=== PATIENT | female | born 1985 ===

== ENCOUNTER 2017-03-16 16:02 | Emergency (ER) | payer OTHER ==
[2017-03-16 16:02] VITALS: BMI 24.7
[2017-03-16 16:18] VITALS: BP 137/82; PULSE 89; RESP 18; TEMP 98.8; O2SAT 100
[2017-03-16] MEDS ORDERED: DiphenhydrAMINE 50 mg/ml Inj IV STA (16:45)
[2017-03-16] MEDS ORDERED: Magnesium Sulfate 2 gm/50 ml 2 GM/50 ML BAG IVPB ONE (16:46)
[2017-03-16] MEDS ORDERED: Valproate 500 MG in Sodium Chloride 0.9% 100 ML IVPB ONE (16:46)
[2017-03-16] MEDS ORDERED: Sodium Chloride 0.9% 1,000 ML IV STA (16:47)
--- NOTE | 2017-03-16 16:56 | ED PDOC ---
HPI: Headache History Per: Patient History/Exam Limitations: no limitations Onset/Duration Of Symptoms: Days (3) Current Symptoms Are (Timing): Still Present Severity: Moderate Pain Scale Rating Of: 4 Quality: Dull Preceeding Symptoms: Known Migraine Symptoms Associated Symptoms: Nausea, Vomiting Additional History Per: Patient Additional Complaint(s): Pt co headaches for 3-4 days. Headaches are cyclical and are constant. They are typical for her migraine. She took depakote at home. Pt has hx of migrain with multiple visits to this ER for the same. She reports it is the same headache. she sees Dr Nevarez for migrains but in the process of finding new neurologist. She denies any fever, weakness. She has associated abdominal pain typical for her abdominal migraine. - Risk Factors SAH Risk Factors: Neg: Worst Headache Of Life <Nadya Mascorro A - Last Filed: 03/16/17 16:58> <Miriam Lorenz Y - Last Filed: 03/16/17 17:04> Time Seen by Provider: 03/16/17 16:41 Chief Complaint (Nursing): Abdominal Pain Past Medical History Reviewed: Historical Data, Nursing Documentation, Vital Signs Vital Signs: Last Vital Signs Temp 98.8 F 03/16/17 16:14 Pulse 89 03/16/17 16:14 Resp 18 03/16/17 16:14 BP 137/82 03/16/17 16:14 Pulse Ox 100 03/16/17 16:14 - Medical History PMH: Anemia, Asthma, Bipolar Disorder, Crohn's Disease, Depression, Gastrointestinal Ulcer (peptic & gastric), Migraine (abdominal), Chronic Pain ( Abdominal) Denies: Chronic Kidney Disease - Surgical History Surgical History: Endoscopy - Family History Family History: States: Diabetes - Immunization History Hx Tetanus Toxoid Vaccination: Yes Hx Influenza Vaccination: Yes Hx Pneumococcal Vaccination: Yes <Nadya Mascorro A - Last Filed: 03/16/17 16:58> Vital Signs: Last Vital Signs Temp 98.8 F 03/16/17 16:14 Pulse 89 03/16/17 16:14 Resp 18 03/16/17 16:14 BP 137/82 03/16/17 16:14 Pulse Ox 100 03/16/17 16:59 <Miriam Lorenz Y - Last Filed: 03/16/17 17:04> - Home Medications Home Medications: Ambulatory Orders Medication Instructions Recorded Adalimumab [Humira] 40 mg SC QWK #0 syringekit 07/15/16 Alprazolam [Xanax] 0.5 mg PO TID PRN #0 tablet 07/15/16 Ondansetron [Zofran Odt] 4 mg PO Q6 PRN #0 tab.rapdis 07/15/16 ARIPiprazole [Abilify] 30 mg PO HS #0 tab 08/10/16 OXcarbazepine [Trileptal] 600 mg PO HS #0 tab 08/10/16 Topiramate [Topamax] 75 mg PO HS #0 tab 08/10/16 buPROPion XL [Wellbutrin XL] 1 tab PO DAILY 10/26/16 traMADol [Ultram] 1 tab PO Q6H 10/26/16 Hydrocodone/Acetaminophen [[place] 1 tab PO PRN PRN 11/23/16 5-325 Tablet] Ondansetron ODT [Zofran ODT] 4 mg PO Q8 #6 odt 11/23/16 Nitrofurantoin Macrocrystals 100 mg PO BID #13 cap 12/03/16 [Macrobid] traMADol [Ultram] 50 mg PO QID PRN #10 tab 12/26/16 - Allergies Allergies/Adverse Reactions: Allergies Allergy/AdvReac Type Severity Reaction Status Date / Time acetaminophen [From Percocet] Allergy SWELLING Verified 11/23/16 16:42 Gadolinium-Containing Allergy URTICARIA Verified 11/23/16 16:42 Contrast Medi Iodine and Iodide Containing Allergy RASH Verified 11/23/16 16:42 Produc Latex, Natural Rubber Allergy RASH Verified 11/23/16 16:42 morphine Allergy RASH Verified 11/23/16 16:42 oxycodone HCl [From Percocet] Allergy SWELLING Verified 11/23/16 16:42 shellfish derived Allergy RASH Verified 11/23/16 16:42 shrimp Allergy RASH Verified 11/23/16 16:42 doxycycline AdvReac extreme Verified 11/23/16 16:42 abdominal pain, cramps metronidazole [From Flagyl] AdvReac abdominal Verified 11/23/16 16:42 pain, cramps CONTRAST Allergy URTICARIA Uncoded 11/23/16 16:42 LATEX Allergy RASH Uncoded 11/23/16 16:42 SHRIMPS Allergy RASH Uncoded 11/23/16 16:42 Review of Systems ROS Statement: Except As Marked, All Systems Reviewed And Found Negative <Nadya Mascorro A - Last Filed: 03/16/17 16:58> Physical Exam - Reviewed Nursing Documentation Reviewed: Yes Vital Signs Reviewed: Yes - Physical Exam Appears: Positive for: Non-toxic, No Acute Distress, Uncomfortable Head Exam: Positive for: ATRAUMATIC Skin: Positive for: Warm, Dry Eye Exam: Positive for: EOMI Neck: Positive for: Painless ROM, Supple Cardiovascular/Chest: Positive for: Regular Rate, Rhythm. Negative for: Tachycardia Respiratory: Positive for: Normal Breath Sounds. Negative for: Wheezing, Respiratory Distress Gastrointestinal/Abdominal: Positive for: Soft. Negative for: Tenderness Extremity: Positive for: Normal ROM Neurologic/Psych: Positive for: Alert, Oriented <Nadya Mascorro - Last Filed: 03/16/17 16:58> - ECG O2 Sat by Pulse Oximetry: 100 <Nadya Mascorro - Last Filed: 03/16/17 16:58> Medical Decision Making Medical Decision Making: impression Headaches with abdominal pain Diff include abdominal migraines, less likely Crohns dx Plan Labs IVF Benadryl 50 mg IV Zofran 8 mg IV Valproic acid 500 mg IV Magnesium 2 g IV reassess <Nadya Mascorro - Last Filed: 03/16/17 16:58> Disposition - Patient ED Disposition Is Patient to be Admitted: Transfer of Care - Disposition Disposition: Transfer of Care Disposition Time: 17:00 Patient Signed Over To: Miriam Lorenz Handoff Comments: pendiong medicaiont and reeval. <Nadya Mascorro A - Last Filed: 03/16/17 16:58> <Miriam Lorenz - Last Filed: 03/16/17 17:04> - Clinical Impression Clinical Impression: Migraines - Disposition Condition: FAIR
--- NOTE | 2017-03-16 17:09 | ED PDOC ---
- Laboratory Results Result Diagrams: 03/16/17 17:32 03/16/17 17:32 - ECG O2 Sat by Pulse Oximetry: 100 (RA) Pulse Ox Interpretation: Normal Medical Decision Making Medical Decision Making: Patient signed out to provider from Dr. Mascorro at 1700 pending reevaluation after medication. 1730 Patient's potassium is low 2.8.Potassium ordered. EKG performed, normal sinus rhythm at 81 bpm. 1745 Patient feels better and will be discharged home with instructions and was instructed to have a high potassium diet at home. Patient has an appointment with GI doctor. Scribe Attestation Documented by Valeria Brandon acting as a scribe for Miriam Lorenz MD. Provider Attestation: All medical record entries made by the Scribe were at my direction and personally dictated by me. I have reviewed the chart and agree that the record accurately reflects my personal performance of the history, physical exam, medical decision making, and the department course for this patient. I have also personally directed, reviewed, and agree with the discharge instructions and disposition. Disposition Counseled Patient/Family Regarding: Studies Performed, Diagnosis, Need For Followup - Clinical Impression Clinical Impression: Migraines, Hypokalemia - POA Present On Arrival: None - Disposition Disposition: Routine/Home Disposition Time: 17:40 Condition: IMPROVED Additional Instructions: follow up with your GI doctor in 1-2 days eat high potassium food return to the ED with any worsening or concerning symptoms. Instructions: Hypokalemia (ED), Abdominal Pain (ED)
[2017-03-16 17:40] LABS: HEMATOCRIT 28.7 % (34.0-47.0); MEAN CELL VOLUME 79.6 fl (81.0-99.0); MEAN CORPUSCULAR HEMOGLOBIN 24.9 pg (27.0-31.0); MEAN CORPUSCULAR HGB CONC 31.2 g/dL (33.0-37.0); RED CELL DISTRIBUTION WIDTH 14.8 % (11.5-14.5); WHITE BLOOD COUNT 13.4 K/uL (4.8-10.8)
[2017-03-16 17:41] LABS: BASO # 0.1 K/uL (0.0-0.2); BASO % 1.1 % (0.0-2.0); EOS # 0.1 K/uL (0.0-0.7); EOS % 0.6 % (0.0-4.0); LYMPH # 2.5 K/uL (1.0-4.3); LYMPH % 18.4 % (20.0-40.0); MEAN PLATELET VOLUME 7.2 fl (7.2-11.7); MONO # 0.9 K/uL (0.0-0.8); MONO % 6.6 % (0.0-10.0); NEUT # 9.8 K/uL (1.8-7.0); NEUT % 73.3 % (50.0-75.0)
[2017-03-16 17:55] LABS: ALB/GLOB RATIO 1.4 (1.0-2.1); ALKALINE PHOSPHATASE 112 U/L (38-126); ALT/SGPT 41 U/L (9-52); AST/SGOT 43 U/L (14-36); BILIRUBIN,TOTAL < 0.1 mg/dl (0.2-1.3); BLOOD UREA NITROGEN 13 mg/dl (7-17); CALCIUM 9.2 mg/dL (8.4-10.2); CARBON DIOXIDE 27 mmol/L (22-30); CHLORIDE 98 mmol/L (98-107); GFR AFRICAN-AMERICAN > 60; GLUCOSE,RANDOM 93 mg/dL (65-105); POTASSIUM 2.8 MMOL/L (3.6-5.0); SODIUM 139 mmol/l (132-148); TOTAL PROTEIN 7.4 G/DL (6.3-8.2)
[2017-03-16] MEDS ORDERED: Potassium Chloride 20 mEq ER Tab PO ONE ×2 (18:04→18:18)
--- NOTE | 2017-03-17 15:38 | CARD ---
APPROVED REPORT EKG Measurement Heart [id number] <Conclusion> Normal sinus rhythm with sinus arrhythmia Normal ECG
== END 2017-03-16 19:53 | disposition home or self-care (01) ==
LOC: H.ER 16:02
DX: G43.909 Migraine, unspecified, not intractable, without status migrainosus (principal); E87.6 Hypokalemia; R11.2 Nausea with vomiting, unspecified

== ENCOUNTER 2017-04-07 16:01 | Observation (INO) | payer OTHER ==
[2017-04-07 16:02] VITALS: BMI 24.7
[2017-04-07 16:10] VITALS: BP 138/74; TEMP 98.6; O2SAT 100
[2017-04-07] MEDS ORDERED: DiphenhydrAMINE 50 mg/ml Inj IVP STA (16:19)
[2017-04-07] MEDS ORDERED: Magnesium Sulfate 2 gm/50 ml 2 GM/50 ML BAG IVPB ONE (16:20)
[2017-04-07] MEDS ORDERED: Sodium Chloride 0.9% 1,000 ML IV STA (16:22)
[2017-04-07] MEDS ORDERED: Valproate 500 MG in Sodium Chloride 0.9% 100 ML IVPB ONE (16:30)
[2017-04-07] MEDS ORDERED: DiphenhydrAMINE 50 mg/ml Inj ONE (16:38)
[2017-04-07] MEDS ORDERED: Magnesium Sulfate 2 gm/50 ml 2 GM/50 ML BAG ONE (16:40)
[2017-04-07 16:43] LABS: BASO # 0.2 K/uL (0.0-0.2); EOS # 0.3 K/uL (0.0-0.7); EOS % 1.5 % (0.0-4.0); HEMOGLOBIN 8.5 g/dL (12.0-16.0); LYMPH # 3.9 K/uL (1.0-4.3); LYMPH % 21.7 % (20.0-40.0); MEAN CELL VOLUME 76.7 fl (81.0-99.0); MEAN CORPUSCULAR HEMOGLOBIN 23.7 pg (27.0-31.0); MEAN CORPUSCULAR HGB CONC 30.9 g/dL (33.0-37.0); MEAN PLATELET VOLUME 6.5 fl (7.2-11.7); MONO # 1.5 K/uL (0.0-0.8); MONO % 8.7 % (0.0-10.0); NEUT % 67.1 % (50.0-75.0); RBC 3.6 Mil/uL (3.80-5.20); RED CELL DISTRIBUTION WIDTH 15.1 % (11.5-14.5); WHITE BLOOD COUNT 17.8 K/uL (4.8-10.8)
--- NOTE | 2017-04-07 16:43 | ED PDOC ---
HPI: Abdomen Time Seen by Provider: 04/07/17 16:13 Chief Complaint (Nursing): Abdominal Pain Chief Complaint (Provider): abdominal pain History Per: Patient History/Exam Limitations: no limitations Onset/Duration Of Symptoms: Days (4), Gradual, Persistent Location Of Pain/Discomfort: Diffuse Quality Of Discomfort: Cramping Associated Symptoms: Chills, Nausea, Vomiting, Diarrhea, Loss Of Appetite. denies: Fever, Urinary Symptoms Exacerbating Factors: Food Alleviating Factors: None Additional Complaint(s): Similar to previous episodes of abdominal migraine. She is unable to take her regular meds anymore due to vomiting. No hematemesis. No bloody diarrhea. Reports recent CT scan with GI specialist Dr Augustin, but does not know results. PMD: [facility] [place]. Past Medical History Reviewed: Historical Data, Nursing Documentation, Vital Signs Vital Signs: Last Vital Signs Temp 98.6 F 04/07/17 16:07 Pulse 104 H 04/07/17 18:11 Resp 14 04/07/17 18:11 BP 138/74 04/07/17 16:07 Pulse Ox 100 04/07/17 22:19 - Medical History PMH: Anemia, Asthma, Bipolar Disorder, Crohn's Disease, Depression, Gastrointestinal Ulcer (peptic & gastric), Migraine (abdominal), Chronic Pain ( Abdominal) Denies: Chronic Kidney Disease - Surgical History Surgical History: Endoscopy - Family History Family History: States: Diabetes - Social History Current smoker - smoking cessation education provided: No - Immunization History Hx Tetanus Toxoid Vaccination: Yes Hx Influenza Vaccination: Yes Hx Pneumococcal Vaccination: Yes - Home Medications Home Medications: Ambulatory Orders Medication Instructions Recorded Adalimumab [Humira] 40 mg SC QWK #0 syringekit 07/15/16 Alprazolam [Xanax] 0.5 mg PO TID PRN #0 tablet 07/15/16 Ondansetron [Zofran Odt] 4 mg PO Q6 PRN #0 tab.rapdis 07/15/16 ARIPiprazole [Abilify] 30 mg PO HS #0 tab 08/10/16 OXcarbazepine [Trileptal] 600 mg PO HS #0 tab 08/10/16 Topiramate [Topamax] 75 mg PO HS #0 tab 08/10/16 buPROPion XL [Wellbutrin XL] 1 tab PO DAILY 10/26/16 traMADol [Ultram] 1 tab PO Q6H 10/26/16 Hydrocodone/Acetaminophen [[place] 1 tab PO PRN PRN 11/23/16 5-325 Tablet] Ondansetron ODT [Zofran ODT] 4 mg PO Q8 #6 odt 11/23/16 Nitrofurantoin Macrocrystals 100 mg PO BID #13 cap 12/03/16 [Macrobid] traMADol [Ultram] 50 mg PO QID PRN #10 tab 12/26/16 Ciprofloxacin HCl [Cipro] 250 mg PO BID #6 tab 04/07/17 - Allergies Allergies/Adverse Reactions: Allergies Allergy/AdvReac Type Severity Reaction Status Date / Time acetaminophen [From Percocet] Allergy SWELLING Verified 04/07/17 16:07 Gadolinium-Containing Allergy URTICARIA Verified 04/07/17 16:07 Contrast Medi Iodine and Iodide Containing Allergy RASH Verified 04/07/17 16:07 Produc Latex, Natural Rubber Allergy RASH Verified 04/07/17 16:07 morphine Allergy RASH Verified 04/07/17 16:07 oxycodone HCl [From Percocet] Allergy SWELLING Verified 04/07/17 16:07 shellfish derived Allergy RASH Verified 04/07/17 16:07 shrimp Allergy RASH Verified 04/07/17 16:07 doxycycline AdvReac extreme Verified 04/07/17 16:07 abdominal pain, cramps metronidazole [From Flagyl] AdvReac abdominal Verified 04/07/17 16:07 pain, cramps CONTRAST Allergy URTICARIA Uncoded 04/07/17 16:07 LATEX Allergy RASH Uncoded 04/07/17 16:07 SHRIMPS Allergy RASH Uncoded 04/07/17 16:07 Review of Systems ROS Statement: Except As Marked, All Systems Reviewed And Found Negative (and as per HPI) Constitutional: Positive for: Chills, Weakness, Malaise Gastrointestinal: Positive for: Nausea, Vomiting, Abdominal Pain, Diarrhea. Negative for: Constipation, Melena, Hematochezia, Hematemesis Physical Exam - Reviewed Nursing Documentation Reviewed: Yes Vital Signs Reviewed: Yes - Physical Exam Appears: Positive for: Uncomfortable, In Acute Distress Head Exam: Positive for: ATRAUMATIC, NORMOCEPHALIC Skin: Positive for: Warm, Dry Eye Exam: Positive for: EOMI, PERRL ENT: Positive for: Other (tacky muc membranes) Neck: Positive for: Painless ROM, Supple Cardiovascular/Chest: Positive for: Regular Rate, Rhythm. Negative for: Murmur Respiratory: Positive for: Normal Breath Sounds. Negative for: Respiratory Distress Gastrointestinal/Abdominal: Positive for: Soft, Tenderness. Negative for: Mass , Distended, Guarding, Rebound Back: Positive for: Normal Inspection. Negative for: Vertebral Tenderness Extremity: Positive for: Normal ROM. Negative for: Deformity Neurologic/Psych: Positive for: Alert. Negative for: Motor/Sensory Deficits - Laboratory Results Result Diagrams: 04/07/17 20:29 04/07/17 20:29 - ECG O2 Sat by Pulse Oximetry: 100 - Progress ED Course And Treament: DW Dr Augustin GI. CT scan abd/pel on March 31 demonstrated no abnormalities. Pt will be given her typical abdominal migraine regiment and reassess. He can follow up in office. Labs demonstrated marked thrombocytopenia. Most likely due to dehydration, but still concern for severe infection. Will more aggressively hydrate and recheck CBC after 2nd boluses. 2200 On reeval pt feels better. Platelet count improved. Stable for DC. f/u Dr Augustin Disposition - Clinical Impression Clinical Impression: Abdominal pain, Thrombocytosis, UTI (urinary tract infection) Counseled Patient/Family Regarding: Studies Performed, Diagnosis, Need For Followup, Rx Given - Disposition Disposition: Routine/Home Disposition Time: 16:30 Condition: IMPROVED
[2017-04-07 17:03] LABS: ALB/GLOB RATIO 1.4 (1.0-2.1); ALBUMIN 4.6 g/dL (3.5-5.0); ALT/SGPT 63 U/L (9-52); AST/SGOT 35 U/L (14-36); BLOOD UREA NITROGEN 13 mg/dl (7-17); CALCIUM 9.4 mg/dL (8.4-10.2); GFR AFRICAN-AMERICAN > 60; GFR NON-AFRICAN AMERICAN > 60; LIPASE 146 U/L (23-300)
[2017-04-07] MEDS ORDERED: Lactated Ringer's 1,000 ML IV STA (17:30)
[2017-04-07 17:44] LABS: SQUAMOUS EPITHIAL 53 /hpf (0-5); URINE BACTERIA RARE (<OCC); URINE BILIRUBIN SMALL (NEGATIVE); URINE BLOOD NEGATIVE (NEGATIVE); URINE CLARITY CLOUDY (Clear); URINE COLOR AMBER (YELLOW); URINE GLUCOSE (UA) NEG (Normal); URINE LEUKOCYTE ESTERASE MOD Leu/uL (Negative); URINE NITRATE NEGATIVE (NEGATIVE); URINE PROTEIN 100 mg/dL (NEGATIVE); URINE UROBILINOGEN 0.2-1.0 mg/dL (0.2-1.0)
[2017-04-07 18:11] VITALS: PULSE 104; RESP 14
[2017-04-07 20:37] LABS: BASO # 0.2 K/uL (0.0-0.2); BASO % 1.2 % (0.0-2.0); EOS # 0.3 K/uL (0.0-0.7); EOS % 2.3 % (0.0-4.0); HEMOGLOBIN 7.2 g/dL (12.0-16.0); LYMPH # 4.2 K/uL (1.0-4.3); LYMPH % 27.1 % (20.0-40.0); MEAN CELL VOLUME 76.7 fl (81.0-99.0); MEAN CORPUSCULAR HEMOGLOBIN 23.5 pg (27.0-31.0); MEAN CORPUSCULAR HGB CONC 30.6 g/dL (33.0-37.0); MEAN PLATELET VOLUME 6.3 fl (7.2-11.7); MONO # 1.2 K/uL (0.0-0.8); MONO % 7.7 % (0.0-10.0); NEUT # 9.5 K/uL (1.8-7.0); NEUT % 61.7 % (50.0-75.0); RBC 3.09 Mil/uL (3.80-5.20); RED CELL DISTRIBUTION WIDTH 15.1 % (11.5-14.5); WHITE BLOOD COUNT 15.4 K/uL (4.8-10.8)
[2017-04-07 20:52] LABS: BLOOD UREA NITROGEN 8 mg/dl (7-17); CALCIUM 8.2 mg/dL (8.4-10.2); GFR AFRICAN-AMERICAN > 60; GFR NON-AFRICAN AMERICAN > 60
== END 2017-04-07 22:18 | disposition home or self-care (01) ==
LOC: H.ER 16:01 → H.EROBSV 16:31
PROVIDERS: ADMIT Emergency Medicine; ATTEND Emergency Medicine
DX: G43.D0 Abdominal migraine, not intractable (principal); D47.3 Essential (hemorrhagic) thrombocythemia; R10.84 Generalized abdominal pain; N39.0 Urinary tract infection, site not specified; F31.9 Bipolar disorder, unspecified; J45.909 Unspecified asthma, uncomplicated; K50.90 Crohn's disease, unspecified, without complications; D64.9 Anemia, unspecified; F32.9 Major depressive disorder, single episode, unspecified; G89.29 Other chronic pain; Z79.899 Other long term (current) drug therapy; Z83.3 Family history of diabetes mellitus; E86.0 Dehydration; Z88.6 Allergy status to analgesic agent; Z91.041 Radiographic dye allergy status

== ENCOUNTER 2017-04-20 16:02 | Emergency (ER) | payer OTHER ==
[2017-04-20 16:02] VITALS: BMI 21.6
[2017-04-20 16:21] VITALS: BP 131/73; PULSE 94; RESP 18; TEMP 98; O2SAT 99
--- NOTE | 2017-04-20 18:05 | ED PDOC ---
HPI: Abdomen Time Seen by Provider: 04/20/17 16:41 Chief Complaint (Nursing): Abdominal Pain Chief Complaint (Provider): Abdominal pain History Per: Patient History/Exam Limitations: no limitations Onset/Duration Of Symptoms: Days Outside of [place] travel?: No Additional Complaint(s): The patient is a 32yo female, presents to the ED for evaluation of abdominal burning. Patient reports she had a blood transfusion last week for the first time. Patient denies any fever, chills, nausea, vomiting, diarrhea, constipation. Patient currently reports she is on her menses. She offers no additional medical complaints. Past Medical History Reviewed: Historical Data, Nursing Documentation, Vital Signs Vital Signs: Last Vital Signs Temp 98 F 04/20/17 16:19 Pulse 94 H 04/20/17 16:19 Resp 18 04/20/17 16:19 BP 131/73 04/20/17 16:19 Pulse Ox 99 04/20/17 18:17 - Medical History PMH: Anemia, Asthma, Bipolar Disorder, Crohn's Disease, Depression, Gastrointestinal Ulcer (peptic & gastric), Migraine (abdominal), Chronic Pain ( Abdominal) Denies: Chronic Kidney Disease - Surgical History Surgical History: Endoscopy - Family History Family History: States: Diabetes - Immunization History Hx Tetanus Toxoid Vaccination: Yes Hx Influenza Vaccination: Yes Hx Pneumococcal Vaccination: Yes - Home Medications Home Medications: Ambulatory Orders Medication Instructions Recorded Alprazolam [Xanax] 0.5 mg PO TID PRN #0 tablet 07/15/16 Ondansetron [Zofran Odt] 4 mg PO Q6 PRN #0 tab.rapdis 07/15/16 ARIPiprazole [Abilify] 30 mg PO HS #0 tab 08/10/16 OXcarbazepine [Trileptal] 600 mg PO HS #0 tab 08/10/16 Topiramate [Topamax] 75 mg PO HS #0 tab 08/10/16 buPROPion XL [Wellbutrin XL] 1 tab PO DAILY 10/26/16 traMADol [Ultram] 1 tab PO Q6H 10/26/16 Hydrocodone/Acetaminophen [[place] 1 tab PO PRN PRN 11/23/16 5-325 Tablet] Ondansetron ODT [Zofran ODT] 4 mg PO Q8 #6 odt 11/23/16 traMADol [Ultram] 50 mg PO QID PRN #10 tab 12/26/16 Ciprofloxacin HCl [Cipro] 250 mg PO BID #6 tab 04/07/17 Prednisone [Deltasone] 04/13/17 Dicyclomine [Bentyl] 20 mg PO QID PRN #10 tab 04/20/17 - Allergies Allergies/Adverse Reactions: Allergies Allergy/AdvReac Type Severity Reaction Status Date / Time acetaminophen [From Percocet] Allergy SWELLING Verified 04/13/17 14:35 Gadolinium-Containing Allergy URTICARIA Verified 04/07/17 16:07 Contrast Medi Iodine and Iodide Containing Allergy RASH Verified 04/07/17 16:07 Produc Latex, Natural Rubber Allergy RASH Verified 04/07/17 16:07 morphine Allergy RASH Verified 04/07/17 16:07 oxycodone HCl [From Percocet] Allergy SWELLING Verified 04/07/17 16:07 shellfish derived Allergy RASH Verified 04/07/17 16:07 shrimp Allergy RASH Verified 04/07/17 16:07 doxycycline AdvReac extreme Verified 04/07/17 16:07 abdominal pain, cramps metronidazole [From Flagyl] AdvReac abdominal Verified 04/07/17 16:07 pain, cramps CONTRAST Allergy URTICARIA Uncoded 04/07/17 16:07 LATEX Allergy RASH Uncoded 04/07/17 16:07 SHRIMPS Allergy RASH Uncoded 04/07/17 16:07 Review of Systems ROS Statement: Except As Marked, All Systems Reviewed And Found Negative Constitutional: Negative for: Fever, Chills Gastrointestinal: Positive for: Abdominal Pain. Negative for: Nausea, Vomiting , Diarrhea Physical Exam - Reviewed Nursing Documentation Reviewed: Yes Vital Signs Reviewed: Yes - Physical Exam Appears: Positive for: Well, Non-toxic, No Acute Distress Head Exam: Positive for: ATRAUMATIC, NORMAL INSPECTION, NORMOCEPHALIC Skin: Positive for: Normal Color, Warm, DRY Eye Exam: Positive for: Normal appearance Neck: Positive for: Normal, Supple Cardiovascular/Chest: Positive for: Regular Rate, Rhythm Respiratory: Positive for: Normal Breath Sounds. Negative for: Respiratory Distress Gastrointestinal/Abdominal: Positive for: Soft, Tenderness (right midline lower abdominal tenderness; negative mcburneys point tenderness) Neurologic/Psych: Positive for: Alert, Oriented. Negative for: Motor/Sensory Deficits - Laboratory Results Result Diagrams: 04/20/17 18:51 04/20/17 18:51 - ECG O2 Sat by Pulse Oximetry: 99 (RA) Pulse Ox Interpretation: Normal Medical Decision Making Medical Decision Making: Time: 1700 Impression: Abdominal pain Plan: -- Labs -- Bentyl Reassess Scribe Attestation: Documented by Misty Goetz acting as a scribe for Haylie Bennett MD. Provider Attestation: All medical record entries made by the Scribe were at my direction and personally dictated by me. I have reviewed the chart and agree that the record accurately reflects my personal performance of the history, physical exam, medical decision making, and the department course for this patient. I have also personally directed, reviewed, and agree with the discharge instructions and disposition. Disposition - Clinical Impression Clinical Impression: Abdominal pain in female - Disposition Referrals: Ethan Augustin MD [Medical Doctor] - Disposition: Routine/Home Disposition Time: 20:26 Condition: STABLE Prescriptions: Dicyclomine [Bentyl] 20 mg PO QID PRN #10 tab PRN Reason: Pain, Moderate (4-7) Instructions: Abdominal Pain (ED)
[2017-04-20 18:21] LABS: SQUAMOUS EPITHIAL 1 /hpf (0-5); URINE BILIRUBIN NEGATIVE (NEGATIVE); URINE BLOOD MODERATE (NEGATIVE); URINE CLARITY CLEAR (Clear); URINE COLOR YELLOW (YELLOW); URINE GLUCOSE (UA) NEG (Normal); URINE LEUKOCYTE ESTERASE NEG Leu/uL (Negative); URINE NITRATE NEGATIVE (NEGATIVE); URINE PROTEIN NEGATIVE (NEGATIVE); URINE UROBILINOGEN 0.2-1.0 mg/dL (0.2-1.0)
[2017-04-20 19:07] LABS: BASO # 0.1 K/uL (0.0-0.2); BASO % 1.2 % (0.0-2.0); EOS # 0.2 K/uL (0.0-0.7); EOS % 1.8 % (0.0-4.0); HEMOGLOBIN 10.3 g/dL (12.0-16.0); LYMPH # 2.8 K/uL (1.0-4.3); LYMPH % 24.4 % (20.0-40.0); MEAN CELL VOLUME 81.8 fl (81.0-99.0); MEAN CORPUSCULAR HEMOGLOBIN 24.5 pg (27.0-31.0); MEAN PLATELET VOLUME 7.4 fl (7.2-11.7); MONO # 0.8 K/uL (0.0-0.8); MONO % 6.6 % (0.0-10.0); NEUT # 7.7 K/uL (1.8-7.0); RBC 4.2 Mil/uL (3.80-5.20); RED CELL DISTRIBUTION WIDTH 18.9 % (11.5-14.5); WHITE BLOOD COUNT 11.6 K/uL (4.8-10.8)
[2017-04-20 19:08] LABS: ALB/GLOB RATIO 1.4 (1.0-2.1); ALBUMIN 4.6 g/dL (3.5-5.0); ALT/SGPT 32 U/L (9-52); AST/SGOT 27 U/L (14-36); BLOOD UREA NITROGEN 5 mg/dl (7-17); CALCIUM 9.7 mg/dL (8.4-10.2); GFR AFRICAN-AMERICAN > 60; GFR NON-AFRICAN AMERICAN > 60
[2017-04-20 19:50] LABS: INR 1.2 (0.9-1.2); PARTIAL THROMBOPLASTIN TIME 26.3 Seconds (25.6-37.1); PROTHROMBIN TIME 13.1 Seconds (9.8-13.1)
== END 2017-04-20 20:43 | disposition home or self-care (01) ==
LOC: H.ER 16:02
DX: R10.9 Unspecified abdominal pain (principal); K50.90 Crohn's disease, unspecified, without complications; F31.9 Bipolar disorder, unspecified; G89.29 Other chronic pain

== ENCOUNTER 2017-04-22 13:54 | Emergency (ER) | payer OTHER ==
[2017-04-22 13:54] VITALS: BMI 21.6
[2017-04-22 14:16] VITALS: BP 126/80; PULSE 106; RESP 16; TEMP 99; O2SAT 100
--- NOTE | 2017-04-22 15:14 | ED PDOC ---
HPI: Abdomen Time Seen by Provider: 04/22/17 14:00 Chief Complaint (Nursing): Abdominal Pain Chief Complaint (Provider): abdominal pain History Per: Patient History/Exam Limitations: no limitations Onset/Duration Of Symptoms: Days Additional Complaint(s): Ashleigh Mercer is a 32 year old female well known to the ED, with a previous medical history of Crohn's disease, anemia and gastrointestinal ulcers, who presents to the ED with complaints of left sided abdominal pain radiating to her back stating she ran out of her pain medication for the past few days. Patient denies any fever, chills, nausea, vomiting or diarrhea. PMD: Ethan Augustin MD Past Medical History Reviewed: Historical Data, Nursing Documentation, Vital Signs Vital Signs: Last Vital Signs Temp 99.0 F 04/22/17 14:12 Pulse 106 H 04/22/17 14:12 Resp 16 04/22/17 14:12 BP 126/80 04/22/17 14:12 Pulse Ox 100 04/22/17 16:43 - Medical History PMH: Anemia, Asthma, Bipolar Disorder, Crohn's Disease, Depression, Gastrointestinal Ulcer (peptic & gastric), Migraine (abdominal), Chronic Pain ( Abdominal) Denies: Chronic Kidney Disease - Surgical History Surgical History: Endoscopy - Family History Family History: States: Diabetes - Immunization History Hx Tetanus Toxoid Vaccination: Yes Hx Influenza Vaccination: Yes Hx Pneumococcal Vaccination: Yes - Home Medications Home Medications: Ambulatory Orders Medication Instructions Recorded Alprazolam [Xanax] 0.5 mg PO TID PRN #0 tablet 07/15/16 Ondansetron [Zofran Odt] 4 mg PO Q6 PRN #0 tab.rapdis 07/15/16 ARIPiprazole [Abilify] 30 mg PO HS #0 tab 08/10/16 OXcarbazepine [Trileptal] 600 mg PO HS #0 tab 08/10/16 Topiramate [Topamax] 75 mg PO HS #0 tab 08/10/16 buPROPion XL [Wellbutrin XL] 1 tab PO DAILY 10/26/16 traMADol [Ultram] 1 tab PO Q6H 10/26/16 Hydrocodone/Acetaminophen [[place] 1 tab PO PRN PRN 11/23/16 5-325 Tablet] Ondansetron ODT [Zofran ODT] 4 mg PO Q8 #6 odt 11/23/16 traMADol [Ultram] 50 mg PO QID PRN #10 tab 12/26/16 Ciprofloxacin HCl [Cipro] 250 mg PO BID #6 tab 04/07/17 Prednisone [Deltasone] 04/13/17 Dicyclomine [Bentyl] 20 mg PO QID PRN #10 tab 04/20/17 - Allergies Allergies/Adverse Reactions: Allergies Allergy/AdvReac Type Severity Reaction Status Date / Time acetaminophen [From Percocet] Allergy SWELLING Verified 04/13/17 14:35 Gadolinium-Containing Allergy URTICARIA Verified 04/07/17 16:07 Contrast Medi Iodine and Iodide Containing Allergy RASH Verified 04/07/17 16:07 Produc Latex, Natural Rubber Allergy RASH Verified 04/07/17 16:07 morphine Allergy RASH Verified 04/07/17 16:07 oxycodone HCl [From Percocet] Allergy SWELLING Verified 04/07/17 16:07 shellfish derived Allergy RASH Verified 04/07/17 16:07 shrimp Allergy RASH Verified 04/07/17 16:07 doxycycline AdvReac extreme Verified 04/07/17 16:07 abdominal pain, cramps metronidazole [From Flagyl] AdvReac abdominal Verified 04/07/17 16:07 pain, cramps CONTRAST Allergy URTICARIA Uncoded 04/07/17 16:07 LATEX Allergy RASH Uncoded 04/07/17 16:07 SHRIMPS Allergy RASH Uncoded 04/07/17 16:07 Review of Systems ROS Statement: Except As Marked, All Systems Reviewed And Found Negative Constitutional: Negative for: Fever, Chills Gastrointestinal: Positive for: Abdominal Pain. Negative for: Nausea, Vomiting , Diarrhea Physical Exam - Reviewed Nursing Documentation Reviewed: Yes Vital Signs Reviewed: Yes - Physical Exam Appears: Positive for: Well, Non-toxic, No Acute Distress Head Exam: Positive for: ATRAUMATIC, NORMAL INSPECTION, NORMOCEPHALIC Skin: Positive for: Normal Color, Warm, DRY Neck: Positive for: Normal, Painless ROM Cardiovascular/Chest: Positive for: Regular Rate, Rhythm Respiratory: Positive for: CNT, Normal Breath Sounds Gastrointestinal/Abdominal: Positive for: Bowel Sounds, Soft, Tenderness (mild left sided) Back: Positive for: Normal Inspection Extremity: Positive for: Normal ROM Neurologic/Psych: Positive for: Alert, Oriented - Laboratory Results Result Diagrams: 04/22/17 15:40 04/22/17 15:40 - ECG O2 Sat by Pulse Oximetry: 100 (RA) Pulse Ox Interpretation: Normal Medical Decision Making Medical Decision Making: Initial Impression: abdominal pain Initial Plan: * labs * lipase * reevaluation 16:[address] Augustin, patient's GI doctor. Patient was advised to schedule a follow-up within 1-2 days for an endoscopy. he is very familiar with her case. 16:41 Patient reports improved condition upon re-evaluation. Patient's labs shown low potassium count, which was replenished in the ED. pt is requesting one dose of dilaudid for pain prior to discharge. Patient is stable for routine discharge and will adhere to her scheduled follow- up with Dr. Augustin. Clinical Impression- Abdominal Migraine. Scribe Attestation: Documented by Haylie North, acting as a scribe for Miriam Lorenz MD. Provider Scribe Attestation: All medical record entries made by the Scribe were at my direction and personally dictated by me. I have reviewed the chart and agree that the record accurately reflects my personal performance of the history, physical exam, medical decision making, and the department course for this patient. I have also personally directed, reviewed, and agree with the discharge instructions and disposition. Disposition - Clinical Impression Clinical Impression: Abdominal migraine - Patient ED Disposition Is Patient to be Admitted: No Counseled Patient/Family Regarding: Studies Performed, Diagnosis, Need For Followup - Disposition Disposition: Routine/Home Disposition Time: 16:00 Condition: IMPROVED Additional Instructions: follow up with Dr AUGUSTIN your GI doctor in 1-2 days return to the ED with any worsening or concerning symptoms. Instructions: Abdominal Pain (ED) Forms: [employer] ([place]ian)
[2017-04-22 15:53] LABS: BASO # 0.2 K/uL (0.0-0.2); BASO % 1.4 % (0.0-2.0); EOS # 0.2 K/uL (0.0-0.7); EOS % 1.9 % (0.0-4.0); HEMOGLOBIN 9.9 g/dL (12.0-16.0); LYMPH # 3.1 K/uL (1.0-4.3); MEAN CELL VOLUME 79.8 fl (81.0-99.0); MEAN CORPUSCULAR HEMOGLOBIN 24.8 pg (27.0-31.0); MEAN CORPUSCULAR HGB CONC 31.1 g/dL (33.0-37.0); MEAN PLATELET VOLUME 7.1 fl (7.2-11.7); MONO # 0.9 K/uL (0.0-0.8); MONO % 7.5 % (0.0-10.0); NEUT # 7.1 K/uL (1.8-7.0); NEUT % 62.2 % (50.0-75.0); RBC 3.99 Mil/uL (3.80-5.20); RED CELL DISTRIBUTION WIDTH 18.7 % (11.5-14.5); WHITE BLOOD COUNT 11.4 K/uL (4.8-10.8)
[2017-04-22 16:05] LABS: ALB/GLOB RATIO 1.5 (1.0-2.1); ALT/SGPT 28 U/L (9-52); AST/SGOT 22 U/L (14-36); BLOOD UREA NITROGEN 12 mg/dl (7-17); CALCIUM 9.5 mg/dL (8.4-10.2); GFR AFRICAN-AMERICAN > 60; GFR NON-AFRICAN AMERICAN > 60; LIPASE 174 U/L (23-300)
[2017-04-22] MEDS ORDERED: Potassium Chloride 20 mEq ER Tab PO ONE ×2 (16:24→16:50)
[2017-04-22] MEDS ORDERED: HYDROmorphone 0.5 mg/0.5 ml ISec IVP STA (16:24)
== END 2017-04-22 17:21 | disposition home or self-care (01) ==
LOC: H.ER 13:54
DX: G43.D0 Abdominal migraine, not intractable (principal); K50.90 Crohn's disease, unspecified, without complications; F31.9 Bipolar disorder, unspecified; G89.29 Other chronic pain

== ENCOUNTER 2017-05-03 13:32 | Emergency (ER) | payer OTHER ==
[2017-05-03 13:32] VITALS: BMI 21.6
[2017-05-03 13:54] VITALS: RESP 18
[2017-05-03] MEDS ORDERED: Magnesium Sulfate 2 GM in Sodium Chloride 0.9% 100 ML IVPB ONE (14:51)
[2017-05-03] MEDS ORDERED: DiphenhydrAMINE 50 mg/ml Inj IVP STA (14:53)
[2017-05-03] MEDS ORDERED: Valproate 500 MG in Sodium Chloride 0.9% 100 ML IVPB STA (14:54)
[2017-05-03 14:55] LABS: BASO # 0.2 K/uL (0.0-0.2); BASO % 1.3 % (0.0-2.0); EOS # 0.3 K/uL (0.0-0.7); EOS % 2.7 % (0.0-4.0); HEMOGLOBIN 9.7 g/dL (12.0-16.0); LYMPH # 3.1 K/uL (1.0-4.3); LYMPH % 25.3 % (20.0-40.0); MEAN CELL VOLUME 79.3 fl (81.0-99.0); MEAN CORPUSCULAR HGB CONC 32.8 g/dL (33.0-37.0); MEAN PLATELET VOLUME 6.9 fl (7.2-11.7); MONO # 0.6 K/uL (0.0-0.8); MONO % 5.2 % (0.0-10.0); NEUT # 8.1 K/uL (1.8-7.0); NEUT % 65.5 % (50.0-75.0); NRBC % 0.1 % (0.0-0.0); RBC 3.73 Mil/uL (3.80-5.20); RED CELL DISTRIBUTION WIDTH 19.8 % (11.5-14.5); WHITE BLOOD COUNT 12.4 K/uL (4.8-10.8)
[2017-05-03 15:05] LABS: ALB/GLOB RATIO 1.5 (1.0-2.1); ALBUMIN 4.1 g/dL (3.5-5.0); ALT/SGPT 41 U/L (9-52); AST/SGOT 32 U/L (14-36); BLOOD UREA NITROGEN 7 mg/dl (7-17); CALCIUM 9.9 mg/dL (8.4-10.2); GFR AFRICAN-AMERICAN > 60; GFR NON-AFRICAN AMERICAN > 60
[2017-05-03 15:16] LABS: SQUAMOUS EPITHIAL 25 /hpf (0-5); URINE BACTERIA RARE (<OCC); URINE BILIRUBIN NEGATIVE (NEGATIVE); URINE BLOOD NEGATIVE (NEGATIVE); URINE CLARITY CLOUDY (Clear); URINE COLOR YELLOW (YELLOW); URINE GLUCOSE (UA) NEG (Normal); URINE LEUKOCYTE ESTERASE LARGE Leu/uL (Negative); URINE NITRATE NEGATIVE (NEGATIVE); URINE PROTEIN NEGATIVE (NEGATIVE); URINE UROBILINOGEN 0.2-1.0 mg/dL (0.2-1.0)
--- NOTE | 2017-05-03 15:29 | ED PDOC ---
HPI: Abdomen Time Seen by Provider: 05/03/17 14:01 Chief Complaint (Nursing): Abdominal Pain Chief Complaint (Provider): abdominal migraine History Per: Patient History/Exam Limitations: no limitations Additional Complaint(s): 32yo F in ED for abdominal migraine states it started today. no fever. Past Medical History Reviewed: Historical Data, Nursing Documentation, Vital Signs Vital Signs: Last Vital Signs Temp 98.3 F 05/03/17 17:54 Pulse 86 05/03/17 17:54 Resp 18 05/03/17 17:54 BP 138/89 05/03/17 17:54 Pulse Ox 100 05/03/17 17:54 - Medical History PMH: Anemia, Asthma, Bipolar Disorder, Crohn's Disease, Depression, Gastrointestinal Ulcer (peptic & gastric), Migraine (abdominal), Chronic Pain ( Abdominal) Denies: Chronic Kidney Disease - Surgical History Surgical History: Endoscopy - Family History Family History: States: Diabetes - Immunization History Hx Tetanus Toxoid Vaccination: Yes Hx Influenza Vaccination: Yes Hx Pneumococcal Vaccination: Yes - Home Medications Home Medications: Ambulatory Orders Medication Instructions Recorded Alprazolam [Xanax] 0.5 mg PO TID PRN #0 tablet 07/15/16 ARIPiprazole [Abilify] 30 mg PO HS #0 tab 08/10/16 OXcarbazepine [Trileptal] 600 mg PO HS #0 tab 08/10/16 Topiramate [Topamax] 75 mg PO HS #0 tab 08/10/16 buPROPion XL [Wellbutrin XL] 1 tab PO DAILY 10/26/16 Ondansetron ODT [Zofran ODT] 4 mg PO Q8 #6 odt 11/23/16 traMADol [Ultram] 50 mg PO QID PRN #10 tab 12/26/16 Docusate [Colace] 100 mg PO BID #60 cap 04/23/17 Hydrocodone/Acetaminophen [[place] 1 tab PO Q4 PRN 04/23/17 325 mg-5 mg] Magnesium Citrate [Good Neighbor 300 ml PO ONCE PRN #1 bottle 04/23/17 Pharmacy Magnesium Citrate] Nitrofurantoin Macrocrystals 100 mg PO BID #14 cap 05/03/17 [Macrobid] - Allergies Allergies/Adverse Reactions: Allergies Allergy/AdvReac Type Severity Reaction Status Date / Time acetaminophen [From Percocet] Allergy SWELLING Verified 04/13/17 14:35 Gadolinium-Containing Allergy URTICARIA Verified 04/07/17 16:07 Contrast Medi Iodine and Iodide Containing Allergy RASH Verified 04/07/17 16:07 Produc Latex, Natural Rubber Allergy RASH Verified 04/07/17 16:07 morphine Allergy RASH Verified 04/07/17 16:07 oxycodone HCl [From Percocet] Allergy SWELLING Verified 04/07/17 16:07 shellfish derived Allergy RASH Verified 04/07/17 16:07 shrimp Allergy RASH Verified 04/07/17 16:07 doxycycline AdvReac extreme Verified 04/07/17 16:07 abdominal pain, cramps metronidazole [From Flagyl] AdvReac abdominal Verified 04/07/17 16:07 pain, cramps CONTRAST Allergy URTICARIA Uncoded 04/07/17 16:07 LATEX Allergy RASH Uncoded 04/07/17 16:07 SHRIMPS Allergy RASH Uncoded 04/07/17 16:07 Review of Systems ROS Statement: Except As Marked, All Systems Reviewed And Found Negative Constitutional: Negative for: Fever, Chills Gastrointestinal: Positive for: Abdominal Pain Neurological: Positive for: Headache Physical Exam - Reviewed Nursing Documentation Reviewed: Yes Vital Signs Reviewed: Yes - Physical Exam Appears: Positive for: Well, Non-toxic, No Acute Distress Skin: Positive for: Normal Color, Warm, DRY Eye Exam: Positive for: Normal appearance Cardiovascular/Chest: Positive for: Regular Rate, Rhythm Respiratory: Positive for: CNT, Normal Breath Sounds Gastrointestinal/Abdominal: Positive for: Normal Exam, Bowel Sounds, Soft. Negative for: Tenderness Neurologic/Psych: Positive for: Alert, Oriented - Laboratory Results Result Diagrams: 05/03/17 14:52 05/03/17 14:52 - ECG O2 Sat by Pulse Oximetry: 98 - Progress ED Course And Treament: pt given combination medication for adbominal migraines. Orders Category Date Time Status COMP METABOLIC PANEL Stat Chem 05/03/17 14:52 Completed CBC (WITH DIFFERENTIAL) Stat BRANDON 05/03/17 14:52 Completed DiphenhydrAMINE [Benadryl] Med 05/03/17 15:32 Discontinued 50 mg .ROUTE .STK-MED ONE DiphenhydrAMINE [Benadryl] Med 05/03/17 14:53 Discontinued 50 mg IVP STAT STA Magnesium Sulfate 2 gm Med 05/03/17 14:51 Discontinued Sodium Chloride 0.9% 100 ml IVPB ONCE Magnesium Sulfate 2 gm/50 ml [Magnesium Sulfate 2 gm/50 Med 05/03/17 15:33 Discontinued ml Water] 2 gm in 50 ml .ROUTE .STK-MED Ondansetron [Zofran Inj] Med 05/03/17 15:32 Discontinued 8 mg .ROUTE .STK-MED ONE Ondansetron [Zofran Inj] Med 05/03/17 14:51 Discontinued 8 mg IVP STAT STA Valproate [Depacon Inj] 500 mg Med 05/03/17 14:54 Discontinued Sodium Chloride 0.9% 100 ml IVPB STAT UA [URINALYSIS] Stat URINALYSIS 05/03/17 14:53 Completed Active Medications Discontinued Medications Diphenhydramine HCl (Benadryl) 50 mg IVP STAT STA Stop: 05/03/17 14:54 Last Admin: 05/03/17 15:43 Dose: 50 mg Diphenhydramine HCl (Benadryl) Confirm Administered Dose 50 mg .ROUTE .STK-MED ONE Stop: 05/03/17 15:33 Magnesium Sulfate 2 gm/ Sodium (Chloride) 104 mls @ 104 mls/hr IVPB ONCE ONE PRN Reason: 2 GM/HR Stop: 05/03/17 15:50 Valproate Sodium 500 mg/ (Sodium Chloride) 105 mls @ 105 mls/hr IVPB STAT STA Stop: 05/03/17 15:53 Last Admin: 05/03/17 15:45 Dose: 105 mls/hr Magnesium Sulfate (Magnesium Sulfate 2 Gm/50 Ml Water) Confirm Administered Dose 2 gm in 50 mls @ ud .ROUTE .STK-MED ONE Stop: 05/03/17 15:34 Ondansetron HCl (Zofran Inj) 8 mg IVP STAT STA Stop: 05/03/17 14:52 Last Admin: 05/03/17 15:39 Dose: 8 mg Ondansetron HCl (Zofran Inj) Confirm Administered Dose 8 mg .ROUTE .STK-MED ONE Stop: 05/03/17 15:33 Medical Decision Making Medical Decision Making: pt improved will be d.c [facility] with neurology UTI on UA-will Rx macrobid Disposition - Clinical Impression Clinical Impression: Abdominal migraine, Chronic migraine, UTI (lower urinary tract infection) - Patient ED Disposition Is Patient to be Admitted: No Counseled Patient/Family Regarding: Studies Performed, Diagnosis, Need For Followup - Disposition Disposition: Routine/Home Disposition Time: 19:43 Condition: IMPROVED Prescriptions: Nitrofurantoin Macrocrystals [Macrobid] 100 mg PO BID #14 cap Instructions: Urinary Tract Infection in Women (DC), Migraine Headache (ED) Forms: [employer] (Inspect Manager) ([place])
[2017-05-03] MEDS ORDERED: DiphenhydrAMINE 50 mg/ml Inj ONE (15:32)
[2017-05-03] MEDS ORDERED: Magnesium Sulfate 2 gm/50 ml 2 GM/50 ML BAG ONE (15:33)
[2017-05-03] MEDS ORDERED: Magnesium Sulfate 2 gm/50 ml 2 GM/50 ML BAG IVPB ONE (17:00)
[2017-05-03 17:55] VITALS: BP 138/89; PULSE 86; TEMP 98.3
[2017-05-04 19:43] VITALS: O2SAT 98
== END 2017-05-03 17:55 | disposition home or self-care (01) ==
LOC: H.ER 13:32
DX: G43.D0 Abdominal migraine, not intractable (principal); N39.0 Urinary tract infection, site not specified; K50.90 Crohn's disease, unspecified, without complications; F31.9 Bipolar disorder, unspecified; G89.29 Other chronic pain

== ENCOUNTER 2017-05-25 16:01 | Observation (INO) | payer OTHER ==
[2017-05-25 16:01] VITALS: BMI 21.9
[2017-05-25 16:24] VITALS: BP 139/83; PULSE 104; RESP 16; TEMP 98.6; O2SAT 100
[2017-05-25] MEDS ORDERED: Sodium Chloride 0.9% 1,000 ML IV STA (16:32)
--- NOTE | 2017-05-25 16:58 | ED PDOC ---
HPI: Abdomen Time Seen by Provider: 05/25/17 16:30 Chief Complaint (Nursing): Abdominal Pain Chief Complaint (Provider): abdominal pain, vomiting History Per: Patient History/Exam Limitations: no limitations Onset/Duration Of Symptoms: Days (3) Current Symptoms Are (Timing): Intermittent Episodes Context: Food Severity: Moderate Location Of Pain/Discomfort: Diffuse Quality Of Discomfort: Burning Associated Symptoms: Nausea, Vomiting, Diarrhea, Loss Of Appetite Exacerbating Factors: None Alleviating Factors: None Last Bowel Movement: Today Additional Complaint(s): 32yo female presents w long history of chronic abdominal complaints, now states abdominal migrane w several episodes of vomiting, blood tinged, over last 3 days associated w loose stools. Now seeing Dr Farnsworth for GI, was scheduled for colonoscopy but had poor prep thus rescheduled for may. Denies fever, syncope or melena. Abnormal Vaginal Bleeding: No Against Medical Advice - AMA Patient Left Against Medical Advice: The patient declines admission to the hospital and wishes to leave the Emergency Department. This action is against my medical advice. This decision was made with informed refusal. The patient was told that admission to the hospital is necessary. Explanation of the reasons why were discussed. The risks of leaving were explained to the patient and include, but are not limited to, worsening of known or currently unknown conditions, permanent disability and from undiagnosed or untreated conditions. The patient has the capacity to make this informed decision and understands my explanation of the current medical problem and risks of leaving. The patient voluntarily accepts these risks and signed an AMA form documenting our conversation. The patient was given the opportunity to ask questions and reconsider. The patient was encouraged to return to the Emergency Department at any time for further care. Past Medical History Reviewed: Historical Data, Nursing Documentation, Vital Signs Vital Signs: Last Vital Signs Temp 98.6 F 05/25/17 16:22 Pulse 104 H 05/25/17 16:22 Resp 16 05/25/17 16:22 BP 139/83 05/25/17 16:22 Pulse Ox 100 05/25/17 19:44 - Medical History PMH: Anemia, Asthma, Bipolar Disorder, Crohn's Disease, Depression, Gastrointestinal Ulcer (peptic & gastric), Migraine (abdominal), Chronic Pain ( Abdominal) Denies: Chronic Kidney Disease - Surgical History Surgical History: Endoscopy - Family History Family History: States: Diabetes - Immunization History Hx Tetanus Toxoid Vaccination: Yes Hx Influenza Vaccination: Yes Hx Pneumococcal Vaccination: Yes - Home Medications Home Medications: Ambulatory Orders Medication Instructions Recorded Alprazolam [Xanax] 0.5 mg PO TID PRN #0 tablet 07/15/16 ARIPiprazole [Abilify] 30 mg PO HS #0 tab 08/10/16 OXcarbazepine [Trileptal] 600 mg PO HS #0 tab 08/10/16 Topiramate [Topamax] 75 mg PO HS #0 tab 08/10/16 buPROPion XL [Wellbutrin XL] 1 tab PO DAILY 10/26/16 Ondansetron ODT [Zofran ODT] 4 mg PO Q8 #6 odt 11/23/16 traMADol [Ultram] 50 mg PO QID PRN #10 tab 12/26/16 - Allergies Allergies/Adverse Reactions: Allergies Allergy/AdvReac Type Severity Reaction Status Date / Time acetaminophen [From Percocet] Allergy SWELLING Verified 05/05/17 07:48 Gadolinium-Containing Allergy URTICARIA Verified 05/05/17 07:48 Contrast Medi Iodine and Iodide Containing Allergy RASH Verified 05/05/17 07:48 Produc Latex, Natural Rubber Allergy RASH Verified 05/05/17 07:48 morphine Allergy RASH Verified 05/05/17 07:48 oxycodone HCl [From Percocet] Allergy SWELLING Verified 05/05/17 07:48 shellfish derived Allergy RASH Verified 05/05/17 07:48 shrimp Allergy RASH Verified 05/05/17 07:48 doxycycline AdvReac extreme Verified 05/05/17 07:48 abdominal pain, cramps metronidazole [From Flagyl] AdvReac abdominal Verified 05/05/17 07:48 pain, cramps CONTRAST Allergy URTICARIA Uncoded 04/07/17 16:07 LATEX Allergy RASH Uncoded 04/07/17 16:07 SHRIMPS Allergy RASH Uncoded 04/07/17 16:07 Review of Systems ROS Statement: Except As Marked, All Systems Reviewed And Found Negative Constitutional: Negative for: Fever, Chills ENT: Negative for: Nose Pain, Throat Pain Cardiovascular: Negative for: Chest Pain Respiratory: Negative for: Cough, Shortness of Breath Gastrointestinal: Positive for: Nausea, Vomiting, Abdominal Pain, Diarrhea Genitourinary Female: Negative for: Dysuria, Frequency Musculoskeletal: Negative for: Neck Pain, Shoulder Pain Skin: Negative for: Rash, Lesions, Jaundice Neurological: Positive for: Headache. Negative for: Weakness, Numbness Physical Exam - Reviewed Nursing Documentation Reviewed: Yes Vital Signs Reviewed: Yes - Physical Exam Appears: Positive for: Well, Non-toxic, No Acute Distress Head Exam: Positive for: ATRAUMATIC, NORMAL INSPECTION, NORMOCEPHALIC Skin: Positive for: Normal Color, Warm, DRY Eye Exam: Positive for: EOMI, Normal appearance, PERRL ENT: Positive for: Normal ENT Inspection Neck: Positive for: Normal, Painless ROM Cardiovascular/Chest: Positive for: Regular Rate, Rhythm Respiratory: Positive for: CNT, Normal Breath Sounds Gastrointestinal/Abdominal: Positive for: Bowel Sounds, Soft. Negative for: Tenderness, Guarding, Rebound Back: Positive for: Normal Inspection Extremity: Positive for: Normal ROM Neurologic/Psych: Positive for: Alert, Oriented. Negative for: Motor/Sensory Deficits - Laboratory Results Result Diagrams: 05/25/17 17:30 05/25/17 17:30 - ECG O2 Sat by Pulse Oximetry: 100 Medical Decision Making Medical Decision Making: will check labs, initiate IVF and antiemetic, pepcid, bentyl. ------- labs reviewed, revealing elevated WBC and elevated lipase compared to prior values. Hgb in range of prior, although trending down. 630p Explained findings to patient, d/w GI fellow Dr Dejesus, recommended IVF LR and protonix, admit, Abd US, will consult. ~7pm D/w FP resident for Obs admission. 730p- patient initially agreeable to stay in hospital, then stated wanted to leave as worried about sick time. Explained will give work note but wants to followup w PMD in morning and understands will return to ER overnight if pain worsens. Explained all risks of worsening pancreatitis included severe abdominal complications, infection, organ failure and . She understands and signed AMA. Disposition - Clinical Impression Clinical Impression: Pancreatitis - Patient ED Disposition Is Patient to be Admitted: Yes Counseled Patient/Family Regarding: Studies Performed, Diagnosis - Disposition Disposition: Against Medical Advice Disposition Time: 18:30 Condition: FAIR - Pt Status Changed To: Hospital Disposition Of: Observation - POA Present On Arrival: None
[2017-05-25] MEDS ORDERED: Magnesium Sulfate 2 gm/50 ml 2 GM/50 ML BAG IVPB ONE (17:05)
[2017-05-25 17:15] LABS: RBC URINE 3 /hpf (0-3); URINE BILIRUBIN NEGATIVE (NEGATIVE); URINE BLOOD SMALL (NEGATIVE); URINE COLOR YELLOW (YELLOW); URINE GLUCOSE (UA) NEG (Normal); URINE KETONE NEGATIVE (NEGATIVE); URINE LEUKOCYTE ESTERASE MOD Leu/uL (Negative); URINE PROTEIN NEGATIVE (NEGATIVE); URINE UROBILINOGEN 0.2-1.0 mg/dL (0.2-1.0); WBC URINE 10 /hpf (0-5)
[2017-05-25] MEDS ORDERED: Magnesium Sulfate 2 gm/50 ml 2 GM/50 ML BAG ONE (17:34)
[2017-05-25 17:38] LABS: BASO # 0.1 K/uL (0.0-0.2); BASO % 0.7 % (0.0-2.0); EOS # 0.2 K/uL (0.0-0.7); HEMATOCRIT 29.3 % (34.0-47.0); LYMPH % 24.1 % (20.0-40.0); MEAN CELL VOLUME 78.2 fl (81.0-99.0); MEAN CORPUSCULAR HEMOGLOBIN 24.7 pg (27.0-31.0); MEAN CORPUSCULAR HGB CONC 31.6 g/dL (33.0-37.0); MONO % 6.1 % (0.0-10.0); NEUT # 11.2 K/uL (1.8-7.0); NEUT % 68.1 % (50.0-75.0); RED CELL DISTRIBUTION WIDTH 19.6 % (11.5-14.5); WHITE BLOOD COUNT 16.4 K/uL (4.8-10.8)
[2017-05-25 17:54] LABS: ALB/GLOB RATIO 1.5 (1.0-2.1); ALKALINE PHOSPHATASE 107 U/L (38-126); ALT/SGPT 21 U/L (9-52); AST/SGOT 20 U/L (14-36); BILIRUBIN,TOTAL 0.2 mg/dl (0.2-1.3); BLOOD UREA NITROGEN 8 mg/dl (7-17); CALCIUM 9.4 mg/dL (8.4-10.2); CARBON DIOXIDE 23 mmol/L (22-30); CHLORIDE 104 mmol/L (98-107); GFR AFRICAN-AMERICAN > 60; GLUCOSE,RANDOM 98 mg/dL (65-105); LIPASE 1051 U/L (23-300); POTASSIUM 3.2 MMOL/L (3.6-5.0); SODIUM 138 mmol/l (132-148); TOTAL PROTEIN 6.9 G/DL (6.3-8.2)
[2017-05-25] MEDS ORDERED: Lactated Ringer's 1,000 ML IV SCH ×3 (19:00→19:15)
[2017-05-25] MEDS ORDERED: Potassium Chloride 20 mEq ER Tab PO ONE ×2 (19:06→19:42)
--- NOTE | 2017-05-25 19:57 | CP.PCM.PCO ---
<Taiwo Conway - Last Filed: 05/25/17 19:57> Against Medical Advice - AMA Patient Left Against Medical Advice: The patient declines admission to the hospital and wishes to leave the Emergency Department. This action is against my medical advice. This decision was made with informed refusal. The patient was told that admission to the hospital is necessary. Explanation of the reasons why were discussed. The risks of leaving were explained to the patient and include, but are not limited to, worsening of known or currently unknown conditions, permanent disability and from undiagnosed or untreated conditions. The patient has the capacity to make this informed decision and understands my explanation of the current medical problem and risks of leaving. The patient voluntarily accepts these risks and signed an AMA form documenting our conversation. The patient was given the opportunity to ask questions and reconsider. The patient was encouraged to return to the Emergency Department at any time for further care. <Aliya Hooker - Last Filed: 05/26/17 07:51> Physician Communication Note - Physician Communication Note Physician Communication Note: PT. SEEN/EVALUATED BY ED ATTENDING. CASE DISCUSSED ATLENGTH WITH RESIDENT. Against Medical Advice - AMA Patient Left Against Medical Advice: The patient declines admission to the hospital and wishes to leave the Emergency Department. This action is against my medical advice. This decision was made with informed refusal. The patient was told that admission to the hospital is necessary. Explanation of the reasons why were discussed. The risks of leaving were explained to the patient and include, but are not limited to, worsening of known or currently unknown conditions, permanent disability and from undiagnosed or untreated conditions. The patient has the capacity to make this informed decision and understands my explanation of the current medical problem and risks of leaving. The patient voluntarily accepts these risks and signed an AMA form documenting our conversation. The patient was given the opportunity to ask questions and reconsider. The patient was encouraged to return to the Emergency Department at any time for further care.
== END 2017-05-25 19:45 | disposition left against medical advice (07) ==
LOC: H.ER 16:01 → H.ERHOLD 18:57
PROVIDERS: ADMIT Emergency Medicine; ATTEND Emergency Medicine
DX: K85.90 Acute pancreatitis without necrosis or infection, unspecified (principal); F31.9 Bipolar disorder, unspecified; J45.909 Unspecified asthma, uncomplicated; K50.90 Crohn's disease, unspecified, without complications; Z87.11 Personal history of peptic ulcer disease; D64.9 Anemia, unspecified; F32.9 Major depressive disorder, single episode, unspecified; G43.D0 Abdominal migraine, not intractable; G89.29 Other chronic pain; Z79.899 Other long term (current) drug therapy; R74.8 Abnormal levels of other serum enzymes; Z83.3 Family history of diabetes mellitus; Z88.6 Allergy status to analgesic agent; Z91.041 Radiographic dye allergy status
CPT/HCPCS: 80053; 81003; 81025; 83690; 85025; 96365; 96375; 99283; G0378; J2405; J7040

== ENCOUNTER 2017-05-28 06:50 | Inpatient (IN) | payer OTHER ==
[2017-05-28 06:51] VITALS: BMI 21.9
[2017-05-28] MEDS ORDERED: Sodium Chloride 0.9% 1,000 ML IV STA (07:25)
[2017-05-28 08:11] LABS: BASO # 0.1 K/uL (0.0-0.2); EOS # 0.3 K/uL (0.0-0.7); LYMPH # 2.3 K/uL (1.0-4.3); LYMPH % 15.3 % (20.0-40.0); MEAN CELL VOLUME 78.9 fl (81.0-99.0); MEAN CORPUSCULAR HEMOGLOBIN 24.8 pg (27.0-31.0); MEAN CORPUSCULAR HGB CONC 31.4 g/dL (33.0-37.0); MEAN PLATELET VOLUME 7.2 fl (7.2-11.7); MONO # 0.8 K/uL (0.0-0.8); MONO % 5.5 % (0.0-10.0); NEUT # 11.2 K/uL (1.8-7.0); NEUT % 76.2 % (50.0-75.0); RED CELL DISTRIBUTION WIDTH 20.3 % (11.5-14.5); WHITE BLOOD COUNT 14.7 K/uL (4.8-10.8)
--- NOTE | 2017-05-28 08:13 | ED PDOC ---
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 Seen here 3 days ago and diagnosed mild pancreatitis, signed AMA and now returns w persistent symptoms. Denies fever, hematemesis or syncope. Past Medical History Reviewed: Historical Data, Nursing Documentation, Vital Signs Vital Signs: Last Vital Signs Temp 98.8 F 05/28/17 06:59 Pulse 120 H 05/28/17 06:59 Resp 20 05/28/17 06:59 BP 152/86 H 05/28/17 06:59 Pulse Ox 100 05/28/17 11:49 - Medical History PMH: Anemia, Asthma, Bipolar Disorder, Crohn's Disease, Depression, Gastrointestinal Ulcer (peptic & gastric), Migraine (abdominal), Pancreatitis, Chronic Pain (Abdominal) Denies: Chronic Kidney Disease - Surgical History Surgical History: Endoscopy - Family History Family History: States: Diabetes - Immunization History Hx Tetanus Toxoid Vaccination: Yes Hx Influenza Vaccination: Yes Hx Pneumococcal Vaccination: Yes - Home Medications Home Medications: Ambulatory Orders Medication Instructions Recorded Alprazolam [Xanax] 0.5 mg PO TID PRN #0 tablet 07/15/16 ARIPiprazole [Abilify] 30 mg PO HS #0 tab 08/10/16 OXcarbazepine [Trileptal] 600 mg PO HS #0 tab 08/10/16 Topiramate [Topamax] 75 mg PO HS #0 tab 08/10/16 buPROPion XL [Wellbutrin XL] 1 tab PO DAILY 10/26/16 Ondansetron ODT [Zofran ODT] 4 mg PO Q8 #6 odt 11/23/16 traMADol [Ultram] 50 mg PO QID PRN #10 tab 12/26/16 - Allergies Allergies/Adverse Reactions: Allergies Allergy/AdvReac Type Severity Reaction Status Date / Time acetaminophen [From Percocet] Allergy SWELLING Verified 05/28/17 06:59 Gadolinium-Containing Allergy URTICARIA Verified 05/28/17 06:59 Contrast Medi Iodine and Iodide Containing Allergy RASH Verified 05/28/17 06:59 Produc Latex, Natural Rubber Allergy RASH Verified 05/28/17 06:59 morphine Allergy RASH Verified 05/28/17 06:59 oxycodone HCl [From Percocet] Allergy SWELLING Verified 05/28/17 06:59 shellfish derived Allergy RASH Verified 05/28/17 06:59 shrimp Allergy RASH Verified 05/28/17 06:59 doxycycline AdvReac extreme Verified 05/28/17 06:59 abdominal pain, cramps metronidazole [From Flagyl] AdvReac abdominal Verified 05/28/17 06:59 pain, cramps CONTRAST Allergy URTICARIA Uncoded 05/28/17 06:59 LATEX Allergy RASH Uncoded 05/28/17 06:59 SHRIMPS Allergy RASH Uncoded 05/28/17 06:59 Review of Systems ROS Statement: Except As Marked, All Systems Reviewed And Found Negative Constitutional: Negative for: Fever, Chills Cardiovascular: Negative for: Chest Pain, Palpitations Respiratory: Negative for: Cough, Shortness of Breath Gastrointestinal: Positive for: Nausea, Vomiting, Abdominal Pain. Negative for : Hematemesis, Rectal Pain Genitourinary Female: Negative for: Dysuria, Frequency Musculoskeletal: Positive for: Back Pain. Negative for: Neck Pain, Shoulder Pain Skin: Negative for: Rash, Lesions Neurological: Positive for: Dizziness. Negative for: Weakness, Numbness, Altered Mental Status Physical Exam - Reviewed Nursing Documentation Reviewed: Yes Vital Signs Reviewed: Yes - Physical Exam Appears: Positive for: Well, Non-toxic, No Acute Distress Head Exam: Positive for: ATRAUMATIC, NORMAL INSPECTION, NORMOCEPHALIC Skin: Positive for: Normal Color, Warm, DRY Eye Exam: Positive for: EOMI, Normal appearance, PERRL ENT: Positive for: Normal ENT Inspection Neck: Positive for: Normal, Painless ROM Cardiovascular/Chest: Positive for: Regular Rate, Rhythm Respiratory: Positive for: CNT, Normal Breath Sounds Gastrointestinal/Abdominal: Positive for: Bowel Sounds, Soft, Tenderness (mild diffuse tenderness) Back: Positive for: Normal Inspection Extremity: Positive for: Normal ROM Neurologic/Psych: Positive for: Alert, Oriented - Laboratory Results Result Diagrams: 05/28/17 07:00 05/28/17 07:00 - ECG O2 Sat by Pulse Oximetry: 100 Medical Decision Making Medical Decision Making: workup re-initiated for abd pain in setting of recently elevated lipase. 11:40 US abdomen FINDINGS: LIVER: Measures approximately 17 cm in CC dimension. Smooth contour and normal echotexture. Echogenicity of the liver parenchyma. No mass. No intrahepatic bile duct dilatation. The portal vein exhibits hepatopetal flow GALLBLADDER: No evidence of intraluminal gallbladder calculi. No wall thickening, pericholecystic fluid collections or sonographic Morris sign COMMON BILE DUCT: Measures 2.8 mm. No stones. No dilatation. PANCREAS: Unremarkable as visualized. No mass. No ductal dilatation. RIGHT KIDNEY: Measures approximately 11.9 x 4.1 x 6.3cm. Normal echogenicity. No calculus, mass, or hydronephrosis. LEFT KIDNEY: Measures approximately 11.2 x 5.8 x 4.3cm. Normal echogenicity. No calculus, mass, or hydronephrosis. SPLEEN: Normal size measuring approximately 7.1 cm in greatest dimension. Normal contour and echotexture without mass collection or calcification. AORTA: No aneurysmal dilatation. IVC: Unremarkable. OTHER FINDINGS: None. IMPRESSION: Unremarkable abdominal ultrasound Pt required further pain medicine. Remains uncomfortable Will place Obs given leukocytosis, abd pain, recent pancreatitis. Disposition - Clinical Impression Clinical Impression: Abdominal pain, Leukocytosis - Patient ED Disposition Is Patient to be Admitted: Yes Counseled Patient/Family Regarding: Studies Performed, Diagnosis - Disposition Disposition Time: 10:55 Condition: STABLE Forms: [employer] (M[employer]ese)
[2017-05-28 08:23] LABS: ALB/GLOB RATIO 1.5 (1.0-2.1); ALKALINE PHOSPHATASE 118 U/L (38-126); ALT/SGPT 19 U/L (9-52); AST/SGOT 28 U/L (14-36); BILIRUBIN,TOTAL 0.5 mg/dl (0.2-1.3); BLOOD UREA NITROGEN 6 mg/dl (7-17); CALCIUM 9.4 mg/dL (8.4-10.2); CARBON DIOXIDE 24 mmol/L (22-30); CHLORIDE 100 mmol/L (98-107); GFR AFRICAN-AMERICAN > 60; GLUCOSE,RANDOM 102 mg/dL (65-105); LIPASE 90 U/L (23-300); SODIUM 140 mmol/l (132-148); TOTAL PROTEIN 7.1 G/DL (6.3-8.2)
[2017-05-28] MEDS ORDERED: Potassium Chloride 20 mEq ER Tab PO ONE (08:53)
[2017-05-28] MEDS ORDERED: Magnesium Sulfate 2 gm/50 ml 2 GM/50 ML BAG IVPB ONE (08:53)
[2017-05-28 08:58] LABS: POTASSIUM 3.5 MMOL/L (3.6-5.0)
[2017-05-28 11:33] LABS: RBC URINE 9 /hpf (0-3); URINE BILIRUBIN NEGATIVE (NEGATIVE); URINE BLOOD SMALL (NEGATIVE); URINE COLOR YELLOW (YELLOW); URINE GLUCOSE (UA) NEG (Normal); URINE KETONE 20 mg/dL (NEGATIVE); URINE LEUKOCYTE ESTERASE LARGE Leu/uL (Negative); URINE PROTEIN NEGATIVE (NEGATIVE); URINE UROBILINOGEN 0.2-1.0 mg/dL (0.2-1.0); WBC URINE 17 /hpf (0-5)
--- NOTE | 2017-05-28 11:42 | US ---
HISTORY: Abdominal pain COMPARISON: Comparison made with abdominal ultrasound 04/25/[address] scan of the abdomen and pelvis 07/08/2016. TECHNIQUE: Sonographic evaluation of the abdomen. FINDINGS: LIVER: Measures approximately 17 cm in CC dimension. Smooth contour and normal echotexture. Echogenicity of the liver parenchyma. No mass. No intrahepatic bile duct dilatation. The portal vein exhibits hepatopetal flow GALLBLADDER: No evidence of intraluminal gallbladder calculi. No wall thickening, pericholecystic fluid collections or sonographic Morris sign COMMON BILE DUCT: Measures 2.8 mm. No stones. No dilatation. PANCREAS: Unremarkable as visualized. No mass. No ductal dilatation. RIGHT KIDNEY: Measures approximately 11.9 x 4.1 x 6.3cm. Normal echogenicity. No calculus, mass, or hydronephrosis. LEFT KIDNEY: Measures approximately 11.2 x 5.8 x 4.3cm. Normal echogenicity. No calculus, mass, or hydronephrosis. SPLEEN: Normal size measuring approximately 7.1 cm in greatest dimension. Normal contour and echotexture without mass collection or calcification. AORTA: No aneurysmal dilatation. IVC: Unremarkable. OTHER FINDINGS: None. IMPRESSION: Unremarkable abdominal ultrasound
[2017-05-28] MEDS ORDERED: HYDROmorphone 0.5 mg/0.5 ml ISec IVP STA (12:23)
[2017-05-28] MEDS ORDERED: Ciprofloxacin 400mg/200ml D5W 400 MG/200 ML BAG IVPB STA (12:25)
[2017-05-28] MEDS ORDERED: HYDROmorphone 0.5 mg/0.5 ml ISec ONE (12:35)
[2017-05-28] MEDS ORDERED: Ciprofloxacin 400mg/200ml D5W 400 MG/200 ML BAG IVPB ONE (12:35)
[2017-05-28 13:05] LABS: VENOUS BLOOD GAS BASE EXCESS 1.8 mmol/L (0.0-2.0); VENOUS BLOOD GAS PCO2 42 mmHg (40-60); VENOUS BLOOD PH 7.41 (7.32-7.43)
--- NOTE | 2017-05-28 13:14 | CP.PCM.HP ---
History of Present Illness - History of Present Illness History of Present Illness: 32 y/o F with a PMHx of Chrons disease, depression, bipolar disorder, gastric ulcer and ?autoimmune hepatitis is admitted with c/o nausea, vomiting, and abdominal pain. Pt explains vomiting began 6 days ago, began as a non-bloody episode, once per day that increased in frequency progressively, 4 episodes this morning and only 1 episode of blood in vomit during 2nd day of symptomatology. Abdominal pain is constant, more severe on upper quadrants, radiates to lower back and upper thighs. Pt complains of associated headaches and dizziness which are frequent to her. Pt does NOT know causative triggers. Pt under GI specialist management, will undergo colonoscopy on Jun 12. Pt denies fever, CP, SOB, change in bowel movement, blood in stools, irregular menses, dysmenorrhea, or rash. Meds: Tramadol 50 QID. Percocet 5/325 TID, Wellbutryn XL 300 QD, Xanax 0.5 TID ANUP. NO Abilify, Trileptal nor Lamictal. PMHx: Chrons disease, depression, gastric ulcer and autoimmune hepatitis? PSHx: 2 Abdominal adhesions repairs. [employer]/OB Hx: LMP 1 week ago, regular and 5-days bleeding menses. . 1 induced and 1 spontaneous . SHx: No tobacco, ETOH or recreational drugs. PMD: Dr Arshad. GI: Dr Eugene/Zeke. Psychiatrist: Dr Zaman. Intelligence Applications: Dr. Alcides Rinaldi. ED Course: CBC, CMP, B-HCG, lipase, VBG, IV NaCL soln, Ciprofloxacin, Hydromorphine, Potassium Chloride, Mg Sulfate, famotidine, Toradol, Ondansetron. Present on Admission - Present on Admission Any Indicators Present on Admission: No History of DVT/PE: No History of Uncontrolled Diabetes: No Urinary Catheter: No Decubitus Ulcer Present: No Review of Systems - Review of Systems Review of Systems: See HPI. - Constitutional Constitutional: As Per HPI - Cardiovascular Cardiovascular: As Per HPI - Respiratory Respiratory: As Per HPI - Gastrointestinal Gastrointestinal: Abdominal Pain, Nausea, Vomiting. absent: Belching, Bloating , Change in Bowel Habits, Change in Stool Character, Diarrhea - Genitourinary Genitourinary: As Per HPI - Reproductive: Female Reproductive:Female: As Per HPI. absent: Amenorrhea - Neurological Neurological: As Per HPI Past Patient History - Infectious Disease Hx of Infectious Diseases: None - Tetanus Immunizations Tetanus Immunization: Allergy to Tetanus Vaccine - Past Medical History & Family History Past Medical History?: Yes - Past Social History Smoking Status: Never Smoked - CARDIAC Hx Cardiac Disorders: No - PULMONARY Hx Asthma: Yes - NEUROLOGICAL Hx Migraine: Yes (abdominal) - HEENT Hx HEENT Problems: No - RENAL Hx Chronic Kidney Disease: No - ENDOCRINE/METABOLIC Hx Endocrine Disorders: No - HEMATOLOGICAL/ONCOLOGICAL Hx Anemia: Yes - INTEGUMENTARY Hx Dermatological Problems: No - MUSCULOSKELETAL/RHEUMATOLOGICAL Hx Musculoskeletal Disorders: No - GASTROINTESTINAL Hx Crohn's Disease: Yes Hx Pancreatitis: Yes - GENITOURINARY/GYNECOLOGICAL Hx Genitourinary Disorders: No - PSYCHIATRIC Hx Bipolar Disorder: Yes Hx Depression: Yes - SURGICAL HISTORY Hx Surgeries: Yes Other/Comment: laparoscopy for abdominal adhesions X 2 - ANESTHESIA Hx Anesthesia: Yes Hx Anesthesia Reactions: No Hx Malignant Hyperthermia: No Meds Allergies/Adverse Reactions: Allergies Allergy/AdvReac Type Severity Reaction Status Date / Time acetaminophen [From Percocet] Allergy SWELLING Verified 05/28/17 06:59 Gadolinium-Containing Allergy URTICARIA Verified 05/28/17 06:59 Contrast Medi Iodine and Iodide Containing Allergy RASH Verified 05/28/17 06:59 Produc Latex, Natural Rubber Allergy RASH Verified 05/28/17 06:59 morphine Allergy RASH Verified 05/28/17 06:59 oxycodone HCl [From Percocet] Allergy SWELLING Verified 05/28/17 06:59 shellfish derived Allergy RASH Verified 05/28/17 06:59 shrimp Allergy RASH Verified 05/28/17 06:59 doxycycline AdvReac extreme Verified 05/28/17 06:59 abdominal pain, cramps metronidazole [From Flagyl] AdvReac abdominal Verified 05/28/17 06:59 pain, cramps CONTRAST Allergy URTICARIA Uncoded 05/28/17 06:59 LATEX Allergy RASH Uncoded 05/28/17 06:59 SHRIMPS Allergy RASH Uncoded 05/28/17 06:59 Physical Exam - Constitutional Appears: Well, No Acute Distress - Head Exam Head Exam: ATRAUMATIC - Eye Exam Eye Exam: EOMI, Normal appearance, PERRL Additional comments: B/L Conjuntiva pale. - ENT Exam ENT Exam: Mucous Membranes Dry, Normal Oropharynx - Neck Exam Neck exam: Positive for: Full Rom - Respiratory Exam Respiratory Exam: Clear to Auscultation Bilateral, NORMAL BREATHING PATTERN - Cardiovascular Exam Cardiovascular Exam: REGULAR RHYTHM - GI/Abdominal Exam GI & Abdominal Exam: Hyperactive Bowel Sounds, Soft, Tenderness. absent: Distended, Guarding, Mass Additional comments: ND, hyperactive bowel sounds, diffusely tender on all quadrants, [place] neg, psoas sign negative. Results - Vital Signs Recent Vital Signs: Last Vital Signs Temp 98.4 F 05/28/17 12:24 Pulse 107 H 05/28/17 12:24 Resp 19 05/28/17 12:24 BP 147/80 05/28/17 12:24 Pulse Ox 98 05/28/17 12:24 - Labs Result Diagrams: 05/28/17 07:00 05/28/17 07:00 Assessment & Plan - Assessment and Plan (Free Text) Assessment: 32 y/o F with a PMHx of Chrons disease and ? autoimmune hepatitis c/o non- bloody vomiting and diffuse abdominal pain. Plan: 1. Severe abdominal pain Crohn disease VS gastric ulcer VS ?autoimmune hepatitis VS unknown etiology. Gastroenterology consulted. Blood culture, urine culture ordered. Toradol 15mg IVP Q6H PRN for mild pain. Toradol 30mg for moderate pain. Tramadol 50mg Q6H PO for severe pain. Consulted Pain management, awaiting advice. As per GI: -Clear liquid diet. -Pt does not need antibiotics -If unable to tolerate PO, will perform CT abdomen pelvis w/ constrant with pre- medications and IV fluids will be initiated. 2. UTI Urinalysis showed microscopic WBC's, cloudy, large leuko esterase. Nitrofurantoin initiated. F/U symptoms. 3. Bipolar disorder Welbutryn XL 300 QD, Xanax 0.5 TID ANUP. -NO Abilify, Trileptal nor Lamictal. 4. Microcytic Anemia Hgb 9.4-low F/U CBC. 5. Thrombocytosis Plt count 762-elevated. Hx of 400-500 range. Since March in 700s range. F/U repeated CBC and peripheral smear. 6. DVT prophylaxis SCDs
[2017-05-28 13:33] LABS: IRON 13 ug/dL (37-170)
--- NOTE | 2017-05-28 14:21 | CP.PCM.CON ---
<Angelina Allen - Last Filed: 05/28/17 14:41> History of Present Illness - History of Present Illness History of Present Illness: GI Fellow PGY4 Consult Note This is a 32yF with a pmhx of Crohn's disease diagnosed 2007 on Humira, anxiety/ depression, anemia, cholangitis, asthma, and superficial gastric ulcer on prior EGD. Pt is pw co nausea, vomiting and abdominal pain for two weeks and she reports she is unable to hold down any fluids. Pt reports bilious nonbloody emesis with episodes of some blood tinge with last episode of vomiting. Pt reports abdominal pain is constant across her upper abdomen and radiates down her back and upper thighs. Pt denies fevers, chills, diarrhea, or rectal bleeding. Pt was recently in the ER 3 days ago for similar symptoms were she was diagnosed with acute pancreatitis with elevated lipase of 1051 but lipase today is 90, no imaging studies were ordered as patient left AMA. Pt is scheduled for a colonoscopy on Jun [address] Augustin. Last Colonoscopy was showing mucosa edema, inflammation and crypt distortions. Last EGD 09/2016 with superficial gastric ulcer in the antrum, nonbleeding. ROS: A 12pt ROS was obtained and was negative except as above. PmHx: As stated in the HPI PsHx: Lysis of abdominal adhesions SHx: No tobacco, ETOH or illicit drug use FHx: Denies family hx of colon cancer or IBD Past Patient History - Infectious Disease Hx of Infectious Diseases: None - Tetanus Immunizations Tetanus Immunization: Allergy to Tetanus Vaccine - Past Medical History & Family History Past Medical History?: Yes - Past Social History Smoking Status: Never Smoked - CARDIAC Hx Cardiac Disorders: No - PULMONARY Hx Asthma: Yes - NEUROLOGICAL Hx Migraine: Yes (abdominal) - HEENT Hx HEENT Problems: No - RENAL Hx Chronic Kidney Disease: No - ENDOCRINE/METABOLIC Hx Endocrine Disorders: No - HEMATOLOGICAL/ONCOLOGICAL Hx Anemia: Yes - INTEGUMENTARY Hx Dermatological Problems: No - MUSCULOSKELETAL/RHEUMATOLOGICAL Hx Musculoskeletal Disorders: No - GASTROINTESTINAL Hx Crohn's Disease: Yes Hx Pancreatitis: Yes - GENITOURINARY/GYNECOLOGICAL Hx Genitourinary Disorders: No - PSYCHIATRIC Hx Bipolar Disorder: Yes Hx Depression: Yes - SURGICAL HISTORY Hx Surgeries: Yes Other/Comment: laparoscopy for abdominal adhesions X 2 - ANESTHESIA Hx Anesthesia: Yes Hx Anesthesia Reactions: No Hx Malignant Hyperthermia: No Meds Allergies/Adverse Reactions: Allergies Allergy/AdvReac Type Severity Reaction Status Date / Time acetaminophen [From Percocet] Allergy SWELLING Verified 05/28/17 06:59 Gadolinium-Containing Allergy URTICARIA Verified 05/28/17 06:59 Contrast Medi Iodine and Iodide Containing Allergy RASH Verified 05/28/17 06:59 Produc Latex, Natural Rubber Allergy RASH Verified 05/28/17 06:59 morphine Allergy RASH Verified 05/28/17 06:59 oxycodone HCl [From Percocet] Allergy SWELLING Verified 05/28/17 06:59 shellfish derived Allergy RASH Verified 05/28/17 06:59 shrimp Allergy RASH Verified 05/28/17 06:59 doxycycline AdvReac extreme Verified 05/28/17 06:59 abdominal pain, cramps metronidazole [From Flagyl] AdvReac abdominal Verified 05/28/17 06:59 pain, cramps CONTRAST Allergy URTICARIA Uncoded 05/28/17 06:59 LATEX Allergy RASH Uncoded 05/28/17 06:59 SHRIMPS Allergy RASH Uncoded 05/28/17 06:59 - Medications Medications: Current Medications Ketorolac Tromethamine (Toradol) 15 mg IVP Q6 PRN PRN Reason: Pain, Mild (1-3) Ketorolac Tromethamine (Toradol) 30 mg IVP Q6 PRN PRN Reason: Pain, moderate (4-7) Ondansetron HCl (Zofran Inj) 4 mg IVP Q6 PRN PRN Reason: Nausea/Vomiting Pantoprazole Sodium (Protonix Inj) 40 mg IVP DAILY ANUP Physical Exam - Constitutional Appears: Non-toxic, No Acute Distress - Head Exam Head Exam: ATRAUMATIC, NORMAL INSPECTION, NORMOCEPHALIC - Eye Exam Eye Exam: EOMI, Normal appearance, PERRL Pupil Exam: PERRL - ENT Exam ENT Exam: Mucous Membranes Dry - Neck Exam Neck exam: Positive for: Normal Inspection - Respiratory Exam Respiratory Exam: Clear to Auscultation Bilateral, NORMAL BREATHING PATTERN - Cardiovascular Exam Cardiovascular Exam: Tachycardia, REGULAR RHYTHM, +S1, +S2 - GI/Abdominal Exam GI & Abdominal Exam: Normal Bowel Sounds, Soft, Tenderness. absent: Distended, Firm, Organomegaly, Rigid - Rectal Exam Rectal Exam: Deferred - Extremities Exam Extremities exam: Positive for: full ROM, normal inspection. Negative for: pedal edema - Back Exam Back exam: NORMAL INSPECTION - Neurological Exam Neurological exam: Alert, Oriented x3 - Psychiatric Exam Psychiatric exam: Normal Affect, Normal Mood - Skin Skin Exam: Dry, Intact, Normal Color, Warm Results - Vital Signs Recent Vital Signs: Last Vital Signs Temp 98.6 F 05/28/17 13:56 Pulse 95 H 05/28/17 13:56 Resp 18 05/28/17 13:56 BP 137/89 05/28/17 13:56 Pulse Ox 98 05/28/17 13:56 - Labs Result Diagrams: 05/28/17 07:00 05/28/17 07:00 Labs: Laboratory Results - last 24 hr 05/28/17 13:05 Iron 13 L TIBC 354 % Saturation 4 L Assessment & Plan - Assessment and Plan (Free Text) Assessment: This is a 32yF pw abdominal pain, nausea, and vomiting for 2 weeks. 1. Abdominal pain, nausea and vomiting likely Viral Gastroenteritis 2. Hx Crohn's Disease 3. Hx Gastric Ulcer H.pylori negative 4. Recent Pancreatitis 5. Abdominal Migraines 6. Hx of Anxiety/Depression Plan: -Continue supportive care with IVF hydration, anti-emetics and pain control -Avoid NSAIDs with hx of gastric ulcer on prior EGD -Start IV PPI and if tolerates diet can change to po tomorrow -Start Clear liquid diet -Recommend discontinuing antibiotics with no signs of bacterial infection -If pt is unable to tolerate liquids and continues to vomit-recommend CTA/P with PO/IV contrast with recent elevated lipase would like to evaluate pancreas -Pt reports allergy to contrast so will need to be pre-medicated prior to imaging study -No plan for emergent endoscopic evaluation at this time -Will continue to follow pt closely <Stacy Alanis MD - Last Filed: 05/28/17 19:48> Meds - Medications Medications: Current Medications Alprazolam (Xanax) 0.5 mg PO TID PRN PRN Reason: Anxiety Home Med (Bupropion Xl [Wellbutrin Xl]) 1 tab PO DAILY ANUP Hydromorphone HCl (Dilaudid) 0.5 mg IVP Q6H PRN PRN Reason: Pain, severe (8-10) Last Admin: 05/28/17 17:45 Dose: 0.5 mg Ketorolac Tromethamine (Toradol) 15 mg IVP Q6 PRN PRN Reason: Pain, Mild (1-3) Ketorolac Tromethamine (Toradol) 30 mg IVP Q6 PRN PRN Reason: Pain, moderate (4-7) Nitrofurantoin Macrocrystals (Macrobid) 100 mg PO Q12 ANUP Ondansetron HCl (Zofran Inj) 4 mg IVP Q6 PRN PRN Reason: Nausea/Vomiting Last Admin: 05/28/17 17:21 Dose: 4 mg Pantoprazole Sodium (Protonix Inj) 40 mg IVP DAILY ANUP Last Admin: 05/28/17 15:36 Dose: 40 mg Tramadol HCl (Ultram) 50 mg PO Q6 PRN PRN Reason: Pain, severe (8-10) Last Admin: 05/28/17 16:27 Dose: 50 mg Results - Vital Signs Recent Vital Signs: Last Vital Signs Temp 98.7 F 05/28/17 16:47 Pulse 90 05/28/17 16:47 Resp 18 05/28/17 16:47 BP 131/85 05/28/17 16:47 Pulse Ox 98 05/28/17 16:47 - Labs Result Diagrams: 05/28/17 07:00 05/28/17 07:00 Labs: Laboratory Results - last 24 hr 05/28/17 13:05 Iron 13 L TIBC 354 % Saturation 4 L Attending/Attestation - Attestation I have personally seen and examined this patient.: Yes I have fully participated in the care of the patient.: Yes I have reviewed all pertinent clinical information: Yes Notes (Text): 05/28/17 19:43 Patient seen and examined with GI fellow in MICU. Patient nown to me from previous EGD done in Sep 2016 that showed superficial ulcer with H pylori negative. She has histry of Crohns with failed Humira admitted with chronic abdominal pain, nausea and vomiting. She has some psych component to her pain. She has recent CT abdomen as outpatient which was negative without stricturing disease. Continue IV hydration and start clear liquid diet. Lipase normal. Sonogram with no biliary disease. No s/s of sepsis. No indication for antibiotics. Continue PPI.
--- NOTE | 2017-05-28 17:27 | CP.PCM.CON ---
History of Present Illness - History of Present Illness History of Present Illness: 32 yo woman well known to me from outpatient pain clinic is admitted for abdominal pain. Up until a few months ago patient had been seeing me in the outpatient pain clinic for her chronic abdominal pain and abdominal migraine. She had been on Tramadol as an outpatient until a decision was made to wean patient off opioids, as GI felt pain was related to opioid intake. She is well known to the physicians involved so I won't discuss her previous course in detail. She was lost to follow-up at the pain clinic for the past several months. She revealed today that she's been seeing Dr. Yarbrough for pain management and Dr. Augustin for GI. The current regimen is Tramadol 50mg ATC and [place] 5/325mg PRN. Since admission, she's been on Toradol, which doesn't help her at all, and Tramadol PO, which isn't sufficient for the current level of pain. Past Patient History - Infectious Disease Hx of Infectious Diseases: None - Tetanus Immunizations Tetanus Immunization: Allergy to Tetanus Vaccine - Past Medical History & Family History Past Medical History?: Yes - Past Social History Smoking Status: Never Smoked - CARDIAC Hx Cardiac Disorders: No - PULMONARY Hx Asthma: Yes - NEUROLOGICAL Hx Migraine: Yes (abdominal) - HEENT Hx HEENT Problems: No - RENAL Hx Chronic Kidney Disease: No - ENDOCRINE/METABOLIC Hx Endocrine Disorders: No - HEMATOLOGICAL/ONCOLOGICAL Hx Anemia: Yes - INTEGUMENTARY Hx Dermatological Problems: No - MUSCULOSKELETAL/RHEUMATOLOGICAL Hx Musculoskeletal Disorders: No - GASTROINTESTINAL Hx Crohn's Disease: Yes Hx Pancreatitis: Yes - GENITOURINARY/GYNECOLOGICAL Hx Genitourinary Disorders: No - PSYCHIATRIC Hx Bipolar Disorder: Yes Hx Depression: Yes - SURGICAL HISTORY Hx Surgeries: Yes Other/Comment: laparoscopy for abdominal adhesions X 2 - ANESTHESIA Hx Anesthesia: Yes Hx Anesthesia Reactions: No Hx Malignant Hyperthermia: No Meds Allergies/Adverse Reactions: Allergies Allergy/AdvReac Type Severity Reaction Status Date / Time acetaminophen [From Percocet] Allergy SWELLING Verified 05/28/17 06:59 Gadolinium-Containing Allergy URTICARIA Verified 05/28/17 06:59 Contrast Medi Iodine and Iodide Containing Allergy RASH Verified 05/28/17 06:59 Produc Latex, Natural Rubber Allergy RASH Verified 05/28/17 06:59 morphine Allergy RASH Verified 05/28/17 06:59 oxycodone HCl [From Percocet] Allergy SWELLING Verified 05/28/17 06:59 shellfish derived Allergy RASH Verified 05/28/17 06:59 shrimp Allergy RASH Verified 05/28/17 06:59 doxycycline AdvReac extreme Verified 05/28/17 06:59 abdominal pain, cramps metronidazole [From Flagyl] AdvReac abdominal Verified 05/28/17 06:59 pain, cramps CONTRAST Allergy URTICARIA Uncoded 05/28/17 06:59 LATEX Allergy RASH Uncoded 05/28/17 06:59 SHRIMPS Allergy RASH Uncoded 05/28/17 06:59 - Medications Medications: Current Medications Ketorolac Tromethamine (Toradol) 15 mg IVP Q6 PRN PRN Reason: Pain, Mild (1-3) Ketorolac Tromethamine (Toradol) 30 mg IVP Q6 PRN PRN Reason: Pain, moderate (4-7) Nitrofurantoin Macrocrystals (Macrobid) 100 mg PO Q12 ANUP Ondansetron HCl (Zofran Inj) 4 mg IVP Q6 PRN PRN Reason: Nausea/Vomiting Pantoprazole Sodium (Protonix Inj) 40 mg IVP DAILY [facility] Last Admin: 05/28/17 15:36 Dose: 40 mg Tramadol HCl (Ultram) 50 mg PO Q6 PRN PRN Reason: Pain, severe (8-10) Last Admin: 05/28/17 16:27 Dose: 50 mg Physical Exam - Respiratory Exam Respiratory Exam: NORMAL BREATHING PATTERN - Cardiovascular Exam Cardiovascular Exam: REGULAR RHYTHM - GI/Abdominal Exam GI & Abdominal Exam: Soft, Tenderness Results - Vital Signs Recent Vital Signs: Last Vital Signs Temp 98.7 F 05/28/17 16:47 Pulse 90 05/28/17 16:47 Resp 18 05/28/17 16:47 BP 131/85 05/28/17 16:47 Pulse Ox 98 05/28/17 16:47 - Labs Result Diagrams: 05/28/17 07:00 05/28/17 07:00 Labs: Laboratory Results - last 24 hr 05/28/17 13:05 Iron 13 L TIBC 354 % Saturation 4 L Assessment & Plan (1) Abdominal pain Assessment and Plan: 32 yo woman with chronic abdominal pain, pseudoaddiction. Not a candidate for interventional pain management as she's failed a celiac plexus block before and because of psych component to her pain. - f/u GI recommendations - continue current regimen - add Dilaudid 0.5mg IV to regimen - please reconsult PRN - patient will follow up with Dr. Yarbrough as outpatient Status: Acute
[2017-05-28] MEDS: HYDROmorphone 0.5 mg/0.5 ml ISec IVP PRN ×2 (17:45→22:47)
[2017-05-28] MEDS: Sodium Chloride 0.9% 1,000 ML IV SCH (20:54)
[2017-05-28] MEDS ORDERED: HYDROmorphone 0.5 mg/0.5 ml ISec IVP ONE (22:32)
[2017-05-29] MEDS: Sodium Chloride 0.9% 1,000 ML IV SCH ×3 (01:00→12:49)
[2017-05-29] MEDS: HYDROmorphone 0.5 mg/0.5 ml ISec IVP PRN ×3 (06:36→18:38)
[2017-05-29 07:49] LABS: MEAN CELL VOLUME 78.9 fl (81.0-99.0); MEAN CORPUSCULAR HEMOGLOBIN 25.1 pg (27.0-31.0); MEAN CORPUSCULAR HGB CONC 31.8 g/dL (33.0-37.0); RED CELL DISTRIBUTION WIDTH 20.4 % (11.5-14.5); WHITE BLOOD COUNT 10.7 K/uL (4.8-10.8)
[2017-05-29 07:59] LABS: BLOOD UREA NITROGEN 3 mg/dl (7-17); CALCIUM 9.4 mg/dL (8.4-10.2); CARBON DIOXIDE 25 mmol/L (22-30); CHLORIDE 103 mmol/L (98-107); GFR AFRICAN-AMERICAN > 60; GLUCOSE,RANDOM 86 mg/dL (65-105); LIPASE 64 U/L (23-300); POTASSIUM 3.5 MMOL/L (3.6-5.0); SODIUM 140 mmol/l (132-148)
--- NOTE | 2017-05-29 08:36 | CP.PCM.PN ---
Subjective - Date & Time of Evaluation Date of Evaluation: 05/29/17 Time of Evaluation: 08:45 - Subjective Subjective: Pt seen and examined today at bedside. Seen lying supine, head elevated, in some discomfort. Did not vomit overnight, though she did become nauseaous when attempting to eat and subsequently stopping. Last BM 2-3 days ago. Denies fevers /chills, n/v/d, chest pain, SOB, dyspnea, cough, hematuria, or dysuria. Objective - Vital Signs/Intake and Output Vital Signs (last 24 hours): Temp Pulse Resp BP Pulse Ox 98.7 F 101 H 19 121/79 99 05/29/17 07:53 05/29/17 07:53 05/29/17 07:53 05/29/17 07:53 05/29/17 07:53 - Medications Medications: Current Medications Alprazolam (Xanax) 0.5 mg PO TID PRN PRN Reason: Anxiety Home Med (Bupropion Xl [Wellbutrin Xl]) 1 tab PO DAILY [facility] Hydromorphone HCl (Dilaudid) 0.5 mg IVP Q6H PRN PRN Reason: Pain, severe (8-10) Last Admin: 05/29/17 06:36 Dose: 0.5 mg Sodium Chloride (Sodium Chloride 0.9%) 1,000 mls @ 200 mls/hr IV .Q5H [facility] Stop: 05/29/17 19:49 Last Admin: 05/29/17 06:48 Dose: Not Given Ketorolac Tromethamine (Toradol) 15 mg IVP Q6 PRN PRN Reason: Pain, Mild (1-3) Ketorolac Tromethamine (Toradol) 30 mg IVP Q6 PRN PRN Reason: Pain, moderate (4-7) Nitrofurantoin Macrocrystals (Macrobid) 100 mg PO Q12 [facility] Last Admin: 05/28/17 20:54 Dose: 100 mg Ondansetron HCl (Zofran Inj) 4 mg IVP Q6 PRN PRN Reason: Nausea/Vomiting Last Admin: 05/28/17 17:21 Dose: 4 mg Pantoprazole Sodium (Protonix Inj) 40 mg IVP DAILY [facility] Last Admin: 05/28/17 15:36 Dose: 40 mg Tramadol HCl (Ultram) 50 mg PO Q6 PRN PRN Reason: Pain, severe (8-10) Last Admin: 05/28/17 16:27 Dose: 50 mg - Labs Labs: 05/29/17 05:30 05/29/17 05:30 - Constitutional Appears: Non-toxic, In Acute Distress - Head Exam Head Exam: ATRAUMATIC, NORMOCEPHALIC - Eye Exam Eye Exam: EOMI Pupil Exam: PERRL - ENT Exam ENT Exam: Mucous Membranes Dry - Neck Exam Neck Exam: Full ROM, Normal Inspection - Respiratory Exam Respiratory Exam: Clear to Ausculation Bilateral, NORMAL BREATHING PATTERN - Cardiovascular Exam Cardiovascular Exam: REGULAR RHYTHM, +S1, +S2 - GI/Abdominal Exam GI & Abdominal Exam: Guarding (voluntary), Soft, Tenderness (diffusely TTP), Normal Bowel Sounds. absent: Firm, Rigid - Extremities Exam Extremities Exam: absent: Calf Tenderness, Pedal Edema - Neurological Exam Neurological Exam: Alert, CN II-XII Intact, Oriented x3 - Skin Skin Exam: Dry, Intact, Warm Assessment and Plan - Assessment and Plan (Free Text) Plan: 32 y/o F with a PMHx of Chrons disease and ?autoimmune hepatitis admitted for severe, diffuse abdominal pain associated w nonbloody vomiting. 1) Severe abdominal pain Crohn disease VS gastric ulcer VS ?autoimmune hepatitis VS unknown etiology BCx prelim neg 24hrs UCx prelim neg 24hrs Lipase: 62, (05/28): 90, (05/25): 1051 Pain management onboard GI Onboard -Clear Diet, advance when tolerating -No abx needed -If unable to tolerate PO, will perform CT abdomen pelvis w/ constrant with pre- medications and IV fluids will be initiated Toradol 15mg IVP Q6H PRN for mild pain Toradol 30mg IVP Q6H PRN moderate pain Tramadol 50mg Q6H PO PRN severe pain Dilaudid 0.5mg PO Q6H PRN severe pain, as per pain management f/u pt symptoms, vitals f/u consultation suggestions 2) Thrombocytosis Plt count 795 today, 762 yesterday Hx of 400-500 range. Since March in 700s range. f/u CBC f/u Peripheral Smear will consider [facility] appt 3) UTI No symptoms currently UA (05/28): microscopic WBC's, cloudy, large leuko esterase. Macrobid 100mg BID f/u pt symptoms 4) Bipolar disorder Welbutryn XL 300 QD, Xanax 0.5 TID ANUP. -NO Abilify, Trileptal nor Lamictal in several months as per her pharmacy, [facility] 5) Microcytic Anemia H/H: 9.2/29.0 Iron: 13 (L) TIBC: 354 % Sat: 4 (L) Ferritin 8.6 f/u CBC 6) Mild Hypokalemia 9/2- 3.5 Kdur 10mg PO 7) DVT prophylaxis SCDs
[2017-05-29] MEDS ORDERED: BUPROPION PO SCH (09:00)
[2017-05-29] MEDS ORDERED: Potassium Chloride 10 mEq ER Tab PO ONE (11:30)
[2017-05-29 12:06] LABS: TOTAL CELLS COUNTED 100
[2017-05-29 12:07] LABS: EOSINOPHIL 4 % (0-7); NEUTROPHIL 48 % (42-75)
[2017-05-29 12:09] LABS: PLATELET COUNT 795 K/uL (130-400)
[2017-05-29] MEDS: Dextrose 5%/0.45% NS 1,000 ML IV SCH ×2 (16:42→23:00)
[2017-05-29] MEDS: buPROPion SR 150 MG TABLET PO SCH (20:49)
[2017-05-29] MEDS ORDERED: Phenytoin 100 mg/2 ml Inj IVP ONE (22:10)
[2017-05-30] MEDS: HYDROmorphone 0.5 mg/0.5 ml ISec IVP PRN ×2 (02:07→21:03)
[2017-05-30] MEDS: Dextrose 5%/0.45% NS 1,000 ML IV SCH ×2 (02:08→09:02)
[2017-05-30 08:16] LABS: HEMATOCRIT 28.2 % (34.0-47.0); MEAN CELL VOLUME 80.1 fl (81.0-99.0); MEAN CORPUSCULAR HEMOGLOBIN 25.2 pg (27.0-31.0); MEAN CORPUSCULAR HGB CONC 31.5 g/dL (33.0-37.0); RED CELL DISTRIBUTION WIDTH 20.6 % (11.5-14.5); WHITE BLOOD COUNT 8.1 K/uL (4.8-10.8)
[2017-05-30 08:31] LABS: CALCIUM 9.1 mg/dL (8.4-10.2); CARBON DIOXIDE 28 mmol/L (22-30); CHLORIDE 105 mmol/L (98-107); GFR AFRICAN-AMERICAN > 60; GLUCOSE,RANDOM 92 mg/dL (65-105); POTASSIUM 3.5 MMOL/L (3.6-5.0); SODIUM 141 mmol/l (132-148)
[2017-05-30 08:45] LABS: BLOOD UREA NITROGEN 2 mg/dl (7-17)
[2017-05-30] MEDS: buPROPion SR 150 MG TABLET PO SCH (08:58)
--- NOTE | 2017-05-30 11:32 | CP.PCM.PN ---
<Angelina Allen - Last Filed: 05/30/17 11:32> Subjective - Date & Time of Evaluation Date of Evaluation: 05/30/17 Time of Evaluation: 11:15 - Subjective Subjective: GI Fellow PGY4 Progress Note Pt seen and examined at bedside, pt reports she is feeling better this am. Pt reports improved abdominal pain, no further nausea or vomiting. Pt would like to try regular food today. ROS: A 12pt ROS was obtained and negative except as above. Objective - Vital Signs/Intake and Output Vital Signs (last 24 hours): Temp Pulse Resp BP Pulse Ox 98.3 F 84 19 117/80 100 05/30/17 07:46 05/30/17 07:46 05/30/17 07:46 05/30/17 07:46 05/30/17 07:46 - Medications Medications: Current Medications Alprazolam (Xanax) 0.5 mg PO TID PRN PRN Reason: Anxiety Bupropion HCl (Wellbutrin Sr 150 Mg) 300 mg PO DAILY [facility] Last Admin: 05/30/17 08:58 Dose: 300 mg Hydromorphone HCl (Dilaudid) 0.5 mg IVP Q6H PRN PRN Reason: Pain, severe (8-10) Last Admin: 05/30/17 09:00 Dose: 0.5 mg Dextrose/Sodium Chloride (Dextrose 5%/0.45% Ns 1000 Ml) 1,000 mls @ 100 mls/hr IV .Q10H [facility] Stop: 05/30/17 12:58 Last Admin: 05/30/17 09:02 Dose: Not Given Ketorolac Tromethamine (Toradol) 15 mg IVP Q6 PRN PRN Reason: Pain, Mild (1-3) Last Admin: 05/29/17 15:49 Dose: 15 mg Ketorolac Tromethamine (Toradol) 30 mg IVP Q6 PRN PRN Reason: Pain, moderate (4-7) Nitrofurantoin Macrocrystals (Macrobid) 100 mg PO Q12 [facility] Last Admin: 05/30/17 08:57 Dose: 100 mg Ondansetron HCl (Zofran Inj) 4 mg IVP Q6 PRN PRN Reason: Nausea/Vomiting Last Admin: 05/29/17 12:50 Dose: 4 mg Pantoprazole Sodium (Protonix Inj) 40 mg IVP DAILY [facility] Last Admin: 05/30/17 08:57 Dose: 40 mg Tramadol HCl (Ultram) 50 mg PO Q6 PRN PRN Reason: Pain, severe (8-10) Last Admin: 05/28/17 16:27 Dose: 50 mg - Labs Labs: 05/30/17 06:00 05/30/17 06:00 - Constitutional Appears: Well - Head Exam Head Exam: ATRAUMATIC, NORMAL INSPECTION, NORMOCEPHALIC - Eye Exam Eye Exam: EOMI, Normal appearance, PERRL Pupil Exam: PERRL - ENT Exam ENT Exam: Mucous Membranes Moist, Normal Exam - Neck Exam Neck Exam: Normal Inspection - Respiratory Exam Respiratory Exam: Clear to Ausculation Bilateral, NORMAL BREATHING PATTERN - Cardiovascular Exam Cardiovascular Exam: REGULAR RHYTHM - GI/Abdominal Exam GI & Abdominal Exam: Soft, Normal Bowel Sounds. absent: Tenderness - Rectal Exam Rectal Exam: Deferred - Extremities Exam Extremities Exam: Full ROM, Normal Inspection - Back Exam Back Exam: NORMAL INSPECTION - Neurological Exam Neurological Exam: Alert, Awake, Oriented x3 - Psychiatric Exam Psychiatric exam: Normal Affect, Normal Mood - Skin Skin Exam: Dry, Intact, Normal Color, Warm Assessment and Plan - Assessment and Plan (Free Text) Assessment: This is a 32yF pw abdominal pain, nausea, and vomiting for 2 weeks. 1. Abdominal pain, nausea and vomiting likely Viral Gastroenteritis-resolved 2. Hx Crohn's Disease 3. Hx Gastric Ulcer H.pylori negative 4. Recent Pancreatitis 5. Abdominal Migraines 6. Hx of Anxiety/Depression Plan: -Continue supportive care with IVF hydration, anti-emetics and recommend decreasing narcotics -Symptoms improving -Avoid NSAIDs with hx of gastric ulcer on prior EGD -Change to po PPI daily -Advance to low fat diet with small frequent meals -Pt okay for discharge from GI perspective and to follow up at her scheduled colonoscopy/ED next week <Stacy Alanis MD - Last Filed: 05/30/17 12:46> Objective - Vital Signs/Intake and Output Vital Signs (last 24 hours): Temp Pulse Resp BP Pulse Ox 98.3 F 84 19 117/80 100 05/30/17 07:46 05/30/17 07:46 05/30/17 07:46 05/30/17 07:46 05/30/17 07:46 - Medications Medications: Current Medications Alprazolam (Xanax) 0.5 mg PO TID PRN PRN Reason: Anxiety Bupropion HCl (Wellbutrin Sr 150 Mg) 300 mg PO DAILY [facility] Last Admin: 05/30/17 08:58 Dose: 300 mg Hydromorphone HCl (Dilaudid) 0.5 mg IVP Q6H PRN PRN Reason: Pain, severe (8-10) Last Admin: 05/30/17 09:00 Dose: 0.5 mg Dextrose/Sodium Chloride (Dextrose 5%/0.45% Ns 1000 Ml) 1,000 mls @ 100 mls/hr IV .Q10H [facility] Stop: 05/30/17 12:58 Last Admin: 05/30/17 09:02 Dose: Not Given Ketorolac Tromethamine (Toradol) 15 mg IVP Q6 PRN PRN Reason: Pain, Mild (1-3) Last Admin: 05/29/17 15:49 Dose: 15 mg Ketorolac Tromethamine (Toradol) 30 mg IVP Q6 PRN PRN Reason: Pain, moderate (4-7) Nitrofurantoin Macrocrystals (Macrobid) 100 mg PO Q12 [facility] Last Admin: 05/30/17 08:57 Dose: 100 mg Ondansetron HCl (Zofran Inj) 4 mg IVP Q6 PRN PRN Reason: Nausea/Vomiting Last Admin: 05/29/17 12:50 Dose: 4 mg Pantoprazole Sodium (Protonix Ec Tab) 40 mg PO DAILY [facility] Tramadol HCl (Ultram) 50 mg PO Q6 PRN PRN Reason: Pain, severe (8-10) Last Admin: 05/28/17 16:27 Dose: 50 mg - Labs Labs: 05/30/17 06:00 05/30/17 06:00 Attending/Attestation - Attestation I have personally seen and examined this patient.: Yes I have fully participated in the care of the patient.: Yes I have reviewed all pertinent clinical information, including history, physical exam and plan: Yes Notes (Text): 05/30/17 12:42 Patient seen and examined with GI fellow in MICU. Patient known to me from previous EGD done in Sep 2016 that showed superficial ulcer with H pylori negative. She has history of Crohns with failed Humira admitted with chronic abdominal pain, nausea and vomiting now resolving. She has some psych component to her pain. She has recent CT abdomen as outpatient which was negative without stricturing disease. Continue IV hydration and advance diet as tolerated. Lipase normal. Sonogram with no biliary disease. No s/s of sepsis. No indication for antibiotics. Continue PPI. Patient has outpatient colonoscopy scheduled with her primary IBD specialist Dr Augustin on 06/09 at [facility]. No further GI work up. If tolerates regular diet can be discharged. Thank you for letting us participate in the care of your patient.
[2017-05-30] MEDS ORDERED: Potassium Chloride 20 mEq ER Tab PO ONE (11:43)
--- NOTE | 2017-05-30 15:19 | CP.PCM.PN ---
Subjective - Date & Time of Evaluation Date of Evaluation: 05/30/17 Time of Evaluation: 09:00 - Subjective Subjective: 32 y/o F examined bedside. Pt resting comfortably on bed. Pt felt diffuse body itching last night which was well controlled with PO Benadryl 25mg. Pt reports tolerating liquid diet and would like to initiate regular diet. Pt explains pain is still present but has decreased in intensity after pharmacotherapy. No bowel movement for 2 days. Pt denied fever, CP, SOB, dysuria, hematuria, urinary frequency or rash. Objective - Vital Signs/Intake and Output Vital Signs (last 24 hours): Temp Pulse Resp BP Pulse Ox 98.3 F 84 19 117/80 100 05/30/17 07:46 05/30/17 07:46 05/30/17 07:46 05/30/17 07:46 05/30/17 07:46 - Medications Medications: Current Medications Alprazolam (Xanax) 0.5 mg PO TID PRN PRN Reason: Anxiety Bupropion HCl (Wellbutrin Sr 150 Mg) 300 mg PO DAILY [facility] Last Admin: 05/30/17 08:58 Dose: 300 mg Hydromorphone HCl (Dilaudid) 0.5 mg IVP Q6H PRN PRN Reason: Pain, severe (8-10) Last Admin: 05/30/17 09:00 Dose: 0.5 mg Ketorolac Tromethamine (Toradol) 15 mg IVP Q6 PRN PRN Reason: Pain, Mild (1-3) Last Admin: 05/30/17 13:52 Dose: 15 mg Ketorolac Tromethamine (Toradol) 30 mg IVP Q6 PRN PRN Reason: Pain, moderate (4-7) Nitrofurantoin Macrocrystals (Macrobid) 100 mg PO Q12 [facility] Last Admin: 05/30/17 08:57 Dose: 100 mg Ondansetron HCl (Zofran Inj) 4 mg IVP Q6 PRN PRN Reason: Nausea/Vomiting Last Admin: 05/29/17 12:50 Dose: 4 mg Pantoprazole Sodium (Protonix Ec Tab) 40 mg PO DAILY [facility] Tramadol HCl (Ultram) 50 mg PO Q6 PRN PRN Reason: Pain, severe (8-10) Last Admin: 05/28/17 16:27 Dose: 50 mg - Labs Labs: 05/30/17 06:00 05/30/17 06:00 - Constitutional Appears: Well, Non-toxic, No Acute Distress - Head Exam Head Exam: ATRAUMATIC - Eye Exam Eye Exam: EOMI, PERRL - ENT Exam ENT Exam: Mucous Membranes Moist - Neck Exam Neck Exam: Full ROM - Respiratory Exam Respiratory Exam: Clear to Ausculation Bilateral, NORMAL BREATHING PATTERN - Cardiovascular Exam Cardiovascular Exam: REGULAR RHYTHM - GI/Abdominal Exam GI & Abdominal Exam: Soft, Tenderness, Normal Bowel Sounds. absent: Distended, Guarding, Rigid Assessment and Plan - Assessment and Plan (Free Text) Assessment: 32 y/o F with a PMHx of Chrons disease and ?autoimmune hepatitis admitted for severe, diffuse abdominal pain associated w nonbloody vomiting. Plan: 1) Severe abdominal pain Crohn disease VS gastric ulcer VS ?autoimmune hepatitis VS unknown etiology BCx prelim neg 48hrs UCx prelim neg 48hrs Lipase: 90 (on 05/28); 64, (05/29). Transitioned from liquid diet to solid regular GI diet. Pain management onboard As per GI: -Continue IV fluids, PO PPI. -Colonoscopy scheduled for 06/[address] Augustin at [facility]. -If tolerate regular diet, pt can be discharged. Dilaudid 0.5mg PO Q6H PRN severe pain, as per pain management f/u CBC, BMP, pt symptoms and vitals 2) Thrombocytosis Plt count 705 today, 795 (on 05/29), 762 (on 05/28) Peripheral Smear-No abnormal cell lines. Most likely reactive to anemia. f/u CBC 3) UTI No symptoms currently UA (05/28): microscopic WBC's, cloudy, large leuko esterase. Macrobid 100mg BID f/u pt symptoms 4) Bipolar disorder Welbutryn XL 300 QD, Xanax 0.5 TID ANUP. -NO Abilify, Trileptal nor Lamictal in several months as per her pharmacy, [facility] 5) Microcytic Anemia H/H: 8.9/18.2 today, 9.2/29.0 (on 05/29) Iron: 13 (L) (on 05/29) TIBC: 354 (on 05/29) % Sat: 4 (L) (on 05/29) Ferritin 8.6 (on 05/29) f/u CBC 6) Mild Hypokalemia K+ 3.5 today and yesterday. Kdur increased from 10mg to 20 mg PO, indicated as only one-time dose, today. f/u BMP. 7) DVT prophylaxis SCDs
[2017-05-30] MEDS: Lactated Ringer's 1,000 ML IV SCH ×2 (22:49→22:56)
[2017-05-31] MEDS: HYDROmorphone 0.5 mg/0.5 ml ISec IVP PRN ×2 (05:42→12:56)
[2017-05-31] MEDS: Lactated Ringer's 1,000 ML IV SCH (06:53)
[2017-05-31 06:54] LABS: HEMATOCRIT 31.9 % (34.0-47.0); MEAN CELL VOLUME 79.6 fl (81.0-99.0); MEAN CORPUSCULAR HGB CONC 31.4 g/dL (33.0-37.0); RED CELL DISTRIBUTION WIDTH 20.5 % (11.5-14.5); WHITE BLOOD COUNT 11.2 K/uL (4.8-10.8)
[2017-05-31 06:55] LABS: BLOOD UREA NITROGEN 4 mg/dl (7-17); CALCIUM 9.4 mg/dL (8.4-10.2); CARBON DIOXIDE 26 mmol/L (22-30); CHLORIDE 105 mmol/L (98-107); GFR AFRICAN-AMERICAN > 60; GLUCOSE,RANDOM 86 mg/dL (65-105); POTASSIUM 4.4 MMOL/L (3.6-5.0); SODIUM 141 mmol/l (132-148)
[2017-05-31 08:22] VITALS: O2SAT 98
[2017-05-31] MEDS ORDERED: Pantoprazole 40 mg EC Tab PO SCH (09:00)
[2017-05-31] MEDS: buPROPion SR 150 MG TABLET PO SCH (09:03)
[2017-05-31 16:06] VITALS: BP 122/78; PULSE 96; RESP 19; TEMP 98.5
--- NOTE | 2017-05-31 17:14 | CP.PCM.DIS ---
Provider - Provider Date of Admission: 05/28/17 Attending physician: Sana Ochoa MD Primary care physician: Dr Karl Arshad Consults: GI: Stacy Sousa Pain Management: Saira Allison Time Spent in preparation of Discharge (in minutes): 25 Diagnosis - Discharge Diagnosis (1) Abdominal pain Status: Acute Hospital Course - Lab Results Lab Results: Most Recent Lab Values WBC 11.2 K/uL (4.8-10.8) H 05/31/17 04:50 RBC 4.00 Mil/uL (3.80-5.20) 05/31/17 04:50 Hgb 10.0 g/dL (12.0-16.0) L 05/31/17 04:50 Hct 31.9 % (34.0-47.0) L 05/31/17 04:50 MCV 79.6 fl (81.0-99.0) L 05/31/17 04:50 MCH 25.0 pg (27.0-31.0) L 05/31/17 04:50 MCHC 31.4 g/dL (33.0-37.0) L 05/31/17 04:50 RDW 20.5 % (11.5-14.5) H 05/31/17 04:50 Plt Count 773 K/uL (130-400) H 05/31/17 04:50 MPV 7.2 fl (7.2-11.7) 05/28/17 07:00 Neut % (Auto) 76.2 % (50.0-75.0) H 05/28/17 07:00 Lymph % (Auto) 15.3 % (20.0-40.0) L 05/28/17 07:00 [place] % (Auto) 5.5 % (0.0-10.0) 05/28/17 07:00 Eos % (Auto) 2.0 % (0.0-4.0) 05/28/17 07:00 Baso % (Auto) 1.0 % (0.0-2.0) 05/28/17 07:00 Neut # 11.2 K/uL (1.8-7.0) H 05/28/17 07:00 Lymph # 2.3 K/uL (1.0-4.3) 05/28/17 07:00 [place] # 0.8 K/uL (0.0-0.8) 05/28/17 07:00 Eos # 0.3 K/uL (0.0-0.7) 05/28/17 07:00 Baso # 0.1 K/uL (0.0-0.2) 05/28/17 07:00 Neutrophils % (Manual) 48 % (42-75) 05/29/17 05:30 Lymphocytes % (Manual) 40 % (20-50) 05/29/17 05:30 Monocytes % (Manual) 8 % (0-10) 05/29/17 05:30 Eosinophils % (Manual) 4 % (0-7) 05/29/17 05:30 Platelet Estimate Markedly increased (NORMAL) H 05/29/17 05:30 pO2 62 mm/Hg (30-55) H 05/28/17 12:42 VBG pH 7.41 (7.32-7.43) 05/28/17 12:42 VBG pCO2 42 mmHg (40-60) 05/28/17 12:42 VBG HCO3 26.3 mmol/L 05/28/17 12:42 VBG Total CO2 27.9 mmol/L (22-28) 05/28/17 12:42 VBG O2 Sat (Calc) 98.0 % (40-65) H 05/28/17 12:42 VBG Base Excess 1.8 mmol/L (0.0-2.0) 05/28/17 12:42 VBG Potassium 3.2 mmol/L (3.6-5.2) L 05/28/17 12:42 Sodium 136.0 mmol/L (132-148) 05/28/17 12:42 Chloride 105.0 mmol/L (98-107) 05/28/17 12:42 Glucose 126 mg/dL (65-105) H 05/28/17 12:42 Lactate 0.6 mmol/L (0.7-2.1) L 05/28/17 12:42 FiO2 21.0 % 05/28/17 12:42 Sodium 141 mmol/l (132-148) 05/31/17 04:50 Potassium 4.4 MMOL/L (3.6-5.0) 05/31/17 04:50 Chloride 105 mmol/L (98-107) 05/31/17 04:50 Carbon Dioxide 26 mmol/L (22-30) 05/31/17 04:50 Anion Gap 15 (10-20) 05/31/17 04:50 BUN 4 mg/dl (7-17) L 05/31/17 04:50 Creatinine 0.5 mg/dL (0.7-1.2) L 05/31/17 04:50 Est GFR ( Amer) > 60 05/31/17 04:50 Est GFR (Non-Af Amer) > 60 05/31/17 04:50 Random Glucose 86 mg/dL (65-105) 05/31/17 04:50 Calcium 9.4 mg/dL (8.4-10.2) 05/31/17 04:50 Iron 13 ug/dL (37-170) L 05/28/17 13:05 TIBC 354 ug/dL (250-450) 05/28/17 13:05 % Saturation 4 % (20-55) L 05/28/17 13:05 Ferritin 8.6 ng/mL 05/28/17 11:52 Total Bilirubin 0.5 mg/dl (0.2-1.3) 05/28/17 07:00 AST 28 U/L (14-36) 05/28/17 07:00 ALT 19 U/L (9-52) 05/28/17 07:00 Alkaline Phosphatase 118 U/L (38-126) 05/28/17 07:00 Total Protein 7.1 G/DL (6.3-8.2) 05/28/17 07:00 Albumin 4.3 g/dL (3.5-5.0) 05/28/17 07:00 Globulin 2.8 gm/dL (2.2-3.9) 05/28/17 07:00 Albumin/Globulin Ratio 1.5 (1.0-2.1) 05/28/17 07:00 Lipase 64 U/L (23-300) 05/29/17 05:30 Beta HCG, Quant < 2.39 mIU/mL 05/28/17 07:00 Venous Blood Potassium 3.2 mmol/L (3.6-5.2) L 05/28/17 12:42 Urine Color Yellow (YELLOW) 05/28/17 11:21 Urine Clarity Cloudy (Clear) 05/28/17 11:21 Urine pH 6.0 (5.0-8.0) 05/28/17 11:21 Ur Specific [place] 1.017 (1.003-1.030) 05/28/17 11:21 Urine Protein Negative mg/dL (NEGATIVE) 05/28/17 11:21 Urine Glucose (UA) Neg mg/dL (Normal) 05/28/17 11:21 Urine Ketones 20 mg/dL (NEGATIVE) 05/28/17 11:21 Urine Blood Small (NEGATIVE) 05/28/17 11:21 Urine Nitrate Negative (NEGATIVE) 05/28/17 11:21 Urine Bilirubin Negative (NEGATIVE) 05/28/17 11:21 Urine Urobilinogen 0.2-1.0 mg/dL (0.2-1.0) 05/28/17 11:21 Ur Leukocyte Esterase Large Amadeo/uL (Negative) 05/28/17 11:21 Urine RBC (Auto) 9 /hpf (0-3) H 05/28/17 11:21 Urine Microscopic WBC 17 /hpf (0-5) H 05/28/17 11:21 Ur Squamous Epith Cells 9 /hpf (0-5) H 05/28/17 11:21 - Hospital Course Hospital Course: 32 y/o F with a PMHx of Crohns disease and autoimmune hepatitis admitted for severe, diffuse abdominal pain associated w/ non-bloody vomiting. Serum Lipase were: 90 (on 05/28); 64, (05/29). Urinalysis suggested UTI. Abdominal US on 05/28 unremarkable. Blood culture negative after 48hrs. Urine culture negative after 48hrs. Pain management and GI were consulted. Pt was under pain management therapy and Macrobid during hospitalization. Transitioned from liquid diet to solid regular GI diet. Today, pt reports abdominal and back pain have improved, able to tolerate solid food, no urinary complaints, no N/V or change in bowel movement. Pt has colonoscopy scheduled in 2 week, will set up appointment with Dr Arshad (PMD) and Dr Rinaldi (marine electrician helper). PAIN MEDICATION PER OTHER SOURCES: On 05/24 : Tramadol HCl 50 mg 120 tablets, Percocet 5/325mg 90 tablets On 05/19: Tramadol-Acetaminophen 37.5/325 90 tablets. On 04/26: Tramadol HCl 50 mg 120 tablets, Percocet 5/325mg 90 tablets On 03/29: Percocet 5/325mg 90 tablets Discharge Exam - Head Exam Head Exam: ATRAUMATIC - Eye Exam Eye Exam: EOMI, Normal appearance, PERRL - Neck Exam Neck exam: Full Rom - Respiratory Exam Respiratory Exam: Clear to PA & Lateral, NORMAL BREATHING PATTERN - Cardiovascular Exam Cardiovascular Exam: REGULAR RHYTHM Discharge Plan - Follow Up Plan Condition: STABLE Disposition: HOME/ ROUTINE Instructions: Acute Abdominal Pain (DC), Acute Abdominal Pain (GEN) Additional Instructions: Colonoscopy scheduled for 06/[address] Augustin at [facility]. Call [phone] to set up appointment for follow up Dr Karl Arshad (PMD). Set up appointment with Dr Alcides Rinaldi within 1 week. F/U with Pain Management MD, Dr Yarbrough. Continue home medications as prescribed. Return to ER if severe abdominal pain reoccurs or unable to keep food down.
== END 2017-05-31 16:45 | disposition home or self-care (01) | DRG 386 ==
LOC: H.ER 06:50 → H.ERHOLD 13:02 → H.MEDSURG1 14:08 → OBSVTOIN 05-29 11:14
PROVIDERS: ADMIT Family Medicine; ATTEND Family Medicine
DX: K50.90 Crohn's disease, unspecified, without complications (principal); N39.0 Urinary tract infection, site not specified; K75.4 Autoimmune hepatitis; D50.9 Iron deficiency anemia, unspecified; K25.9 Gastric ulcer, unspecified as acute or chronic, without hemorrhage or perforation; Z88.6 Allergy status to analgesic agent; Z91.041 Radiographic dye allergy status; J45.909 Unspecified asthma, uncomplicated; F31.9 Bipolar disorder, unspecified; G89.29 Other chronic pain; B96.89 Other specified bacterial agents as the cause of diseases classified elsewhere; D47.3 Essential (hemorrhagic) thrombocythemia; F41.9 Anxiety disorder, unspecified; E87.6 Hypokalemia

== ENCOUNTER 2017-07-06 16:01 | Emergency (ER) | payer OTHER ==
[2017-07-06 16:01] VITALS: BMI 20.5
[2017-07-06 16:21] VITALS: RESP 16
[2017-07-06] MEDS ORDERED: HYDROmorphone 0.5 mg/0.5 ml ISec IVP STA (17:05)
--- NOTE | 2017-07-06 18:11 | ED PDOC ---
HPI: Abdomen Time Seen by Provider: 07/06/17 16:27 Chief Complaint (Nursing): Abdominal Pain Chief Complaint (Provider): Abdominal Pain History Per: Patient History/Exam Limitations: no limitations Onset/Duration Of Symptoms: Days (x5 days) Current Symptoms Are (Timing): Still Present Additional Complaint(s): 32 y/o female with a past medical history of crohn's disease and migraine who presents to the emergency department with diffuse abdominal pain x5 days. Associated with weight loss, loss of appetite, and generalized weakness. Reports she had multiple similar episodes in the past due to history of crohn's disease. Denies vomiting, diarrhea, fever, bloody stools, headache, or burning while urinating. Telecommunications Engineer: Dr Charli SALEEM Pain Management: Dr. Suárez PMD: Dr. Natali Arshad MD Abnormal Vaginal Bleeding: No Past Medical History Reviewed: Historical Data, Nursing Documentation, Vital Signs Vital Signs: Last Vital Signs Temp 98.0 F 07/06/17 19:26 Pulse 84 07/06/17 19:26 Resp 16 07/06/17 19:26 BP 124/68 07/06/17 19:26 Pulse Ox 98 07/08/17 07:17 - Medical History PMH: Anemia, Anxiety, Asthma, Bipolar Disorder, Crohn's Disease, Depression, Gastrointestinal Ulcer (peptic & gastric), Migraine (abdominal), Pancreatitis, Chronic Pain (Abdominal) Denies: Chronic Kidney Disease - Surgical History Surgical History: Endoscopy - Family History Family History: States: Diabetes - Social History Current smoker - smoking cessation education provided: Yes (Heavy Smoker > 10 Cigarettes Daily) Alcohol: None Drugs: Denies - Immunization History Hx Tetanus Toxoid Vaccination: Yes Hx Influenza Vaccination: Yes Hx Pneumococcal Vaccination: Yes - Home Medications Home Medications: Ambulatory Orders Medication Instructions Recorded Alprazolam [Xanax] 0.5 mg PO TID PRN #0 tablet 07/15/16 ARIPiprazole [Abilify] 30 mg PO HS #0 tab 08/10/16 OXcarbazepine [Trileptal] 600 mg PO HS #0 tab 08/10/16 Topiramate [Topamax] 75 mg PO HS #0 tab 08/10/16 buPROPion XL [Wellbutrin XL] 1 tab PO DAILY 10/26/16 Ondansetron ODT [Zofran ODT] 4 mg PO Q8 #6 odt 11/23/16 traMADol [Ultram] 50 mg PO QID PRN #10 tab 12/26/16 Hydrocodone/Acetaminophen [[place] 1 tab PO Q6 05/28/17 5-325 Tablet] Nitrofurantoin Macrocrystals 100 mg PO BID #14 cap 07/06/17 [Macrobid] - Allergies Allergies/Adverse Reactions: Allergies Allergy/AdvReac Type Severity Reaction Status Date / Time acetaminophen [From Percocet] Allergy SWELLING Verified 07/07/17 16:30 Gadolinium-Containing Allergy URTICARIA Verified 07/07/17 16:30 Contrast Medi Iodine and Iodide Containing Allergy RASH Verified 07/07/17 16:30 Produc Latex, Natural Rubber Allergy RASH Verified 07/07/17 16:30 morphine Allergy RASH Verified 07/07/17 16:30 oxycodone HCl [From Percocet] Allergy SWELLING Verified 07/07/17 16:30 shellfish derived Allergy RASH Verified 07/07/17 16:30 shrimp Allergy RASH Verified 07/07/17 16:30 doxycycline AdvReac extreme Verified 07/07/17 16:30 abdominal pain, cramps metronidazole [From Flagyl] AdvReac abdominal Verified 07/07/17 16:30 pain, cramps CONTRAST Allergy Severe URTICARIA Uncoded 07/07/17 16:30 SHRIMPS Allergy Severe RASH Uncoded 07/07/17 16:30 LATEX Allergy Intermediate RASH Uncoded 07/07/17 16:30 Review of Systems ROS Statement: Except As Marked, All Systems Reviewed And Found Negative Constitutional: Positive for: Weakness (Generalized), Weight loss, Other (Loss of appetite). Negative for: Fever Gastrointestinal: Positive for: Abdominal Pain (Diffuse). Negative for: Vomiting, Diarrhea, Hematochezia Genitourinary Female: Negative for: Dysuria Neurological: Negative for: Headache Physical Exam - Reviewed Nursing Documentation Reviewed: Yes Vital Signs Reviewed: Yes - Physical Exam Appears: Positive for: Non-toxic, No Acute Distress Head Exam: Positive for: ATRAUMATIC, NORMAL INSPECTION, NORMOCEPHALIC Skin: Positive for: Warm, Dry, Pallor. Negative for: Jaundice ENT: Positive for: Normal ENT Inspection. Negative for: Pharyngeal Erythema Cardiovascular/Chest: Positive for: Regular Rate, Rhythm. Negative for: Murmur Respiratory: Positive for: Normal Breath Sounds. Negative for: Accessory Muscle Use, Respiratory Distress Gastrointestinal/Abdominal: Positive for: Soft, Tenderness (Mild diffuse tenderness). Negative for: Normal Exam Extremity: Positive for: Normal ROM. Negative for: Pedal Edema Neurologic/Psych: Positive for: Alert, Oriented (x3) - Laboratory Results Result Diagrams: 07/06/17 18:20 07/06/17 18:20 Urine POC: Negative Urine dip results: Positive for: Leukocyte Esterase, Blood - ECG O2 Sat by Pulse Oximetry: 98 (RA) Pulse Ox Interpretation: Normal - Progress Re-evaluation Time: 18:55 Condition: Re-examined, Improved Medical Decision Making Medical Decision Making: Time: 17:05 Initial Impression: Acute chronic abdominal pain from crohn's disease differential includes urinary tract infection (UTI) and dehydration. Initial Plan: --CMP --Lipase --Urine DIP & Preg --CBC w/ diff --Hydromorphone 1 mg UVP --Zofran 1 mg IVP --Reevaluation 1900 Potassium Chloride 20 meq PO Scribe Attestation: Documented by Rose Kramer, acting as a scribe for Nadya Mascorro MD. Provider Scribe Attestation: All medical record entries made by the Scribe were at my direction and personally dictated by me. I have reviewed the chart and agree that the record accurately reflects my personal performance of the history, physical exam, medical decision making, and the department course for this patient. I have also personally directed, reviewed, and agree with the discharge instructions and disposition. Disposition - Clinical Impression Clinical Impression: Abdominal pain in female, UTI (urinary tract infection) - Patient ED Disposition Is Patient to be Admitted: No Counseled Patient/Family Regarding: Studies Performed, Diagnosis, Need For Followup - Disposition Referrals: [facility] [Outside] Disposition: Routine/Home Disposition Time: 19:00 Condition: GOOD Additional Instructions: Take your medications as instructed. Follow up with your PCP in 2-3 days. Prescriptions: Nitrofurantoin Macrocrystals [Macrobid] 100 mg PO BID #14 cap Instructions: Urinary Tract Infection in Women (ED)
[2017-07-06 18:36] LABS: URINE BILIRUBIN NEGATIVE (NEGATIVE); URINE BLOOD MODERATE (NEGATIVE); URINE COLOR STRAW (YELLOW); URINE GLUCOSE (UA) NEG (Normal); URINE KETONE NEGATIVE (NEGATIVE); URINE LEUKOCYTE ESTERASE LARGE Leu/uL (Negative); URINE PROTEIN NEGATIVE (NEGATIVE); URINE UROBILINOGEN 0.2-1.0 mg/dL (0.2-1.0); WBC URINE 55 /hpf (0-5)
[2017-07-06 18:37] LABS: BASO % 0.3 % (0.0-2.0); EOS # 0.1 K/uL (0.0-0.7); HEMATOCRIT 33.1 % (34.0-47.0); LYMPH # 3.7 K/uL (1.0-4.3); LYMPH % 32.5 % (20.0-40.0); MEAN CELL VOLUME 79.4 fl (81.0-99.0); MEAN CORPUSCULAR HEMOGLOBIN 24.4 pg (27.0-31.0); MEAN CORPUSCULAR HGB CONC 30.7 g/dL (33.0-37.0); MEAN PLATELET VOLUME 7.7 fl (7.2-11.7); MONO # 0.6 K/uL (0.0-0.8); MONO % 5.5 % (0.0-10.0); NEUT # 6.9 K/uL (1.8-7.0); NEUT % 60.7 % (50.0-75.0); RED CELL DISTRIBUTION WIDTH 17.9 % (11.5-14.5); WHITE BLOOD COUNT 11.3 K/uL (4.8-10.8)
[2017-07-06 18:39] LABS: RBC URINE 23 /hpf (0-3)
[2017-07-06 18:40] LABS: URINE BACTERIA OCC (<OCC)
[2017-07-06 18:50] LABS: ALB/GLOB RATIO 1.6 (1.0-2.1); ALKALINE PHOSPHATASE 93 U/L (38-126); ALT/SGPT 30 U/L (9-52); AST/SGOT 23 U/L (14-36); BILIRUBIN,TOTAL 0.2 mg/dl (0.2-1.3); BLOOD UREA NITROGEN 4 mg/dl (7-17); CALCIUM 9.7 mg/dL (8.4-10.2); CARBON DIOXIDE 23 mmol/L (22-30); CHLORIDE 104 mmol/L (98-107); GFR AFRICAN-AMERICAN > 60; GLUCOSE,RANDOM 105 mg/dL (65-105); LIPASE 354 U/L (23-300); SODIUM 143 mmol/l (132-148); TOTAL PROTEIN 7.3 G/DL (6.3-8.2)
[2017-07-06 18:54] LABS: POTASSIUM 3.1 MMOL/L (3.6-5.0)
[2017-07-06] MEDS ORDERED: Potassium Chloride 20 mEq ER Tab PO ONE (19:00)
[2017-07-06 19:27] VITALS: BP 124/68; PULSE 84; TEMP 98
[2017-07-08 07:17] VITALS: O2SAT 98
== END 2017-07-06 19:27 | disposition home or self-care (01) ==
LOC: H.ER 16:01
DX: N39.0 Urinary tract infection, site not specified (principal); K50.90 Crohn's disease, unspecified, without complications
CPT/HCPCS: 80053; 81003; 81025; 83690; 85025; 87086; 96374; 96375; 99283; J1170; J2405

== ENCOUNTER 2017-07-20 10:16 | Observation (INO) | payer OTHER ==
[2017-07-20 10:17] VITALS: BMI 20.5
--- NOTE | 2017-07-20 11:35 | ED PDOC ---
HPI: General Adult Time Seen by Provider: 07/20/17 11:11 Chief Complaint (Nursing): Weakness/Neurological Deficit Chief Complaint (Provider): body aches, weakness, nausea History Per: Patient Additional Complaint(s): 32-year-old female with history of chronic abdominal pain and Crohn's disease presents to emergency department with 4 day history of weakness, nausea and generalized body aches. Patient states 2 weeks ago she was started on Pentasa for the first time and was also started back on oral Dilaudid 2 mg 3 times a day. Patient is not sure if either of these medications is causing her symptoms. She has had mild chest congestion and a dry cough. Patient denies any vomiting or diarrhea but has had persistent nausea. No associated dysuria. Patient denies headache or dizziness, denies chest pain. Patient also states she has been zofran ODT at home but this has not helped the nausea. Past Medical History Reviewed: Historical Data, Nursing Documentation, Vital Signs Vital Signs: Last Vital Signs Temp 98.8 F 07/20/17 10:36 Pulse 88 07/20/17 10:36 Resp 19 07/20/17 10:36 BP 132/72 07/20/17 10:36 Pulse Ox 99 07/20/17 11:41 - Medical History PMH: Anemia, Anxiety, Asthma, Bipolar Disorder, Crohn's Disease, Depression, Gastrointestinal Ulcer (peptic & gastric), Migraine (abdominal), Pancreatitis, Chronic Kidney Disease, Chronic Pain (Abdominal) - Surgical History Surgical History: Endoscopy Other surgeries: laproscopy x 2 to abdomen - Family History Family History: States: Diabetes - Living Arrangements Living Arrangements: With Family - Social History Alcohol: None Drugs: Denies - Home Medications Home Medications: Ambulatory Orders Medication Instructions Recorded Alprazolam [Xanax] 0.5 mg PO TID PRN #0 tablet 07/15/16 buPROPion XL [Wellbutrin XL] 300 mg PO DAILY 10/26/16 traMADol [Ultram] 50 mg PO QID PRN #10 tab 12/26/16 ARIPiprazole [Abilify] 15 mg PO HS 07/20/17 HYDROmorphone [Dilaudid] 2 mg PO Q8H PRN 07/20/17 Mesalamine ER Cap [Pentasa] 500 mg PO QID 07/20/17 OXcarbazepine [Trileptal] 300 mg PO HS 07/20/17 Ondansetron [Zofran Tab] 4 mg PO Q6H PRN 07/20/17 - Allergies Allergies/Adverse Reactions: Allergies Allergy/AdvReac Type Severity Reaction Status Date / Time acetaminophen [From Percocet] Allergy SWELLING Verified 07/07/17 16:30 Gadolinium-Containing Allergy URTICARIA Verified 07/07/17 16:30 Contrast Medi Iodine and Iodide Containing Allergy RASH Verified 07/07/17 16:30 Produc Latex, Natural Rubber Allergy RASH Verified 07/07/17 16:30 morphine Allergy RASH Verified 07/07/17 16:30 oxycodone HCl [From Percocet] Allergy SWELLING Verified 07/07/17 16:30 shellfish derived Allergy RASH Verified 07/07/17 16:30 shrimp Allergy RASH Verified 07/07/17 16:30 doxycycline AdvReac extreme Verified 07/07/17 16:30 abdominal pain, cramps metronidazole [From Flagyl] AdvReac abdominal Verified 07/07/17 16:30 pain, cramps CONTRAST Allergy Severe URTICARIA Uncoded 07/07/17 16:30 SHRIMPS Allergy Severe RASH Uncoded 07/07/17 16:30 LATEX Allergy Intermediate RASH Uncoded 07/07/17 16:30 Review of Systems ROS Statement: Except As Marked, All Systems Reviewed And Found Negative Constitutional: Positive for: Weakness, Other (body aches). Negative for: Fever , Chills Cardiovascular: Negative for: Chest Pain Respiratory: Positive for: Cough Gastrointestinal: Positive for: Nausea, Abdominal Pain. Negative for: Vomiting , Diarrhea, Constipation Genitourinary Female: Negative for: Dysuria Neurological: Negative for: Headache, Dizziness Physical Exam - Reviewed Nursing Documentation Reviewed: Yes Vital Signs Reviewed: Yes - Physical Exam Appears: Positive for: Well, Non-toxic, No Acute Distress Skin: Positive for: Pallor. Negative for: Rash Eye Exam: Positive for: Normal appearance, EOMI, PERRL ENT: Positive for: Normal ENT Inspection Cardiovascular/Chest: Positive for: Regular Rate, Rhythm Respiratory: Positive for: Normal Breath Sounds Gastrointestinal/Abdominal: Positive for: Soft. Negative for: Tenderness, Distended, Guarding, Rebound Back: Negative for: L CVA Tenderness, R CVA Tenderness Extremity: Positive for: Normal ROM Neurologic/Psych: Positive for: Alert, Oriented - Laboratory Results Result Diagrams: 07/20/17 12:00 07/20/17 12:00 Urine POC: Negative - ECG O2 Sat by Pulse Oximetry: 99 Pulse Ox Interpretation: Normal - Other Rad CXR X-Ray: Interpreted by Me, Viewed By Me X-Ray Interpretation: no active disease Medical Decision Making Medical Decision Makin32 year old female with nausea, body aches and weakness Plan: IVF CBC CMP Lipase Flu swab UA Urine culture IV dilaudid IV zofran CXR UTI noted, 1 gram IV rocephin ordered Patient admitted to [facility] service, Dr. Viera aware and at bedside. Disposition - Clinical Impression Clinical Impression: Adverse reaction to drug, Lethargy, UTI (lower urinary tract infection) - Patient ED Disposition Is Patient to be Admitted: Yes - Disposition Disposition Time: 14:19 Condition: FAIR - Pt Status Changed To: Hospital Disposition Of: Inpatient - Admit Certification Admit to Inpatient:: After my assessment, the patient will require hospitalization for at least two midnights. This is because of the severity of symptoms shown, intensity of services needed, and/or the medical risk in this patient being treated as an outpatient. - POA Present On Arrival: None
[2017-07-20] MEDS ORDERED: Sodium Chloride 0.9% 1,000 ML IV STA (11:42)
[2017-07-20 12:08] LABS: RBC URINE 2 /hpf (0-3); URINE BACTERIA RARE (<OCC); URINE BILIRUBIN NEGATIVE (NEGATIVE); URINE BLOOD NEGATIVE (NEGATIVE); URINE COLOR YELLOW (YELLOW); URINE GLUCOSE (UA) NEG (Normal); URINE KETONE NEGATIVE (NEGATIVE); URINE LEUKOCYTE ESTERASE LARGE Leu/uL (Negative); URINE PROTEIN NEGATIVE (NEGATIVE); URINE UROBILINOGEN 0.2-1.0 mg/dL (0.2-1.0); WBC URINE 7 /hpf (0-5)
[2017-07-20 12:17] LABS: BASO # 0.1 K/uL (0.0-0.2); BASO % 0.7 % (0.0-2.0); EOS # 0.1 K/uL (0.0-0.7); EOS % 0.6 % (0.0-4.0); HEMATOCRIT 28.8 % (34.0-47.0); LYMPH # 2.4 K/uL (1.0-4.3); LYMPH % 20.3 % (20.0-40.0); MEAN CELL VOLUME 77.7 fl (81.0-99.0); MEAN CORPUSCULAR HEMOGLOBIN 24.4 pg (27.0-31.0); MEAN CORPUSCULAR HGB CONC 31.4 g/dL (33.0-37.0); MEAN PLATELET VOLUME 7.1 fl (7.2-11.7); MONO # 0.7 K/uL (0.0-0.8); MONO % 5.8 % (0.0-10.0); NEUT # 8.6 K/uL (1.8-7.0); NEUT % 72.6 % (50.0-75.0); RED CELL DISTRIBUTION WIDTH 17.4 % (11.5-14.5); WHITE BLOOD COUNT 11.9 K/uL (4.8-10.8)
[2017-07-20 12:39] LABS: ALB/GLOB RATIO 1.5 (1.0-2.1); ALKALINE PHOSPHATASE 118 U/L (38-126); ALT/SGPT 34 U/L (9-52); AST/SGOT 35 U/L (14-36); BILIRUBIN,TOTAL < 0.1 mg/dl (0.2-1.3); BLOOD UREA NITROGEN 10 mg/dl (7-17); CARBON DIOXIDE 25 mmol/L (22-30); CHLORIDE 106 mmol/L (98-107); GFR AFRICAN-AMERICAN > 60; GLUCOSE,RANDOM 75 mg/dL (65-105); LIPASE 68 U/L (23-300); POTASSIUM 3.8 MMOL/L (3.6-5.0); SODIUM 147 mmol/l (132-148); TOTAL PROTEIN 6.9 G/DL (6.3-8.2)
--- NOTE | 2017-07-20 13:43 | CP.PCM.HP ---
History of Present Illness - History of Present Illness History of Present Illness: CC: "Abdominal pain" HPI: 32 YO female with PMH of crohn's disease, anemia, bipolar disease, anxiety , GI ulcer, abdominal migraine, pancreatitis, CKD, has hx of drug seeking behavior, presents to [facility] ED for abdominal pain. Pt states that she has chronic abdominal pain for years, but on Wednesday abdominal pain worsened and the pain brought her to the hospital. Pt states that the pain is 7-8/10, sharp in nature, no radiation and has been stable since onset. Pain is better with Dilaudid, and nothing makes the pain worse. Pt states that she had a recent change in her Crohn's medication, pt was started on Pentesa on 07/09 and pt states that since she started the mediation she has had some fatigue (not currently) and worsening abdominal pain. Endorses occasional nausea, but no episodes of emesis. Denies chest pain, dyspnea, body pain, no diarrhea and constipation, no changes in bowel movements, no blood in stool, no weight loss. Colonoscopy done 1 month ago, GI not convinced of Crohn's disease. Nothing to be done per GI, Dr. Augustin. Follow up with GI as outpatient. In the ED: pt given Dilaudid 1mg for pain, ceftriaxone and IV fluids UA + for leukoesterases and WBC cbc sig for anemia and cmp wnl chest xray no acute pulmonary findings PMD: Dr. Arshad GI: Dr. 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 absent: Fever, Weight Loss, Weakness - EENT Eyes: absent: Discharge, Loss of Vision Ears: absent: Ear Pain, Dizziness - Cardiovascular Cardiovascular: absent: Chest Pain, Dyspnea, Palpitations - Respiratory Respiratory: absent: Cough, Dyspnea - Gastrointestinal Gastrointestinal: Abdominal Pain. absent: Bloating, Change in Bowel Habits, Change in Stool Character, Diarrhea, Nausea, Vomiting - Genitourinary Genitourinary: absent: Difficulty Urinating, Dysuria - Musculoskeletal Musculoskeletal: absent: Back Pain, Neck Pain - Neurological Neurological: absent: Abnormal Gait, Dizziness, Focal Weakness, Headaches - Psychiatric Psychiatric: Anxiety. absent: Change in Libido - Endocrine Endocrine: Fatigue. absent: Change in Body Appearance, Palpitations Past Patient History - Infectious Disease Hx of Infectious Diseases: None - Tetanus Immunizations Tetanus Immunization: Allergy to Tetanus Vaccine - Past Medical History & Family History Past Medical History?: Yes - Past Social History Smoking Status: Never Smoked Alcohol: None Drugs: Denies Home Situation {Lives}: With Family - CARDIAC Hx Cardiac Disorders: No - PULMONARY Hx Asthma: Yes - NEUROLOGICAL Hx Migraine: Yes (abdominal) - HEENT Hx HEENT Problems: No - RENAL Hx Chronic Kidney Disease: Yes - ENDOCRINE/METABOLIC Hx Endocrine Disorders: No - HEMATOLOGICAL/ONCOLOGICAL Hx Anemia: Yes - INTEGUMENTARY Hx Dermatological Problems: No - MUSCULOSKELETAL/RHEUMATOLOGICAL Hx Musculoskeletal Disorders: No - GASTROINTESTINAL Hx Crohn's Disease: Yes Hx Pancreatitis: Yes - GENITOURINARY/GYNECOLOGICAL Hx Genitourinary Disorders: No - PSYCHIATRIC Hx Anxiety: Yes Hx Bipolar Disorder: Yes Hx Depression: Yes - SURGICAL HISTORY Hx Surgeries: Yes - ANESTHESIA Hx Anesthesia: Yes Hx Anesthesia Reactions: No Hx Malignant Hyperthermia: No Meds Allergies/Adverse Reactions: Allergies Allergy/AdvReac Type Severity Reaction Status Date / Time acetaminophen [From Percocet] Allergy SWELLING Verified 07/07/17 16:30 Gadolinium-Containing Allergy URTICARIA Verified 07/07/17 16:30 Contrast Medi Iodine and Iodide Containing Allergy RASH Verified 07/07/17 16:30 Produc Latex, Natural Rubber Allergy RASH Verified 07/07/17 16:30 morphine Allergy RASH Verified 07/07/17 16:30 oxycodone HCl [From Percocet] Allergy SWELLING Verified 07/07/17 16:30 shellfish derived Allergy RASH Verified 07/07/17 16:30 shrimp Allergy RASH Verified 07/07/17 16:30 doxycycline AdvReac extreme Verified 07/07/17 16:30 abdominal pain, cramps metronidazole [From Flagyl] AdvReac abdominal Verified 07/07/17 16:30 pain, cramps CONTRAST Allergy Severe URTICARIA Uncoded 07/07/17 16:30 SHRIMPS Allergy Severe RASH Uncoded 07/07/17 16:30 LATEX Allergy Intermediate RASH Uncoded 07/07/17 16:30 Physical Exam - Constitutional Appears: No Acute Distress - Head Exam Head Exam: ATRAUMATIC, NORMAL INSPECTION - Eye Exam Eye Exam: EOMI, Normal appearance - ENT Exam ENT Exam: Mucous Membranes Moist, Normal Exam - Neck Exam Neck exam: Positive for: Full Rom. Negative for: Lymphadenopathy - Respiratory Exam Respiratory Exam: Clear to Auscultation Bilateral, NORMAL BREATHING PATTERN. absent: Wheezes, Respiratory Distress - Cardiovascular Exam Cardiovascular Exam: REGULAR RHYTHM, +S1, +S2 - GI/Abdominal Exam GI & Abdominal Exam: Normal Bowel Sounds, Soft. absent: Distended, Tenderness - Extremities Exam Extremities exam: Positive for: full ROM, normal inspection. Negative for: calf tenderness, tenderness - Back Exam Back exam: NORMAL INSPECTION. absent: CVA tenderness (L), CVA tenderness (R) - Neurological Exam Neurological exam: Alert, CN II-XII Intact, Normal Gait, Oriented x3, Reflexes Normal - Psychiatric Exam Psychiatric exam: Normal Affect, Normal Mood - Skin Skin Exam: Dry, Intact, Normal Color, Warm Results - Vital Signs Recent Vital Signs: Last Vital Signs Temp 98.8 F 07/20/17 10:36 Pulse 88 07/20/17 10:36 Resp 19 07/20/17 10:36 BP 132/72 07/20/17 10:36 Pulse Ox 99 07/20/17 11:41 - Labs Result Diagrams: 07/20/17 12:00 07/20/17 12:00 Labs: Laboratory Results - last 24 hr 07/20/17 07/20/17 07/20/17 11:45 12:00 12:00 WBC 11.9 H RBC 3.71 L Hgb 9.1 L Hct 28.8 L MCV 77.7 L D MCH 24.4 L MCHC 31.4 L RDW 17.4 H Plt Count 622 H MPV 7.1 L Neut % (Auto) 72.6 Lymph % (Auto) 20.3 [place] % (Auto) 5.8 Eos % (Auto) 0.6 Baso % (Auto) 0.7 Neut # 8.6 H Lymph # 2.4 [place] # 0.7 Eos # 0.1 Baso # 0.1 Sodium 147 Potassium 3.8 Chloride 106 Carbon Dioxide 25 Anion Gap 20 BUN 10 Creatinine 0.5 L Est GFR ( Amer) > 60 Est GFR (Non-Af Amer) > 60 Random Glucose 75 Calcium 9.0 Total Bilirubin < 0.1 L AST 35 ALT 34 Alkaline Phosphatase 118 Total Protein 6.9 Albumin 4.2 Globulin 2.8 Albumin/Globulin Ratio 1.5 Lipase 68 Urine Color Yellow Urine Clarity Slighty-cloudy Urine pH 6.0 Ur Specific [place] 1.021 Urine Protein Negative Urine Glucose (UA) Neg Urine Ketones Negative Urine Blood Negative Urine Nitrate Negative Urine Bilirubin Negative Urine Urobilinogen 0.2-1.0 Ur Leukocyte Esterase Large Urine RBC (Auto) 2 Urine Microscopic WBC 7 H Ur Squamous Epith Cells 3 Urine Bacteria Rare Assessment & Plan - Assessment and Plan (Free Text) Assessment: 32 YO Female with sig PMH of crohn's disease, abdominal migraine, pancreatitis, anemia is admitted for UTI and abdominal pain. Not endorsing fatigue/lethargy. 1. UTI, asymptomatic -UA pos for large leukoesterase and WBC 7 -started on Macrobid -will follow up 2. Abdominal pain, chronic -likely 2/2 to abdominal migraine -Spoke to her GI doctor, Dr. Augustin-nothing to be done right now. Follow up out patient on -pain management consulted, will follow up recs -dilaudid for pain -will follow up 3. Anemia, chronic -microcytic anemia, likely 2/2 to iron deficiency -will start iron, colace -will cont to monitor 4. DVT prophalaxis -ambulating -SCDS
[2017-07-20] MEDS ORDERED: cefTRIAXone IV 1 gm in Dextros 50 ML IVPB ONE (14:56)
[2017-07-20] MEDS: Sodium Chloride 0.9% 1,000 ML IV SCH (15:06)
[2017-07-20 15:35] LABS: PARTIAL THROMBOPLASTIN TIME 29.5 Seconds (25.6-37.1)
[2017-07-20 16:44] VITALS: RESP 18
[2017-07-20] MEDS: MESALAMINE 500 MG PO SCH ×2 (17:26→21:39)
[2017-07-21] MEDS: Sodium Chloride 0.9% 1,000 ML IV SCH (06:11)
[2017-07-21 08:08] VITALS: BP 131/82; PULSE 99; TEMP 98.3; O2SAT 100
[2017-07-21] MEDS: MESALAMINE 500 MG PO SCH ×2 (09:52→13:19)
[2017-07-21] MEDS ORDERED: Enoxaparin 40 mg Syringe SC SCH (10:15)
--- NOTE | 2017-07-21 10:41 | CP.PCM.CON ---
History of Present Illness - History of Present Illness History of Present Illness: 32 yo woman, well known to me from outpatient clinic, is referred for pain management. She developed pain and lethargy over the weekend and had to be admitted. She had seen me at the clinic a week prior and I had continued her regimen with Dr. Yarbrough. She's feeling better today and may be discharged later. There are no acute events otherwise. Past Patient History - Infectious Disease Hx of Infectious Diseases: None - Tetanus Immunizations Tetanus Immunization: Allergy to Tetanus Vaccine - Past Medical History & Family History Past Medical History?: Yes - Past Social History Smoking Status: Never Smoked - CARDIAC Hx Cardiac Disorders: No - PULMONARY Hx Asthma: Yes - NEUROLOGICAL Hx Neurological Disorder: Yes - HEENT Hx HEENT Problems: No - RENAL Hx Chronic Kidney Disease: Yes - ENDOCRINE/METABOLIC Hx Endocrine Disorders: No - HEMATOLOGICAL/ONCOLOGICAL Hx Blood Disorders: No - INTEGUMENTARY Hx Dermatological Problems: No - MUSCULOSKELETAL/RHEUMATOLOGICAL Hx Musculoskeletal Disorders: No Hx Falls: No - GASTROINTESTINAL Hx Crohn's Disease: Yes Hx Pancreatitis: Yes - GENITOURINARY/GYNECOLOGICAL Hx Genitourinary Disorders: No - PSYCHIATRIC Hx Psychophysiologic Disorder: Yes - SURGICAL HISTORY Hx Surgeries: Yes - ANESTHESIA Hx Anesthesia: Yes Hx Anesthesia Reactions: No Hx Malignant Hyperthermia: No Has any member of the family had a problem w/ anesthesia?: No Meds Allergies/Adverse Reactions: Allergies Allergy/AdvReac Type Severity Reaction Status Date / Time acetaminophen [From Percocet] Allergy SWELLING Verified 07/07/17 16:30 Gadolinium-Containing Allergy URTICARIA Verified 07/07/17 16:30 Contrast Medi Iodine and Iodide Containing Allergy RASH Verified 07/07/17 16:30 Produc Latex, Natural Rubber Allergy RASH Verified 07/07/17 16:30 morphine Allergy RASH Verified 07/07/17 16:30 oxycodone HCl [From Percocet] Allergy SWELLING Verified 07/07/17 16:30 shellfish derived Allergy RASH Verified 07/07/17 16:30 shrimp Allergy RASH Verified 07/07/17 16:30 doxycycline AdvReac extreme Verified 07/07/17 16:30 abdominal pain, cramps metronidazole [From Flagyl] AdvReac abdominal Verified 07/07/17 16:30 pain, cramps CONTRAST Allergy Severe URTICARIA Uncoded 07/07/17 16:30 SHRIMPS Allergy Severe RASH Uncoded 07/07/17 16:30 LATEX Allergy Intermediate RASH Uncoded 07/07/17 16:30 - Medications Medications: Current Medications Alprazolam (Xanax) 0.5 mg PO TID PRN PRN Reason: Anxiety Aripiprazole (Abilify) 15 mg PO HS [facility] Last Admin: 07/20/17 21:39 Dose: 15 mg Docusate Sodium (Colace) 100 mg PO DAILY [facility] Last Admin: 07/21/17 09:51 Dose: 100 mg Enoxaparin Sodium (Lovenox) 40 mg SC DAILY [facility] PRN Reason: Protocol Ferrous Sulfate (Feosol) 325 mg PO DAILY [facility] Last Admin: 07/21/17 09:52 Dose: 325 mg Home Med (Bupropion Xl [Wellbutrin Xl]) 300 mg PO DAILY [facility] Home Med (Mesalamine Er Cap [Pentasa]) 500 mg PO QID [facility] Last Admin: 07/21/17 09:52 Dose: 500 mg Hydromorphone HCl (Dilaudid) 2 mg PO Q8H PRN PRN Reason: Pain, severe (8-10) Last Admin: 07/21/17 03:07 Dose: 2 mg Sodium Chloride (Sodium Chloride 0.9%) 1,000 mls @ 70 mls/hr IV .[id number] [facility] Stop: 07/21/17 14:09 Last Admin: 07/21/17 06:11 Dose: 70 mls/hr Nitrofurantoin Macrocrystals (Macrobid) 100 mg PO Q12 [facility] Last Admin: 07/21/17 09:52 Dose: 100 mg Ondansetron HCl (Zofran Tab) 4 mg PO Q6H PRN PRN Reason: Nausea/Vomiting Oxcarbazepine (Trileptal) 300 mg PO HS [facility] Last Admin: 07/20/17 21:39 Dose: 300 mg Polyethylene Glycol (Miralax) 17 gm PO BID [facility] Sennosides (Senokot Tab) 8.6 mg PO HS [facility] Last Admin: 07/20/17 21:39 Dose: 8.6 mg Tramadol HCl (Ultram) 50 mg PO QID PRN PRN Reason: Pain, moderate (4-7) Last Admin: 07/20/17 18:10 Dose: 50 mg Physical Exam - Cardiovascular Exam Cardiovascular Exam: REGULAR RHYTHM - GI/Abdominal Exam GI & Abdominal Exam: Soft, Tenderness Results - Vital Signs Recent Vital Signs: Last Vital Signs Temp 98.3 F 07/21/17 08:06 Pulse 99 H 07/21/17 08:06 Resp 18 07/21/17 08:06 BP 131/82 07/21/17 08:06 Pulse Ox 100 07/21/17 08:06 - Labs Result Diagrams: 07/20/17 12:00 07/20/17 12:00 Labs: Laboratory Results - last 24 hr 07/20/17 07/20/17 07/20/17 11:45 12:00 12:00 WBC 11.9 H RBC 3.71 L Hgb 9.1 L Hct 28.8 L MCV 77.7 L D MCH 24.4 L MCHC 31.4 L RDW 17.4 H Plt Count 622 H MPV 7.1 L Neut % (Auto) 72.6 Lymph % (Auto) 20.3 [place] % (Auto) 5.8 Eos % (Auto) 0.6 Baso % (Auto) 0.7 Neut # 8.6 H Lymph # 2.4 [place] # 0.7 Eos # 0.1 Baso # 0.1 PT INR APTT Sodium 147 Potassium 3.8 Chloride 106 Carbon Dioxide 25 Anion Gap 20 BUN 10 Creatinine 0.5 L Est GFR ( Amer) > 60 Est GFR (Non-Af Amer) > 60 Random Glucose 75 Calcium 9.0 Total Bilirubin < 0.1 L AST 35 ALT 34 Alkaline Phosphatase 118 Total Protein 6.9 Albumin 4.2 Globulin 2.8 Albumin/Globulin Ratio 1.5 Lipase 68 Urine Color Yellow Urine Clarity Slighty-cloudy Urine pH 6.0 Ur Specific [place] 1.021 Urine Protein Negative Urine Glucose (UA) Neg Urine Ketones Negative Urine Blood Negative Urine Nitrate Negative Urine Bilirubin Negative Urine Urobilinogen 0.2-1.0 Ur Leukocyte Esterase Large Urine RBC (Auto) 2 Urine Microscopic WBC 7 H Ur Squamous Epith Cells 3 Urine Bacteria Rare Urine Opiates Screen Urine Methadone Screen Ur Barbiturates Screen Ur Phencyclidine Scrn Ur Amphetamines Screen U Benzodiazepines Scrn U Oth Cocaine Metabols U Cannabinoids Screen 07/20/17 07/20/17 15:11 17:15 WBC RBC Hgb Hct MCV MCH MCHC RDW Plt Count MPV Neut % (Auto) Lymph % (Auto) [place] % (Auto) Eos % (Auto) Baso % (Auto) Neut # Lymph # [place] # Eos # Baso # PT 11.9 INR 1.1 APTT 29.5 Sodium Potassium Chloride Carbon Dioxide Anion Gap BUN Creatinine Est GFR ( Amer) Est GFR (Non-Af Amer) Random Glucose Calcium Total Bilirubin AST ALT Alkaline Phosphatase Total Protein Albumin Globulin Albumin/Globulin Ratio Lipase Urine Color Urine Clarity Urine pH Ur Specific [place] Urine Protein Urine Glucose (UA) Urine Ketones Urine Blood Urine Nitrate Urine Bilirubin Urine Urobilinogen Ur Leukocyte Esterase Urine RBC (Auto) Urine Microscopic WBC Ur Squamous Epith Cells Urine Bacteria Urine Opiates Screen Positive H Urine Methadone Screen Negative Ur Barbiturates Screen Negative Ur Phencyclidine Scrn Negative Ur Amphetamines Screen Negative U Benzodiazepines Scrn Positive U Oth Cocaine Metabols Negative U Cannabinoids Screen Negative Assessment & Plan - Assessment and Plan (Free Text) Assessment: 32 yo woman w/ chronic abd pain. No acute events. Pain improved with hydration and IV pain medication. - continue home regimen of Dilaudid 2mg PO PRN and Tramadol 50mg PRN - withhold Dilaudid IV - hydration, f/u GI rec's - patient to can follow up with me as outpatient
--- NOTE | 2017-07-21 13:50 | CP.PCM.DIS ---
Provider - Provider Date of Admission: 07/20/17 13:22 Attending physician: Mary Fung MD Time Spent in preparation of Discharge (in minutes): 30 Hospital Course - Lab Results Lab Results: Micro Results 07/20/17 11:45 Urine,Random Urine Culture - Final No Growth (<1,000 CFU/ML) Most Recent Lab Values WBC 11.9 K/uL (4.8-10.8) H 07/20/17 12:00 RBC 3.71 Mil/uL (3.80-5.20) L 07/20/17 12:00 Hgb 9.1 g/dL (12.0-16.0) L 07/20/17 12:00 Hct 28.8 % (34.0-47.0) L 07/20/17 12:00 MCV 77.7 fl (81.0-99.0) L D 07/20/17 12:00 MCH 24.4 pg (27.0-31.0) L 07/20/17 12:00 MCHC 31.4 g/dL (33.0-37.0) L 07/20/17 12:00 RDW 17.4 % (11.5-14.5) H 07/20/17 12:00 Plt Count 622 K/uL (130-400) H 07/20/17 12:00 MPV 7.1 fl (7.2-11.7) L 07/20/17 12:00 Neut % (Auto) 72.6 % (50.0-75.0) 07/20/17 12:00 Lymph % (Auto) 20.3 % (20.0-40.0) 07/20/17 12:00 [place] % (Auto) 5.8 % (0.0-10.0) 07/20/17 12:00 Eos % (Auto) 0.6 % (0.0-4.0) 07/20/17 12:00 Baso % (Auto) 0.7 % (0.0-2.0) 07/20/17 12:00 Neut # 8.6 K/uL (1.8-7.0) H 07/20/17 12:00 Lymph # 2.4 K/uL (1.0-4.3) 07/20/17 12:00 [place] # 0.7 K/uL (0.0-0.8) 07/20/17 12:00 Eos # 0.1 K/uL (0.0-0.7) 07/20/17 12:00 Baso # 0.1 K/uL (0.0-0.2) 07/20/17 12:00 PT 11.9 Seconds (9.8-13.1) 07/20/17 15:11 INR 1.1 (0.9-1.2) 07/20/17 15:11 APTT 29.5 Seconds (25.6-37.1) 07/20/17 15:11 Sodium 147 mmol/l (132-148) 07/20/17 12:00 Potassium 3.8 MMOL/L (3.6-5.0) 07/20/17 12:00 Chloride 106 mmol/L (98-107) 07/20/17 12:00 Carbon Dioxide 25 mmol/L (22-30) 07/20/17 12:00 Anion Gap 20 (10-20) 07/20/17 12:00 BUN 10 mg/dl (7-17) 07/20/17 12:00 Creatinine 0.5 mg/dL (0.7-1.2) L 07/20/17 12:00 Est GFR ( Amer) > 60 07/20/17 12:00 Est GFR (Non-Af Amer) > 60 07/20/17 12:00 Random Glucose 75 mg/dL (65-105) 07/20/17 12:00 Calcium 9.0 mg/dL (8.4-10.2) 07/20/17 12:00 Total Bilirubin < 0.1 mg/dl (0.2-1.3) L 07/20/17 12:00 AST 35 U/L (14-36) 07/20/17 12:00 ALT 34 U/L (9-52) 07/20/17 12:00 Alkaline Phosphatase 118 U/L (38-126) 07/20/17 12:00 Total Protein 6.9 G/DL (6.3-8.2) 07/20/17 12:00 Albumin 4.2 g/dL (3.5-5.0) 07/20/17 12:00 Globulin 2.8 gm/dL (2.2-3.9) 07/20/17 12:00 Albumin/Globulin Ratio 1.5 (1.0-2.1) 07/20/17 12:00 Lipase 68 U/L (23-300) 07/20/17 12:00 Urine Color Yellow (YELLOW) 07/20/17 11:45 Urine Clarity Slighty-cloudy (Clear) 07/20/17 11:45 Urine pH 6.0 (5.0-8.0) 07/20/17 11:45 Ur Specific [place] 1.021 (1.003-1.030) 07/20/17 11:45 Urine Protein Negative mg/dL (NEGATIVE) 07/20/17 11:45 Urine Glucose (UA) Neg mg/dL (Normal) 07/20/17 11:45 Urine Ketones Negative mg/dL (NEGATIVE) 07/20/17 11:45 Urine Blood Negative (NEGATIVE) 07/20/17 11:45 Urine Nitrate Negative (NEGATIVE) 07/20/17 11:45 Urine Bilirubin Negative (NEGATIVE) 07/20/17 11:45 Urine Urobilinogen 0.2-1.0 mg/dL (0.2-1.0) 07/20/17 11:45 Ur Leukocyte Esterase Large Amadeo/uL (Negative) 07/20/17 11:45 Urine RBC (Auto) 2 /hpf (0-3) 07/20/17 11:45 Urine Microscopic WBC 7 /hpf (0-5) H 07/20/17 11:45 Ur Squamous Epith Cells 3 /hpf (0-5) 07/20/17 11:45 Urine Bacteria Rare (<OCC) 07/20/17 11:45 Urine Opiates Screen Positive (NEGATIVE) H 07/20/17 17:15 Urine Methadone Screen Negative (NEGATIVE) 07/20/17 17:15 Ur Barbiturates Screen Negative (NEGATIVE) 07/20/17 17:15 Ur Phencyclidine Scrn Negative (NEGATIVE) 07/20/17 17:15 Ur Amphetamines Screen Negative (NEGATIVE) 07/20/17 17:15 U Benzodiazepines Scrn Positive (NEGATIVE) 07/20/17 17:15 U Oth Cocaine Metabols Negative (NEGATIVE) 07/20/17 17:15 U Cannabinoids Screen Negative (NEGATIVE) 07/20/17 17:15 - Hospital Course Hospital Course: 32 YO female with PMH of crohn's disease, anemia, bipolar disease, anxiety, GI ulcer, abdominal migraine, pancreatitis, CKD was admitted for observation for abdominal pain and UTI. Pt was given IV fluids, ceftriaxone in ED, and received macrobid. Abdominal pain has resolved and pt to follow up with Dr. Charli CHACON , PMD Dr. Arshad on 07/27 at 9:[address] Vázquez as outpatient. Pt d/c home with macrobid for UTI, Iron and colace for chronic anemia. Discharge Exam - Head Exam Head Exam: ATRAUMATIC, NORMAL INSPECTION - Eye Exam Eye Exam: EOMI, Normal appearance - ENT Exam ENT Exam: Mucous Membranes Moist - Neck Exam Neck exam: Full Rom - Respiratory Exam Respiratory Exam: Clear to PA & Lateral, NORMAL BREATHING PATTERN - Cardiovascular Exam Cardiovascular Exam: REGULAR RHYTHM, +S1, +S2 - GI/Abdominal Exam GI & Abdominal Exam: Normal Bowel Sounds. absent: Distended, Guarding, Tenderness - Extremities Exam Extremities exam: full ROM, normal inspection - Back Exam Back exam: NORMAL INSPECTION. absent: CVA tenderness (L), CVA tenderness (R) - Neurological Exam Neurological exam: Alert, CN II-XII Intact, Normal Gait, Oriented x3 - Psychiatric Exam Psychiatric exam: Normal Affect, Normal Mood - Skin Skin Exam: Dry, Intact, Normal Color, Warm Discharge Plan - Discharge Medications Prescriptions: Docusate [Colace] 100 mg PO BID 1 Days #60 cap Ferrous Sulfate [Feosol] 325 mg PO BID 60 Days tab Nitrofurantoin Macrocrystals [Macrobid] 100 mg PO Q12 5 Days #10 cap - Follow Up Plan Condition: FAIR Disposition: HOME/ ROUTINE Patient education suggested?: Yes Instructions: Urinary Tract Infection in Women (DC), Iron Rich Diet (DC), Acute Abdominal Pain (DC), Anemia (DC) Additional Instructions: Please follow with Dr. Charli CHACON on Follow up with Dr. Vázquez as out patient Follow up with PMD Dr. Arshad on 07/27 at 9:20 AM Please come to ED if symptoms persist or worsen Referrals: [facility] [Outside] Ethan Augustin MD [Medical Doctor] - Saira Vázquez MD [Staff Provider] -
[2017-07-21] MEDS ORDERED: POLYETHYLENE GLYCOL 3350 17 GM/Dose PACKET PO SCH (17:00)
== END 2017-07-21 15:02 | disposition home or self-care (01) ==
LOC: H.ER 10:16 → H.ERHOLD 13:22 → INTOOBSV 13:22 → H.MEDSURG1 16:12
PROVIDERS: ADMIT Family Medicine Geriatric Medicine; ATTEND Family Medicine Geriatric Medicine
DX: G89.29 Other chronic pain (principal); K50.90 Crohn's disease, unspecified, without complications; N39.0 Urinary tract infection, site not specified; N18.9 Chronic kidney disease, unspecified; D50.9 Iron deficiency anemia, unspecified; F31.9 Bipolar disorder, unspecified; J45.909 Unspecified asthma, uncomplicated; F41.9 Anxiety disorder, unspecified; Z88.6 Allergy status to analgesic agent; Z91.041 Radiographic dye allergy status
CPT/HCPCS: 71020; 80053; 80324; 80345; 80346; 80349; 80353; 80358; 80361; 81003; 81025; 83690; 83992; 85025; 85610; 85730; 87086; 99285; G0378; J0696; J1170; J2405; J7040

== ENCOUNTER 2017-07-26 16:02 | Emergency (ER) | payer BC, OTHER ==
[2017-07-26 16:45] VITALS: BMI 22.0
[2017-07-26] MEDS ORDERED: Sodium Chloride 0.9% 1,000 ML IV STA (16:45)
[2017-07-26] MEDS ORDERED: Magnesium Sulfate 2 gm/50 ml 2 GM/50 ML BAG IVPB ONE (16:45)
[2017-07-26] MEDS ORDERED: DiphenhydrAMINE 50 mg/ml Inj IV STA (16:48)
[2017-07-26] MEDS ORDERED: SODIUM CHLORIDE 0.9% IVPB ONE (16:52)
[2017-07-26] MEDS ORDERED: VALPROATE IVPB ONE (16:52)
--- NOTE | 2017-07-26 16:56 | ED PDOC ---
HPI: General Adult Time Seen by Provider: 07/26/17 16:37 Chief Complaint (Nursing): Headache Chief Complaint (Provider): Abdominal migraine History Per: Patient History/Exam Limitations: no limitations Onset/Duration Of Symptoms: Days (Wednesday) Additional Complaint(s): Pt. with abd pain upper that started after a migraine. States vomiting with it nonbloody. Not new for her. Has had similar multiple times in the past. No weakness, chest pain, dyspnea, fever, cough, diarrhea. Has medication regimen that works for her and made by GI and her pcp. No numbnes, tingles. Not worst headache of her life. Past Medical History Reviewed: Nursing Documentation, Vital Signs Vital Signs: Last Vital Signs Temp 97.2 F L 07/26/17 16:56 Pulse 99 H 07/26/17 16:56 Resp 20 07/26/17 16:56 BP 118/74 07/26/17 16:56 Pulse Ox 100 07/26/17 16:56 - Medical History PMH: Anemia, Anxiety, Asthma, Crohn's Disease, Depression, Migraine (abdominal) , Pancreatitis, Chronic Kidney Disease, Chronic Pain (Abdominal) Other PMH: abd pain - Surgical History Surgical History: Endoscopy - Family History Family History: States: Diabetes - Social History Current smoker - smoking cessation education provided: No Alcohol: None Drugs: Denies - Immunization History Hx Tetanus Toxoid Vaccination: Yes Hx Influenza Vaccination: Yes Hx Pneumococcal Vaccination: Yes - Home Medications Home Medications: Ambulatory Orders Medication Instructions Recorded Alprazolam [Xanax] 0.5 mg PO TID PRN #0 tablet 07/15/16 buPROPion XL [Wellbutrin XL] 300 mg PO DAILY 10/26/16 traMADol [Ultram] 50 mg PO QID PRN #10 tab 12/26/16 ARIPiprazole [Abilify] 15 mg PO HS 07/20/17 HYDROmorphone [Dilaudid] 2 mg PO Q8H PRN 07/20/17 Mesalamine ER Cap [Pentasa] 500 mg PO QID 07/20/17 OXcarbazepine [Trileptal] 300 mg PO HS 07/20/17 Ondansetron [Zofran Tab] 4 mg PO Q6H PRN 07/20/17 Docusate [Colace] 100 mg PO BID 1 Days #60 cap 07/21/17 Docusate [Colace] 100 mg PO DAILY cap 07/21/17 Enoxaparin [Lovenox] 40 mg SC DAILY syr 07/21/17 Ferrous Sulfate [Feosol] 325 mg PO BID 60 Days tab 07/21/17 Ferrous Sulfate [Feosol] 325 mg PO DAILY tab 07/21/17 Nitrofurantoin Macrocrystals 100 mg PO Q12 5 Days #10 cap 07/21/17 [Macrobid] Polyethylene Glycol 3350 [Miralax] 17 gm PO BID packet 07/21/17 Sennosides A and B [Senokot Tab] 8.6 mg PO HS tab 07/21/17 - Allergies Allergies/Adverse Reactions: Allergies Allergy/AdvReac Type Severity Reaction Status Date / Time acetaminophen [From Percocet] Allergy SWELLING Verified 07/26/17 16:43 Gadolinium-Containing Allergy URTICARIA Verified 07/26/17 16:43 Contrast Medi Iodine and Iodide Containing Allergy RASH Verified 07/26/17 16:43 Produc Latex, Natural Rubber Allergy RASH Verified 07/26/17 16:43 morphine Allergy RASH Verified 07/26/17 16:43 oxycodone HCl [From Percocet] Allergy SWELLING Verified 07/26/17 16:43 shellfish derived Allergy RASH Verified 07/26/17 16:43 shrimp Allergy RASH Verified 07/26/17 16:43 doxycycline AdvReac extreme Verified 07/26/17 16:43 abdominal pain, cramps metronidazole [From Flagyl] AdvReac abdominal Verified 07/26/17 16:43 pain, cramps CONTRAST Allergy Severe URTICARIA Uncoded 07/26/17 16:43 SHRIMPS Allergy Severe RASH Uncoded 07/26/17 16:43 LATEX Allergy Intermediate RASH Uncoded 07/26/17 16:43 Review of Systems ROS Statement: Except As Marked, All Systems Reviewed And Found Negative Gastrointestinal: Positive for: Nausea, Vomiting, Abdominal Pain Neurological: Positive for: Headache Physical Exam - Reviewed Nursing Documentation Reviewed: Yes Vital Signs Reviewed: Yes - Physical Exam Appears: Positive for: Non-toxic, No Acute Distress Head Exam: Positive for: ATRAUMATIC, NORMAL INSPECTION, NORMOCEPHALIC Skin: Positive for: Normal Color, Warm, DRY Eye Exam: Positive for: EOMI, Normal appearance, PERRL ENT: Positive for: Normal ENT Inspection Neck: Positive for: Normal, Painless ROM, Supple Cardiovascular/Chest: Positive for: Regular Rate, Rhythm Respiratory: Positive for: CNT, Normal Breath Sounds Gastrointestinal/Abdominal: Positive for: Bowel Sounds, Soft, Tenderness (mild R and L upper quad) Back: Positive for: Normal Inspection. Negative for: L CVA Tenderness, R CVA Tenderness Extremity: Positive for: Normal ROM. Negative for: Tenderness, Pedal Edema Neurologic/Psych: Positive for: Alert, [employer] worker II-XII, Oriented. Negative for: Motor/Sensory Deficits - Laboratory Results Result Diagrams: 07/26/17 17:31 07/26/17 17:31 Interpretation Of Abn Labs: 2.9 k - Progress ED Course And Treament: 1647: Will give pt. medications per her regimen. Stable at this time. 1833: Stable. AAOx3. Pain stabilized. Fu with pcp. Disposition - Clinical Impression Clinical Impression: Hypokalemia, Abdominal migraine - Patient ED Disposition Is Patient to be Admitted: No Counseled Patient/Family Regarding: Studies Performed, Diagnosis, Need For Followup - Disposition Referrals: [facility] [Outside] - 07/27/17 Disposition: Routine/Home Disposition Time: 18:38 Condition: STABLE Additional Instructions: Return if not better in 3 days. Instructions: Hypokalemia (ED), Acute Abdominal Pain (ED)
[2017-07-26 16:58] VITALS: BP 118/74; PULSE 99; RESP 20; TEMP 97.2; O2SAT 100
[2017-07-26] MEDS ORDERED: Valproate 500 MG in Sodium Chloride 0.9% 100 ML IVPB ONE (17:15)
[2017-07-26] MEDS ORDERED: DiphenhydrAMINE 50 mg/ml Inj ONE (17:22)
[2017-07-26] MEDS ORDERED: Magnesium Sulfate 2 gm/50 ml 2 GM/50 ML BAG ONE (17:24)
[2017-07-26 17:41] LABS: BASO # 0.3 K/uL (0.0-0.2); BASO % 4.1 % (0.0-2.0); EOS # 0.1 K/uL (0.0-0.7); EOS % 0.7 % (0.0-4.0); HEMATOCRIT 32.8 % (34.0-47.0); LYMPH % 25.7 % (20.0-40.0); MEAN CELL VOLUME 77.5 fl (81.0-99.0); MEAN CORPUSCULAR HEMOGLOBIN 24.5 pg (27.0-31.0); MEAN CORPUSCULAR HGB CONC 31.7 g/dL (33.0-37.0); MEAN PLATELET VOLUME 7.2 fl (7.2-11.7); MONO # 0.8 K/uL (0.0-0.8); MONO % 9.9 % (0.0-10.0); NEUT # 4.7 K/uL (1.8-7.0); NEUT % 59.6 % (50.0-75.0); NRBC % 0.1 % (0.0-0.0); PLATELET COUNT 649 K/uL (130-400); RED CELL DISTRIBUTION WIDTH 17.4 % (11.5-14.5)
[2017-07-26 17:47] LABS: BLOOD UREA NITROGEN 8 mg/dl (7-17); CALCIUM 9.3 mg/dL (8.4-10.2); CARBON DIOXIDE 24 mmol/L (22-30); CHLORIDE 99 mmol/L (98-107); GFR AFRICAN-AMERICAN > 60; GLUCOSE,RANDOM 95 mg/dL (65-105); LIPASE 31 U/L (23-300); SODIUM 138 mmol/l (132-148)
[2017-07-26 18:03] LABS: POTASSIUM 2.9 MMOL/L (3.6-5.0)
[2017-07-26] MEDS ORDERED: Potassium Chloride 20 mEq ER Tab PO ONE ×3 (18:35→19:10)
[2017-07-26 18:40] LABS: BASOPHIL 1 % (0-2); EOSINOPHIL 2 % (0-7); NEUTROPHIL 55 % (42-75); TOTAL CELLS COUNTED 100
[2017-07-26 18:45] LABS: STOMATOCYTES SLIGHT
== END 2017-07-26 20:19 | disposition home or self-care (01) ==
LOC: H.ER 16:02
DX: G43.D0 Abdominal migraine, not intractable (principal); E87.6 Hypokalemia; F32.9 Major depressive disorder, single episode, unspecified; F41.9 Anxiety disorder, unspecified; G89.29 Other chronic pain; J45.909 Unspecified asthma, uncomplicated; K50.90 Crohn's disease, unspecified, without complications; K85.90 Acute pancreatitis without necrosis or infection, unspecified
CPT/HCPCS: 80048; 81025; 83690; 85025; 96365; 96375; 99285; J1200; J2405; J2930; J7040

== ENCOUNTER 2017-09-04 18:49 | Emergency (ER) | payer BC, OTHER ==
[2017-09-04 18:50] VITALS: BMI 20.5
[2017-09-04 18:58] VITALS: BP 133/85; PULSE 102; RESP 16; TEMP 98; O2SAT 99
[2017-09-04] MEDS ORDERED: Sodium Chloride 0.9% 1,000 ML IV ONE (20:03)
--- NOTE | 2017-09-04 20:17 | ED PDOC ---
HPI: Abdomen Time Seen by Provider: 09/04/17 19:02 Chief Complaint (Nursing): Abdominal Pain Chief Complaint (Provider): Abdominal Pain History Per: Patient History/Exam Limitations: no limitations Current Symptoms Are (Timing): Still Present Additional Complaint(s): Ashleigh Mercer is a 32 year old female that presents to the ED with a chief complaint of abdominal pain. Patient has presented to the ED multiple times in the past, and is specifically requesting IV Dilaudid. Past Medical History Reviewed: Historical Data, Nursing Documentation, Vital Signs Vital Signs: Last Vital Signs Temp 98.0 F 09/04/17 18:55 Pulse 102 H 09/04/17 18:55 Resp 16 09/04/17 18:55 BP 133/85 09/04/17 18:55 Pulse Ox 99 09/04/17 20:22 - Medical History PMH: Anemia, Anxiety, Asthma, Bipolar Disorder, Crohn's Disease, Depression, Gastrointestinal Ulcer (peptic & gastric), Migraine (abdominal), Pancreatitis, Chronic Kidney Disease, Chronic Pain (Abdominal) - Surgical History Surgical History: Endoscopy - Family History Family History: States: Diabetes - Immunization History Hx Tetanus Toxoid Vaccination: Yes Hx Influenza Vaccination: Yes Hx Pneumococcal Vaccination: Yes - Home Medications Home Medications: Ambulatory Orders Medication Instructions Recorded Alprazolam [Xanax] 0.5 mg PO TID PRN #0 tablet 07/15/16 buPROPion XL [Wellbutrin XL] 300 mg PO DAILY 10/26/16 traMADol [Ultram] 50 mg PO QID PRN #10 tab 12/26/16 ARIPiprazole [Abilify] 15 mg PO HS 07/20/17 HYDROmorphone [Dilaudid] 2 mg PO Q8H PRN 07/20/17 Mesalamine ER Cap [Pentasa] 500 mg PO QID 07/20/17 OXcarbazepine [Trileptal] 300 mg PO HS 07/20/17 Ondansetron [Zofran Tab] 4 mg PO Q6H PRN 07/20/17 Docusate [Colace] 100 mg PO BID 1 Days #60 cap 07/21/17 Docusate [Colace] 100 mg PO DAILY cap 07/21/17 Enoxaparin [Lovenox] 40 mg SC DAILY syr 07/21/17 Ferrous Sulfate [Feosol] 325 mg PO BID 60 Days tab 07/21/17 Ferrous Sulfate [Feosol] 325 mg PO DAILY tab 07/21/17 Nitrofurantoin Macrocrystals 100 mg PO Q12 5 Days #10 cap 07/21/17 [Macrobid] Polyethylene Glycol 3350 [Miralax] 17 gm PO BID packet 07/21/17 Sennosides A and B [Senokot Tab] 8.6 mg PO HS tab 07/21/17 Benzonatate [Tessalon Perles] 100 mg PO BID PRN 5 Days sgl 08/02/17 Ondansetron [Zofran] 4 mg PO Q8H PRN #6 tab 08/02/17 - Allergies Allergies/Adverse Reactions: Allergies Allergy/AdvReac Type Severity Reaction Status Date / Time acetaminophen [From Percocet] Allergy SWELLING Verified 07/26/17 16:43 Gadolinium-Containing Allergy URTICARIA Verified 07/26/17 16:43 Contrast Medi Iodine and Iodide Containing Allergy RASH Verified 07/26/17 16:43 Produc Latex, Natural Rubber Allergy RASH Verified 07/26/17 16:43 morphine Allergy RASH Verified 07/26/17 16:43 oxycodone HCl [From Percocet] Allergy SWELLING Verified 07/26/17 16:43 shellfish derived Allergy RASH Verified 07/26/17 16:43 shrimp Allergy RASH Verified 07/26/17 16:43 doxycycline AdvReac extreme Verified 07/26/17 16:43 abdominal pain, cramps metronidazole [From Flagyl] AdvReac abdominal Verified 07/26/17 16:43 pain, cramps CONTRAST Allergy Severe URTICARIA Uncoded 07/26/17 16:43 SHRIMPS Allergy Severe RASH Uncoded 07/26/17 16:43 LATEX Allergy Intermediate RASH Uncoded 07/26/17 16:43 Review of Systems Gastrointestinal: Positive for: Abdominal Pain Physical Exam - Reviewed Nursing Documentation Reviewed: Yes Vital Signs Reviewed: Yes - Physical Exam Appears: Positive for: Non-toxic, No Acute Distress Head Exam: Positive for: ATRAUMATIC, NORMOCEPHALIC Skin: Positive for: Normal Color, Warm Eye Exam: Positive for: Normal appearance, EOMI, PERRL Cardiovascular/Chest: Positive for: Regular Rate, Rhythm. Negative for: Murmur Respiratory: Positive for: Normal Breath Sounds. Negative for: Wheezing Gastrointestinal/Abdominal: Positive for: Normal Exam, Soft. Negative for: Tenderness, Guarding, Rebound Extremity: Positive for: Normal ROM. Negative for: Tenderness, Deformity, Swelling Neurologic/Psych: Positive for: Alert, Oriented. Negative for: Motor/Sensory Deficits - ECG O2 Sat by Pulse Oximetry: 99 (RA) Pulse Ox Interpretation: Normal Medical Decision Making Medical Decision Making: Impression: Abdominal Pain/Malingering Plan: * CMP * CBC * Lipase * Amylase * Urinalysis * Urine Preg * NaCl 1000 mLs at 1000 mLs/hr * Reevaluation Reviewed [place] Prescription Monitoring service, and since 08/05/17 patient has received over 120 Tramadol pills and 100 Dilaudid 2 mg tabs. 20:00 Patient will be endorsed to Dr. Diego Faulkner pending labs. Scribe Attestation: Documented by Reina Mann, acting as a scribe for Chandan Nunez MD. Provider Scribe Attestation: All medical record entries made by the Scribe were at my direction and personally dictated by me. I have reviewed the chart and agree that the record accurately reflects my personal performance of the history, physical exam, medical decision making, and the department course for this patient. I have also personally directed, reviewed, and agree with the discharge instructions and disposition. Disposition - Clinical Impression Clinical Impression: Abdominal pain, Malingering - Patient ED Disposition Is Patient to be Admitted: Transfer of Care - Disposition Disposition: Transfer of Care Disposition Time: 20:00 Condition: FAIR Forms: [employer] (Macedonian) Patient Signed Over To: Diego Faulkner
--- NOTE | 2017-09-04 20:22 | ED PDOC ---
- Laboratory Results Result Diagrams: 09/04/17 20:36 09/04/17 20:36 - ECG O2 Sat by Pulse Oximetry: 99 (RA) Medical Decision Making Medical Decision Makin:00 Patient endorsed to me by Dr. Nunez pending labs. 23:00 Patient was seen at bedside. Explained results including UTI. Patient states she was still having abdominal pain, was given toradol and ceftriaxone IV, stated that she had continued pain. Explained that she would only receive 1mg of IV dilaudid and if she required more, she would need admission for adequate pain control and outpatient failure. Patient states she feels better after dilaudid. Explained importance of followup with Dr. Arshad in 2 days. Return precautions discussed. Scribe Attestation: Documented by Reina Mann, acting as a scribe for Diego Faulkner MD. Provider Scribe Attestation: All medical record entries made by the Scribe were at my direction and personally dictated by me. I have reviewed the chart and agree that the record accurately reflects my personal performance of the history, physical exam, medical decision making, and the department course for this patient. I have also personally directed, reviewed, and agree with the discharge instructions and disposition. Disposition - Clinical Impression Clinical Impression: Abdominal pain, UTI (lower urinary tract infection) - POA Present On Arrival: None - Disposition Referrals: Natali Arshad MD [Family Provider] - Disposition: Routine/Home Disposition Time: 23:09 Condition: IMPROVED Prescriptions: Nitrofurantoin Macrocrystals [Macrobid] 100 mg PO BID 5 Days cap Phenazopyridine [Pyridium] 200 mg PO TID 2 Days tab Instructions: Urinary Tract Infection in Women (ED), Chronic Pain (DC) Forms: [employer] (Khmer)
[2017-09-04 20:42] LABS: BASO # 0.1 K/uL (0.0-0.2); BASO % 1.6 % (0.0-2.0); EOS # 0.3 K/uL (0.0-0.7); EOS % 3.4 % (0.0-4.0); HEMATOCRIT 32.9 % (34.0-47.0); LYMPH # 3.5 K/uL (1.0-4.3); LYMPH % 39.1 % (20.0-40.0); MEAN CELL VOLUME 77.6 fl (81.0-99.0); MEAN CORPUSCULAR HEMOGLOBIN 24.2 pg (27.0-31.0); MEAN CORPUSCULAR HGB CONC 31.1 g/dL (33.0-37.0); MEAN PLATELET VOLUME 7.9 fl (7.2-11.7); MONO # 0.8 K/uL (0.0-0.8); MONO % 9.3 % (0.0-10.0); NEUT # 4.1 K/uL (1.8-7.0); NEUT % 46.6 % (50.0-75.0); NRBC % 0.1 % (0.0-0.0); RED CELL DISTRIBUTION WIDTH 17.1 % (11.5-14.5); WHITE BLOOD COUNT 8.8 K/uL (4.8-10.8)
[2017-09-04 20:53] LABS: ALB/GLOB RATIO 1.6 (1.0-2.1); ALKALINE PHOSPHATASE 96 U/L (38-126); ALT/SGPT 36 U/L (9-52); AMYLASE 50 U/L (30-110); AST/SGOT 20 U/L (14-36); BILIRUBIN,TOTAL 0.5 mg/dl (0.2-1.3); BLOOD UREA NITROGEN 7 mg/dl (7-17); CALCIUM 9.7 mg/dL (8.4-10.2); CARBON DIOXIDE 26 mmol/L (22-30); CHLORIDE 104 mmol/L (98-107); GFR AFRICAN-AMERICAN > 60; GLUCOSE,RANDOM 90 mg/dL (65-105); LIPASE 53 U/L (23-300); POTASSIUM 3.5 MMOL/L (3.6-5.0); SODIUM 142 mmol/l (132-148)
[2017-09-04 20:59] LABS: RBC URINE 29 /hpf (0-3); URINE BACTERIA MANY (<OCC); URINE BILIRUBIN NEGATIVE (NEGATIVE); URINE BLOOD SMALL (NEGATIVE); URINE COLOR AMBER (YELLOW); URINE GLUCOSE (UA) NEG (Normal); URINE KETONE NEGATIVE (NEGATIVE); URINE LEUKOCYTE ESTERASE MOD Leu/uL (Negative); URINE PROTEIN 100 mg/dL (NEGATIVE); URINE UROBILINOGEN 0.2-1.0 mg/dL (0.2-1.0); WBC CLUMPS MANY /hpf; WBC URINE 872 /hpf (0-5)
[2017-09-04] MEDS ORDERED: cefTRIAXone IV 1 gm in Dextros 50 ML IVPB STA (21:15)
[2017-09-04] MEDS ORDERED: cefTRIAXone IV 1 gm in Dextros 50 ML IVPB ONE (21:37)
[2017-09-04] MEDS ORDERED: HYDROmorphone 0.5 mg/0.5 ml ISec IVP STA (22:28)
[2017-09-04] MEDS ORDERED: HYDROmorphone 0.5 mg/0.5 ml ISec ONE (22:32)
== END 2017-09-04 23:44 | disposition home or self-care (01) ==
LOC: H.ER 18:49
DX: N39.0 Urinary tract infection, site not specified (principal); F31.9 Bipolar disorder, unspecified; F41.9 Anxiety disorder, unspecified; G89.29 Other chronic pain; J45.909 Unspecified asthma, uncomplicated; K50.90 Crohn's disease, unspecified, without complications; Z76.5 Malingerer [conscious simulation]
CPT/HCPCS: 80053; 81003; 81025; 82150; 83690; 85025; 96374; 96375; 99283; J0696; J1170; J1885

== ENCOUNTER 2017-10-02 11:16 | Emergency (ER) | payer BC ==
[2017-10-02 11:24] VITALS: BMI 21.1
[2017-10-02 11:25] VITALS: BP 126/70; PULSE 100; RESP 16; TEMP 96.6; O2SAT 100
--- NOTE | 2017-10-02 11:45 | ED PDOC ---
HPI: Abdomen Time Seen by Provider: 10/02/17 11:28 Chief Complaint (Provider): Abd pain History Per: Patient ( ) History/Exam Limitations: no limitations Onset/Duration Of Symptoms: Days (years) Additional Complaint(s): Pt. with chronic abd pain for years. Gets similar flare ups every month. Same today. States garrett works for this [employer] and her pain doctor and pcp recommend it. No nausea, vomit, diarrhea, weakness, headaches, dizziness, weakness, fever, cough. No urinary symptoms. Past Medical History Reviewed: Nursing Documentation, Vital Signs Vital Signs: Last Vital Signs Temp 96.6 F L 10/02/17 11:25 Pulse 100 H 10/02/17 11:25 Resp 16 10/02/17 11:25 BP 126/70 10/02/17 11:25 Pulse Ox 100 10/02/17 11:51 - Medical History PMH: Anemia, Anxiety, Asthma, Bipolar Disorder, Crohn's Disease, Depression, Gastrointestinal Ulcer (peptic & gastric), Migraine (abdominal), Pancreatitis, Chronic Kidney Disease, Chronic Pain (Abdominal) - Surgical History Surgical History: Endoscopy - Family History Family History: States: Diabetes - Social History Alcohol: None Drugs: Denies - Immunization History Hx Tetanus Toxoid Vaccination: Yes Hx Influenza Vaccination: Yes Hx Pneumococcal Vaccination: Yes - Home Medications Home Medications: Ambulatory Orders Medication Instructions Recorded Alprazolam [Xanax] 0.5 mg PO TID PRN #0 tablet 07/15/16 buPROPion XL [Wellbutrin XL] 300 mg PO DAILY 10/26/16 traMADol [Ultram] 50 mg PO QID PRN #10 tab 12/26/16 ARIPiprazole [Abilify] 15 mg PO HS 07/20/17 HYDROmorphone [Dilaudid] 2 mg PO Q8H PRN 07/20/17 Mesalamine ER Cap [Pentasa] 500 mg PO QID 07/20/17 OXcarbazepine [Trileptal] 300 mg PO HS 07/20/17 Ondansetron [Zofran Tab] 4 mg PO Q6H PRN 07/20/17 Docusate [Colace] 100 mg PO BID 1 Days #60 cap 07/21/17 Docusate [Colace] 100 mg PO DAILY cap 07/21/17 Enoxaparin [Lovenox] 40 mg SC DAILY syr 07/21/17 Ferrous Sulfate [Feosol] 325 mg PO BID 60 Days tab 07/21/17 Ferrous Sulfate [Feosol] 325 mg PO DAILY tab 07/21/17 Nitrofurantoin Macrocrystals 100 mg PO Q12 5 Days #10 cap 07/21/17 [Macrobid] Polyethylene Glycol 3350 [Miralax] 17 gm PO BID packet 07/21/17 Sennosides A and B [Senokot Tab] 8.6 mg PO HS tab 07/21/17 Benzonatate [Tessalon Perles] 100 mg PO BID PRN 5 Days sgl 08/02/17 Ondansetron [Zofran] 4 mg PO Q8H PRN #6 tab 08/02/17 Nitrofurantoin Macrocrystals 100 mg PO BID 5 Days cap 09/04/17 [Macrobid] Phenazopyridine [Pyridium] 200 mg PO TID 2 Days tab 09/04/17 Nitrofurantoin Macrocrystals 100 mg PO BID #10 cap 10/02/17 [Macrobid] - Allergies Allergies/Adverse Reactions: Allergies Allergy/AdvReac Type Severity Reaction Status Date / Time acetaminophen [From Percocet] Allergy SWELLING Verified 07/26/17 16:43 Gadolinium-Containing Allergy URTICARIA Verified 07/26/17 16:43 Contrast Medi Iodine and Iodide Containing Allergy RASH Verified 07/26/17 16:43 Produc Latex, Natural Rubber Allergy RASH Verified 07/26/17 16:43 morphine Allergy RASH Verified 07/26/17 16:43 oxycodone HCl [From Percocet] Allergy SWELLING Verified 07/26/17 16:43 shellfish derived Allergy RASH Verified 07/26/17 16:43 shrimp Allergy RASH Verified 07/26/17 16:43 doxycycline AdvReac extreme Verified 07/26/17 16:43 abdominal pain, cramps metronidazole [From Flagyl] AdvReac abdominal Verified 07/26/17 16:43 pain, cramps CONTRAST Allergy Severe URTICARIA Uncoded 07/26/17 16:43 SHRIMPS Allergy Severe RASH Uncoded 07/26/17 16:43 LATEX Allergy Intermediate RASH Uncoded 07/26/17 16:43 Review of Systems Constitutional: Negative for: Weakness Eyes: Negative for: Vision Change ENT: Negative for: Ear Discharge Cardiovascular: Negative for: Chest Pain, Palpitations Respiratory: Negative for: Shortness of Breath Gastrointestinal: Positive for: Abdominal Pain. Negative for: Nausea, Vomiting , Diarrhea Genitourinary Female: Negative for: Dysuria, Frequency Musculoskeletal: Negative for: Neck Pain, Shoulder Pain Skin: Negative for: Rash Neurological: Negative for: Weakness Physical Exam - Reviewed Nursing Documentation Reviewed: Yes Vital Signs Reviewed: Yes - Physical Exam Appears: Positive for: Non-toxic, No Acute Distress Head Exam: Positive for: ATRAUMATIC, NORMAL INSPECTION, NORMOCEPHALIC Skin: Positive for: Normal Color, Warm, DRY Eye Exam: Positive for: EOMI, Normal appearance, PERRL ENT: Positive for: Normal ENT Inspection Neck: Positive for: Normal, Painless ROM Cardiovascular/Chest: Positive for: Regular Rate, Rhythm Respiratory: Positive for: CNT, Normal Breath Sounds Gastrointestinal/Abdominal: Positive for: Bowel Sounds, Soft, Tenderness ( diffuse mild; no tenderness on distraction) Back: Positive for: Normal Inspection. Negative for: L CVA Tenderness, R CVA Tenderness Extremity: Positive for: Normal ROM Neurologic/Psych: Positive for: Alert, Oriented - Laboratory Results Interpretation Of Abn Labs: urine wbc - ECG O2 Sat by Pulse Oximetry: 100 Pulse Ox Interpretation: Normal - Progress ED Course And Treament: 1342: Stable. Pain free. Playing with her phone. After dilaudid tx pt. asking if we are waiting for anything. Pt. urine with wbc. Fu with pcp. Disposition - Clinical Impression Clinical Impression: Chronic pain, UTI (urinary tract infection) - Patient ED Disposition Is Patient to be Admitted: No Counseled Patient/Family Regarding: Studies Performed, Diagnosis, Need For Followup, Rx Given - Disposition Referrals: [facility] [Outside] - 10/04/17 Disposition: Routine/Home Disposition Time: 13:46 Condition: STABLE Additional Instructions: Return if not better in 3 days. Prescriptions: Nitrofurantoin Macrocrystals [Macrobid] 100 mg PO BID #10 cap Instructions: Urinary Tract Infection in Women (ED), Abdominal Pain (ED)
[2017-10-02 12:38] LABS: URINE BILIRUBIN SMALL (NEGATIVE); URINE CLARITY TURBID (Clear); URINE COLOR YEL (YELLOW); URINE GLUCOSE (UA) NEGATIVE (Normal)
[2017-10-02 12:39] LABS: URINE BLOOD TRACE-INTACT (NEGATIVE); URINE LEUKOCYTE ESTERASE LARGE Leu/uL (Negative); URINE NITRATE NEGATIVE (NEGATIVE); URINE PROTEIN > 300 mg/dL (NEGATIVE); URINE UROBILINOGEN 0.2 mg/dL (0.2-1.0)
[2017-10-02 12:40] LABS: SQUAMOUS EPITHIAL 81 /hpf (0-5); URINE BACTERIA MOD (<OCC)
== END 2017-10-02 14:27 | disposition home or self-care (01) ==
LOC: H.ER 11:16
DX: N39.0 Urinary tract infection, site not specified (principal); G89.29 Other chronic pain; F31.9 Bipolar disorder, unspecified; F41.9 Anxiety disorder, unspecified; J45.909 Unspecified asthma, uncomplicated; K50.90 Crohn's disease, unspecified, without complications
CPT/HCPCS: 81003; 81025; 87086; 87181; 96372; 99284; J1170

== ENCOUNTER 2017-10-06 18:25 | Emergency (ER) | payer BC ==
[2017-10-06 18:25] VITALS: BMI 21.1
[2017-10-06 18:30] VITALS: BP 140/72; PULSE 103; RESP 16; TEMP 98.5; O2SAT 100
[2017-10-06] MEDS: HYDROmorphone 0.5 mg/0.5 ml ISec IM STA (19:32)
--- NOTE | 2017-10-06 19:38 | ED PDOC ---
HPI: Abdomen Time Seen by Provider: 10/06/17 19:07 Chief Complaint (Nursing): Abdominal Pain History Per: Patient History/Exam Limitations: no limitations Onset/Duration Of Symptoms: Hrs Current Symptoms Are (Timing): Still Present Location Of Pain/Discomfort: RUQ, RLQ Quality Of Discomfort: Dull Associated Symptoms: denies: Fever, Chills, Nausea, Vomiting, Diarrhea, Loss Of Appetite, Back Pain Exacerbating Factors: denies: None Additional History Per: Patient Additional Complaint(s): Hx of chronic abd pain p/w R sided abdominal pain, pt. states this is her usual chronic pain and her home medications weren't helping as usual. States she has appointments with Dr. Reynoso and her GI this week. States she had a UTI but symptoms have improved and thinks her symptoms are not related to that. Denies n/v/d, no fevers, chills, constipation. Past Medical History Reviewed: Historical Data, Nursing Documentation, Vital Signs Vital Signs: Last Vital Signs Temp 98.5 F 10/06/17 18:29 Pulse 103 H 10/06/17 18:29 Resp 16 10/06/17 18:29 BP 140/72 10/06/17 18:29 Pulse Ox 100 10/06/17 19:38 - Medical History PMH: Anemia, Anxiety, Asthma, Bipolar Disorder, Crohn's Disease, Depression, Gastrointestinal Ulcer (peptic & gastric), Migraine (abdominal), Pancreatitis, Chronic Kidney Disease, Chronic Pain (Abdominal) - Surgical History Surgical History: Endoscopy - Family History Family History: States: Diabetes - Immunization History Hx Tetanus Toxoid Vaccination: Yes Hx Influenza Vaccination: Yes Hx Pneumococcal Vaccination: Yes - Home Medications Home Medications: Ambulatory Orders Medication Instructions Recorded Alprazolam [Xanax] 0.5 mg PO TID PRN #0 tablet 07/15/16 buPROPion XL [Wellbutrin XL] 300 mg PO DAILY 10/26/16 traMADol [Ultram] 50 mg PO QID PRN #10 tab 12/26/16 ARIPiprazole [Abilify] 15 mg PO HS 07/20/17 HYDROmorphone [Dilaudid] 2 mg PO Q8H PRN 07/20/17 Mesalamine ER Cap [Pentasa] 500 mg PO QID 07/20/17 OXcarbazepine [Trileptal] 300 mg PO HS 07/20/17 Ondansetron [Zofran Tab] 4 mg PO Q6H PRN 07/20/17 Docusate [Colace] 100 mg PO BID 1 Days #60 cap 07/21/17 Docusate [Colace] 100 mg PO DAILY cap 07/21/17 Enoxaparin [Lovenox] 40 mg SC DAILY syr 07/21/17 Ferrous Sulfate [Feosol] 325 mg PO BID 60 Days tab 07/21/17 Ferrous Sulfate [Feosol] 325 mg PO DAILY tab 07/21/17 Nitrofurantoin Macrocrystals 100 mg PO Q12 5 Days #10 cap 07/21/17 [Macrobid] Polyethylene Glycol 3350 [Miralax] 17 gm PO BID packet 07/21/17 Sennosides A and B [Senokot Tab] 8.6 mg PO HS tab 07/21/17 Benzonatate [Tessalon Perles] 100 mg PO BID PRN 5 Days sgl 08/02/17 Ondansetron [Zofran] 4 mg PO Q8H PRN #6 tab 08/02/17 Nitrofurantoin Macrocrystals 100 mg PO BID 5 Days cap 09/04/17 [Macrobid] Phenazopyridine [Pyridium] 200 mg PO TID 2 Days tab 09/04/17 Nitrofurantoin Macrocrystals 100 mg PO BID #10 cap 10/02/17 [Macrobid] - Allergies Allergies/Adverse Reactions: Allergies Allergy/AdvReac Type Severity Reaction Status Date / Time acetaminophen [From Percocet] Allergy SWELLING Verified 10/06/17 18:28 Gadolinium-Containing Allergy URTICARIA Verified 10/06/17 18:28 Contrast Medi Iodine and Iodide Containing Allergy RASH Verified 10/06/17 18:28 Produc Latex, Natural Rubber Allergy RASH Verified 10/06/17 18:28 morphine Allergy RASH Verified 10/06/17 18:28 oxycodone HCl [From Percocet] Allergy SWELLING Verified 10/06/17 18:28 shellfish derived Allergy RASH Verified 10/06/17 18:28 shrimp Allergy RASH Verified 10/06/17 18:28 doxycycline AdvReac extreme Verified 10/06/17 18:28 abdominal pain, cramps metronidazole [From Flagyl] AdvReac abdominal Verified 10/06/17 18:28 pain, cramps CONTRAST Allergy Severe URTICARIA Uncoded 10/06/17 18:28 SHRIMPS Allergy Severe RASH Uncoded 10/06/17 18:28 LATEX Allergy Intermediate RASH Uncoded 10/06/17 18:28 Review of Systems ROS Statement: Except As Marked, All Systems Reviewed And Found Negative Gastrointestinal: Positive for: Abdominal Pain Physical Exam - Reviewed Nursing Documentation Reviewed: Yes Vital Signs Reviewed: Yes - Physical Exam Appears: Positive for: Well, Non-toxic, No Acute Distress Head Exam: Positive for: ATRAUMATIC, NORMAL INSPECTION, NORMOCEPHALIC Skin: Positive for: Normal Color, Warm, DRY Eye Exam: Positive for: EOMI, Normal appearance, PERRL Neck: Positive for: Normal Gastrointestinal/Abdominal: Positive for: Normal Exam, Bowel Sounds, Soft. Negative for: Tenderness, Organomegaly, Mass Extremity: Positive for: Normal ROM Neurologic/Psych: Positive for: Alert, Oriented. Negative for: Motor/Sensory Deficits - ECG O2 Sat by Pulse Oximetry: 100 Medical Decision Making Medical Decision Making: Pt. well known to ER p/w break through pain, will give diluaudid IM and reassess. Discharged in good condition, patient feeling better after meds. Disposition - Clinical Impression Clinical Impression: Chronic abdominal pain - Disposition Referrals: Natali Arshad MD [Family Provider] - Disposition: Routine/Home Disposition Time: 19:30 Condition: GOOD Instructions: Chronic Pain (DC), Abdominal Pain (ED) Forms: [employer] ([place])
== END 2017-10-06 20:21 | disposition home or self-care (01) ==
LOC: H.ER 18:25
DX: R10.9 Unspecified abdominal pain (principal); G89.29 Other chronic pain; Z86.59 Personal history of other mental and behavioral disorders; J45.909 Unspecified asthma, uncomplicated; K50.90 Crohn's disease, unspecified, without complications; N18.9 Chronic kidney disease, unspecified
CPT/HCPCS: 96372; 99282; J1170

== ENCOUNTER 2017-10-07 15:40 | Emergency (ER) | payer BC ==
[2017-10-07 15:41] VITALS: BMI 21.1
[2017-10-07 15:46] VITALS: BP 126/86; PULSE 116; RESP 18; TEMP 98.4; O2SAT 99
[2017-10-07 17:23] LABS: SQUAMOUS EPITHIAL 9 /hpf (0-5); URINE BILIRUBIN NEGATIVE (NEGATIVE); URINE BLOOD NEGATIVE (NEGATIVE); URINE CLARITY CLOUDY (Clear); URINE COLOR YELLOW (YELLOW); URINE GLUCOSE (UA) NEG (Normal); URINE LEUKOCYTE ESTERASE LARGE Leu/uL (Negative); URINE NITRATE NEGATIVE (NEGATIVE); URINE PROTEIN NEGATIVE (NEGATIVE); URINE UROBILINOGEN 0.2-1.0 mg/dL (0.2-1.0)
--- NOTE | 2017-10-07 18:02 | ED PDOC ---
HPI: Abdomen Time Seen by Provider: 10/07/17 15:48 Chief Complaint (Nursing): Abdominal Pain Chief Complaint (Provider): Abdominal pain History Per: Patient Additional Complaint(s): This is 32 y/o female with PMH of Crohn's, multiple ED visit for abdominal pain comes to the ED c/o RUQ abdominal pain and asking for pain medication. As per patient, she gets similar flare ups every month. Patient Visited ED last night for same pain and given IM Toradol and discharged home. Patient started feeling same pain this morning at 4am, got home dilaudid 5 and Tramadol 100mg which helped for a while, got another dilaudid and symptoms persisted which made her come back to ED. As per patient, she called her pain management doctor , who also recommended her to come to ED for pain management. Patient recentlu treated with UTI and symptoms resolved. Denies any dizziness, blurred vision, vomiting, diarrhea, chest pain, or SOB. Abnormal Vaginal Bleeding: No Past Medical History Vital Signs: Last Vital Signs Temp 98.4 F 10/07/17 15:44 Pulse 116 H 10/07/17 15:44 Resp 18 10/07/17 15:44 BP 126/86 10/07/17 15:44 Pulse Ox 99 10/07/17 18:26 - Medical History PMH: Anemia, Anxiety, Asthma, Bipolar Disorder, Crohn's Disease, Depression, Gastrointestinal Ulcer (peptic & gastric), Migraine (abdominal), Pancreatitis, Chronic Kidney Disease, Chronic Pain (Abdominal) - Surgical History Surgical History: Endoscopy - Family History Family History: States: Diabetes - Social History Current smoker - smoking cessation education provided: No Ex-Smoker (has not smoked in the last 12 months): No Drugs: Denies - Immunization History Hx Tetanus Toxoid Vaccination: Yes Hx Influenza Vaccination: Yes Hx Pneumococcal Vaccination: Yes - Home Medications Home Medications: Ambulatory Orders Medication Instructions Recorded Alprazolam [Xanax] 0.5 mg PO TID PRN #0 tablet 07/15/16 buPROPion XL [Wellbutrin XL] 300 mg PO DAILY 10/26/16 traMADol [Ultram] 50 mg PO QID PRN #10 tab 12/26/16 ARIPiprazole [Abilify] 15 mg PO HS 07/20/17 HYDROmorphone [Dilaudid] 2 mg PO Q8H PRN 07/20/17 Mesalamine ER Cap [Pentasa] 500 mg PO QID 07/20/17 OXcarbazepine [Trileptal] 300 mg PO HS 07/20/17 Ondansetron [Zofran Tab] 4 mg PO Q6H PRN 07/20/17 Docusate [Colace] 100 mg PO BID 1 Days #60 cap 07/21/17 Docusate [Colace] 100 mg PO DAILY cap 07/21/17 Enoxaparin [Lovenox] 40 mg SC DAILY syr 07/21/17 Ferrous Sulfate [Feosol] 325 mg PO BID 60 Days tab 07/21/17 Ferrous Sulfate [Feosol] 325 mg PO DAILY tab 07/21/17 Nitrofurantoin Macrocrystals 100 mg PO Q12 5 Days #10 cap 07/21/17 [Macrobid] Polyethylene Glycol 3350 [Miralax] 17 gm PO BID packet 07/21/17 Sennosides A and B [Senokot Tab] 8.6 mg PO HS tab 07/21/17 Benzonatate [Tessalon Perles] 100 mg PO BID PRN 5 Days sgl 08/02/17 Ondansetron [Zofran] 4 mg PO Q8H PRN #6 tab 08/02/17 Nitrofurantoin Macrocrystals 100 mg PO BID 5 Days cap 09/04/17 [Macrobid] Phenazopyridine [Pyridium] 200 mg PO TID 2 Days tab 09/04/17 Nitrofurantoin Macrocrystals 100 mg PO BID #10 cap 10/02/17 [Macrobid] Nitrofurantoin Macrocrystals 100 mg PO BID #14 cap 10/07/17 [Macrobid] - Allergies Allergies/Adverse Reactions: Allergies Allergy/AdvReac Type Severity Reaction Status Date / Time acetaminophen [From Percocet] Allergy SWELLING Verified 10/06/17 18:28 Gadolinium-Containing Allergy URTICARIA Verified 10/06/17 18:28 Contrast Medi Iodine and Iodide Containing Allergy RASH Verified 10/06/17 18:28 Produc Latex, Natural Rubber Allergy RASH Verified 10/06/17 18:28 morphine Allergy RASH Verified 10/06/17 18:28 oxycodone HCl [From Percocet] Allergy SWELLING Verified 10/06/17 18:28 shellfish derived Allergy RASH Verified 10/06/17 18:28 shrimp Allergy RASH Verified 10/06/17 18:28 doxycycline AdvReac extreme Verified 10/06/17 18:28 abdominal pain, cramps metronidazole [From Flagyl] AdvReac abdominal Verified 10/06/17 18:28 pain, cramps CONTRAST Allergy Severe URTICARIA Uncoded 10/06/17 18:28 SHRIMPS Allergy Severe RASH Uncoded 10/06/17 18:28 LATEX Allergy Intermediate RASH Uncoded 10/06/17 18:28 Review of Systems Constitutional: Negative for: Fever, Weakness Eyes: Negative for: Pain, Vision Change ENT: Negative for: Ear Pain Cardiovascular: Negative for: Chest Pain, Palpitations Respiratory: Negative for: Cough, Shortness of Breath, Hemoptysis Gastrointestinal: Positive for: Nausea. Negative for: Vomiting, Diarrhea Genitourinary Female: Negative for: Dysuria Musculoskeletal: Negative for: Neck Pain, Shoulder Pain Skin: Negative for: Rash Neurological: Negative for: Weakness, Numbness Physical Exam - Reviewed Nursing Documentation Reviewed: Yes Vital Signs Reviewed: Yes - Physical Exam Appears: Positive for: No Acute Distress Head Exam: Positive for: ATRAUMATIC, NORMAL INSPECTION, NORMOCEPHALIC Skin: Positive for: Normal Color, Warm Eye Exam: Positive for: Normal appearance ENT: Positive for: Normal ENT Inspection Neck: Positive for: Normal Cardiovascular/Chest: Positive for: Regular Rate, Rhythm, Chest Non Tender Respiratory: Positive for: Normal Breath Sounds Gastrointestinal/Abdominal: Positive for: Bowel Sounds, Soft, Tenderness (RUQ). Negative for: Distended, Guarding Back: Positive for: Normal Inspection Extremity: Positive for: Normal ROM Neurologic/Psych: Positive for: Alert, Oriented - ECG O2 Sat by Pulse Oximetry: 99 - Progress ED Course And Treament: This is 32 y/o F with PMH of Crohn's and multiple episodes of ED visit for abdominal pain comes to the ED for abdominal pain management - Toradol 60 IM - Urine Culture Case discussed with Dr. Lorenz Urine reviewed - Ur Leuk elissa: large, wbc [id number] Medical Decision Making Medical Decision Making: Abdominal pain, possible UTI Disposition - Clinical Impression Clinical Impression: UTI (urinary tract infection) - Disposition Disposition: Routine/Home Disposition Time: 18:26 Condition: FAIR Additional Instructions: FOLLOW UP WITH YOUR PAIN MANAGEMENT DOCTOR TOMORROW RETURN TO THE ED WITH ANY WORSENING OR CONCERNING SYMPTOMS Prescriptions: Nitrofurantoin Macrocrystals [Macrobid] 100 mg PO BID #14 cap Instructions: Urinary Tract Infection in Women (ED) Forms: [employer] [facility] ([place])
== END 2017-10-07 18:30 | disposition home or self-care (01) ==
LOC: H.ER 15:40
DX: N39.0 Urinary tract infection, site not specified (principal); K50.90 Crohn's disease, unspecified, without complications; F31.9 Bipolar disorder, unspecified; F41.9 Anxiety disorder, unspecified; G89.29 Other chronic pain; J45.909 Unspecified asthma, uncomplicated
CPT/HCPCS: 81003; 81025; 87086; 96372; 99282; J1885

== ENCOUNTER 2017-10-10 19:42 | Emergency (ER) | payer BC ==
[2017-10-10 19:42] VITALS: BMI 21.1
[2017-10-10 19:48] VITALS: BP 132/93; PULSE 128; RESP 19; TEMP 99.4; O2SAT 99
[2017-10-10] MEDS ORDERED: Valproate 500 MG in Sodium Chloride 0.9% 100 ML IVPB ONE (20:24)
[2017-10-10] MEDS ORDERED: Magnesium Sulfate 2 gm/50 ml 2 GM/50 ML BAG IVPB ONE (20:25)
[2017-10-10] MEDS ORDERED: DiphenhydrAMINE 50 mg/ml Inj IVP STA (20:26)
[2017-10-10] MEDS ORDERED: Sodium Chloride 0.9% 1,000 ML IV STA (20:27)
[2017-10-10] MEDS ORDERED: Valproate Sodium 500 mg Inj ONE (20:46)
[2017-10-10] MEDS ORDERED: DiphenhydrAMINE 50 mg/ml Inj ONE (20:46)
[2017-10-10] MEDS ORDERED: Magnesium Sulfate 2 gm/50 ml 2 GM/50 ML BAG ONE (20:48)
[2017-10-10 21:04] LABS: BASO # 0.2 K/uL (0.0-0.2); BASO % 1.5 % (0.0-2.0); EOS # 0.3 K/uL (0.0-0.7); HEMOGLOBIN 10.8 g/dL (12.0-16.0); LYMPH # 5.8 K/uL (1.0-4.3); LYMPH % 55.6 % (20.0-40.0); MEAN CELL VOLUME 78.2 fl (81.0-99.0); MEAN CORPUSCULAR HEMOGLOBIN 24.8 pg (27.0-31.0); MEAN CORPUSCULAR HGB CONC 31.7 g/dL (33.0-37.0); MEAN PLATELET VOLUME 8.6 fl (7.2-11.7); MONO # 0.8 K/uL (0.0-0.8); NEUT # 3.3 K/uL (1.8-7.0); NEUT % 31.9 % (50.0-75.0); NRBC % 0.1 % (0.0-0.0); RBC 4.36 Mil/uL (3.80-5.20); RED CELL DISTRIBUTION WIDTH 17.1 % (11.5-14.5); WHITE BLOOD COUNT 10.4 K/uL (4.8-10.8)
[2017-10-10 21:16] LABS: ALB/GLOB RATIO 1.4 (1.0-2.1); ALBUMIN 4.4 g/dL (3.5-5.0); ALT/SGPT 28 U/L (9-52); AST/SGOT 19 U/L (14-36); BLOOD UREA NITROGEN 12 mg/dl (7-17); CALCIUM 9.4 mg/dL (8.4-10.2); GFR AFRICAN-AMERICAN > 60; GFR NON-AFRICAN AMERICAN > 60; INR 1.1 (0.9-1.2); LIPASE 276 U/L (23-300); MAGNESIUM 1.9 MG/DL (1.6-2.3); PARTIAL THROMBOPLASTIN TIME 29.6 Seconds (25.6-37.1); PROTHROMBIN TIME 12.6 Seconds (9.8-13.1)
--- NOTE | 2017-10-10 21:22 | ED PDOC ---
HPI: Abdomen Time Seen by Provider: 10/10/17 19:49 Chief Complaint (Nursing): Abdominal Pain History Per: Patient History/Exam Limitations: no limitations Onset/Duration Of Symptoms: Days (x3) Outside of [place] travel?: No Current Symptoms Are (Timing): Constant Severity: None Quality Of Discomfort: Cramping Additional Complaint(s): 32 year old female presenting with a past medical history of abdominal migraines presents to the ED complaining of constant abdominal pain x3 days. The patient describes the pain as a cramping sensation throughout her entire abdomen. She reports that the abdominal pain is associated with loss of appetite and headache. Patient states she has had similar pains in the past when she had episodes of abdominal migraines. She reports that she has been taking her medication at home but they have offered her no relief. PMD: Natali Arshad PMD: [facility] Follows up with pain management Abnormal Vaginal Bleeding: No Past Medical History Reviewed: Historical Data, Nursing Documentation, Vital Signs Vital Signs: Last Vital Signs Temp 99.4 F 10/10/17 19:45 Pulse 128 H 10/10/17 19:45 Resp 19 10/10/17 19:45 BP 132/93 H 10/10/17 19:45 Pulse Ox 99 10/10/17 23:48 - Medical History PMH: Anemia, Anxiety, Asthma, Bipolar Disorder, Crohn's Disease, Depression, Gastrointestinal Ulcer (peptic & gastric), Migraine (abdominal), Pancreatitis, Chronic Kidney Disease, Chronic Pain (Abdominal) - Surgical History Surgical History: Endoscopy - Family History Family History: States: Diabetes - Social History Current smoker - smoking cessation education provided: No Ex-Smoker (has not smoked in the last 12 months): No Alcohol: None Drugs: Denies - Immunization History Hx Tetanus Toxoid Vaccination: Yes Hx Influenza Vaccination: Yes Hx Pneumococcal Vaccination: Yes - Home Medications Home Medications: Ambulatory Orders Medication Instructions Recorded Alprazolam [Xanax] 0.5 mg PO TID PRN #0 tablet 07/15/16 buPROPion XL [Wellbutrin XL] 300 mg PO DAILY 10/26/16 traMADol [Ultram] 50 mg PO QID PRN #10 tab 12/26/16 ARIPiprazole [Abilify] 15 mg PO HS 07/20/17 HYDROmorphone [Dilaudid] 2 mg PO Q8H PRN 07/20/17 Mesalamine ER Cap [Pentasa] 500 mg PO QID 07/20/17 OXcarbazepine [Trileptal] 300 mg PO HS 07/20/17 Ondansetron [Zofran Tab] 4 mg PO Q6H PRN 07/20/17 Docusate [Colace] 100 mg PO BID 1 Days #60 cap 07/21/17 Docusate [Colace] 100 mg PO DAILY cap 07/21/17 Enoxaparin [Lovenox] 40 mg SC DAILY syr 07/21/17 Ferrous Sulfate [Feosol] 325 mg PO BID 60 Days tab 07/21/17 Ferrous Sulfate [Feosol] 325 mg PO DAILY tab 07/21/17 Nitrofurantoin Macrocrystals 100 mg PO Q12 5 Days #10 cap 07/21/17 [Macrobid] Polyethylene Glycol 3350 [Miralax] 17 gm PO BID packet 07/21/17 Sennosides A and B [Senokot Tab] 8.6 mg PO HS tab 07/21/17 Benzonatate [Tessalon Perles] 100 mg PO BID PRN 5 Days sgl 08/02/17 Ondansetron [Zofran] 4 mg PO Q8H PRN #6 tab 08/02/17 Nitrofurantoin Macrocrystals 100 mg PO BID 5 Days cap 09/04/17 [Macrobid] Phenazopyridine [Pyridium] 200 mg PO TID 2 Days tab 09/04/17 Nitrofurantoin Macrocrystals 100 mg PO BID #10 cap 10/02/17 [Macrobid] Nitrofurantoin Macrocrystals 100 mg PO BID #14 cap 10/07/17 [Macrobid] - Allergies Allergies/Adverse Reactions: Allergies Allergy/AdvReac Type Severity Reaction Status Date / Time acetaminophen [From Percocet] Allergy SWELLING Verified 10/10/17 19:48 Gadolinium-Containing Allergy URTICARIA Verified 10/10/17 19:48 Contrast Medi Iodine and Iodide Containing Allergy RASH Verified 10/10/17 19:48 Produc Latex, Natural Rubber Allergy RASH Verified 10/10/17 19:48 morphine Allergy RASH Verified 10/10/17 19:48 oxycodone HCl [From Percocet] Allergy SWELLING Verified 10/10/17 19:48 shellfish derived Allergy RASH Verified 10/10/17 19:48 shrimp Allergy RASH Verified 10/10/17 19:48 doxycycline AdvReac extreme Verified 10/10/17 19:48 abdominal pain, cramps metronidazole [From Flagyl] AdvReac abdominal Verified 10/10/17 19:48 pain, cramps CONTRAST Allergy Severe URTICARIA Uncoded 10/10/17 19:48 SHRIMPS Allergy Severe RASH Uncoded 10/10/17 19:48 LATEX Allergy Intermediate RASH Uncoded 10/10/17 19:48 Review of Systems ROS Statement: Except As Marked, All Systems Reviewed And Found Negative (and as per HPI) Gastrointestinal: Positive for: Abdominal Pain Neurological: Positive for: Headache Physical Exam - Reviewed Nursing Documentation Reviewed: Yes Vital Signs Reviewed: Yes - Physical Exam Appears: Positive for: Non-toxic, In Acute Distress Head Exam: Positive for: ATRAUMATIC, NORMOCEPHALIC Skin: Positive for: Warm, Dry Eye Exam: Positive for: EOMI, PERRL ENT: Positive for: Pharynx Is (clear), Other (tacky mucus membranes) Neck: Positive for: Painless ROM, Supple Cardiovascular/Chest: Positive for: Tachycardia (regular rhythm) Respiratory: Positive for: Normal Breath Sounds. Negative for: Wheezing, Respiratory Distress Gastrointestinal/Abdominal: Positive for: Bowel Sounds, Soft, Tenderness ( diffuse distractible ttp). Negative for: Mass, Distended, Guarding, Rebound Back: Positive for: Normal Inspection. Negative for: Decreased ROM Extremity: Positive for: Normal ROM. Negative for: Deformity Lymphatic: Negative for: Adenopathy Neurologic/Psych: Positive for: Alert. Negative for: Motor/Sensory Deficits - Laboratory Results Result Diagrams: 10/10/17 21:00 10/10/17 21:00 - ECG O2 Sat by Pulse Oximetry: 99 (RA) Pulse Ox Interpretation: Normal Medical Decision Making Medical Decision Making: Initial Impression 32 year old female presenting with abdominal pain Differentials include but not limited to: Abdominal migraine, Colitis, Dehydration, Enteritis Initial Plan: * CMP * Lipase * Magnesium * Phosphorous * Upreg * Udip * CBC * Partial Thromboplastin * Prothrombin time * Benadryl 50mg IVP * Magnesium sulfate 2 gm/50ml Water IVPB * Depakote 500 IVPp * Zofran 8mg IV * Solumedrol 500mg IV * Reevaluation 1130p Mild hypokalemia and anemia on labs, no emergently significant lab abnormalities On reevaluation pt feeling better. DC home f/u GI and PMD - Documented by Valeria Brandon acting as a scribe for Sharda Dee MD. All medical record entries made by the Scribe were at my direction and personally dictated by me. I have reviewed the chart and agree that the record accurately reflects my personal performance of the history, physical exam, medical decision making, and the department course for this patient. I have also personally directed, reviewed, and agree with the discharge instructions and disposition. Disposition - Clinical Impression Clinical Impression: Abdominal migraine Counseled Patient/Family Regarding: Studies Performed, Diagnosis, Need For Followup - Disposition Referrals: Natali Arshad MD [Family Provider] - (PLEASE FOLLOW UP WITH YOUR DOCTOR AND [facility] THIS WEEK) Disposition: Routine/Home Disposition Time: 23:30 Condition: IMPROVED Instructions: Abdominal Pain (ED) Forms: [facility] ED School/Work Excuse
[2017-10-10] MEDS ORDERED: K-Lyte 25meq EF Tab PO ONE (23:44)
== END 2017-10-10 23:50 | disposition home or self-care (01) ==
LOC: H.ER 19:42
DX: G43.D0 Abdominal migraine, not intractable (principal); Z86.59 Personal history of other mental and behavioral disorders; G89.29 Other chronic pain; K50.90 Crohn's disease, unspecified, without complications; N18.9 Chronic kidney disease, unspecified; Z87.891 Personal history of nicotine dependence; J45.909 Unspecified asthma, uncomplicated
CPT/HCPCS: 80053; 81025; 83690; 83735; 84100; 85025; 85610; 85730; 96374; 99283; J1200; J2405; J2930; J7040; J7042

== ENCOUNTER 2017-10-22 19:29 | Emergency (ER) | payer BC ==
[2017-10-22 19:29] VITALS: BMI 21.1
[2017-10-22 19:51] VITALS: BP 132/90; PULSE 105; RESP 16; TEMP 99.3; O2SAT 100
--- NOTE | 2017-10-22 20:38 | ED PDOC ---
HPI: Abdomen Time Seen by Provider: 10/22/17 20:19 Chief Complaint (Nursing): Abdominal Pain Chief Complaint (Provider): abd pain History Per: Patient Additional Complaint(s): 32 year old female with history of chronic abdominal pain since with worsening abdominal pain. Patient took her usual medications at home including oral Dilaudid and tramadol still has severe pain. She states that oral Zofran taken at home to help with nausea. Patient denies fever or chills. States she tried to call her pain management doctor and was unable to reach and she came to ED. She is well known to emergency department for frequent visits. PMD: Dr. Arshad Past Medical History Reviewed: Historical Data, Nursing Documentation, Vital Signs Vital Signs: Last Vital Signs Temp 99.3 F 10/22/17 19:47 Pulse 105 H 10/22/17 19:47 Resp 16 10/22/17 19:47 BP 132/90 10/22/17 19:47 Pulse Ox 100 10/22/17 21:21 - Medical History PMH: Anemia, Anxiety, Asthma, Bipolar Disorder, Crohn's Disease, Depression, Gastrointestinal Ulcer (peptic & gastric), Migraine (abdominal), Pancreatitis, Chronic Kidney Disease, Chronic Pain (Abdominal) - Surgical History Surgical History: Endoscopy - Family History Family History: States: Diabetes - Social History Current smoker - smoking cessation education provided: No Alcohol: None Drugs: Denies - Immunization History Hx Tetanus Toxoid Vaccination: Yes Hx Influenza Vaccination: Yes Hx Pneumococcal Vaccination: Yes - Home Medications Home Medications: Ambulatory Orders Medication Instructions Recorded Alprazolam [Xanax] 0.5 mg PO TID PRN #0 tablet 07/15/16 buPROPion XL [Wellbutrin XL] 300 mg PO DAILY 10/26/16 traMADol [Ultram] 50 mg PO QID PRN #10 tab 12/26/16 ARIPiprazole [Abilify] 15 mg PO HS 07/20/17 HYDROmorphone [Dilaudid] 2 mg PO Q8H PRN 07/20/17 Mesalamine ER Cap [Pentasa] 500 mg PO QID 07/20/17 OXcarbazepine [Trileptal] 300 mg PO HS 07/20/17 Ondansetron [Zofran Tab] 4 mg PO Q6H PRN 07/20/17 Docusate [Colace] 100 mg PO BID 1 Days #60 cap 07/21/17 Docusate [Colace] 100 mg PO DAILY cap 07/21/17 Enoxaparin [Lovenox] 40 mg SC DAILY syr 07/21/17 Ferrous Sulfate [Feosol] 325 mg PO BID 60 Days tab 07/21/17 Ferrous Sulfate [Feosol] 325 mg PO DAILY tab 07/21/17 Nitrofurantoin Macrocrystals 100 mg PO Q12 5 Days #10 cap 07/21/17 [Macrobid] Polyethylene Glycol 3350 [Miralax] 17 gm PO BID packet 07/21/17 Sennosides A and B [Senokot Tab] 8.6 mg PO HS tab 07/21/17 Benzonatate [Tessalon Perles] 100 mg PO BID PRN 5 Days sgl 08/02/17 Ondansetron [Zofran] 4 mg PO Q8H PRN #6 tab 08/02/17 Nitrofurantoin Macrocrystals 100 mg PO BID 5 Days cap 09/04/17 [Macrobid] Phenazopyridine [Pyridium] 200 mg PO TID 2 Days tab 09/04/17 Nitrofurantoin Macrocrystals 100 mg PO BID #10 cap 10/02/17 [Macrobid] Nitrofurantoin Macrocrystals 100 mg PO BID #14 cap 10/07/17 [Macrobid] Benzonatate 200 mg PO TID PRN #20 capsule 10/22/17 Levofloxacin [Levaquin] 500 mg PO DAILY #7 tablet 10/22/17 Oseltamivir Phosphate [Tamiflu] 75 mg PO BID #10 capsule 10/22/17 - Allergies Allergies/Adverse Reactions: Allergies Allergy/AdvReac Type Severity Reaction Status Date / Time acetaminophen [From Percocet] Allergy SWELLING Verified 10/22/17 19:47 Gadolinium-Containing Allergy URTICARIA Verified 10/22/17 19:47 Contrast Medi Iodine and Iodide Containing Allergy RASH Verified 10/22/17 19:47 Produc Latex, Natural Rubber Allergy RASH Verified 10/22/17 19:47 morphine Allergy RASH Verified 10/22/17 19:47 oxycodone HCl [From Percocet] Allergy SWELLING Verified 10/22/17 19:47 shellfish derived Allergy RASH Verified 10/22/17 19:47 shrimp Allergy RASH Verified 10/22/17 19:47 doxycycline AdvReac extreme Verified 10/22/17 19:47 abdominal pain, cramps metronidazole [From Flagyl] AdvReac abdominal Verified 10/22/17 19:47 pain, cramps CONTRAST Allergy Severe URTICARIA Uncoded 10/22/17 19:47 SHRIMPS Allergy Severe RASH Uncoded 10/22/17 19:47 LATEX Allergy Intermediate RASH Uncoded 10/22/17 19:47 Review of Systems ROS Statement: Except As Marked, All Systems Reviewed And Found Negative Constitutional: Negative for: Fever, Chills Cardiovascular: Negative for: Chest Pain Respiratory: Negative for: Cough Gastrointestinal: Positive for: Nausea. Negative for: Vomiting, Abdominal Pain , Constipation Genitourinary Female: Negative for: Vaginal Discharge, Vaginal Bleeding Physical Exam - Reviewed Nursing Documentation Reviewed: Yes Vital Signs Reviewed: Yes - Physical Exam Appears: Positive for: Well, Non-toxic, No Acute Distress Skin: Negative for: Rash Eye Exam: Positive for: Normal appearance Cardiovascular/Chest: Positive for: Regular Rate, Rhythm Respiratory: Positive for: Normal Breath Sounds Gastrointestinal/Abdominal: Positive for: Soft, Other (Pain upon palpation as per patient, abdominal exam is benign). Negative for: Tenderness, Distended, Guarding, Rebound Back: Negative for: L CVA Tenderness, R CVA Tenderness Extremity: Positive for: Normal ROM Neurologic/Psych: Positive for: Alert, Oriented - Laboratory Results Result Diagrams: 10/22/17 21:30 10/22/17 21:30 Urine POC: Negative Urine dip results: Positive for: Leukocyte Esterase (large), Blood (large). Negative for: Nitrate, Ketones, Glucose, Bilirubin, Protein - ECG O2 Sat by Pulse Oximetry: 100 Pulse Ox Interpretation: Normal Medical Decision Making Medical Decision Makin32 year old female with abd pain, UTI noted. Plan: CBC CMP UA and culture IVF 2 grams IV rocephin IM bentyl IV toradol Call placed to patient's ornamental painter, Dr. Vázquez. He is very familiar with patient. Patient is currently taking Dilaudid at home orally. He advises no IV narcotics at this time and that his office will reach out to her on Wednesday. 10:00 pm - Patient started to complain of itchiness in her throat after receiving meds in ED. She has received all the medications given in ED in the past. There are no other signs of allergic reaction. 50 mg oral Benadryl dose provided. Patient was informed of my conversation with Dr. Vázquez. 10:23 pm: Flu B is positive. Will given tamiflu and tessalon perles along with levaquin for UTI. Advised PMD and pain management follow up on Wednesday. Disposition - Clinical Impression Clinical Impression: UTI (urinary tract infection), Influenza B - Patient ED Disposition Is Patient to be Admitted: No Counseled Patient/Family Regarding: Studies Performed, Diagnosis, Need For Followup, Rx Given - Disposition Referrals: Natali Arshad MD [Staff Provider] - Saira Vázquez MD [Staff Provider] - Disposition: Routine/Home Disposition Time: 22:12 Condition: STABLE Additional Instructions: TAKE RX MEDS DIRECTED ALONG WITH MOTRIN 600 EVERY 6 HRS. DRINK PLENTY OF FLUIDS. FOLLOW UP WEDNESDAY WITH PRIMARY CARE DOCTOR AND WITH HUMAN RESOURCES ANALYST. Prescriptions: Benzonatate 200 mg PO TID PRN #20 capsule PRN Reason: Cough Levofloxacin [Levaquin] 500 mg PO DAILY #7 tablet Oseltamivir Phosphate [Tamiflu] 75 mg PO BID #10 capsule Instructions: Urinary Tract Infection in Women (ED), Chronic Pain (ED), Influenza (ED) Forms: [employer] (Yoruba) Results - Lab Results Lab Results: 10/22/17 10/22/17 10/22/17 21:30 21:30 20:47 WBC 11.3 H RBC 4.18 Hgb 10.5 L Hct 32.7 L MCV 78.2 L MCH 25.2 L MCHC 32.3 L RDW 16.6 H Plt Count 509 H MPV 7.6 Neut % (Auto) 56.9 Lymph % (Auto) 32.5 [place] % (Auto) 7.6 Eos % (Auto) 1.9 Baso % (Auto) 1.1 Neut # 6.4 Lymph # 3.7 [place] # 0.9 H Eos # 0.2 Baso # 0.1 Sodium 142 Potassium 4.0 Chloride 103 Carbon Dioxide 28 Anion Gap 15 BUN 10 Creatinine 0.6 L Est GFR ( Amer) > 60 Est GFR (Non-Af Amer) > 60 Random Glucose 96 Calcium 9.5 Total Bilirubin 0.4 AST 20 ALT 31 Alkaline Phosphatase 87 Total Protein 7.0 Albumin 4.1 Globulin 2.9 Albumin/Globulin Ratio 1.4 Urine Color Isabel Urine Clarity Turbid Urine pH 7.0 Ur Specific [place] 1.018 Urine Protein 100 Urine Glucose (UA) Neg Urine Ketones Negative Urine Blood Small Urine Nitrate Negative Urine Bilirubin Negative Urine Urobilinogen 0.2-1.0 Ur Leukocyte Esterase Mod Urine RBC (Auto) 50 H Urine WBC Clumps (Auto) Many H Urine Microscopic WBC 1566 H Ur Squamous Epith Cells 64 H Urine Bacteria Occ H Hyaline Casts 11-20 H Urine Yeast (Budding) Mod H
[2017-10-22] MEDS ORDERED: Sodium Chloride 0.9% 1,000 ML IV STA (21:06)
[2017-10-22 21:12] LABS: SQUAMOUS EPITHIAL 64 /hpf (0-5); URINE BACTERIA OCC (<OCC); URINE BILIRUBIN NEGATIVE (NEGATIVE); URINE BLOOD SMALL (NEGATIVE); URINE CLARITY TURBID (Clear); URINE COLOR AMBER (YELLOW); URINE GLUCOSE (UA) NEG (Normal); URINE LEUKOCYTE ESTERASE MOD Leu/uL (Negative); URINE NITRATE NEGATIVE (NEGATIVE); URINE PROTEIN 100 mg/dL (NEGATIVE); URINE UROBILINOGEN 0.2-1.0 mg/dL (0.2-1.0); WBC CLUMPS MANY /hpf
[2017-10-22] MEDS ORDERED: cefTRIAXone 2 GM in Sodium Chloride 0.9% 100 ML IVPB STA (21:15)
[2017-10-22 21:37] LABS: BASO # 0.1 K/uL (0.0-0.2); BASO % 1.1 % (0.0-2.0); EOS # 0.2 K/uL (0.0-0.7); EOS % 1.9 % (0.0-4.0); HEMOGLOBIN 10.5 g/dL (12.0-16.0); LYMPH # 3.7 K/uL (1.0-4.3); LYMPH % 32.5 % (20.0-40.0); MEAN CELL VOLUME 78.2 fl (81.0-99.0); MEAN CORPUSCULAR HEMOGLOBIN 25.2 pg (27.0-31.0); MEAN CORPUSCULAR HGB CONC 32.3 g/dL (33.0-37.0); MEAN PLATELET VOLUME 7.6 fl (7.2-11.7); MONO # 0.9 K/uL (0.0-0.8); MONO % 7.6 % (0.0-10.0); NEUT # 6.4 K/uL (1.8-7.0); NEUT % 56.9 % (50.0-75.0); RBC 4.18 Mil/uL (3.80-5.20); RED CELL DISTRIBUTION WIDTH 16.6 % (11.5-14.5); WHITE BLOOD COUNT 11.3 K/uL (4.8-10.8)
[2017-10-22 21:49] LABS: ALB/GLOB RATIO 1.4 (1.0-2.1); ALBUMIN 4.1 g/dL (3.5-5.0); ALT/SGPT 31 U/L (9-52); AST/SGOT 20 U/L (14-36); BLOOD UREA NITROGEN 10 mg/dl (7-17); CALCIUM 9.5 mg/dL (8.4-10.2); GFR AFRICAN-AMERICAN > 60; GFR NON-AFRICAN AMERICAN > 60
== END 2017-10-22 22:55 | disposition home or self-care (01) ==
LOC: H.ER 19:29
DX: N39.0 Urinary tract infection, site not specified (principal); J02.0 Streptococcal pharyngitis; F31.9 Bipolar disorder, unspecified; F41.9 Anxiety disorder, unspecified; G89.29 Other chronic pain; J45.909 Unspecified asthma, uncomplicated; K50.90 Crohn's disease, unspecified, without complications; K85.90 Acute pancreatitis without necrosis or infection, unspecified
CPT/HCPCS: 80053; 81003; 81025; 85025; 87040; 87086; 87181; 87804; 96365; 96372; 96375; 99283; J0500; J0696; J1885; J7040

== ENCOUNTER 2017-11-30 12:08 | Emergency (ER) | payer BC ==
[2017-11-30 12:09] VITALS: BMI 21.1
[2017-11-30 12:34] VITALS: BP 125/75; PULSE 109; RESP 16; TEMP 98.5; O2SAT 99
--- NOTE | 2017-11-30 13:09 | ED PDOC ---
HPI: Abdomen <RonaldoIsabelle - Last Filed: 11/30/17 15:01> <LudwinDimastati Delgado - Last Filed: 12/01/17 07:50> Time Seen by Provider: 11/30/17 12:58 Chief Complaint (Nursing): Abdominal Pain Additional Complaint(s): 32yo F with PMHx chronic abd pain c/o flank pain. duration x3 days. Denies fever , chills, n/v, diarrhea, vaginal discharge/bleeding, hematuria, dysuria, urinary frequency. LMP 2 weeks ago, regular, normal amount of bleeding. Last took dilaudid and tramadol today 7AM. Pain management Dr. Vázquez. PCP: [facility] Dr. Arshad (Isabelle Higgins) Supervising Attending Note - Supervising Attending Note The Documented history was done by the: Physician Cut Off Saw Set Up Operator, Attending Physician The documented physical exam was done by the: Physician Cut Off Saw Set Up Operator, Attending Physician The documented procedures were done by the: Physician Cut Off Saw Set Up Operator, Attending Physician - Attestation: I have personally seen and examined this patient.: Yes I have fully participated in the care of the patient.: Yes I have reviewed all pertinent clinical information: Yes <LudwinSurindermiguelina Delgado - Last Filed: 12/01/17 07:50> Past Medical History Reviewed: Historical Data, Nursing Documentation, Vital Signs - Medical History PMH: Anemia, Anxiety, Asthma, Bipolar Disorder, Crohn's Disease, Depression, Gastrointestinal Ulcer (peptic & gastric), Migraine (abdominal), Pancreatitis, Chronic Kidney Disease, Chronic Pain (Abdominal) - Surgical History Surgical History: Endoscopy - Family History Family History: States: Diabetes - Immunization History Hx Tetanus Toxoid Vaccination: Yes Hx Influenza Vaccination: Yes Hx Pneumococcal Vaccination: Yes <RonaldoIsabelle - Last Filed: 11/30/17 15:01> <Nadya Mascorro - Last Filed: 12/01/17 07:50> Vital Signs: Last Vital Signs Temp 98.5 F 11/30/17 12:32 Pulse 109 H 11/30/17 12:32 Resp 16 11/30/17 12:32 BP 125/75 11/30/17 12:32 Pulse Ox 99 11/30/17 15:03 - Home Medications Home Medications: Ambulatory Orders Medication Instructions Recorded Alprazolam [Xanax] 0.5 mg PO TID PRN #0 tablet 07/15/16 buPROPion XL [Wellbutrin XL] 300 mg PO DAILY 10/26/16 traMADol [Ultram] 50 mg PO QID PRN #10 tab 12/26/16 ARIPiprazole [Abilify] 15 mg PO HS 07/20/17 HYDROmorphone [Dilaudid] 2 mg PO Q8H PRN 07/20/17 Mesalamine ER Cap [Pentasa] 500 mg PO QID 07/20/17 OXcarbazepine [Trileptal] 300 mg PO HS 07/20/17 Ondansetron [Zofran Tab] 4 mg PO Q6H PRN 07/20/17 Docusate [Colace] 100 mg PO BID 1 Days #60 cap 07/21/17 Docusate [Colace] 100 mg PO DAILY cap 07/21/17 Enoxaparin [Lovenox] 40 mg SC DAILY syr 07/21/17 Ferrous Sulfate [Feosol] 325 mg PO BID 60 Days tab 07/21/17 Ferrous Sulfate [Feosol] 325 mg PO DAILY tab 07/21/17 Nitrofurantoin Macrocrystals 100 mg PO Q12 5 Days #10 cap 07/21/17 [Macrobid] Polyethylene Glycol 3350 [Miralax] 17 gm PO BID packet 07/21/17 Sennosides A and B [Senokot Tab] 8.6 mg PO HS tab 07/21/17 Benzonatate [Tessalon Perles] 100 mg PO BID PRN 5 Days sgl 08/02/17 Ondansetron [Zofran] 4 mg PO Q8H PRN #6 tab 08/02/17 Nitrofurantoin Macrocrystals 100 mg PO BID 5 Days cap 09/04/17 [Macrobid] Phenazopyridine [Pyridium] 200 mg PO TID 2 Days tab 09/04/17 Nitrofurantoin Macrocrystals 100 mg PO BID #10 cap 10/02/17 [Macrobid] Nitrofurantoin Macrocrystals 100 mg PO BID #14 cap 10/07/17 [Macrobid] Benzonatate 200 mg PO TID PRN #20 capsule 10/22/17 Levofloxacin [Levaquin] 500 mg PO DAILY #7 tablet 10/22/17 Oseltamivir Phosphate [Tamiflu] 75 mg PO BID #10 capsule 10/22/17 Amoxicillin 500 mg PO TID #21 tablet 10/25/17 Cephalexin [cephalexin] 500 mg PO BID #14 cap 11/30/17 - Allergies Allergies/Adverse Reactions: Allergies Allergy/AdvReac Type Severity Reaction Status Date / Time acetaminophen [From Percocet] Allergy SWELLING Verified 10/22/17 19:47 Gadolinium-Containing Allergy URTICARIA Verified 10/22/17 19:47 Contrast Medi Iodine and Iodide Containing Allergy RASH Verified 10/22/17 19:47 Produc Latex, Natural Rubber Allergy RASH Verified 10/22/17 19:47 morphine Allergy RASH Verified 10/22/17 19:47 oxycodone HCl [From Percocet] Allergy SWELLING Verified 10/22/17 19:47 shellfish derived Allergy RASH Verified 10/22/17 19:47 shrimp Allergy RASH Verified 10/22/17 19:47 doxycycline AdvReac extreme Verified 10/22/17 19:47 abdominal pain, cramps metronidazole [From Flagyl] AdvReac abdominal Verified 10/22/17 19:47 pain, cramps CONTRAST Allergy Severe URTICARIA Uncoded 10/22/17 19:47 SHRIMPS Allergy Severe RASH Uncoded 10/22/17 19:47 LATEX Allergy Intermediate RASH Uncoded 10/22/17 19:47 Review of Systems ROS Statement: Except As Marked, All Systems Reviewed And Found Negative Gastrointestinal: Positive for: Abdominal Pain Musculoskeletal: Positive for: Back Pain (b/l flank pain) <Ting - Last Filed: 11/30/17 15:01> Physical Exam - Physical Exam Appears: Positive for: Well, Non-toxic Head Exam: Positive for: ATRAUMATIC, NORMAL INSPECTION Skin: Positive for: Warm, Dry Eye Exam: Positive for: Normal appearance Neck: Positive for: Normal, Supple Cardiovascular/Chest: Positive for: Regular Rate, Rhythm, Chest Non Tender Respiratory: Positive for: Normal Breath Sounds. Negative for: Decreased Breath Sounds Gastrointestinal/Abdominal: Positive for: Soft, Tenderness (generalized) Back: Positive for: Normal Inspection, L CVA Tenderness, R CVA Tenderness. Negative for: Vertebral Tenderness Neurologic/Psych: Positive for: Alert, Oriented <Ting - Last Filed: 11/30/17 15:01> - Laboratory Results Result Diagrams: 11/30/17 13:50 11/30/17 13:50 - ECG O2 Sat by Pulse Oximetry: 99 <RonaldoIsabelle - Last Filed: 11/30/17 15:01> - Laboratory Results Result Diagrams: 11/30/17 13:50 11/30/17 13:50 <Nadya Mascorro Sandy - Last Filed: 12/01/17 07:50> Medical Decision Making <Isabelle Higgins - Last Filed: 11/30/17 15:01> <Nadya Mascorro - Last Filed: 12/01/17 07:50> Medical Decision Makin DDx chronic abd pain, UTI, urine preg, UA, urine dip pain currently controlled reassessment 1348 abd pain not controlled 9/ dilaudid 0.5mg IVP x1 CBC, CMP IVF NS 1L x1 reassessment 1500 abd pain improved 5/10 CBC, CMP, no leukocytosis, chronic anemia UA shows leuk est, neg nitrate d/c home with bactrim DS x3 days, FU PCP (Isabelle Higgins) Disposition - Disposition Disposition: Routine/Home Disposition Time: 15:03 <Isabelle Higgins - Last Filed: 11/30/17 15:01> - Patient ED Disposition Is Patient to be Admitted: No Doctor Will See Patient In The: Office Counseled Patient/Family Regarding: Studies Performed, Diagnosis, Need For Followup <Nadya Mascorro Sandy - Last Filed: 12/01/17 07:50> - Clinical Impression Clinical Impression: UTI (lower urinary tract infection) - Disposition Referrals: Natali Arshad MD [Family Provider] - Condition: IMPROVED Additional Instructions: Follow up with your PCP in 2-3 days. Return for worsening. Prescriptions: Cephalexin [cephalexin] 500 mg PO BID #14 cap Instructions: Urinary Tract Infection, Adult (DC)
[2017-11-30] MEDS ORDERED: Sodium Chloride 0.9% 1,000 ML IV SCH (13:30)
[2017-11-30] MEDS ORDERED: HYDROmorphone 0.5 mg/0.5 ml ISec IVP STA (13:46)
[2017-11-30 13:54] LABS: SQUAMOUS EPITHIAL 7 /hpf (0-5); URINE BACTERIA RARE (<OCC); URINE BILIRUBIN NEGATIVE (NEGATIVE); URINE BLOOD NEGATIVE (NEGATIVE); URINE CLARITY CLOUDY (Clear); URINE COLOR AMBER (YELLOW); URINE GLUCOSE (UA) NEG (Normal); URINE LEUKOCYTE ESTERASE MOD Leu/uL (Negative); URINE PROTEIN 30 mg/dL (NEGATIVE); URINE UROBILINOGEN 0.2-1.0 mg/dL (0.2-1.0)
[2017-11-30] MEDS ORDERED: HYDROmorphone 0.5 mg/0.5 ml ISec ONE (13:59)
[2017-11-30 14:10] LABS: ALB/GLOB RATIO 1.3 (1.0-2.1); ALBUMIN 4.5 g/dL (3.5-5.0); ALT/SGPT 42 U/L (9-52); AST/SGOT 25 U/L (14-36); BLOOD UREA NITROGEN 9 mg/dl (7-17); CALCIUM 9.8 mg/dL (8.4-10.2); GFR AFRICAN-AMERICAN > 60; GFR NON-AFRICAN AMERICAN > 60
[2017-11-30 14:16] LABS: HEMOGLOBIN 11.5 g/dL (12.0-16.0); MEAN CELL VOLUME 79.7 fl (81.0-99.0); MEAN CORPUSCULAR HEMOGLOBIN 26.4 pg (27.0-31.0); MEAN CORPUSCULAR HGB CONC 33.1 g/dL (33.0-37.0); RBC 4.35 Mil/uL (3.80-5.20); RED CELL DISTRIBUTION WIDTH 16.4 % (11.5-14.5); WHITE BLOOD COUNT 9.7 K/uL (4.8-10.8)
[2017-11-30] MEDS ORDERED: Sodium Chloride 0.9% 1,000 ML IV STA (14:40)
== END 2017-11-30 15:43 | disposition home or self-care (01) ==
LOC: H.ER 12:08
DX: N39.0 Urinary tract infection, site not specified (principal); K50.90 Crohn's disease, unspecified, without complications; F31.9 Bipolar disorder, unspecified; Z88.5 Allergy status to narcotic agent
CPT/HCPCS: 80053; 81003; 81025; 85027; 87086; 96361; 96374; 99282; J1170; J7040

== ENCOUNTER 2017-12-23 12:06 | Emergency (ER) | payer BC ==
[2017-12-23 12:06] VITALS: BMI 21.1
[2017-12-23] MEDS ORDERED: Sodium Chloride 0.9% 1,000 ML IV STA (12:55)
[2017-12-23 12:58] VITALS: O2SAT 99
--- NOTE | 2017-12-23 13:03 | ED PDOC ---
HPI: Abdomen <Osmin Pedroza - Last Filed: 12/23/17 16:27> <Zak Cooper III - Last Filed: 12/26/17 12:51> Time Seen by Provider: 12/23/17 12:34 Chief Complaint (Nursing): Abdominal Pain Additional Complaint(s): 42 YO F w/ PMH of abdominal migraines well known to the ED presents to the ER with abdominal pain and vomiting for the past 4 days. Vomits was non bloody non bilious. States she has been tolerating fluids but not able to tolerate solids, she has been drinking ensure. Has been following up with pain management and has an appointment on December 31, 2017. PMH (As per patient): Chrones, PRimary sclerosing cholangitis, Autoimmune hepatitis, Iron deffeciency anemia, Seasonal Asthma, Peptic Ulcer Disease Med: Dilaudid 2mg Q4-6 hours, Tramadol ER 100mg in the morning. 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 DCd after much improvement w analgesics in ED. (Zak Cooper III) Past Medical History - Medical History PMH: Anemia, Anxiety, Asthma, Bipolar Disorder, Crohn's Disease, Depression, Gastrointestinal Ulcer (peptic & gastric), Migraine (abdominal), Pancreatitis, Chronic Kidney Disease, Chronic Pain (Abdominal) - Surgical History Surgical History: Endoscopy - Family History Family History: States: Diabetes - Immunization History Hx Tetanus Toxoid Vaccination: Yes Hx Influenza Vaccination: Yes Hx Pneumococcal Vaccination: Yes <Kasia,Nirpaul - Last Filed: 12/23/17 16:27> <KennethZakVincent III - Last Filed: 12/26/17 12:51> Vital Signs: Last Vital Signs Temp 98.6 F 12/23/17 16:19 Pulse 98 H 12/23/17 16:19 Resp 17 12/23/17 16:19 BP 132/74 12/23/17 16:19 Pulse Ox 99 12/23/17 16:27 - Home Medications Home Medications: Ambulatory Orders Medication Instructions Recorded Alprazolam [Xanax] 0.5 mg PO TID PRN #0 tablet 07/15/16 buPROPion XL [Wellbutrin XL] 300 mg PO DAILY 10/26/16 traMADol [Ultram] 50 mg PO QID PRN #10 tab 12/26/16 ARIPiprazole [Abilify] 15 mg PO HS 07/20/17 HYDROmorphone [Dilaudid] 2 mg PO Q8H PRN 07/20/17 Mesalamine ER Cap [Pentasa] 500 mg PO QID 07/20/17 OXcarbazepine [Trileptal] 300 mg PO HS 07/20/17 Ondansetron [Zofran Tab] 4 mg PO Q6H PRN 07/20/17 Docusate [Colace] 100 mg PO BID 1 Days #60 cap 07/21/17 Docusate [Colace] 100 mg PO DAILY cap 07/21/17 Enoxaparin [Lovenox] 40 mg SC DAILY syr 07/21/17 Ferrous Sulfate [Feosol] 325 mg PO BID 60 Days tab 07/21/17 Ferrous Sulfate [Feosol] 325 mg PO DAILY tab 07/21/17 Nitrofurantoin Macrocrystals 100 mg PO Q12 5 Days #10 cap 07/21/17 [Macrobid] Polyethylene Glycol 3350 [Miralax] 17 gm PO BID packet 07/21/17 Sennosides A and B [Senokot Tab] 8.6 mg PO HS tab 07/21/17 Benzonatate [Tessalon Perles] 100 mg PO BID PRN 5 Days sgl 08/02/17 Ondansetron [Zofran] 4 mg PO Q8H PRN #6 tab 08/02/17 Nitrofurantoin Macrocrystals 100 mg PO BID 5 Days cap 12/09/17 [Macrobid] Phenazopyridine [Pyridium] 200 mg PO TID 2 Days tab 09/04/17 Nitrofurantoin Macrocrystals 100 mg PO BID #10 cap 10/02/17 [Macrobid] Nitrofurantoin Macrocrystals 100 mg PO BID #14 cap 10/07/17 [Macrobid] Benzonatate 200 mg PO TID PRN #20 capsule 10/22/17 Levofloxacin [Levaquin] 500 mg PO DAILY #7 tablet 10/22/17 Oseltamivir Phosphate [Tamiflu] 75 mg PO BID #10 capsule 10/22/17 Amoxicillin 500 mg PO TID #21 tablet 10/25/17 Cephalexin [cephalexin] 500 mg PO BID #14 cap 11/30/17 - Allergies Allergies/Adverse Reactions: Allergies Allergy/AdvReac Type Severity Reaction Status Date / Time acetaminophen [From Percocet] Allergy SWELLING Verified 12/23/17 12:30 Gadolinium-Containing Allergy URTICARIA Verified 12/23/17 12:30 Contrast Medi Iodine and Iodide Containing Allergy RASH Verified 12/23/17 12:30 Produc Latex, Natural Rubber Allergy RASH Verified 12/23/17 12:30 morphine Allergy RASH Verified 12/23/17 12:30 oxycodone HCl [From Percocet] Allergy SWELLING Verified 12/23/17 12:30 shellfish derived Allergy RASH Verified 12/23/17 12:30 shrimp Allergy RASH Verified 12/23/17 12:30 doxycycline AdvReac extreme Verified 12/23/17 12:30 abdominal pain, cramps metronidazole [From Flagyl] AdvReac abdominal Verified 12/23/17 12:30 pain, cramps CONTRAST Allergy Severe URTICARIA Uncoded 12/23/17 12:30 SHRIMPS Allergy Severe RASH Uncoded 12/23/17 12:30 LATEX Allergy Intermediate RASH Uncoded 12/23/17 12:30 Physical Exam - Physical Exam Appears: Positive for: No Acute Distress Head Exam: Positive for: NORMAL INSPECTION Skin: Positive for: Normal Color, Warm Cardiovascular/Chest: Positive for: Regular Rate, Rhythm Respiratory: Positive for: Normal Breath Sounds. Negative for: Rales, Rhonchi, Wheezing Gastrointestinal/Abdominal: Positive for: Tenderness (generalized tenderness). Negative for: Rebound Extremity: Positive for: Normal ROM. Negative for: Tenderness Neurologic/Psych: Positive for: Alert, solar project coordination specialist II-XII, Oriented <Osmin Pedroza - Last Filed: 12/23/17 16:27> - Laboratory Results Result Diagrams: 12/23/17 13:05 12/23/17 13:05 - ECG O2 Sat by Pulse Oximetry: 99 <Osmin Pedroza - Last Filed: 12/23/17 16:27> - Laboratory Results Result Diagrams: 12/23/17 13:05 12/23/17 13:05 <Zak Cooper III - Last Filed: 12/26/17 12:51> Medical Decision Making <Osmin Pedroza - Last Filed: 12/23/17 16:27> <Zak Cooper III - Last Filed: 12/26/17 12:51> Medical Decision Making: IVF CBC: Hb 10.8, WBC:10.9 CMP:WNL Lipase: WNL UA : Contaminated sample Urine culture Dilauded 1mg given: Patients pain resolved with medication. Patient states she would like to go home and is feeling better. (Osmin Pedroza) Disposition - Disposition Disposition: Routine/Home Disposition Time: 16:25 <Osmin Pedroza - Last Filed: 12/23/17 16:27> <Zak Cooper III - Last Filed: 12/26/17 12:51> - Clinical Impression Clinical Impression: Abdominal pain - Disposition Referrals: Ethan Augustin MD [Medical Doctor] - Condition: IMPROVED Instructions: Chronic Pain (DC) Forms: [employer] ([place])
[2017-12-23 13:23] LABS: BASO # 0.1 K/uL (0.0-0.2); BASO % 1.2 % (0.0-2.0); EOS # 0.7 K/uL (0.0-0.7); EOS % 6.6 % (0.0-4.0); HEMOGLOBIN 10.8 g/dL (12.0-16.0); LYMPH # 4.2 K/uL (1.0-4.3); LYMPH % 38.9 % (20.0-40.0); MEAN CELL VOLUME 80.2 fl (81.0-99.0); MEAN CORPUSCULAR HEMOGLOBIN 26.4 pg (27.0-31.0); MEAN CORPUSCULAR HGB CONC 32.9 g/dL (33.0-37.0); MEAN PLATELET VOLUME 7.5 fl (7.2-11.7); MONO # 0.6 K/uL (0.0-0.8); MONO % 5.8 % (0.0-10.0); NEUT # 5.2 K/uL (1.8-7.0); NEUT % 47.5 % (50.0-75.0); NRBC % 0.1 % (0.0-0.0); RBC 4.1 Mil/uL (3.80-5.20); RED CELL DISTRIBUTION WIDTH 16.2 % (11.5-14.5); WHITE BLOOD COUNT 10.9 K/uL (4.8-10.8)
[2017-12-23 13:32] LABS: SQUAMOUS EPITHIAL 21 /hpf (0-5); URINE BACTERIA FEW (<OCC); URINE BILIRUBIN NEGATIVE (NEGATIVE); URINE CALCIUM OXALATE CRYSTALS MOD /hpf (<OCC); URINE CLARITY CLOUDY (Clear); URINE COLOR YELLOW (YELLOW); URINE GLUCOSE (UA) NEG (Normal); URINE LEUKOCYTE ESTERASE LARGE Leu/uL (Negative); URINE PROTEIN 30 mg/dL (NEGATIVE); URINE UROBILINOGEN 0.2-1.0 mg/dL (0.2-1.0)
[2017-12-23 13:35] LABS: URINE AMORPHOUS SEDIMENT FEW /ul (<OCC); URINE BLOOD TRACE (NEGATIVE)
[2017-12-23 13:49] LABS: ALB/GLOB RATIO 1.3 (1.0-2.1); ALBUMIN 4.3 g/dL (3.5-5.0); ALT/SGPT 31 U/L (9-52); AST/SGOT 37 U/L (14-36); BLOOD UREA NITROGEN 13 mg/dl (7-17); CALCIUM 9.2 mg/dL (8.4-10.2); GFR AFRICAN-AMERICAN > 60; GFR NON-AFRICAN AMERICAN > 60; LIPASE 149 U/L (23-300)
[2017-12-23] MEDS ORDERED: HYDROmorphone 0.5 mg/0.5 ml ISec ONE (14:30)
[2017-12-23 16:19] VITALS: BP 132/74; PULSE 98; RESP 17; TEMP 98.6
== END 2017-12-23 16:20 | disposition home or self-care (01) ==
LOC: H.ER 12:06
DX: R10.9 Unspecified abdominal pain (principal); G89.29 Other chronic pain; Z86.59 Personal history of other mental and behavioral disorders; J45.909 Unspecified asthma, uncomplicated; K50.90 Crohn's disease, unspecified, without complications; N18.9 Chronic kidney disease, unspecified; Z88.5 Allergy status to narcotic agent
CPT/HCPCS: 80053; 81003; 81025; 83690; 85025; 87086; 96374; 99284; J1170; J2765; J7040

== ENCOUNTER 2017-12-27 10:33 | Emergency (ER) | payer BC ==
[2017-12-27 10:33] VITALS: BMI 21.1
[2017-12-27] MEDS ORDERED: Sodium Chloride 0.9% 1,000 ML IV STA (11:13)
--- NOTE | 2017-12-27 11:46 | ED PDOC ---
HPI: Abdomen Time Seen by Provider: 12/27/17 11:11 Chief Complaint (Nursing): Abdominal Pain Chief Complaint (Provider): vomiting History Per: Patient History/Exam Limitations: no limitations Onset/Duration Of Symptoms: Days (2), Intermittent Episodes Current Symptoms Are (Timing): Still Present Context: Food Severity: Moderate Location Of Pain/Discomfort: Epigastric Quality Of Discomfort: Sharp, Burning Associated Symptoms: Nausea, Vomiting, Loss Of Appetite. denies: Diarrhea Exacerbating Factors: None Alleviating Factors: None Last Bowel Movement: Today Additional Complaint(s): 32yo female c/o ongoing and persistent abdominal pain, today epigastric w/ nausea/vomiting, denies fever. On outpatient pain management currently dilaudid, also sees GI and psychiatry. Takes miralax daily thus no constipation currently. Past Medical History Reviewed: Historical Data, Nursing Documentation, Vital Signs Vital Signs: Last Vital Signs Temp 97.3 F L 12/27/17 17:07 Pulse 78 12/27/17 17:07 Resp 19 12/27/17 17:07 BP 126/78 12/27/17 17:07 Pulse Ox 98 12/27/17 17:07 - Medical History PMH: Anemia, Anxiety, Asthma, Bipolar Disorder, Crohn's Disease, Depression, Gastrointestinal Ulcer (peptic & gastric), Migraine (abdominal), Pancreatitis, Chronic Kidney Disease, Chronic Pain (Abdominal) - Surgical History Surgical History: Endoscopy - Family History Family History: States: Diabetes - Social History Alcohol: None - Immunization History Hx Tetanus Toxoid Vaccination: Yes Hx Influenza Vaccination: Yes Hx Pneumococcal Vaccination: Yes - Home Medications Home Medications: Ambulatory Orders Medication Instructions Recorded Alprazolam [Xanax] 0.5 mg PO TID PRN #0 tablet 07/15/16 buPROPion XL [Wellbutrin XL] 300 mg PO DAILY 10/26/16 HYDROmorphone [Dilaudid] 2 mg PO Q6 PRN 07/20/17 OXcarbazepine [Trileptal] 900 mg PO HS 07/20/17 Ondansetron [Zofran Tab] 4 mg PO Q6H PRN 07/20/17 Aripiprazole [Abilify] 30 mg PO HS 12/28/17 Iron Fumarate/Vit C/Vit B12/FA 1 cap PO DAILY 12/28/17 [Hematogen Forte Softgel] Pregabalin [Lyrica] 25 mg PO HS 12/28/17 Tramadol HCl [Tramadol HCl ER] 200 mg PO DAILY 12/28/17 Ustekinumab [Stelara] 90 mg SC .[id number] 12/28/17 - Allergies Allergies/Adverse Reactions: Allergies Allergy/AdvReac Type Severity Reaction Status Date / Time acetaminophen [From Percocet] Allergy SWELLING Verified 12/28/17 15:23 Gadolinium-Containing Allergy URTICARIA Verified 12/28/17 15:23 Contrast Medi Iodine and Iodide Containing Allergy RASH Verified 12/28/17 15:23 Produc Latex, Natural Rubber Allergy RASH Verified 12/28/17 15:23 morphine Allergy RASH Verified 12/28/17 15:23 oxycodone HCl [From Percocet] Allergy SWELLING Verified 12/28/17 15:23 shellfish derived Allergy RASH Verified 12/28/17 15:23 shrimp Allergy RASH Verified 12/28/17 15:23 doxycycline AdvReac extreme Verified 12/28/17 15:23 abdominal pain, cramps metronidazole [From Flagyl] AdvReac abdominal Verified 12/28/17 15:23 pain, cramps CONTRAST Allergy Severe URTICARIA Uncoded 12/28/17 15:23 SHRIMPS Allergy Severe RASH Uncoded 12/28/17 15:23 LATEX Allergy Intermediate RASH Uncoded 12/28/17 15:23 Review of Systems ROS Statement: Except As Marked, All Systems Reviewed And Found Negative Constitutional: Positive for: Weakness, Malaise. Negative for: Fever, Chills Cardiovascular: Negative for: Chest Pain Respiratory: Negative for: Cough Gastrointestinal: Positive for: Nausea, Vomiting, Abdominal Pain. Negative for : Diarrhea, Constipation Genitourinary Female: Negative for: Dysuria Musculoskeletal: Positive for: Back Pain. Negative for: Neck Pain, Leg Pain Skin: Negative for: Rash, Lesions, Jaundice Neurological: Positive for: Dizziness. Negative for: Weakness, Numbness, Headache Psych: Negative for: Suicidal ideation Physical Exam - Reviewed Nursing Documentation Reviewed: Yes Vital Signs Reviewed: Yes - Physical Exam Appears: Positive for: Well, Non-toxic, No Acute Distress Head Exam: Positive for: ATRAUMATIC, NORMAL INSPECTION, NORMOCEPHALIC Skin: Positive for: Normal Color, Warm, DRY Eye Exam: Positive for: EOMI, Normal appearance, PERRL ENT: Positive for: Normal ENT Inspection Neck: Positive for: Normal, Painless ROM Cardiovascular/Chest: Positive for: Regular Rate, Rhythm Respiratory: Positive for: CNT, Normal Breath Sounds Gastrointestinal/Abdominal: Positive for: Normal Exam, Bowel Sounds, Soft Back: Positive for: Normal Inspection Extremity: Positive for: Normal ROM Neurologic/Psych: Positive for: Alert, Oriented - Laboratory Results Result Diagrams: 12/27/17 12:30 12/27/17 12:30 - ECG O2 Sat by Pulse Oximetry: 99 Medical Decision Making Medical Decision Making: iv established, IVF bolus and analgesics initiated labs reviewed, no chemical evidence of dehydration, WBC normal, mild anemia, mild elev LFTs unclear significance. Pt states awaiting new immunomodulator injection from GI for crohns control. approx 4pm patient wanted to be discharged after analgesics, stated improved symptoms. Recent UCx 12/23 negative, repeat UCx sent. PMD Dr Arshad made aware of increasing ED visits for chronic pain syndrome. Pain management now has her on escalating dose of dilaudid which are not satisfying pain per patient. Disposition - Clinical Impression Clinical Impression: Abdominal pain, Vomiting - Patient ED Disposition Is Patient to be Admitted: No Counseled Patient/Family Regarding: Studies Performed, Diagnosis, Need For Followup - Disposition Disposition: Routine/Home Disposition Time: 16:05 Condition: STABLE Additional Instructions: Followup with pain management and your GI doctor/PMD as soon as possible. Urine culture result from 12/23/17 negative. Culture repeated, will be available in 2-3 days. Instructions: Acute Abdomen (Belly Pain), Adult (DC), Nausea and Vomiting, Adult Forms: [employer] Form (Iraqi)
[2017-12-27 13:37] LABS: ALB/GLOB RATIO 1.3 (1.0-2.1); ALBUMIN 4.3 g/dL (3.5-5.0); ALT/SGPT 97 U/L (9-52); AST/SGOT 54 U/L (14-36); BLOOD UREA NITROGEN 6 mg/dl (7-17); CALCIUM 9.6 mg/dL (8.4-10.2); GFR AFRICAN-AMERICAN > 60; GFR NON-AFRICAN AMERICAN > 60; LIPASE 98 U/L (23-300)
[2017-12-27 14:00] LABS: BASO # 0.1 K/uL (0.0-0.2); BASO % 1.3 % (0.0-2.0); EOS # 0.1 K/uL (0.0-0.7); EOS % 0.8 % (0.0-4.0); HEMOGLOBIN 11.4 g/dL (12.0-16.0); LYMPH # 1.2 K/uL (1.0-4.3); LYMPH % 14.5 % (20.0-40.0); MEAN CELL VOLUME 79.6 fl (81.0-99.0); MEAN CORPUSCULAR HEMOGLOBIN 26.4 pg (27.0-31.0); MEAN CORPUSCULAR HGB CONC 33.2 g/dL (33.0-37.0); MEAN PLATELET VOLUME 7.7 fl (7.2-11.7); MONO # 0.3 K/uL (0.0-0.8); MONO % 4.1 % (0.0-10.0); NEUT # 6.8 K/uL (1.8-7.0); NEUT % 79.3 % (50.0-75.0); NRBC % 0.1 % (0.0-0.0); RBC 4.3 Mil/uL (3.80-5.20); RED CELL DISTRIBUTION WIDTH 16.4 % (11.5-14.5); WHITE BLOOD COUNT 8.5 K/uL (4.8-10.8)
[2017-12-27 14:12] LABS: SQUAMOUS EPITHIAL 3 /hpf (0-5); URINE BACTERIA MOD (<OCC); URINE BILIRUBIN NEGATIVE (NEGATIVE); URINE BLOOD SMALL (NEGATIVE); URINE CLARITY CLOUDY (Clear); URINE COLOR YELLOW (YELLOW); URINE GLUCOSE (UA) NEG (Normal); URINE LEUKOCYTE ESTERASE SMALL Leu/uL (Negative); URINE PROTEIN NEGATIVE (NEGATIVE); URINE UROBILINOGEN 0.2-1.0 mg/dL (0.2-1.0)
[2017-12-27 17:09] VITALS: BP 126/78; PULSE 78; RESP 19; TEMP 97.3
[2017-12-29 15:59] VITALS: O2SAT 99
== END 2017-12-27 17:09 | disposition home or self-care (01) ==
LOC: H.ER 10:33
DX: R10.9 Unspecified abdominal pain (principal); R11.10 Vomiting, unspecified; N39.0 Urinary tract infection, site not specified; F31.9 Bipolar disorder, unspecified; F41.9 Anxiety disorder, unspecified; K50.90 Crohn's disease, unspecified, without complications; Z88.5 Allergy status to narcotic agent
CPT/HCPCS: 80053; 81003; 83690; 85025; 87086; 87181; 96374; 96375; 99282; J1170; J7040

== ENCOUNTER 2017-12-28 15:10 | Observation (INO) | payer BC, OTHER ==
[2017-12-28 15:11] VITALS: BMI 21.1
--- NOTE | 2017-12-28 16:07 | ED PDOC ---
HPI: Abdomen Time Seen by Provider: 12/28/17 16:01 Chief Complaint (Nursing): Abdominal Pain Chief Complaint (Provider): Abd pain History Per: Patient History/Exam Limitations: no limitations Onset/Duration Of Symptoms: Days (years) Additional Complaint(s): Pt. with abd pain diffuse. Same pain she has had many times and is on going. States few diarrhea and vomit episodes that are nonbloody. No weakness, headaches, dizziness, leg pain. No chest pain or dyspnea. Here 3 of the 4 days for same. Got dilaudid which is the only medicine that seems to help per pt. No dysuria currently. Not on antibiotics currently. Spoke with her GI Dr. Augustin who also said to go to the ER. Past Medical History Reviewed: Nursing Documentation, Vital Signs Vital Signs: Last Vital Signs Temp 98.1 F 12/28/17 15:23 Pulse 108 H 12/28/17 15:23 Resp 20 12/28/17 15:23 BP 118/74 12/28/17 15:23 Pulse Ox 97 12/28/17 16:07 - Medical History PMH: Anemia, Anxiety, Asthma, Bipolar Disorder, Crohn's Disease, Depression, Gastrointestinal Ulcer (peptic & gastric), Migraine (abdominal), Pancreatitis, Chronic Kidney Disease, Chronic Pain (Abdominal) - Surgical History Surgical History: Endoscopy - Family History Family History: States: Diabetes - Immunization History Hx Tetanus Toxoid Vaccination: Yes Hx Influenza Vaccination: Yes Hx Pneumococcal Vaccination: Yes - Home Medications Home Medications: Ambulatory Orders Medication Instructions Recorded Alprazolam [Xanax] 0.5 mg PO TID PRN #0 tablet 07/15/16 buPROPion XL [Wellbutrin XL] 300 mg PO DAILY 10/26/16 traMADol [Ultram] 50 mg PO QID PRN #10 tab 12/26/16 ARIPiprazole [Abilify] 15 mg PO HS 07/20/17 HYDROmorphone [Dilaudid] 2 mg PO Q8H PRN 07/20/17 Mesalamine ER Cap [Pentasa] 500 mg PO QID 07/20/17 OXcarbazepine [Trileptal] 300 mg PO HS 07/20/17 Ondansetron [Zofran Tab] 4 mg PO Q6H PRN 07/20/17 Docusate [Colace] 100 mg PO BID 1 Days #60 cap 07/21/17 Docusate [Colace] 100 mg PO DAILY cap 07/21/17 Enoxaparin [Lovenox] 40 mg SC DAILY syr 07/21/17 Ferrous Sulfate [Feosol] 325 mg PO BID 60 Days tab 07/21/17 Ferrous Sulfate [Feosol] 325 mg PO DAILY tab 07/21/17 Nitrofurantoin Macrocrystals 100 mg PO Q12 5 Days #10 cap 07/21/17 [Macrobid] Polyethylene Glycol 3350 [Miralax] 17 gm PO BID packet 07/21/17 Sennosides A and B [Senokot Tab] 8.6 mg PO HS tab 07/21/17 Benzonatate [Tessalon Perles] 100 mg PO BID PRN 5 Days sgl 08/02/17 Ondansetron [Zofran] 4 mg PO Q8H PRN #6 tab 08/02/17 Nitrofurantoin Macrocrystals 100 mg PO BID 5 Days cap 09/04/17 [Macrobid] Phenazopyridine [Pyridium] 200 mg PO TID 2 Days tab 09/04/17 Nitrofurantoin Macrocrystals 100 mg PO BID #10 cap 10/02/17 [Macrobid] Nitrofurantoin Macrocrystals 100 mg PO BID #14 cap 10/07/17 [Macrobid] Benzonatate 200 mg PO TID PRN #20 capsule 10/22/17 Levofloxacin [Levaquin] 500 mg PO DAILY #7 tablet 10/22/17 Oseltamivir Phosphate [Tamiflu] 75 mg PO BID #10 capsule 10/22/17 Amoxicillin 500 mg PO TID #21 tablet 10/25/17 Cephalexin [cephalexin] 500 mg PO BID #14 cap 11/30/17 - Allergies Allergies/Adverse Reactions: Allergies Allergy/AdvReac Type Severity Reaction Status Date / Time acetaminophen [From Percocet] Allergy SWELLING Verified 12/28/17 15:23 Gadolinium-Containing Allergy URTICARIA Verified 12/28/17 15:23 Contrast Medi Iodine and Iodide Containing Allergy RASH Verified 12/28/17 15:23 Produc Latex, Natural Rubber Allergy RASH Verified 12/28/17 15:23 morphine Allergy RASH Verified 12/28/17 15:23 oxycodone HCl [From Percocet] Allergy SWELLING Verified 12/28/17 15:23 shellfish derived Allergy RASH Verified 12/28/17 15:23 shrimp Allergy RASH Verified 12/28/17 15:23 doxycycline AdvReac extreme Verified 12/28/17 15:23 abdominal pain, cramps metronidazole [From Flagyl] AdvReac abdominal Verified 12/28/17 15:23 pain, cramps CONTRAST Allergy Severe URTICARIA Uncoded 12/28/17 15:23 SHRIMPS Allergy Severe RASH Uncoded 12/28/17 15:23 LATEX Allergy Intermediate RASH Uncoded 12/28/17 15:23 Review of Systems ROS Statement: Except As Marked, All Systems Reviewed And Found Negative Gastrointestinal: Positive for: Nausea, Vomiting, Abdominal Pain, Diarrhea Physical Exam - Reviewed Nursing Documentation Reviewed: Yes Vital Signs Reviewed: Yes - Physical Exam Appears: Positive for: Non-toxic, No Acute Distress Head Exam: Positive for: ATRAUMATIC, NORMAL INSPECTION, NORMOCEPHALIC Skin: Positive for: Normal Color, Warm, DRY Eye Exam: Positive for: EOMI, Normal appearance, PERRL ENT: Positive for: Normal ENT Inspection Neck: Positive for: Normal, Painless ROM Cardiovascular/Chest: Positive for: Regular Rate, Rhythm Respiratory: Positive for: CNT, Normal Breath Sounds Gastrointestinal/Abdominal: Positive for: Soft, Tenderness (diffuse mild). Negative for: Distended, Guarding Back: Positive for: Normal Inspection. Negative for: L CVA Tenderness, R CVA Tenderness Extremity: Positive for: Normal ROM. Negative for: Tenderness, Pedal Edema Neurologic/Psych: Positive for: Alert, roll mill operator II-XII, Oriented. Negative for: Motor/Sensory Deficits - ECG O2 Sat by Pulse Oximetry: 97 Pulse Ox Interpretation: Normal - Progress ED Course And Treament: 1626: Pt. well known to ER and staff. Pt. also well known to [facility] clinic/ staff. They have advised admission for further control of pain and more detailed investigation of pain. Pt. states she is trying to avoid getting more catscans for her evaluation, so will hold at this time. Spoke with Dr. Higgins who will admit. Disposition - Clinical Impression Clinical Impression: Abdominal pain - Patient ED Disposition Is Patient to be Admitted: Yes Counseled Patient/Family Regarding: Studies Performed, Diagnosis - Disposition Disposition Time: 16:28 Condition: FAIR - Pt Status Changed To: Hospital Disposition Of: Observation - POA Present On Arrival: None
[2017-12-28] MEDS ORDERED: Sodium Chloride 0.9% 1,000 ML IV STA (16:20)
--- NOTE | 2017-12-28 17:22 | CP.PCM.HP ---
History of Present Illness - History of Present Illness History of Present Illness: Ashleigh is a pleasant 32 yo F with pmhx of Crohn's disease, pancreatitis, gastric ulcer, abdominal migraine, chronic anemia, CKD, bipolar disorder, anxiety presents to [facility] ED with exacerbations of diffuse abdominal pain. She reports chronic pain since her Crohn's diagnosis, however, approximately 1 week ago she reports intensity in character. Pain usually 7/10 but increased to 10/10 , non radiating, sharp and cramping in character. Consistent and non remitting. Aggravated with movement and meals. Alleviated with prescribed pain meds including dilaudid, tramadol, and lyrica. However, she reports decreased efficacy. Reports intermittent nausea with vomiting up to 5 times a day especially after meals. Denies hematemasis. Denies bloody stools. Denies recent trauma, CP/SOB. Last bowel movement was yesterday. PCP: Dr. Arshad GI: Dr. Augustin: colonoscopy in 05/2017 Pmhx: Crohn's disease, pancreatitis, gastric ulcer, abdominal migraine, chronic anemia, CKD, bipolar disorder, anxiety LMP: ~12/07/2017 Pfamhx: father with Crohns Surghx: laparoscopy 2/2 abdominal adhesions SocHx: lives with family; Denies smoking, alcohol, illicit drugs Current meds: reconciled in emr Allergies: oxycodone, iodine, gadolinium, latex, morphine, acetaminophen, doxycycline, metronidazole, shellfish, shrimp ED course: - CBC: 10.5/39.2 , CMP: pending - Lipase: pending - Pain management: Dilaudid 2mg PO - Nausea: Reglan 10 mg PO - Hydration: 1L NS bolus - CXR: no active disease - EKG: pending - UA/preg: pending Present on Admission - Present on Admission Any Indicators Present on Admission: No History of Uncontrolled Diabetes: No Review of Systems - Constitutional Constitutional: As Per HPI - Gastrointestinal Gastrointestinal: Abdominal Pain (generalized ), Nausea, Vomiting - Genitourinary Genitourinary: absent: Dysuria, Hematuria - Reproductive: Female Additional comments: LMP ~12/07/2017 Past Patient History - Infectious Disease Hx of Infectious Diseases: None - Tetanus Immunizations Tetanus Immunization: Allergy to Tetanus Vaccine - Past Medical History & Family History Past Medical History?: Yes - Past Social History Smoking Status: Never Smoked Alcohol: None Drugs: Denies Home Situation {Lives}: With Family - CARDIAC Hx Cardiac Disorders: No - PULMONARY Hx Asthma: Yes - NEUROLOGICAL Hx Migraine: Yes (abdominal) - HEENT Hx HEENT Problems: No - RENAL Hx Chronic Kidney Disease: Yes - ENDOCRINE/METABOLIC Hx Endocrine Disorders: No - HEMATOLOGICAL/ONCOLOGICAL Hx Anemia: Yes - INTEGUMENTARY Hx Dermatological Problems: No - MUSCULOSKELETAL/RHEUMATOLOGICAL Hx Musculoskeletal Disorders: No - GASTROINTESTINAL Hx Crohn's Disease: Yes Hx Pancreatitis: Yes - GENITOURINARY/GYNECOLOGICAL Hx Genitourinary Disorders: No - PSYCHIATRIC Hx Anxiety: Yes Hx Bipolar Disorder: Yes Hx Depression: Yes - SURGICAL HISTORY Hx Surgeries: Yes Other/Comment: Hx Exploratory Laporscopy for lysis of adhesions. Hx Nerve block for abdominal pain - ANESTHESIA Hx Anesthesia: Yes Hx Anesthesia Reactions: No Hx Malignant Hyperthermia: No Meds Allergies/Adverse Reactions: Allergies Allergy/AdvReac Type Severity Reaction Status Date / Time acetaminophen [From Percocet] Allergy SWELLING Verified 12/28/17 15:23 Gadolinium-Containing Allergy URTICARIA Verified 12/28/17 15:23 Contrast Medi Iodine and Iodide Containing Allergy RASH Verified 12/28/17 15:23 Produc Latex, Natural Rubber Allergy RASH Verified 12/28/17 15:23 morphine Allergy RASH Verified 12/28/17 15:23 oxycodone HCl [From Percocet] Allergy SWELLING Verified 12/28/17 15:23 shellfish derived Allergy RASH Verified 12/28/17 15:23 shrimp Allergy RASH Verified 12/28/17 15:23 doxycycline AdvReac extreme Verified 12/28/17 15:23 abdominal pain, cramps metronidazole [From Flagyl] AdvReac abdominal Verified 12/28/17 15:23 pain, cramps CONTRAST Allergy Severe URTICARIA Uncoded 12/28/17 15:23 SHRIMPS Allergy Severe RASH Uncoded 12/28/17 15:23 LATEX Allergy Intermediate RASH Uncoded 12/28/17 15:23 Physical Exam - Constitutional Appears: Well, No Acute Distress - Head Exam Head Exam: ATRAUMATIC, NORMAL INSPECTION - Eye Exam Eye Exam: EOMI - Neck Exam Neck exam: Positive for: Full Rom - Respiratory Exam Respiratory Exam: Clear to Auscultation Bilateral, NORMAL BREATHING PATTERN. absent: Wheezes - Cardiovascular Exam Cardiovascular Exam: REGULAR RHYTHM, +S1, +S2 - GI/Abdominal Exam GI & Abdominal Exam: Normal Bowel Sounds, Soft. absent: Rebound, Rigid, Tenderness - Extremities Exam Extremities exam: Positive for: full ROM. Negative for: calf tenderness - Neurological Exam Neurological exam: Alert, CN II-XII Intact, Oriented x3 - Psychiatric Exam Psychiatric exam: Normal Affect, Normal Mood Results - Vital Signs Recent Vital Signs: Last Vital Signs Temp 98.1 F 12/28/17 15:23 Pulse 108 H 12/28/17 15:23 Resp 20 12/28/17 15:23 BP 118/74 12/28/17 15:23 Pulse Ox 97 12/28/17 16:28 - Labs Result Diagrams: 12/28/17 17:22 Assessment & Plan - Assessment and Plan (Free Text) Assessment: Ashleigh is a pleasant 32 yo F with pmhx of Crohn's disease, pancreatitis, gastric ulcer, abdominal migraine, chronic anemia, CKD, bipolar disorder, anxiety presents to [facility] ED with exacerbations of diffuse abdominal pain. Plan: Diffuse abdominal pain - ddx: crohn's exacerbation, acute pancreatitis, chronic pain, bowel obstruction , adhesions, ectopic - f/u: CBC: 10.5/39.2, CMP, lipase, - Pain management: Dilaudid 2 mg PO - Nausea: Reglan 10 mg PO - Hydration: 1L NS bolus - CXR: no active disease - EKG: pending - UA/preg: pending - GI consult appreciated - f/u am cbc/cmp Anemia -chronic microcytic, 2/2 iron deficiency -f/u CBC -PO iron, colace DVT prophylaxis - Pt ambulating - SCDs
[2017-12-28 17:30] LABS: BASO # 0.1 K/uL (0.0-0.2); EOS # 0.1 K/uL (0.0-0.7); EOS % 1.4 % (0.0-4.0); HEMOGLOBIN 10.5 g/dL (12.0-16.0); LYMPH # 2.5 K/uL (1.0-4.3); LYMPH % 34.1 % (20.0-40.0); MEAN CELL VOLUME 81.2 fl (81.0-99.0); MEAN PLATELET VOLUME 7.5 fl (7.2-11.7); MONO # 0.7 K/uL (0.0-0.8); MONO % 9.2 % (0.0-10.0); NEUT # 3.9 K/uL (1.8-7.0); NEUT % 53.3 % (50.0-75.0); NRBC % 0.1 % (0.0-0.0); RBC 4.05 Mil/uL (3.80-5.20); RED CELL DISTRIBUTION WIDTH 16.2 % (11.5-14.5); WHITE BLOOD COUNT 7.3 K/uL (4.8-10.8)
--- NOTE | 2017-12-28 17:42 | RAD ---
HISTORY: dyspnea COMPARISON: No prior. FINDINGS: LUNGS: No active pulmonary disease. PLEURA: No significant pleural effusion identified, no pneumothorax apparent. CARDIOVASCULAR: Normal. OSSEOUS STRUCTURES: No significant abnormalities. VISUALIZED UPPER ABDOMEN: Normal. OTHER FINDINGS: None. IMPRESSION: No active disease.
[2017-12-28 17:48] LABS: ALB/GLOB RATIO 1.3 (1.0-2.1); ALBUMIN 4.2 g/dL (3.5-5.0); ALT/SGPT 89 U/L (9-52); AST/SGOT 69 U/L (14-36); BLOOD UREA NITROGEN 8 mg/dl (7-17); CALCIUM 9.5 mg/dL (8.4-10.2); GFR AFRICAN-AMERICAN > 60; GFR NON-AFRICAN AMERICAN > 60; LIPASE 160 U/L (23-300)
[2017-12-28] MEDS: Sodium Chloride 0.9% 1,000 ML IV SCH (18:02)
[2017-12-28 18:25] LABS: SQUAMOUS EPITHIAL 8 /hpf (0-5); URINE BACTERIA RARE (<OCC); URINE BILIRUBIN NEGATIVE (NEGATIVE); URINE BLOOD NEGATIVE (NEGATIVE); URINE CALCIUM OXALATE CRYSTALS MOD /hpf (<OCC); URINE CLARITY CLOUDY (Clear); URINE COLOR AMBER (YELLOW); URINE GLUCOSE (UA) NEG (Normal); URINE LEUKOCYTE ESTERASE LARGE Leu/uL (Negative); URINE PROTEIN 30 mg/dL (NEGATIVE); URINE UROBILINOGEN 0.2-1.0 mg/dL (0.2-1.0)
[2017-12-28] MEDS ORDERED: Pneumococcal 23-Valent Vaccine IM ONE (21:00)
[2017-12-28] MEDS ORDERED: Influenza Vaccine 18yr & older 0.5 ML/45 MCG SYR IM ONE (21:00)
[2017-12-29] MEDS: Sodium Chloride 0.9% 1,000 ML IV SCH (04:16)
[2017-12-29 07:03] LABS: HEMOGLOBIN 10.2 g/dL (12.0-16.0); MEAN CELL VOLUME 80.4 fl (81.0-99.0); MEAN CORPUSCULAR HEMOGLOBIN 26.7 pg (27.0-31.0); MEAN CORPUSCULAR HGB CONC 33.2 g/dL (33.0-37.0); RBC 3.81 Mil/uL (3.80-5.20); RED CELL DISTRIBUTION WIDTH 15.9 % (11.5-14.5); WHITE BLOOD COUNT 9.8 K/uL (4.8-10.8)
[2017-12-29 07:15] LABS: BLOOD UREA NITROGEN 6 mg/dl (7-17); CALCIUM 9.2 mg/dL (8.4-10.2); GFR AFRICAN-AMERICAN > 60; GFR NON-AFRICAN AMERICAN > 60
[2017-12-29] MEDS ORDERED: VIT B12 PO SCH (09:00)
[2017-12-29] MEDS ORDERED: [UNRECOGNIZED DRUG - OTHER] PO SCH (09:00)
[2017-12-29] MEDS ORDERED: IRON FUMARATE PO SCH (09:00)
[2017-12-29] MEDS ORDERED: VIT C PO SCH (09:00)
--- NOTE | 2017-12-29 09:02 | CP.PCM.PN ---
Subjective - Date & Time of Evaluation Date of Evaluation: 12/29/17 Time of Evaluation: 08:45 - Subjective Subjective: 32 yo woman admitted for intractable abdominal pain. Patient is well known to me, pain is usually managed on Ultram ER and Dilaudid PO. She frequents ER's and for the most part her pain is treated with hydration and supportive care without admission. Her pain regimen has been kept stable over the years. Interventions have produced mostly transient placebo effects. Higher amount of opioids didn't decrease her pain and her ER visits increased after she developed tolerance. Lower amount of opioids only increased her ER visits and prompted her to seek out another pain physician. Objective - Vital Signs/Intake and Output Vital Signs (last 24 hours): Temp Pulse Resp BP Pulse Ox 98.3 F 87 20 110/64 99 12/29/17 08:11 12/29/17 08:11 12/29/17 08:11 12/29/17 08:11 12/29/17 08:11 - Medications Medications: Current Medications Alprazolam (Xanax) 0.5 mg PO TID PRN PRN Reason: Anxiety Aripiprazole (Abilify) 30 mg PO [facility] Last Admin: 12/28/17 21:50 Dose: 30 mg Docusate Sodium (Colace) 100 mg PO DAILY [facility] Last Admin: 12/29/17 08:25 Dose: 100 mg Home Med (Bupropion Xl [Wellbutrin Xl]) 300 mg PO DAILY [facility] Hydromorphone HCl (Dilaudid) 2 mg PO Q6 PRN PRN Reason: Pain, severe (8-10) Last Admin: 12/29/17 04:12 Dose: 2 mg Sodium Chloride (Sodium Chloride 0.9%) 1,000 mls @ 100 mls/hr IV .Q10H [facility] Stop: 12/29/17 17:56 Last Admin: 12/29/17 04:16 Dose: 100 mls/hr Metoclopramide HCl (Reglan) 10 mg IVP ONCE PRN PRN Reason: Nausea/Vomiting Oxcarbazepine (Trileptal) 900 mg PO [facility] Last Admin: 12/28/17 21:49 Dose: 900 mg Pregabalin (Lyrica) 25 mg PO HS [facility] Last Admin: 12/28/17 21:53 Dose: 25 mg Tramadol HCl (Ultram) 50 mg PO Q6 [facility] Last Admin: 12/29/17 05:58 Dose: 50 mg - Labs Labs: 12/29/17 05:30 12/29/17 05:30 - GI/Abdominal Exam GI & Abdominal Exam: Soft, Tenderness Assessment and Plan (1) Abdominal pain Assessment & Plan: 32 yo woman w/ abdominal pain, pseudoaddiction. - maintain home pain regimen - supportive care, hydration - would withhold IV Dilaudid unless patient is NPO - patient instructed to follow up with me on Wednesday Status: Acute
--- NOTE | 2017-12-29 09:03 | CP.PCM.PN ---
Subjective - Date & Time of Evaluation Date of Evaluation: 12/29/17 Time of Evaluation: 07:50 - Subjective Subjective: Ashleigh was seen and evaluated at bedside this am. Reports continued, diffuse abdominal pain especially since abdominal ultrasound from last night. Denies n/v ,cp/sob. Currently, npo with not increased appetite. Objective - Vital Signs/Intake and Output Vital Signs (last 24 hours): Temp Pulse Resp BP Pulse Ox 98.3 F 87 20 110/64 99 12/29/17 08:11 12/29/17 08:11 12/29/17 08:11 12/29/17 08:11 12/29/17 08:11 - Medications Medications: Current Medications Alprazolam (Xanax) 0.5 mg PO TID PRN PRN Reason: Anxiety Aripiprazole (Abilify) 30 mg PO HS [facility] Last Admin: 12/28/17 21:50 Dose: 30 mg Docusate Sodium (Colace) 100 mg PO DAILY [facility] Last Admin: 12/29/17 08:25 Dose: 100 mg Home Med (Bupropion Xl [Wellbutrin Xl]) 300 mg PO DAILY [facility] Hydromorphone HCl (Dilaudid) 2 mg PO Q6 PRN PRN Reason: Pain, severe (8-10) Last Admin: 12/29/17 04:12 Dose: 2 mg Sodium Chloride (Sodium Chloride 0.9%) 1,000 mls @ 100 mls/hr IV .Q10H [facility] Stop: 12/29/17 17:56 Last Admin: 12/29/17 04:16 Dose: 100 mls/hr Metoclopramide HCl (Reglan) 10 mg IVP ONCE PRN PRN Reason: Nausea/Vomiting Oxcarbazepine (Trileptal) 900 mg PO HS [facility] Last Admin: 12/28/17 21:49 Dose: 900 mg Pregabalin (Lyrica) 25 mg PO HS [facility] Last Admin: 12/28/17 21:53 Dose: 25 mg Tramadol HCl (Ultram) 50 mg PO Q6 [facility] Last Admin: 12/29/17 05:58 Dose: 50 mg - Labs Labs: 12/29/17 05:30 12/29/17 05:30 - Constitutional Appears: Well, No Acute Distress - Eye Exam Eye Exam: EOMI - Neck Exam Neck Exam: Full ROM - Respiratory Exam Respiratory Exam: Clear to Ausculation Bilateral, NORMAL BREATHING PATTERN. absent: Wheezes - Cardiovascular Exam Cardiovascular Exam: REGULAR RHYTHM, +S1, +S2 - GI/Abdominal Exam GI & Abdominal Exam: Soft, Normal Bowel Sounds. absent: Tenderness (non tender with palpation on this morning's exam) - Extremities Exam Extremities Exam: Full ROM. absent: Calf Tenderness - Neurological Exam Neurological Exam: Alert, Awake, CN II-XII Intact, Oriented x3 - Psychiatric Exam Psychiatric exam: Normal Affect, Normal Mood Assessment and Plan - Assessment and Plan (Free Text) Plan: Ashleigh is a pleasant 32 yo F with pmhx of Crohn's disease, pancreatitis, gastric ulcer, abdominal migraine, chronic anemia, CKD, bipolar disorder, anxiety presents to [facility] ED with exacerbations of diffuse abdominal pain. Diffuse abdominal pain - ddx: crohn's exacerbation, acute pancreatitis, chronic pain, bowel obstruction , adhesions - lipase: 160 - Pain management: Dilaudid 2 mg PO, tramadol 50 mg; Dr. Vázquez seen and evaluated : maintain home med for pain management f/u on wednesday - Nausea: Reglan 10 mg IV - Hydration: 1 L NS at 100 - CXR: no active disease - EKG: nsr, normal - UA/preg: leuk esterase, neg nitrates, sq; neg; denies dysuria; hx of uti has appt with Drisse on at the clinic. - GI consult appreciated: pending Anemia -chronic microcytic, 2/2 iron deficiency -f/u CBC: 10.2/30.6 -PO iron, colace DVT prophylaxis - Pt ambulating - SCDs
--- NOTE | 2017-12-29 11:28 | CARD ---
APPROVED REPORT EKG Measurement Heart [id number] <Conclusion> Normal sinus rhythm Normal ECG
--- NOTE | 2017-12-29 11:30 | US ---
HISTORY: Chronic abdominal pain COMPARISON: None. TECHNIQUE: Grayscale imaging was performed. FINDINGS: LIVER: Measures 16.5 cm. There is diffuse increased echogenicity of the liver parenchyma. No mass. No intrahepatic bile duct dilatation. GALLBLADDER: There are no gallstones, wall thickening or pericholecystic fluid. The sonographic Morris's sign is negative. COMMON BILE DUCT: Measures 5.6 mm. No stones. No dilatation. PANCREAS: Unremarkable as visualized. No mass. No ductal dilatation. RIGHT KIDNEY: Measures 11.7cm. Normal echogenicity. No calculus, mass, or hydronephrosis. LEFT KIDNEY: Measures 11.1cm. Normal echogenicity. No calculus, mass, or hydronephrosis. SPLEEN: Normal in size and contour. No mass. AORTA: No aneurysmal dilatation. IVC: Unremarkable. OTHER FINDINGS: None. IMPRESSION: Diffuse increased echogenicity in the liver may reflect hepatic steatosis however parenchymal infectious/ inflammatory etiologies cannot be entirely excluded. Clinical and laboratory correlation is advised. No cholelithiasis or biliary dilatation.
[2017-12-29] MEDS ORDERED: Sodium Chloride 0.9% 1,000 ML IV SCH ×3 (12:09→15:42)
[2017-12-29] MEDS ORDERED: Enoxaparin 40 mg Syringe SC SCH (15:45)
[2017-12-29] MEDS: buPROPion SR 150 MG TABLET PO SCH (17:06)
--- NOTE | 2017-12-29 22:06 | CP.PCM.CON ---
History of Present Illness - History of Present Illness History of Present Illness: This is a 32 year old F with a pmhx of Crohn's disease diagnosed 2007 on Humira , anxiety/depression, anemia, cholangitis?, asthma, and superficial gastric ulcer on prior EGD. Pt is presenting with complain of nausea, vomiting and abdominal pain for two weeks and she reports she is unable to hold down any fluids. Pt reports bilious non bloody emesis with episodes of some blood tinge with last episode of vomiting. Pt reports abdominal pain is constant across her upper abdomen and radiates down her back and upper thighs. Pt denies fevers, chills, diarrhea, or rectal bleeding. Pt was recently in the ER 2 days ago for similar symptoms were she was given IVF and macrobid and sent home. Pt is had colonoscopy with Dr. Augustin that showed poor prep. was asked to repeat in 3 months. She was started on stelara with last dose in Oct 2017. Prior Colonoscopy was 07/2016 showing mucosa edema, inflammation and crypt distortions. Last EGD 09/2016 with superficial gastric ulcer in the antrum, non bleeding. Patient was today comfortable and asking for dilaudid. Has appointment with Dr Augustin on Wednesday. She had bowel movements yesterday and prior to that for past 3 days was having loose stools. She states she does not have any stool to give for infectious work up Review of Systems - Review of Systems Review of Systems: 12 point ROS unremarkable except that documented in HPI Past Patient History - Infectious Disease Hx of Infectious Diseases: None - Tetanus Immunizations Tetanus Immunization: Allergy to Tetanus Vaccine - Past Medical History & Family History Past Medical History?: Yes - Past Social History Smoking Status: Never Smoked - CARDIAC Hx Cardiac Disorders: No - PULMONARY Hx Asthma: Yes - NEUROLOGICAL Hx Migraine: Yes (abdominal) - HEENT Hx HEENT Problems: No - RENAL Hx Chronic Kidney Disease: Yes - ENDOCRINE/METABOLIC Hx Endocrine Disorders: No - HEMATOLOGICAL/ONCOLOGICAL Hx Anemia: Yes - INTEGUMENTARY Hx Dermatological Problems: No - MUSCULOSKELETAL/RHEUMATOLOGICAL Hx Musculoskeletal Disorders: No Hx Falls: No - GASTROINTESTINAL Hx Crohn's Disease: Yes Hx Pancreatitis: Yes - GENITOURINARY/GYNECOLOGICAL Hx Genitourinary Disorders: No - PSYCHIATRIC Hx Anxiety: Yes Hx Bipolar Disorder: Yes Hx Depression: Yes Hx Substance Use: No - SURGICAL HISTORY Hx Surgeries: Yes Other/Comment: Hx Exploratory Laporscopy for lysis of adhesions. Hx Nerve block for abdominal pain - ANESTHESIA Hx Anesthesia: Yes Hx Anesthesia Reactions: No Hx Malignant Hyperthermia: No Meds Allergies/Adverse Reactions: Allergies Allergy/AdvReac Type Severity Reaction Status Date / Time acetaminophen [From Percocet] Allergy SWELLING Verified 12/28/17 15:23 Gadolinium-Containing Allergy URTICARIA Verified 12/28/17 15:23 Contrast Medi Iodine and Iodide Containing Allergy RASH Verified 12/28/17 15:23 Produc Latex, Natural Rubber Allergy RASH Verified 12/28/17 15:23 morphine Allergy RASH Verified 12/28/17 15:23 oxycodone HCl [From Percocet] Allergy SWELLING Verified 12/28/17 15:23 shellfish derived Allergy RASH Verified 12/28/17 15:23 shrimp Allergy RASH Verified 12/28/17 15:23 doxycycline AdvReac extreme Verified 12/28/17 15:23 abdominal pain, cramps metronidazole [From Flagyl] AdvReac abdominal Verified 12/28/17 15:23 pain, cramps CONTRAST Allergy Severe URTICARIA Uncoded 12/28/17 15:23 SHRIMPS Allergy Severe RASH Uncoded 12/28/17 15:23 LATEX Allergy Intermediate RASH Uncoded 12/28/17 15:23 - Medications Medications: Current Medications Alprazolam (Xanax) 0.5 mg PO TID PRN PRN Reason: Anxiety Aripiprazole (Abilify) 30 mg PO [facility] Last Admin: 12/28/17 21:50 Dose: 30 mg Bupropion HCl (Wellbutrin Sr 150 Mg) 300 mg PO DAILY [facility] Last Admin: 12/29/17 17:06 Dose: 300 mg Docusate Sodium (Colace) 100 mg PO DAILY [facility] Last Admin: 12/29/17 08:25 Dose: 100 mg Enoxaparin Sodium (Lovenox) 40 mg SC DAILY [facility] PRN Reason: Protocol Last Admin: 12/29/17 17:07 Dose: Not Given Hydromorphone HCl (Dilaudid) 2 mg PO Q6 PRN PRN Reason: Pain, severe (8-10) Last Admin: 12/29/17 16:57 Dose: 2 mg Ciprofloxacin (Cipro 400mg/200ml Dsw) 400 mg in 200 mls @ 200 mls/hr IVPB Q12 [facility] PRN Reason: Protocol Metoclopramide HCl (Reglan) 10 mg IVP ONCE PRN PRN Reason: Nausea/Vomiting Last Admin: 12/29/17 12:11 Dose: 10 mg Oxcarbazepine (Trileptal) 900 mg PO HS [facility] Last Admin: 12/28/17 21:49 Dose: 900 mg Pregabalin (Lyrica) 25 mg PO HS [facility] Last Admin: 12/28/17 21:53 Dose: 25 mg Tramadol HCl (Ultram) 50 mg PO Q6 [facility] Last Admin: 12/29/17 17:46 Dose: 50 mg Physical Exam - Constitutional Appears: Well - Head Exam Head Exam: ATRAUMATIC, NORMAL INSPECTION, NORMOCEPHALIC - Eye Exam Eye Exam: EOMI, Normal appearance, PERRL - ENT Exam ENT Exam: Mucous Membranes Moist, Normal Exam - Neck Exam Neck exam: Positive for: Normal Inspection - Respiratory Exam Respiratory Exam: Clear to Auscultation Bilateral, NORMAL BREATHING PATTERN - Cardiovascular Exam Cardiovascular Exam: REGULAR RHYTHM - GI/Abdominal Exam GI & Abdominal Exam: Normal Bowel Sounds, Soft. absent: Tenderness Additional comments: tenderness on palpation - Neurological Exam Neurological exam: Alert, CN II-XII Intact, Normal Gait, Oriented x3, Reflexes Normal - Psychiatric Exam Psychiatric exam: Normal Affect, Normal Mood - Skin Skin Exam: Dry, Intact, Normal Color, Warm Results - Vital Signs Recent Vital Signs: Last Vital Signs Temp 98.3 F 12/29/17 16:38 Pulse 86 12/29/17 16:38 Resp 18 12/29/17 16:38 BP 129/81 12/29/17 16:38 Pulse Ox 100 12/29/17 16:38 - Labs Result Diagrams: 12/29/17 05:30 12/29/17 05:30 Labs: Laboratory Results - last 24 hr 12/29/17 12/29/17 05:30 05:30 WBC 9.8 RBC 3.81 Hgb 10.2 L Hct 30.6 L MCV 80.4 L MCH 26.7 L MCHC 33.2 RDW 15.9 H Plt Count 478 H Sodium 145 Potassium 3.5 L Chloride 110 H Carbon Dioxide 23 Anion Gap 16 BUN 6 L Creatinine 0.5 L Est GFR ( Amer) > 60 Est GFR (Non-Af Amer) > 60 Random Glucose 89 Calcium 9.2 Assessment & Plan - Assessment and Plan (Free Text) Assessment: 32 yr old F known to me from previous admissions and an EGD done in Sep 2016 that showed superficial ulcer with H pylori negative. She has history of Crohns with failed Humira now on stelara admitted with chronic abdominal pain, nausea and vomiting now resolving. She has some psych component to her pain. She has recent CT abdomen as outpatient which was negative without stricturing disease. Continue IV hydration and advance diet as tolerated. Lipase normal. No s/s of sepsis. No indication for antibiotics. Continue PPI. Patient has outpatient colonoscopy and office visit scheduled with her primary IBD specialist Dr Augustin on 01/03/18 at [facility]. No further GI work up. If tolerates regular diet can be discharged. Thank you for letting us participate in the care of your patient.
[2017-12-29] MEDS: Ciprofloxacin 400mg/200ml D5W 400 MG/200 ML BAG IVPB SCH (22:27)
[2017-12-30 07:49] LABS: ALB/GLOB RATIO 1.2 (1.0-2.1); ALBUMIN 3.6 g/dL (3.5-5.0); ALT/SGPT 64 U/L (9-52); AST/SGOT 28 U/L (14-36); BLOOD UREA NITROGEN 2 mg/dl (7-17); CALCIUM 8.9 mg/dL (8.4-10.2); GFR AFRICAN-AMERICAN > 60; GFR NON-AFRICAN AMERICAN > 60
[2017-12-30] MEDS: Ciprofloxacin 400mg/200ml D5W 400 MG/200 ML BAG IVPB SCH (08:22)
[2017-12-30] MEDS: buPROPion SR 150 MG TABLET PO SCH (08:24)
[2017-12-30 09:09] VITALS: BP 117/78; PULSE 73; RESP 20; TEMP 97.8; O2SAT 98
[2017-12-30] MEDS ORDERED: Potassium Chloride 20 mEq ER Tab PO ONE (09:25)
--- NOTE | 2017-12-30 12:47 | CP.PCM.DIS ---
Provider - Provider Date of Admission: 12/28/17 16:20 Attending physician: Sana Ochoa MD Time Spent in preparation of Discharge (in minutes): 20 Hospital Course - Lab Results Lab Results: Micro Results 12/28/17 17:47 Urine,Clean Catch Urine Culture - Final No Growth (<1,000 CFU/ML) Most Recent Lab Values WBC 9.8 K/uL (4.8-10.8) 12/29/17 05:30 RBC 3.81 Mil/uL (3.80-5.20) 12/29/17 05:30 Hgb 10.2 g/dL (12.0-16.0) L 12/29/17 05:30 Hct 30.6 % (34.0-47.0) L 12/29/17 05:30 MCV 80.4 fl (81.0-99.0) L 12/29/17 05:30 MCH 26.7 pg (27.0-31.0) L 12/29/17 05:30 MCHC 33.2 g/dL (33.0-37.0) 12/29/17 05:30 RDW 15.9 % (11.5-14.5) H 12/29/17 05:30 Plt Count 478 K/uL (130-400) H 12/29/17 05:30 MPV 7.5 fl (7.2-11.7) 12/28/17 17:22 Neut % (Auto) 53.3 % (50.0-75.0) 12/28/17 17:22 Lymph % (Auto) 34.1 % (20.0-40.0) 12/28/17 17:22 [place] % (Auto) 9.2 % (0.0-10.0) 12/28/17 17:22 Eos % (Auto) 1.4 % (0.0-4.0) 12/28/17 17:22 Baso % (Auto) 2.0 % (0.0-2.0) 12/28/17 17:22 Neut # (Auto) 3.9 K/uL (1.8-7.0) 12/28/17 17:22 Lymph # (Auto) 2.5 K/uL (1.0-4.3) 12/28/17 17:22 [place] # (Auto) 0.7 K/uL (0.0-0.8) 12/28/17 17:22 Eos # (Auto) 0.1 K/uL (0.0-0.7) 12/28/17 17:22 Baso # (Auto) 0.1 K/uL (0.0-0.2) 12/28/17 17:22 Sodium 139 mmol/l (132-148) 12/30/17 05:30 Potassium 3.1 MMOL/L (3.6-5.0) L 12/30/17 05:30 Chloride 103 mmol/L (98-107) 12/30/17 05:30 Carbon Dioxide 25 mmol/L (22-30) 12/30/17 05:30 Anion Gap 14 (10-20) 12/30/17 05:30 BUN 2 mg/dl (7-17) L 12/30/17 05:30 Creatinine 0.5 mg/dl (0.7-1.2) L 12/30/17 05:30 Est GFR ( Amer) > 60 12/30/17 05:30 Est GFR (Non-Af Amer) > 60 12/30/17 05:30 Random Glucose 84 mg/dL (65-105) 12/30/17 05:30 Calcium 8.9 mg/dL (8.4-10.2) 12/30/17 05:30 Total Bilirubin 0.2 mg/dl (0.2-1.3) 12/30/17 05:30 AST 28 U/L (14-36) 12/30/17 05:30 ALT 64 U/L (9-52) H D 12/30/17 05:30 Alkaline Phosphatase 92 U/L (38-126) 12/30/17 05:30 Total Protein 6.4 G/DL (6.3-8.2) 12/30/17 05:30 Albumin 3.6 g/dL (3.5-5.0) 12/30/17 05:30 Globulin 2.9 gm/dL (2.2-3.9) 12/30/17 05:30 Albumin/Globulin Ratio 1.2 (1.0-2.1) 12/30/17 05:30 Lipase 160 U/L (23-300) 12/28/17 17:22 Urine Color Isabel (YELLOW) 12/28/17 17:47 Urine Clarity Cloudy (Clear) 12/28/17 17:47 Urine pH 5.0 (5.0-8.0) 12/28/17 17:47 Ur Specific [place] 1.043 (1.003-1.030) H 12/28/17 17:47 Urine Protein 30 mg/dL (NEGATIVE) 12/28/17 17:47 Urine Glucose (UA) Neg mg/dL (Normal) 12/28/17 17:47 Urine Ketones Negative mg/dL (NEGATIVE) 12/28/17 17:47 Urine Blood Negative (NEGATIVE) 12/28/17 17:47 Urine Nitrate Negative (NEGATIVE) 12/28/17 17:47 Urine Bilirubin Negative (NEGATIVE) 12/28/17 17:47 Urine Urobilinogen 0.2-1.0 mg/dL (0.2-1.0) 12/28/17 17:47 Ur Leukocyte Esterase Large Amadeo/uL (Negative) 12/28/17 17:47 Urine RBC (Auto) 3 /hpf (0-3) 12/28/17 17:47 Urine Microscopic WBC 51 /hpf (0-5) H 12/28/17 17:47 Ur Squamous Epith Cells 8 /hpf (0-5) H 12/28/17 17:47 Calcium Oxalate Crystal Mod /hpf (<OCC) H 12/28/17 17:47 Urine Bacteria Rare (<OCC) 12/28/17 17:47 Discharge Exam - Head Exam Head Exam: ATRAUMATIC, NORMAL INSPECTION, NORMOCEPHALIC - Eye Exam Eye Exam: EOMI - Respiratory Exam Respiratory Exam: Clear to PA & Lateral, NORMAL BREATHING PATTERN - Cardiovascular Exam Cardiovascular Exam: REGULAR RHYTHM, +S1, +S2 - GI/Abdominal Exam GI & Abdominal Exam: Normal Bowel Sounds, Soft - Back Exam Back exam: CVA tenderness (L), CVA tenderness (R) - Neurological Exam Neurological exam: Alert, CN II-XII Intact, Oriented x3 - Psychiatric Exam Psychiatric exam: Normal Affect, Normal Mood Discharge Plan - Discharge Medications Prescriptions: Aripiprazole [Abilify] 30 mg PO HS #30 tablet buPROPion XL [Wellbutrin XL] 300 mg PO DAILY #30 t24 Ciprofloxacin [Cipro] 500 mg PO BID 3 Days #6 tab Iron Fumarate/Vit C/Vit B12/FA [Hematogen Forte Softgel] 1 cap PO DAILY #30 capsule Ondansetron [Zofran Tab] 4 mg PO Q6H PRN #15 tab PRN Reason: Nausea/Vomiting OXcarbazepine [Trileptal] 900 mg PO HS #30 tab Pregabalin [Lyrica] 25 mg PO HS #30 cap Ustekinumab [Stelara] 90 mg SC .[id number] #1 syringe - Follow Up Plan Condition: FAIR Disposition: HOME/ ROUTINE Instructions: Acute Abdomen (Belly Pain), Adult (DC), Crohn's Disease (DC) Additional Instructions: Please follow up with Dr. Arshad at [address] 02/01/2018 at 08:20 Referrals: Brian Glass MD [Staff Provider] - Ariel Aranda MD [Medical Doctor] -
== END 2017-12-30 13:43 | disposition home or self-care (01) ==
LOC: H.ER 15:10 → H.ERHOLD 16:20 → H.MEDSURG1 17:49
PROVIDERS: ADMIT Family Medicine; ATTEND Family Medicine
DX: K50.90 Crohn's disease, unspecified, without complications (principal); E11.22 Type 2 diabetes mellitus with diabetic chronic kidney disease; N18.9 Chronic kidney disease, unspecified; J45.909 Unspecified asthma, uncomplicated; G89.29 Other chronic pain; Z87.11 Personal history of peptic ulcer disease; F31.9 Bipolar disorder, unspecified
CPT/HCPCS: 36415; 71045; 76700; 80048; 80053; 81003; 81025; 83690; 85025; 85027; 87086; 90471; 90732; 93005; 96360; 99285; G0378; J0744; J1170; J2765; J7040; Q2035

== ENCOUNTER 2018-01-08 11:31 | Emergency (ER) | payer OTHER ==
[2018-01-08 11:34] VITALS: BMI 21.4
[2018-01-08 11:35] VITALS: RESP 17; O2SAT 100
[2018-01-08 12:51] LABS: BASO # 0.1 K/uL (0.0-0.2); BASO % 0.8 % (0.0-2.0); EOS # 0.2 K/uL (0.0-0.7); EOS % 2.5 % (0.0-4.0); HEMOGLOBIN 11.3 g/dL (12.0-16.0); LYMPH # 3.5 K/uL (1.0-4.3); LYMPH % 38.3 % (20.0-40.0); MEAN CELL VOLUME 80.6 fl (81.0-99.0); MEAN CORPUSCULAR HEMOGLOBIN 26.4 pg (27.0-31.0); MEAN CORPUSCULAR HGB CONC 32.8 g/dL (33.0-37.0); MEAN PLATELET VOLUME 7.6 fl (7.2-11.7); MONO # 0.7 K/uL (0.0-0.8); MONO % 7.6 % (0.0-10.0); NEUT # 4.6 K/uL (1.8-7.0); NEUT % 50.8 % (50.0-75.0); RBC 4.29 Mil/uL (3.80-5.20); RED CELL DISTRIBUTION WIDTH 16.2 % (11.5-14.5); WHITE BLOOD COUNT 9.2 K/uL (4.8-10.8)
--- NOTE | 2018-01-08 12:57 | ED PDOC ---
HPI: General Adult Time Seen by Provider: 01/08/18 12:02 Chief Complaint (Nursing): Abdominal Pain Additional Complaint(s): 32 y/o F c PMHx Crohn's disease, anemia p/w abdominal pain x 4 days. Patient states she has been having diffuse abdominal pain which is similar to previous pain episodes but more severe. She notes nausea and NBNB vomiting. She was taking her home medication Dilaudid for this pain but states it provided little relief. She denies fever, chills, dyspnea, diarrhea, constipation, vaginal bleeding, dysuria. Patient also notes epistaxis recently, none actively. Past Medical History Vital Signs: Last Vital Signs Temp 98.2 F 01/08/18 14:00 Pulse 85 01/08/18 14:00 Resp 17 01/08/18 14:00 BP 132/78 01/08/18 14:00 Pulse Ox 100 01/08/18 14:00 - Medical History PMH: Anemia, Anxiety, Asthma, Bipolar Disorder, Crohn's Disease, Depression, Gastrointestinal Ulcer (peptic & gastric), Migraine (abdominal), Pancreatitis, Chronic Kidney Disease, Chronic Pain (Abdominal) - Surgical History Surgical History: Endoscopy - Family History Family History: States: Diabetes - Immunization History Hx Tetanus Toxoid Vaccination: Yes Hx Influenza Vaccination: Yes Hx Pneumococcal Vaccination: Yes - Home Medications Home Medications: Ambulatory Orders Medication Instructions Recorded Alprazolam [Xanax] 0.5 mg PO TID PRN #0 tablet 07/15/16 HYDROmorphone [Dilaudid] 2 mg PO Q6 PRN 07/20/17 Tramadol HCl [Tramadol HCl ER] 200 mg PO DAILY 12/28/17 Aripiprazole [Abilify] 30 mg PO HS #30 tablet 12/30/17 Ciprofloxacin [Cipro] 500 mg PO BID 3 Days #6 tab 12/30/17 Iron Fumarate/Vit C/Vit B12/FA 1 cap PO DAILY #30 capsule 12/30/17 [Hematogen Forte Softgel] OXcarbazepine [Trileptal] 900 mg PO HS #30 tab 12/30/17 Ondansetron [Zofran Tab] 4 mg PO Q6H PRN #15 tab 12/30/17 Pregabalin [Lyrica] 25 mg PO HS #30 cap 12/30/17 Ustekinumab [Stelara] 90 mg SC .[id number] #1 syringe 12/30/17 buPROPion XL [Wellbutrin XL] 300 mg PO DAILY #30 t24 12/30/17 - Allergies Allergies/Adverse Reactions: Allergies Allergy/AdvReac Type Severity Reaction Status Date / Time acetaminophen [From Percocet] Allergy SWELLING Verified 12/28/17 15:23 Gadolinium-Containing Allergy URTICARIA Verified 12/28/17 15:23 Contrast Medi Iodine and Iodide Containing Allergy RASH Verified 12/28/17 15:23 Produc ketorolac [From Toradol] Allergy URTICARIA Verified 01/08/18 11:42 Latex, Natural Rubber Allergy RASH Verified 12/28/17 15:23 morphine Allergy RASH Verified 12/28/17 15:23 oxycodone HCl [From Percocet] Allergy SWELLING Verified 12/28/17 15:23 shellfish derived Allergy RASH Verified 12/28/17 15:23 shrimp Allergy RASH Verified 12/28/17 15:23 doxycycline AdvReac extreme Verified 12/28/17 15:23 abdominal pain, cramps metronidazole [From Flagyl] AdvReac abdominal Verified 12/28/17 15:23 pain, cramps CONTRAST Allergy Severe URTICARIA Uncoded 12/28/17 15:23 SHRIMPS Allergy Severe RASH Uncoded 12/28/17 15:23 LATEX Allergy Intermediate RASH Uncoded 12/28/17 15:23 Review of Systems ROS Statement: Except As Marked, All Systems Reviewed And Found Negative Constitutional: Negative for: Fever Gastrointestinal: Negative for: Diarrhea Physical Exam - Physical Exam Comments: Gen: NAD Head: NC/AT Eyes: No scleral icterus ENT: MMM. Dried blood in L nostril. No septal hematoma. No active bleeding. Neck: Supple Chest: No tenderness CV: Murmur Lungs: CTA b/l Abd: Diffuse tenderness without rebound or guarding Back: No midline tenderness Extremities: No swelling Skin: No rash Neuro: Alert, no focal deficit - Laboratory Results Result Diagrams: 01/08/18 12:05 01/08/18 12:05 - ECG O2 Sat by Pulse Oximetry: 100 Medical Decision Making Medical Decision Making: IVF, Pepcid, Reglan, Bentyl. Check dehydration and anemia with labs and urine. Labs unremarkable. Patient states she will f/u with OBGYN and given urine at that time. Will continue home medications. Disposition - Clinical Impression Clinical Impression: Abdominal pain - Patient ED Disposition Is Patient to be Admitted: No - Disposition Disposition: Routine/Home Disposition Time: 15:44 Condition: STABLE Instructions: Acute Abdomen (Belly Pain) Forms: [employer] (Japanese)
[2018-01-08 13:28] LABS: ALB/GLOB RATIO 1.3 (1.0-2.1); ALBUMIN 4.5 g/dL (3.5-5.0); ALT/SGPT 35 U/L (9-52); AST/SGOT 27 U/L (14-36); BLOOD UREA NITROGEN 6 mg/dl (7-17); CALCIUM 9.5 mg/dL (8.4-10.2); GFR AFRICAN-AMERICAN > 60; GFR NON-AFRICAN AMERICAN > 60; LIPASE 102 U/L (23-300)
[2018-01-08 15:43] VITALS: BP 132/78; PULSE 85; TEMP 98.2
== END 2018-01-08 16:50 | disposition home or self-care (01) ==
LOC: H.ER 11:31
DX: R10.9 Unspecified abdominal pain (principal); K50.90 Crohn's disease, unspecified, without complications; F31.9 Bipolar disorder, unspecified; F41.9 Anxiety disorder, unspecified; G89.29 Other chronic pain; Z88.5 Allergy status to narcotic agent; D64.9 Anemia, unspecified; J45.909 Unspecified asthma, uncomplicated; K85.90 Acute pancreatitis without necrosis or infection, unspecified
CPT/HCPCS: 80053; 83690; 83735; 84100; 85025; 96372; 96374; 96375; 99284; J0500; J2765

== ENCOUNTER 2018-01-22 08:18 | Emergency (ER) | payer BC, OTHER ==
[2018-01-22 08:22] VITALS: BMI 21.7
[2018-01-22 08:24] VITALS: RESP 17; TEMP 98.2
[2018-01-22] MEDS ORDERED: Sodium Chloride 0.9% 1,000 ML IV STA (09:32)
[2018-01-22 09:56] LABS: BASO # 0.1 K/uL (0.0-0.2); BASO % 1.1 % (0.0-2.0); EOS # 0.1 K/uL (0.0-0.7); EOS % 1.7 % (0.0-4.0); HEMOGLOBIN 12.1 g/dL (12.0-16.0); LYMPH # 1.7 K/uL (1.0-4.3); LYMPH % 21.4 % (20.0-40.0); MEAN CELL VOLUME 79.3 fl (81.0-99.0); MEAN CORPUSCULAR HEMOGLOBIN 26.4 pg (27.0-31.0); MEAN CORPUSCULAR HGB CONC 33.2 g/dL (33.0-37.0); MEAN PLATELET VOLUME 7.6 fl (7.2-11.7); MONO # 0.4 K/uL (0.0-0.8); MONO % 5.3 % (0.0-10.0); NEUT # 5.7 K/uL (1.8-7.0); NEUT % 70.5 % (50.0-75.0); RBC 4.59 Mil/uL (3.80-5.20); RED CELL DISTRIBUTION WIDTH 15.7 % (11.5-14.5); WHITE BLOOD COUNT 8.1 K/uL (4.8-10.8)
[2018-01-22 10:11] LABS: ALB/GLOB RATIO 1.3 (1.0-2.1); ALBUMIN 4.9 g/dL (3.5-5.0); ALT/SGPT 37 U/L (9-52); AST/SGOT 37 U/L (14-36); BLOOD UREA NITROGEN 9 mg/dl (7-17); CALCIUM 10.4 mg/dL (8.4-10.2); GFR AFRICAN-AMERICAN > 60; GFR NON-AFRICAN AMERICAN > 60; LIPASE 112 U/L (23-300)
--- NOTE | 2018-01-22 10:15 | ED PDOC ---
HPI: Female Pain Time Seen by Provider: 01/22/18 08:30 Chief Complaint (Nursing): Female Genitourinary Chief Complaint (Provider): Female Genitourinary History Per: Patient History/Exam Limitations: no limitations Onset/Duration Of Symptoms: Other (Chronic) Current Symptoms Are (Timing): Constant Severity: Severe Associated Symptoms: Nausea. denies: Fever, Chills, Vomiting Additional Complaint(s): 32 years old female with history of Chron's, migraines and headaches and well known to provider for multiple visits of same complaint presents to the ED for worsening chronic abdominal pain associated with nausea and pelvic pain onset 1 month. Patient describes pain as sever that "she couldn't sleep well". She reports visiting a development geologist who scheduled her for an ultrasound. Patient states she has taken Dilaudid for pain with no relief. She denies any vaginal bleeding, dysuria, fever, vomiting or diarrhea. PMD: non provided Past Medical History Vital Signs: Last Vital Signs Temp 98.2 F 01/22/18 08:22 Pulse 123 H 01/22/18 08:22 Resp 17 01/22/18 08:22 BP 119/84 01/22/18 08:22 Pulse Ox 100 01/22/18 08:22 - Medical History PMH: Anemia, Anxiety, Asthma, Bipolar Disorder, Crohn's Disease, Depression, Gastrointestinal Ulcer (peptic & gastric), Migraine (abdominal), Pancreatitis, Chronic Kidney Disease, Chronic Pain (Abdominal) - Surgical History Surgical History: Endoscopy - Family History Family History: States: Diabetes - Social History Current smoker - smoking cessation education provided: No Alcohol: None Drugs: Denies - Immunization History Hx Tetanus Toxoid Vaccination: Yes Hx Influenza Vaccination: Yes Hx Pneumococcal Vaccination: Yes - Home Medications Home Medications: Ambulatory Orders Medication Instructions Recorded Alprazolam [Xanax] 0.5 mg PO TID PRN #0 tablet 07/15/16 HYDROmorphone [Dilaudid] 2 mg PO Q6 PRN 07/20/17 Tramadol HCl [Tramadol HCl ER] 200 mg PO DAILY 12/28/17 Aripiprazole [Abilify] 30 mg PO HS #30 tablet 12/30/17 Ciprofloxacin [Cipro] 500 mg PO BID 3 Days #6 tab 12/30/17 Iron Fumarate/Vit C/Vit B12/FA 1 cap PO DAILY #30 capsule 12/30/17 [Hematogen Forte Softgel] OXcarbazepine [Trileptal] 900 mg PO HS #30 tab 12/30/17 Ondansetron [Zofran Tab] 4 mg PO Q6H PRN #15 tab 12/30/17 Pregabalin [Lyrica] 25 mg PO HS #30 cap 12/30/17 Ustekinumab [Stelara] 90 mg SC .[id number] #1 syringe 12/30/17 buPROPion XL [Wellbutrin XL] 300 mg PO DAILY #30 t24 12/30/17 Nitrofurantoin Macrocrystals 100 mg PO BID #14 cap 01/22/18 [Macrobid] - Allergies Allergies/Adverse Reactions: Allergies Allergy/AdvReac Type Severity Reaction Status Date / Time acetaminophen [From Percocet] Allergy SWELLING Verified 12/28/17 15:23 Gadolinium-Containing Allergy URTICARIA Verified 12/28/17 15:23 Contrast Medi Iodine and Iodide Containing Allergy RASH Verified 12/28/17 15:23 Produc ketorolac [From Toradol] Allergy URTICARIA Verified 01/08/18 11:42 Latex, Natural Rubber Allergy RASH Verified 12/28/17 15:23 morphine Allergy RASH Verified 12/28/17 15:23 oxycodone HCl [From Percocet] Allergy SWELLING Verified 12/28/17 15:23 shellfish derived Allergy RASH Verified 12/28/17 15:23 shrimp Allergy RASH Verified 12/28/17 15:23 doxycycline AdvReac extreme Verified 12/28/17 15:23 abdominal pain, cramps metronidazole [From Flagyl] AdvReac abdominal Verified 12/28/17 15:23 pain, cramps CONTRAST Allergy Severe URTICARIA Uncoded 12/28/17 15:23 SHRIMPS Allergy Severe RASH Uncoded 12/28/17 15:23 LATEX Allergy Intermediate RASH Uncoded 12/28/17 15:23 Review of Systems ROS Statement: Except As Marked, All Systems Reviewed And Found Negative Constitutional: Negative for: Fever Gastrointestinal: Positive for: Nausea, Abdominal Pain. Negative for: Vomiting , Diarrhea Genitourinary Female: Negative for: Dysuria, Vaginal Bleeding Physical Exam - Reviewed Nursing Documentation Reviewed: Yes Vital Signs Reviewed: Yes - Physical Exam Appears: Positive for: Non-toxic, No Acute Distress Head Exam: Positive for: ATRAUMATIC, NORMOCEPHALIC Skin: Positive for: Normal Color, Warm, Dry Eye Exam: Positive for: Normal appearance, EOMI, PERRL ENT: Positive for: Normal ENT Inspection Neck: Positive for: Normal, Supple Cardiovascular/Chest: Positive for: Regular Rate, Rhythm. Negative for: Murmur Respiratory: Positive for: Normal Breath Sounds. Negative for: Respiratory Distress Gastrointestinal/Abdominal: Positive for: Soft, Tenderness (epigastric and suprapupic) Back: Positive for: Normal Inspection. Negative for: L CVA Tenderness, R CVA Tenderness Extremity: Positive for: Normal ROM. Negative for: Tenderness, Swelling Neurologic/Psych: Positive for: Alert, Oriented - Laboratory Results Result Diagrams: 01/22/18 09:40 01/22/18 09:40 - ECG O2 Sat by Pulse Oximetry: 100 (RA) Pulse Ox Interpretation: Normal - Progress Re-evaluation Time: 13:30 Condition: Re-examined, Improved Medical Decision Making Medical Decision Making: Time: 929 Initial Impression: Abdominal pain. Differential includes but not limited to Crohn's exacerbation, gastritis, pancreatitis, UTI, endometriosis, PID or dehydration. Initial Plan: --CMP --Lipase --Urine --Urine Dipstick --CBC --NaCl 1,000 ml IV --Pelvis/Transvag US Time: 1110 Pelvis/Transvag FINDINGS: UTERUS: Measures 9.6 x 3.7 x 4.8 cm. Anteverted, normal in size and appearance. No fibroid or other mass lesion seen. ENDOMETRIUM: Measures 8.0 mm in diameter. Normal in appearance. CERVIX: No cervical abnormality identified. RIGHT OVARY: Measures 1.9 x 1.2 x 2.5 cm. No solid mass. Normal flow. LEFT OVARY: Measures 3.2 x 1.9 x 1.4 cm. No solid mass. Normal flow. There is a 7 mm cyst/ follicle. FREE FLUID: No significant free fluid noted. OTHER FINDINGS: None. IMPRESSION: Unremarkable pelvic ultrasound. Scribe Attestation: Documented by Michelle Rodgers, acting as a scribe for Nadya Mascorro MD. Provider Scribe Attestation: All medical record entries made by the Scribe were at my direction and personally dictated by me. I have reviewed the chart and agree that the record accurately reflects my personal performance of the history, physical exam, medical decision making, and the department course for this patient. I have also personally directed, reviewed, and agree with the discharge instructions and disposition. Disposition - Clinical Impression Clinical Impression: Abdominal pain, UTI (lower urinary tract infection) - Patient ED Disposition Is Patient to be Admitted: No Doctor Will See Patient In The: Office Counseled Patient/Family Regarding: Studies Performed, Diagnosis, Need For Followup - Disposition Referrals: Meir Barr MD [Staff Provider] - Natali Arshad MD [Family Provider] - Disposition Time: 13:45 Condition: GOOD Additional Instructions: Take your medications as instructed. Follow up with your PCP in 2-3 days. Prescriptions: Nitrofurantoin Macrocrystals [Macrobid] 100 mg PO BID #14 cap Instructions: Crohn's Disease in Adults, Urinary Tract Infection, Adult (DC)
--- NOTE | 2018-01-22 11:11 | US ---
HISTORY: Pelvic pain COMPARISON: None available. TECHNIQUE: Transabdominal and transvaginal pelvic ultrasound was performed. The transvaginal examination is limited as the patient could not completely void. FINDINGS: UTERUS: Measures 9.6 x 3.7 x 4.8 cm. Anteverted, normal in size and appearance. No fibroid or other mass lesion seen. ENDOMETRIUM: Measures 8.0 mm in diameter. Normal in appearance. CERVIX: No cervical abnormality identified. RIGHT OVARY: Measures 1.9 x 1.2 x 2.5 cm. No solid mass. Normal flow. LEFT OVARY: Measures 3.2 x 1.9 x 1.4 cm. No solid mass. Normal flow. There is a 7 mm cyst/ follicle. FREE FLUID: No significant free fluid noted. OTHER FINDINGS: None. IMPRESSION: Unremarkable pelvic ultrasound.
[2018-01-22] MEDS ORDERED: Potassium Chloride 20 mEq ER Tab PO ONE ×2 (11:14→11:23)
[2018-01-22] MEDS ORDERED: HYDROmorphone 0.5 mg/0.5 ml ISec ONE (11:16)
[2018-01-22 12:20] VITALS: BP 128/82; PULSE 86
[2018-01-22 13:11] VITALS: O2SAT 100
== END 2018-01-22 13:50 | disposition home or self-care (01) ==
LOC: H.ER 08:18
DX: N39.0 Urinary tract infection, site not specified (principal); K50.90 Crohn's disease, unspecified, without complications; K85.90 Acute pancreatitis without necrosis or infection, unspecified; Z88.5 Allergy status to narcotic agent; G89.29 Other chronic pain; F31.9 Bipolar disorder, unspecified
CPT/HCPCS: 76830; 76856; 80053; 81025; 83690; 85025; 96361; 96374; 99284; J1170; J7040

== ENCOUNTER 2018-02-02 15:59 | Emergency (ER) | payer OTHER ==
[2018-02-02 15:59] VITALS: BMI 21.7
[2018-02-02 16:12] VITALS: RESP 18
--- NOTE | 2018-02-02 16:52 | ED PDOC ---
HPI: Abdomen Time Seen by Provider: 02/02/18 16:42 Chief Complaint (Nursing): Abdominal Pain Chief Complaint (Provider): Abd pain History Per: Patient History/Exam Limitations: no limitations Onset/Duration Of Symptoms: Days (years) Additional Complaint(s): Pt. with abd pain diffuse with nausea. Same pain she has had for years. Not new today. Saw pcp yeterday for it and has appt with Dr. Charli CHACON in 1 week for it. No vomit, diarrhea, dysuria, weakness, headaches, dizziness, back pain , or any other symptoms. Took dilaudid at home today and it worked for the pain. Past Medical History Reviewed: Nursing Documentation, Vital Signs Vital Signs: Last Vital Signs Temp 98.5 F 02/02/18 16:10 Pulse 112 H 02/02/18 16:10 Resp 18 02/02/18 16:10 BP 131/78 02/02/18 16:10 Pulse Ox 98 02/02/18 16:10 - Medical History PMH: Anemia, Anxiety, Asthma, Bipolar Disorder, Crohn's Disease, Depression, Gastrointestinal Ulcer (peptic & gastric), Migraine (abdominal), Pancreatitis, Chronic Kidney Disease, Chronic Pain (Abdominal) - Surgical History Surgical History: Endoscopy - Family History Family History: States: Unknown Family Hx - Social History Alcohol: None Drugs: Denies - Immunization History Hx Tetanus Toxoid Vaccination: Yes Hx Influenza Vaccination: Yes Hx Pneumococcal Vaccination: Yes - Home Medications Home Medications: Ambulatory Orders Medication Instructions Recorded Alprazolam [Xanax] 0.5 mg PO TID PRN #0 tablet 07/15/16 HYDROmorphone [Dilaudid] 2 mg PO Q6 PRN 07/20/17 Tramadol HCl [Tramadol HCl ER] 200 mg PO DAILY 12/28/17 Aripiprazole [Abilify] 30 mg PO HS #30 tablet 12/30/17 Ciprofloxacin [Cipro] 500 mg PO BID 3 Days #6 tab 12/30/17 Iron Fumarate/Vit C/Vit B12/FA 1 cap PO DAILY #30 capsule 12/30/17 [Hematogen Forte Softgel] OXcarbazepine [Trileptal] 900 mg PO HS #30 tab 12/30/17 Ondansetron [Zofran Tab] 4 mg PO Q6H PRN #15 tab 12/30/17 Pregabalin [Lyrica] 25 mg PO HS #30 cap 12/30/17 Ustekinumab [Stelara] 90 mg SC .[id number] #1 syringe 12/30/17 buPROPion XL [Wellbutrin XL] 300 mg PO DAILY #30 t24 12/30/17 Nitrofurantoin Macrocrystals 100 mg PO BID #14 cap 01/22/18 [Macrobid] - Allergies Allergies/Adverse Reactions: Allergies Allergy/AdvReac Type Severity Reaction Status Date / Time acetaminophen [From Percocet] Allergy SWELLING Verified 12/28/17 15:23 Gadolinium-Containing Allergy URTICARIA Verified 12/28/17 15:23 Contrast Medi Iodine and Iodide Containing Allergy RASH Verified 12/28/17 15:23 Produc ketorolac [From Toradol] Allergy URTICARIA Verified 01/08/18 11:42 Latex, Natural Rubber Allergy RASH Verified 12/28/17 15:23 morphine Allergy RASH Verified 12/28/17 15:23 oxycodone HCl [From Percocet] Allergy SWELLING Verified 12/28/17 15:23 shellfish derived Allergy RASH Verified 12/28/17 15:23 shrimp Allergy RASH Verified 12/28/17 15:23 doxycycline AdvReac extreme Verified 12/28/17 15:23 abdominal pain, cramps metronidazole [From Flagyl] AdvReac abdominal Verified 12/28/17 15:23 pain, cramps CONTRAST Allergy Severe URTICARIA Uncoded 12/28/17 15:23 SHRIMPS Allergy Severe RASH Uncoded 12/28/17 15:23 LATEX Allergy Intermediate RASH Uncoded 12/28/17 15:23 Review of Systems ROS Statement: Except As Marked, All Systems Reviewed And Found Negative Gastrointestinal: Positive for: Nausea, Abdominal Pain Physical Exam - Reviewed Nursing Documentation Reviewed: Yes Vital Signs Reviewed: Yes - Physical Exam Appears: Positive for: Non-toxic, No Acute Distress Head Exam: Positive for: ATRAUMATIC, NORMAL INSPECTION, NORMOCEPHALIC Skin: Positive for: Normal Color, Warm, DRY Eye Exam: Positive for: EOMI, Normal appearance, PERRL ENT: Positive for: Normal ENT Inspection Neck: Positive for: Normal, Painless ROM Cardiovascular/Chest: Positive for: Regular Rate, Rhythm Respiratory: Positive for: CNT, Normal Breath Sounds Gastrointestinal/Abdominal: Positive for: Soft, Tenderness (diffuse, mild), Other (nontender on distraction). Negative for: Distended, Guarding Back: Positive for: Normal Inspection. Negative for: L CVA Tenderness, R CVA Tenderness Extremity: Positive for: Normal ROM. Negative for: Tenderness, Pedal Edema Neurologic/Psych: Positive for: Alert, Oriented - ECG O2 Sat by Pulse Oximetry: 98 Pulse Ox Interpretation: Normal - Progress ED Course And Treament: 1656: Stable. AAOx3. Pain controlled. Has chronic pain and multiple ER, GI, PCP, and other provider visits. On diauldid for pain. Asked for dilaudid 1mg and oral zofran which works for this type of pain. Disposition - Clinical Impression Clinical Impression: Chronic abdominal pain - Patient ED Disposition Is Patient to be Admitted: No Counseled Patient/Family Regarding: Diagnosis, Need For Followup - Disposition Referrals: [facility] [Outside] - 02/03/18 Ethan Augustin MD [Medical Doctor] - 02/03/18 Disposition: Routine/Home Disposition Time: 16:51 Condition: STABLE Additional Instructions: Return if not better in 3 days. Instructions: Chronic Pain
[2018-02-02] MEDS ORDERED: HYDROmorphone 0.5 mg/0.5 ml ISec ONE (16:54)
[2018-02-02] MEDS ORDERED: HYDROmorphone 0.5 mg/0.5 ml ISec IM STA (17:15)
[2018-02-02 18:08] VITALS: BP 129/72; PULSE 89; TEMP 97.8; O2SAT 100
== END 2018-02-02 18:08 | disposition home or self-care (01) ==
LOC: H.ER 15:59
DX: R10.9 Unspecified abdominal pain (principal); F31.9 Bipolar disorder, unspecified; F41.9 Anxiety disorder, unspecified; G89.29 Other chronic pain; J45.909 Unspecified asthma, uncomplicated; K50.90 Crohn's disease, unspecified, without complications; Z88.5 Allergy status to narcotic agent
CPT/HCPCS: 81025; 96372; 99283; J1170

== ENCOUNTER 2018-02-11 08:18 | Emergency (ER) | payer BC ==
[2018-02-11 08:18] VITALS: BMI 21.7
[2018-02-11 08:30] VITALS: O2SAT 98
[2018-02-11] MEDS ORDERED: HYDROmorphone 0.5 mg/0.5 ml ISec IVP STA ×3 (09:15→09:30)
[2018-02-11] MEDS ORDERED: Sodium Chloride 0.9% 1,000 ML IV STA (09:18)
[2018-02-11] MEDS ORDERED: HYDROmorphone 0.5 mg/0.5 ml ISec ONE (09:23)
[2018-02-11 09:53] LABS: BASO # 0.1 K/uL (0.0-0.2); BASO % 1.3 % (0.0-2.0); EOS # 0.1 K/uL (0.0-0.7); EOS % 1.7 % (0.0-4.0); HEMOGLOBIN 11.3 g/dL (12.0-16.0); LYMPH # 1.9 K/uL (1.0-4.3); LYMPH % 23.3 % (20.0-40.0); MEAN CORPUSCULAR HEMOGLOBIN 26.2 pg (27.0-31.0); MEAN CORPUSCULAR HGB CONC 32.7 g/dL (33.0-37.0); MEAN PLATELET VOLUME 7.2 fl (7.2-11.7); MONO # 0.5 K/uL (0.0-0.8); NEUT # 5.4 K/uL (1.8-7.0); NEUT % 67.7 % (50.0-75.0); RBC 4.31 Mil/uL (3.80-5.20); RED CELL DISTRIBUTION WIDTH 15.5 % (11.5-14.5); WHITE BLOOD COUNT 7.9 K/uL (4.8-10.8)
[2018-02-11 10:05] LABS: ALB/GLOB RATIO 1.2 (1.0-2.1); ALBUMIN 4.5 g/dL (3.5-5.0); ALT/SGPT 52 U/L (9-52); AST/SGOT 38 U/L (14-36); BLOOD UREA NITROGEN 8 mg/dl (7-17); CALCIUM 9.8 mg/dL (8.4-10.2); GFR AFRICAN-AMERICAN > 60; GFR NON-AFRICAN AMERICAN > 60; LIPASE 65 U/L (23-300)
--- NOTE | 2018-02-11 11:33 | ED PDOC ---
HPI: Abdomen Time Seen by Provider: 02/11/18 09:07 Chief Complaint (Nursing): Abdominal Pain Chief Complaint (Provider): Abdominal Pain History Per: Patient History/Exam Limitations: no limitations Onset/Duration Of Symptoms: Days (02/11/18) Current Symptoms Are (Timing): Still Present Quality Of Discomfort: "Pain" Associated Symptoms: Nausea, Vomiting, Urinary Symptoms (difficulty urinating ) . denies: Fever Additional Complaint(s): 33 year old female with a history of Crohns and depression presents to the ED complaining of chronic abdominal pain onset today. States the pain has worsen and it is constant on the upper part of her abdomen. Patient has associated symptoms of nausea, one episode of vomit yesterday, and difficulty urinating. She takes Dilaudid medication at home. Also states she sees a pain management doctor, Dr. Childs and operations logistics analyst. Denies fever, bloody stool, or diarrhea. PMD: Dr. Natali Arshad Past Medical History Reviewed: Historical Data, Nursing Documentation, Vital Signs Vital Signs: Last Vital Signs Temp 98.2 F 02/11/18 08:24 Pulse 115 H 02/11/18 08:24 Resp 17 02/11/18 08:24 BP 132/96 H 02/11/18 08:24 Pulse Ox 98 02/11/18 11:38 - Medical History PMH: Anemia, Anxiety, Asthma, Bipolar Disorder, Crohn's Disease, Depression, Gastrointestinal Ulcer (peptic & gastric), Migraine, Pancreatitis, Chronic Kidney Disease, Chronic Pain (Abdominal) - Surgical History Surgical History: Endoscopy - Family History Family History: States: Unknown Family Hx, Diabetes - Immunization History Hx Tetanus Toxoid Vaccination: Yes Hx Influenza Vaccination: Yes Hx Pneumococcal Vaccination: Yes - Home Medications Home Medications: Ambulatory Orders Medication Instructions Recorded Alprazolam [Xanax] 0.5 mg PO TID PRN #0 tablet 07/15/16 HYDROmorphone [Dilaudid] 2 mg PO Q6 PRN 07/20/17 Tramadol HCl [Tramadol HCl ER] 200 mg PO DAILY 12/28/17 Aripiprazole [Abilify] 30 mg PO HS #30 tablet 12/30/17 Iron Fumarate/Vit C/Vit B12/FA 1 cap PO DAILY #30 capsule 12/30/17 [Hematogen Forte Softgel] OXcarbazepine [Trileptal] 900 mg PO HS #30 tab 12/30/17 Ondansetron [Zofran Tab] 4 mg PO Q6H PRN #15 tab 12/30/17 Pregabalin [Lyrica] 25 mg PO HS #30 cap 12/30/17 Ustekinumab [Stelara] 90 mg SC .[id number] #1 syringe 12/30/17 buPROPion XL [Wellbutrin XL] 300 mg PO DAILY #30 t24 12/30/17 Nitrofurantoin Macrocrystals 100 mg PO BID #14 cap 01/22/18 [Macrobid] Ciprofloxacin [Cipro] 500 mg PO BID 3 Days #6 tab 02/11/18 - Allergies Allergies/Adverse Reactions: Allergies Allergy/AdvReac Type Severity Reaction Status Date / Time acetaminophen [From Percocet] Allergy SWELLING Verified 02/11/18 08:27 Gadolinium-Containing Allergy URTICARIA Verified 02/11/18 08:27 Contrast Medi Iodine and Iodide Containing Allergy RASH Verified 02/11/18 08:27 Produc ketorolac [From Toradol] Allergy URTICARIA Verified 02/11/18 08:27 Latex, Natural Rubber Allergy RASH Verified 02/11/18 08:27 morphine Allergy RASH Verified 02/11/18 08:27 oxycodone HCl [From Percocet] Allergy SWELLING Verified 02/11/18 08:27 shellfish derived Allergy RASH Verified 02/11/18 08:27 shrimp Allergy RASH Verified 02/11/18 08:27 doxycycline AdvReac extreme Verified 02/11/18 08:27 abdominal pain, cramps metronidazole [From Flagyl] AdvReac abdominal Verified 12/28/17 15:23 pain, cramps CONTRAST Allergy Severe URTICARIA Uncoded 12/28/17 15:23 SHRIMPS Allergy Severe RASH Uncoded 12/28/17 15:23 LATEX Allergy Intermediate RASH Uncoded 12/28/17 15:23 Review of Systems ROS Statement: Except As Marked, All Systems Reviewed And Found Negative Constitutional: Negative for: Fever Gastrointestinal: Positive for: Nausea, Vomiting, Abdominal Pain. Negative for : Diarrhea Genitourinary Female: Positive for: Dysuria Physical Exam - Reviewed Nursing Documentation Reviewed: Yes Vital Signs Reviewed: Yes - Physical Exam Appears: Positive for: Well, Non-toxic, No Acute Distress Head Exam: Positive for: ATRAUMATIC, NORMAL INSPECTION, NORMOCEPHALIC Skin: Positive for: Normal Color, Warm, Dry Eye Exam: Positive for: EOMI, Normal appearance, PERRL ENT: Positive for: Normal ENT Inspection, Other (dry mucous membrane) Neck: Positive for: Normal, Painless ROM, Supple. Negative for: Decreased ROM Cardiovascular/Chest: Positive for: Regular Rate, Rhythm, Tachycardia Respiratory: Positive for: Normal Breath Sounds. Negative for: Decreased Breath Sounds, Accessory Muscle Use, Respiratory Distress Gastrointestinal/Abdominal: Positive for: Soft, Tenderness (mild epigastric) Back: Positive for: Normal Inspection. Negative for: L CVA Tenderness, R CVA Tenderness Extremity: Positive for: Normal ROM. Negative for: Tenderness, Pedal Edema, Deformity Neurologic/Psych: Positive for: Alert, Oriented (x3). Negative for: Motor/ Sensory Deficits - Laboratory Results Result Diagrams: 02/11/18 09:47 02/11/18 09:47 - ECG O2 Sat by Pulse Oximetry: 98 (RA) Pulse Ox Interpretation: Normal - Progress Re-evaluation Time: 12:53 Condition: Re-examined, Improved Medical Decision Making Medical Decision Making: Time: 914 Initial Impression: acute chronic abdominal pain Differential Diagnosis includes but is not limited to: urinary tract infection Initial Plan: --CMP --Lipase --ED Urine --ED Dipstick --CBC w/ Differential --Dilaudid 0.5mg --Normal Saline 1000 mls/hr --Zofran Inj 4mg --Reevaluation Scribe Attestation: Documented by Renee Crooks, acting as a scribe for Nadya Mascorro MD Provider Scribe Attestation: All medical record entries made by the Scribe were at my direction and personally dictated by me. I have reviewed the chart and agree that the record accurately reflects my personal performance of the history, physical exam, medical decision making, and the department course for this patient. I have also personally directed, reviewed, and agree with the discharge instructions and disposition. Disposition - Clinical Impression Clinical Impression: Abdominal pain, UTI (lower urinary tract infection) - Patient ED Disposition Is Patient to be Admitted: No Doctor Will See Patient In The: Office Counseled Patient/Family Regarding: Studies Performed, Diagnosis, Need For Followup - Disposition Referrals: Natali Arshad MD [Family Provider] - Disposition: Routine/Home Disposition Time: 12:53 Condition: GOOD Additional Instructions: Take your medications as instructed. Follow up with your PCP in 2-3 days. Prescriptions: Ciprofloxacin [Cipro] 500 mg PO BID 3 Days #6 tab Instructions: Urinary Tract Infections in Adults, Chronic Pain (DC)
[2018-02-11 13:45] VITALS: BP 125/77; PULSE 96; RESP 16; TEMP 98
== END 2018-02-11 13:00 | disposition home or self-care (01) ==
LOC: H.ER 08:18
DX: N39.0 Urinary tract infection, site not specified (principal); K50.90 Crohn's disease, unspecified, without complications; F31.9 Bipolar disorder, unspecified; F41.9 Anxiety disorder, unspecified; G89.29 Other chronic pain; J45.909 Unspecified asthma, uncomplicated; K85.90 Acute pancreatitis without necrosis or infection, unspecified; O26.899 Other specified pregnancy related conditions, unspecified trimester; Z88.5 Allergy status to narcotic agent
CPT/HCPCS: 80053; 83690; 85025; 87086; 87181; 96374; 96375; 99283; J1170; J2405; J7040

== ENCOUNTER 2018-02-24 12:03 | Emergency (ER) | payer BC, OTHER ==
[2018-02-24 12:03] VITALS: BMI 21.7
[2018-02-24 12:28] VITALS: O2SAT 98
[2018-02-24] MEDS ORDERED: Sodium Chloride 0.9% 1,000 ML IV ONE (13:15)
--- NOTE | 2018-02-24 13:42 | ED PDOC ---
HPI: Abdomen Chief Complaint (Provider): abdominal pain History Per: Patient History/Exam Limitations: no limitations Onset/Duration Of Symptoms: Days (3) Outside of [place] travel?: No Current Symptoms Are (Timing): Still Present Severity: Severe Pain Scale Rating Of: 10 Location Of Pain/Discomfort: Diffuse Quality Of Discomfort: Cramping Associated Symptoms: Nausea. denies: Fever, Chills, Vomiting, Diarrhea, Loss Of Appetite, Constipation, Urinary Symptoms Alleviating Factors: None Last Bowel Movement: Today (soft) Additional History Per: Patient Time Seen by Provider: 02/24/18 12:52 Chief Complaint (Nursing): Abdominal Pain Additional Complaint(s): 33 yr old F presents to ED with complaint of severe diffuse abdominal pain x 3 days. PMhx includes Chronic abdominal pain, Chron's disease, iron deficiency anemia and peptic/gastric ulcers. Associated symptoms are nausea and lightheadedness. Denies dysuria, hematuria, fevers, chills, headaches, diarrhea , constipation. She is tolerating 3 cans of ensure daily and is avoiding solids as they exacerbate her pain. She took Dilaudid 2mg PO at 6am and Tramadol 100mg PO at 5:30am for the pain, this mildy alleviated her symptoms but they recurred. LMP: 02/22/18 Pain management: Dr. Vázquez -next appointment is tomorrow PMD: Dr. Arshad GI: Dr. Farnsworth (Chaya Severino) Past Medical History - Medical History PMH: Anemia, Anxiety, Asthma, Bipolar Disorder, Crohn's Disease, Depression, Gastrointestinal Ulcer (peptic & gastric), Migraine, Pancreatitis, Chronic Kidney Disease, Chronic Pain (Abdominal) - Surgical History Surgical History: Endoscopy - Family History Family History: States: Unknown Family Hx, Diabetes - Social History Current smoker - smoking cessation education provided: No Ex-Smoker (has not smoked in the last 12 months): No Alcohol: None Drugs: Denies - Immunization History Hx Tetanus Toxoid Vaccination: Yes Hx Influenza Vaccination: Yes Hx Pneumococcal Vaccination: Yes Vital Signs: Last Vital Signs Temp 98.0 F 02/24/18 16:00 Pulse 88 02/24/18 16:00 Resp 16 02/24/18 16:00 BP 132/70 02/24/18 16:00 Pulse Ox 98 02/24/18 16:00 - Home Medications Home Medications: Ambulatory Orders Medication Instructions Recorded Alprazolam [Xanax] 0.5 mg PO TID PRN #0 tablet 07/15/16 HYDROmorphone [Dilaudid] 2 mg PO Q6 PRN 07/20/17 Tramadol HCl [Tramadol HCl ER] 200 mg PO DAILY 12/28/17 Aripiprazole [Abilify] 30 mg PO HS #30 tablet 12/30/17 Iron Fumarate/Vit C/Vit B12/FA 1 cap PO DAILY #30 capsule 12/30/17 [Hematogen Forte Softgel] OXcarbazepine [Trileptal] 900 mg PO HS #30 tab 12/30/17 Ondansetron [Zofran Tab] 4 mg PO Q6H PRN #15 tab 12/30/17 Pregabalin [Lyrica] 25 mg PO HS #30 cap 12/30/17 Ustekinumab [Stelara] 90 mg SC .[id number] #1 syringe 12/30/17 buPROPion XL [Wellbutrin XL] 300 mg PO DAILY #30 t24 12/30/17 Nitrofurantoin Macrocrystals 100 mg PO BID #14 cap 01/22/18 [Macrobid] Ciprofloxacin [Cipro] 500 mg PO BID 3 Days #6 tab 02/11/18 - Allergies Allergies/Adverse Reactions: Allergies Allergy/AdvReac Type Severity Reaction Status Date / Time acetaminophen [From Percocet] Allergy SWELLING Verified 02/24/18 12:25 Gadolinium-Containing Allergy URTICARIA Verified 02/24/18 12:25 Contrast Medi Iodine and Iodide Containing Allergy RASH Verified 02/24/18 12:25 Produc ketorolac [From Toradol] Allergy URTICARIA Verified 02/24/18 12:25 Latex, Natural Rubber Allergy RASH Verified 02/24/18 12:25 morphine Allergy RASH Verified 02/24/18 12:25 oxycodone HCl [From Percocet] Allergy SWELLING Verified 02/24/18 12:25 shellfish derived Allergy RASH Verified 02/24/18 12:25 shrimp Allergy RASH Verified 02/24/18 12:25 doxycycline AdvReac extreme Verified 02/24/18 12:25 abdominal pain, cramps metronidazole [From Flagyl] AdvReac abdominal Verified 12/28/17 15:23 pain, cramps CONTRAST Allergy Severe URTICARIA Uncoded 04/03/18 15:23 SHRIMPS Allergy Severe RASH Uncoded 12/28/17 15:23 LATEX Allergy Intermediate RASH Uncoded 12/28/17 15:23 Review of Systems Constitutional: Negative for: Fever, Chills, Sweats ENT: Negative for: Nose Discharge, Throat Pain Cardiovascular: Negative for: Chest Pain, Palpitations Respiratory: Negative for: Cough, Shortness of Breath Gastrointestinal: Positive for: Nausea, Abdominal Pain (diffuse). Negative for : Vomiting, Diarrhea, Constipation Genitourinary Female: Negative for: Dysuria, Frequency, Hematuria, Vaginal Discharge Musculoskeletal: Negative for: Neck Pain, Shoulder Pain, Arm Pain Neurological: Negative for: Weakness, Confusion Physical Exam - Physical Exam Appears: Positive for: No Acute Distress Head Exam: Positive for: ATRAUMATIC, NORMOCEPHALIC Skin: Positive for: Normal Color, Warm, Dry Eye Exam: Positive for: EOMI, PERRL ENT: Positive for: Other (dry lips, mucous membranes moist). Negative for: Pharyngeal Erythema, Tonsillar Exudate Neck: Positive for: Painless ROM, Supple Cardiovascular/Chest: Negative for: Gallop, Murmur Respiratory: Positive for: Normal Breath Sounds. Negative for: Crackles, Rales , Rhonchi Pulses-Carotid (L): 2+ Pulses-Carotid (R): 2+ Pulses-Dorsalis Pedis (L): 2+ Pulses-Dorsalis Pedis (R): 2+ Pulses-Radial (L): 2+ Pulses-Radial (R): 2+ Gastrointestinal/Abdominal: Positive for: Normal Exam, Bowel Sounds (present), Soft, Tenderness (diffuse to palpation) Back: Negative for: L CVA Tenderness, R CVA Tenderness Extremity: Positive for: Normal ROM. Negative for: Pedal Edema, Calf Tenderness Neurologic/Psych: Positive for: Alert, director of enterprise strategy II-XII (grossly intact), Mood/Affect (normal/full), Gait (normal). Negative for: Motor/Sensory Deficits - ECG O2 Sat by Pulse Oximetry: 98 - Progress ED Course And Treament: -NS 1L IV bolus -Bentyl 10mg IM once, Reglan 10mg IV once, Famotidine 20mg IV once (Chaya Severino) Medical Decision Making Medical Decision Making: Time: 14:40 --Patient has chronic pain, medicate and reevaluate. (Gerda,Haviva Y) Disposition - Patient ED Disposition Is Patient to be Admitted: No Counseled Patient/Family Regarding: Diagnosis, Need For Followup - Disposition Disposition: Routine/Home Disposition Time: 16:00 - Clinical Impression Clinical Impression: Chronic pain - Disposition Condition: IMPROVED Additional Instructions: follow up with pain management tomorrow return to ED with any worsening or concerning symptoms Instructions: Chronic Pain (DC) Forms: [employer] (Azeri)
[2018-02-24] MEDS ORDERED: Famotidine 20mg/50ml 20 MG/50 ML BAG IVPB ONE ×2 (13:45→14:26)
[2018-02-24 16:00] VITALS: BP 132/70; PULSE 88; RESP 16; TEMP 98
== END 2018-02-24 15:59 | disposition home or self-care (01) ==
LOC: H.ER 12:03
DX: G89.29 Other chronic pain (principal); F31.9 Bipolar disorder, unspecified; F41.9 Anxiety disorder, unspecified; J45.909 Unspecified asthma, uncomplicated; K50.90 Crohn's disease, unspecified, without complications; K85.90 Acute pancreatitis without necrosis or infection, unspecified; Z88.5 Allergy status to narcotic agent
CPT/HCPCS: 81025; 96361; 96365; 96372; 96375; 99283; J0500; J2765; J7030

== ENCOUNTER 2018-03-10 09:47 | Emergency (ER) | payer OTHER ==
[2018-03-10 09:48] VITALS: BMI 21.7
[2018-03-10 09:51] VITALS: O2SAT 100
[2018-03-10] MEDS ORDERED: Sodium Chloride 0.9% 1,000 ML IV STA ×2 (10:22→10:33)
[2018-03-10 12:01] LABS: BASO # 0.2 K/uL (0.0-0.2); BASO % 1.8 % (0.0-2.0); EOS # 0.3 K/uL (0.0-0.7); EOS % 4.3 % (0.0-4.0); HEMOGLOBIN 11.1 g/dL (12.0-16.0); LYMPH # 2.2 K/uL (1.0-4.3); LYMPH % 27.4 % (20.0-40.0); MEAN CORPUSCULAR HEMOGLOBIN 24.3 pg (27.0-31.0); MEAN CORPUSCULAR HGB CONC 31.2 g/dL (33.0-37.0); MEAN PLATELET VOLUME 7.7 fl (7.2-11.7); MONO # 0.3 K/uL (0.0-0.8); MONO % 4.2 % (0.0-10.0); NEUT # 5.1 K/uL (1.8-7.0); NEUT % 62.3 % (50.0-75.0); NRBC % 0.2 % (0.0-0.0); RBC 4.56 Mil/uL (3.80-5.20); RED CELL DISTRIBUTION WIDTH 15.8 % (11.5-14.5); WHITE BLOOD COUNT 8.1 K/uL (4.8-10.8)
--- NOTE | 2018-03-10 12:39 | ED PDOC ---
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 Denies bloody stools, hematemesis, fever or syncope. Past Medical History Reviewed: Historical Data, Nursing Documentation, Vital Signs Vital Signs: Last Vital Signs Temp 98.2 F 03/10/18 09:50 Pulse 110 H 03/10/18 09:50 Resp 17 03/10/18 09:50 BP 141/75 03/10/18 09:50 Pulse Ox 100 03/10/18 12:41 - Medical History PMH: Anemia, Anxiety, Asthma, Bipolar Disorder, Crohn's Disease, Depression, Gastrointestinal Ulcer (peptic & gastric), Migraine, Pancreatitis, Chronic Pain (Abdominal) Denies: Chronic Kidney Disease - Surgical History Surgical History: Endoscopy - Family History Family History: States: Unknown Family Hx, Diabetes - Living Arrangements Living Arrangements: With Family - Social History Current smoker - smoking cessation education provided: No - Immunization History Hx Tetanus Toxoid Vaccination: No Hx Influenza Vaccination: Yes Hx Pneumococcal Vaccination: Yes - Home Medications Home Medications: Ambulatory Orders Medication Instructions Recorded Alprazolam [Xanax] 0.5 mg PO TID PRN #0 tablet 07/15/16 HYDROmorphone [Dilaudid] 2 mg PO Q6 PRN 07/20/17 Tramadol HCl [Tramadol HCl ER] 200 mg PO DAILY 12/28/17 Aripiprazole [Abilify] 30 mg PO HS #30 tablet 12/30/17 Iron Fumarate/Vit C/Vit B12/FA 1 cap PO DAILY #30 capsule 12/30/17 [Hematogen Forte Softgel] OXcarbazepine [Trileptal] 900 mg PO HS #30 tab 12/30/17 Ondansetron [Zofran Tab] 4 mg PO Q6H PRN #15 tab 12/30/17 Pregabalin [Lyrica] 25 mg PO HS #30 cap 12/30/17 Ustekinumab [Stelara] 90 mg SC .[id number] #1 syringe 12/30/17 buPROPion XL [Wellbutrin XL] 300 mg PO DAILY #30 t24 12/30/17 Nitrofurantoin Macrocrystals 100 mg PO BID #14 cap 01/22/18 [Macrobid] Ciprofloxacin [Cipro] 500 mg PO BID 3 Days #6 tab 02/11/18 - Allergies Allergies/Adverse Reactions: Allergies Allergy/AdvReac Type Severity Reaction Status Date / Time acetaminophen [From Percocet] Allergy SWELLING Verified 02/24/18 12:25 Gadolinium-Containing Allergy URTICARIA Verified 02/24/18 12:25 Contrast Medi Iodine and Iodide Containing Allergy RASH Verified 02/24/18 12:25 Produc ketorolac [From Toradol] Allergy URTICARIA Verified 02/24/18 12:25 Latex, Natural Rubber Allergy RASH Verified 02/24/18 12:25 morphine Allergy RASH Verified 02/24/18 12:25 oxycodone HCl [From Percocet] Allergy SWELLING Verified 02/24/18 12:25 shellfish derived Allergy RASH Verified 02/24/18 12:25 shrimp Allergy RASH Verified 02/24/18 12:25 doxycycline AdvReac extreme Verified 02/24/18 12:25 abdominal pain, cramps metronidazole [From Flagyl] AdvReac abdominal Verified 12/28/17 15:23 pain, cramps CONTRAST Allergy Severe URTICARIA Uncoded 12/28/17 15:23 SHRIMPS Allergy Severe RASH Uncoded 12/28/17 15:23 LATEX Allergy Intermediate RASH Uncoded 12/28/17 15:23 Review of Systems Constitutional: Positive for: Weakness. Negative for: Fever Cardiovascular: Negative for: Chest Pain Respiratory: Negative for: Cough Gastrointestinal: Positive for: Nausea, Vomiting, Abdominal Pain. Negative for : Constipation, Melena Genitourinary Female: Negative for: Dysuria Musculoskeletal: Negative for: Neck Pain Skin: Negative for: Rash, Lesions Neurological: Positive for: Dizziness. Negative for: Weakness, Numbness, Seizures, Headache Psych: Negative for: Suicidal ideation Physical Exam - Reviewed Nursing Documentation Reviewed: Yes Vital Signs Reviewed: Yes - Physical Exam Appears: Positive for: Well, Non-toxic, No Acute Distress Head Exam: Positive for: ATRAUMATIC, NORMAL INSPECTION, NORMOCEPHALIC Skin: Positive for: Normal Color, Warm, DRY Eye Exam: Positive for: EOMI, Normal appearance, PERRL ENT: Positive for: Normal ENT Inspection Neck: Positive for: Normal, Painless ROM Cardiovascular/Chest: Positive for: Regular Rate, Rhythm Respiratory: Positive for: CNT, Normal Breath Sounds Gastrointestinal/Abdominal: Positive for: Soft, Tenderness (mild diffuse tenderness). Negative for: Guarding, Rebound Back: Positive for: Normal Inspection Extremity: Positive for: Normal ROM Neurologic/Psych: Positive for: Alert, Oriented - Laboratory Results Result Diagrams: 03/10/18 10:55 03/10/18 10:55 - ECG O2 Sat by Pulse Oximetry: 100 Medical Decision Making Medical Decision Making: workup for recurrent abd pain initiated recent charts reviewed d/w PMD Dr Arshad, attempting to get CBD therapy for her, no other change in outpatient management currently labs reviewed, no acute abnormalities lipase normal WBC normal stable mild anemia (on iron) Given dilaudid PO (takes at home) for pain w resolution of symptoms. 3p No further vomiting in ED. Requested discharge from RN. DC from ED, followup PMD/ GI/ pain Disposition - Clinical Impression Clinical Impression: Abdominal pain - Patient ED Disposition Is Patient to be Admitted: No Counseled Patient/Family Regarding: Studies Performed, Diagnosis, Need For Followup - Disposition Disposition: Routine/Home Disposition Time: 15:01 Condition: STABLE Additional Instructions: Followup with GI and pain management as directed. Instructions: Acute Abdomen (Belly Pain), Adult (DC) Forms: [employer] (Kazakh)
[2018-03-10 12:58] LABS: ALB/GLOB RATIO 1.2 (1.0-2.1); ALBUMIN 4.2 g/dL (3.5-5.0); ALT/SGPT 29 U/L (9-52); AST/SGOT 28 U/L (14-36); BLOOD UREA NITROGEN 8 mg/dl (7-17); CALCIUM 9.3 mg/dL (8.4-10.2); GFR AFRICAN-AMERICAN > 60; GFR NON-AFRICAN AMERICAN > 60; LIPASE 84 U/L (23-300)
[2018-03-10 15:25] VITALS: BP 123/83; PULSE 90; RESP 18; TEMP 98.4
== END 2018-03-10 15:23 | disposition home or self-care (01) ==
LOC: H.ER 09:47
DX: R10.9 Unspecified abdominal pain (principal); R11.10 Vomiting, unspecified; K50.90 Crohn's disease, unspecified, without complications; G89.29 Other chronic pain; D64.9 Anemia, unspecified; K85.90 Acute pancreatitis without necrosis or infection, unspecified; F31.9 Bipolar disorder, unspecified; F41.9 Anxiety disorder, unspecified; J45.909 Unspecified asthma, uncomplicated; Z88.5 Allergy status to narcotic agent
CPT/HCPCS: 80053; 81025; 83690; 85025; 96361; 96372; 96374; 99283; J0500; J2765; J7030

== ENCOUNTER 2018-03-13 18:40 | Emergency (ER) | payer OTHER ==
[2018-03-13 18:40] VITALS: BMI 21.7
[2018-03-13 19:06] VITALS: O2SAT 100
[2018-03-13] MEDS ORDERED: HYDROmorphone 0.5 mg/0.5 ml ISec IVP STA (20:49)
[2018-03-13] MEDS ORDERED: Sodium Chloride 0.9% 1,000 ML IV STA (20:49)
[2018-03-13] MEDS ORDERED: HYDROmorphone 0.5 mg/0.5 ml ISec ONE (20:52)
--- NOTE | 2018-03-13 21:27 | ED PDOC ---
HPI: Abdomen Time Seen by Provider: 03/13/18 19:00 Chief Complaint (Nursing): Abdominal Pain Chief Complaint (Provider): Abdominal Pain History Per: Patient History/Exam Limitations: no limitations Onset/Duration Of Symptoms: Days (x4) Current Symptoms Are (Timing): Still Present Additional Complaint(s): 33 y/o female with a PMHx of chronic abdominal pain, Chron's disease, iron deficiency anemia and peptic/gastric ulcers presenting for evaluation of right sided abdominal pain x4 days. Patient states symptoms are consistent with usual chronic pain. She reports some nausea, but denies vomiting or diarrhea. Patient reports she was recently restarted on narcotics by PMD. PMD: Natali Arshad Past Medical History Reviewed: Historical Data, Nursing Documentation, Vital Signs Vital Signs: Last Vital Signs Temp 98.6 F 03/13/18 22:10 Pulse 84 03/13/18 22:10 Resp 18 03/13/18 22:10 BP 120/72 03/13/18 22:10 Pulse Ox 100 03/13/18 22:10 - Medical History PMH: Anemia, Anxiety, Asthma, Bipolar Disorder, Crohn's Disease, Depression, Gastrointestinal Ulcer (peptic & gastric), Migraine, Pancreatitis, Chronic Pain (Abdominal) Denies: Chronic Kidney Disease - Surgical History Surgical History: Endoscopy - Family History Family History: States: Unknown Family Hx, Diabetes - Social History Current smoker - smoking cessation education provided: No Alcohol: None Drugs: Denies - Immunization History Hx Tetanus Toxoid Vaccination: No Hx Influenza Vaccination: Yes Hx Pneumococcal Vaccination: Yes - Home Medications Home Medications: Ambulatory Orders Medication Instructions Recorded Alprazolam [Xanax] 0.5 mg PO TID PRN #0 tablet 07/15/16 HYDROmorphone [Dilaudid] 2 mg PO Q6 PRN 07/20/17 Tramadol HCl [Tramadol HCl ER] 200 mg PO DAILY 12/28/17 Aripiprazole [Abilify] 30 mg PO HS #30 tablet 12/30/17 Iron Fumarate/Vit C/Vit B12/FA 1 cap PO DAILY #30 capsule 12/30/17 [Hematogen Forte Softgel] OXcarbazepine [Trileptal] 900 mg PO HS #30 tab 12/30/17 Ondansetron [Zofran Tab] 4 mg PO Q6H PRN #15 tab 12/30/17 Pregabalin [Lyrica] 25 mg PO HS #30 cap 12/30/17 Ustekinumab [Stelara] 90 mg SC .[id number] #1 syringe 12/30/17 buPROPion XL [Wellbutrin XL] 300 mg PO DAILY #30 t24 12/30/17 Nitrofurantoin Macrocrystals 100 mg PO BID #14 cap 01/22/18 [Macrobid] Ciprofloxacin [Cipro] 500 mg PO BID 3 Days #6 tab 02/11/18 - Allergies Allergies/Adverse Reactions: Allergies Allergy/AdvReac Type Severity Reaction Status Date / Time acetaminophen [From Percocet] Allergy SWELLING Verified 03/14/18 18:08 Gadolinium-Containing Allergy URTICARIA Verified 03/14/18 18:08 Contrast Medi Iodine and Iodide Containing Allergy RASH Verified 03/14/18 18:08 Produc ketorolac [From Toradol] Allergy URTICARIA Verified 03/14/18 18:08 Latex, Natural Rubber Allergy RASH Verified 03/14/18 18:08 morphine Allergy RASH Verified 03/14/18 18:08 oxycodone HCl [From Percocet] Allergy SWELLING Verified 03/14/18 18:08 shellfish derived Allergy RASH Verified 03/14/18 18:08 shrimp Allergy RASH Verified 03/14/18 18:08 doxycycline AdvReac extreme Verified 03/14/18 18:08 abdominal pain, cramps metronidazole [From Flagyl] AdvReac abdominal Verified 03/14/18 18:08 pain, cramps CONTRAST Allergy Severe URTICARIA Uncoded 03/14/18 18:08 SHRIMPS Allergy Severe RASH Uncoded 03/14/18 18:08 LATEX Allergy Intermediate RASH Uncoded 03/14/18 18:08 Review of Systems ROS Statement: Except As Marked, All Systems Reviewed And Found Negative Gastrointestinal: Positive for: Abdominal Pain Physical Exam - Reviewed Nursing Documentation Reviewed: Yes Vital Signs Reviewed: Yes - Physical Exam Appears: Positive for: Non-toxic, No Acute Distress Head Exam: Positive for: ATRAUMATIC, NORMAL INSPECTION, NORMOCEPHALIC Skin: Positive for: Normal Color, Warm, Dry. Negative for: Rash Neck: Positive for: Normal, Painless ROM, Supple Cardiovascular/Chest: Positive for: Regular Rate, Rhythm. Negative for: Murmur Respiratory: Positive for: Normal Breath Sounds. Negative for: Respiratory Distress Gastrointestinal/Abdominal: Positive for: Normal Exam, Soft. Negative for: Tenderness Back: Positive for: Normal Inspection. Negative for: L CVA Tenderness, R CVA Tenderness, Vertebral Tenderness Extremity: Positive for: Normal ROM. Negative for: Pedal Edema, Deformity Neurologic/Psych: Positive for: Alert, Oriented. Negative for: Motor/Sensory Deficits - ECG O2 Sat by Pulse Oximetry: 100 (RA) Pulse Ox Interpretation: Normal Medical Decision Making Medical Decision Making: Initial Impression: acute on chronic abdominal pain Plan: --Dilaudid 1mg IVP --1LNS --Ultram 50mg PO --Zofran 4mg PO --Reevaluation pt felt better after dilaudid and feels stable to be dc home. Scribe Attestation: Documented by Romain Eddy, acting as a scribe for Miriam Lorenz MD. Provider Scribe Attestation: All medical record entries made by the Scribe were at my direction and personally dictated by me. I have reviewed the chart and agree that the record accurately reflects my personal performance of the history, physical exam, medical decision making, and the department course for this patient. I have also personally directed, reviewed, and agree with the discharge instructions and disposition. Disposition - Clinical Impression Clinical Impression: Chronic abdominal pain - Patient ED Disposition Is Patient to be Admitted: No Counseled Patient/Family Regarding: Studies Performed, Diagnosis, Need For Followup - Disposition Disposition: Routine/Home Disposition Time: 21:00 Condition: IMPROVED Additional Instructions: follow up with your doctor this week return to the ED with any worsening or concerning symptoms Instructions: Chronic Pain (DC) Forms: [employer] (Belarusian)
[2018-03-13 22:11] VITALS: BP 120/72; PULSE 84; RESP 18; TEMP 98.6
== END 2018-03-13 22:10 | disposition home or self-care (01) ==
LOC: H.ER 18:40
DX: R10.9 Unspecified abdominal pain (principal); G89.29 Other chronic pain; Z86.59 Personal history of other mental and behavioral disorders; J45.909 Unspecified asthma, uncomplicated; K50.90 Crohn's disease, unspecified, without complications; Z88.5 Allergy status to narcotic agent
CPT/HCPCS: 96374; 99284; J1170; J7030

== ENCOUNTER 2018-03-14 17:38 | Inpatient (IN) | payer OTHER ==
[2018-03-14 17:38] VITALS: BMI 21.7
[2018-03-14 18:11] VITALS: O2SAT 100
[2018-03-14] MEDS ORDERED: HYDROmorphone 0.5 mg/0.5 ml ISec IVP STA (22:25)
[2018-03-14] MEDS ORDERED: Sodium Chloride 0.9% 1,000 ML IV STA (22:25)
--- NOTE | 2018-03-14 22:28 | ED PDOC ---
HPI: Abdomen Time Seen by Provider: 03/14/18 22:08 Chief Complaint (Nursing): Abdominal Pain Chief Complaint (Provider): abdominal pain History Per: Patient History/Exam Limitations: no limitations Onset/Duration Of Symptoms: Days (5 ), Waxing/Waning Current Symptoms Are (Timing): Still Present Location Of Pain/Discomfort: Diffuse Quality Of Discomfort: Cramping, "Pain" Associated Symptoms: Nausea, Vomiting Additional Complaint(s): 33 y/o female presents for evaluation of diffuse crampy abdominal pain x 5 days. Associated nausea/vomiting. Patient with longstanding history of crohn's , ulcerative colitis; states she is on many medications but due to vomiting they are not staying down. Patient seen twice in ED for same, states vomiting persists. States pain typical of her flare ups. Denies fever, chest pain, shortness of breath, palpitations, changes in bowel movements, urinary symptoms , recent travel, sick contacts. Past Medical History Reviewed: Historical Data, Nursing Documentation, Vital Signs Vital Signs: Last Vital Signs Temp 98 F 03/15/18 03:33 Pulse 89 03/15/18 03:33 Resp 16 03/15/18 03:33 BP 126/73 03/15/18 03:33 Pulse Ox 100 03/15/18 03:33 - Medical History PMH: Anemia, Anxiety, Asthma, Bipolar Disorder, Crohn's Disease, Depression, Gastrointestinal Ulcer (peptic & gastric), Migraine, Pancreatitis, Chronic Pain (Abdominal) Denies: Chronic Kidney Disease - Surgical History Surgical History: Endoscopy - Family History Family History: States: Unknown Family Hx, Diabetes - Immunization History Hx Tetanus Toxoid Vaccination: No Hx Influenza Vaccination: Yes Hx Pneumococcal Vaccination: Yes - Home Medications Home Medications: Ambulatory Orders Medication Instructions Recorded Alprazolam [Xanax] 0.5 mg PO TID PRN #0 tablet 07/15/16 HYDROmorphone [Dilaudid] 2 mg PO Q6 PRN 07/20/17 Tramadol HCl [Tramadol HCl ER] 100 mg PO DAILY 12/28/17 Iron Fumarate/Vit C/Vit B12/FA 1 cap PO DAILY #30 capsule 12/30/17 [Hematogen Forte Softgel] OXcarbazepine [Trileptal] 900 mg PO HS #30 tab 12/30/17 Ondansetron [Zofran Tab] 4 mg PO Q6H PRN #15 tab 12/30/17 Ustekinumab [Stelara] 90 mg SC .[id number] #1 syringe 12/30/17 buPROPion XL [Wellbutrin XL] 300 mg PO DAILY #30 t24 12/30/17 Aripiprazole [Abilify] 15 mg PO HS 03/15/18 Topiramate [Topamax] 50 mg PO DAILY 03/15/18 - Allergies Allergies/Adverse Reactions: Allergies Allergy/AdvReac Type Severity Reaction Status Date / Time acetaminophen [From Percocet] Allergy SWELLING Verified 03/14/18 18:08 Gadolinium-Containing Allergy URTICARIA Verified 03/14/18 18:08 Contrast Medi Iodine and Iodide Containing Allergy RASH Verified 03/14/18 18:08 Produc ketorolac [From Toradol] Allergy URTICARIA Verified 03/14/18 18:08 Latex, Natural Rubber Allergy RASH Verified 03/14/18 18:08 morphine Allergy RASH Verified 03/14/18 18:08 oxycodone HCl [From Percocet] Allergy SWELLING Verified 03/14/18 18:08 shellfish derived Allergy RASH Verified 03/14/18 18:08 shrimp Allergy RASH Verified 03/14/18 18:08 doxycycline AdvReac extreme Verified 03/14/18 18:08 abdominal pain, cramps metronidazole [From Flagyl] AdvReac abdominal Verified 03/14/18 18:08 pain, cramps CONTRAST Allergy Severe URTICARIA Uncoded 03/14/18 18:08 SHRIMPS Allergy Severe RASH Uncoded 03/14/18 18:08 LATEX Allergy Intermediate RASH Uncoded 03/14/18 18:08 Review of Systems ROS Statement: Except As Marked, All Systems Reviewed And Found Negative Gastrointestinal: Positive for: Nausea, Vomiting, Abdominal Pain Physical Exam - Reviewed Nursing Documentation Reviewed: Yes Vital Signs Reviewed: Yes - Physical Exam Appears: Positive for: Well, Non-toxic, No Acute Distress Head Exam: Positive for: ATRAUMATIC, NORMAL INSPECTION, NORMOCEPHALIC Skin: Positive for: Normal Color Eye Exam: Positive for: Normal appearance ENT: Positive for: Normal ENT Inspection Cardiovascular/Chest: Positive for: Regular Rate, Rhythm Respiratory: Positive for: Normal Breath Sounds Gastrointestinal/Abdominal: Positive for: Bowel Sounds, Soft, Tenderness (rlq, suprapubic, llq, luq). Negative for: Distended, Rebound Back: Positive for: Normal Inspection Extremity: Positive for: Normal ROM Neurologic/Psych: Positive for: Alert, Oriented - Laboratory Results Result Diagrams: 03/15/18 00:00 03/15/18 00:42 - ECG O2 Sat by Pulse Oximetry: 100 - Progress ED Course And Treament: labs, IV fluids, IV zofran, IV dilaudid On re-eval, patient states nausea and pain returning Patients 3rd visit in 5 days for same; will place in observation for IV hydration and pain/nausea control Disposition - Clinical Impression Clinical Impression: Abdominal pain, Vomiting - Patient ED Disposition Is Patient to be Admitted: Yes - Disposition Disposition Time: 02:00 Condition: FAIR
[2018-03-14 23:27] LABS: ALB/GLOB RATIO 1.2 (1.0-2.1); ALBUMIN 4.5 g/dL (3.5-5.0); ALT/SGPT 23 U/L (9-52); AST/SGOT 40 U/L (14-36); BLOOD UREA NITROGEN 9 mg/dl (7-17); CALCIUM 9.5 mg/dL (8.4-10.2); GFR AFRICAN-AMERICAN > 60; GFR NON-AFRICAN AMERICAN > 60; LIPASE 125 U/L (23-300)
[2018-03-15 00:41] LABS: BASO # 0.1 K/uL (0.0-0.2); BASO % 0.4 % (0.0-2.0); EOS # 0.2 K/uL (0.0-0.7); HEMOGLOBIN 8.6 g/dL (12.0-16.0); LYMPH # 3.7 K/uL (1.0-4.3); LYMPH % 30.8 % (20.0-40.0); MEAN CELL VOLUME 77.8 fl (81.0-99.0); MEAN CORPUSCULAR HEMOGLOBIN 24.6 pg (27.0-31.0); MEAN CORPUSCULAR HGB CONC 31.6 g/dL (33.0-37.0); MEAN PLATELET VOLUME 7.9 fl (7.2-11.7); MONO # 0.8 K/uL (0.0-0.8); MONO % 6.9 % (0.0-10.0); NEUT # 7.1 K/uL (1.8-7.0); NEUT % 59.9 % (50.0-75.0); RBC 3.49 Mil/uL (3.80-5.20); RED CELL DISTRIBUTION WIDTH 16.6 % (11.5-14.5); WHITE BLOOD COUNT 11.9 K/uL (4.8-10.8)
[2018-03-15 00:59] LABS: ALB/GLOB RATIO 1.3 (1.0-2.1); ALBUMIN 4.3 g/dL (3.5-5.0); ALT/SGPT 25 U/L (9-52); AST/SGOT 28 U/L (14-36); BLOOD UREA NITROGEN 9 mg/dl (7-17); CALCIUM 9.3 mg/dL (8.4-10.2); GFR AFRICAN-AMERICAN > 60; GFR NON-AFRICAN AMERICAN > 60
[2018-03-15] MEDS ORDERED: HYDROmorphone 0.5 mg/0.5 ml ISec IVP STA (02:10)
[2018-03-15] MEDS ORDERED: HYDROmorphone 0.5 mg/0.5 ml ISec ONE ×2 (02:13)
[2018-03-15] MEDS ORDERED: Dextrose 5%/0.9% NS 1,000 ML IV ONE (02:35)
--- NOTE | 2018-03-15 02:45 | CP.PCM.HP ---
History of Present Illness - History of Present Illness History of Present Illness: CC: "Abdominal pain" HPI: 33 y/o woman w/ pmh of Crohn's disease, primary sclerosing cholangitis, iron deficiency anemia, bipolar disease, anxiety, GI ulcer, abdominal migraine presents to [facility] ED for abdominal pain. Patient reports hx of chronic abdominal pain for years, but 5 abdominal pain worsened and the pain brought her to the ED x3 since then. Patient reports pain sharp in nature, non- radiating, constant, w/o any alleviating factors, worsened w/ movement. Pain is better tolerated with Dilaudid. Patient reports associated nausea and vomiting. Patient is unable to tolerate PO and thus has been unable to take her prescribed medications. Patient reports regular bowel movements. Patient denies chest pain, dyspnea, diarrhea, constipation, changes in bowel movements, blood in stool, dysuria, or weight loss. Had colonoscopy done 05/2017, GI not convinced of Crohn's disease. Nothing to be done as per GI, Dr. Augustin. ED course: Vitals: 98.9 F, 93 beats/min, 121/82 mm Hg, resp 16, O2 100% room air CBC: 11.9>8.6/27.2<686 CMP: 142/3.5, 104/25, 9/0.5, glucose 78, AST 28, ALT 25, alk phos 88 lipase: 125 given Dilaudid 1mg for pain x2, zofran and IV fluids PMD: Dr. Arshad GI: Dr. 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, denies smoking, alcohol, or illegal drug use ROS: 12 points assessed and negative unless otherwise reported in HPI Present on Admission - Present on Admission Any Indicators Present on Admission: No History of DVT/PE: No History of Uncontrolled Diabetes: No Urinary Catheter: No Decubitus Ulcer Present: No Review of Systems - Review of Systems All systems: reviewed and no additional remarkable complaints except - Constitutional Constitutional: absent: Chills, Fever - EENT Eyes: absent: Change in Vision - Cardiovascular Cardiovascular: absent: Chest Pain - Respiratory Respiratory: absent: Dyspnea - Gastrointestinal Gastrointestinal: As Per HPI, Abdominal Pain, Nausea, Vomiting. absent: Diarrhea, Hematochezia, Melena - Genitourinary Genitourinary: absent: Dysuria - Reproductive: Female Reproductive:Female: Currently Menstual - Integumentary Integumentary: absent: Rash - Neurological Neurological: absent: Dizziness, Headaches Past Patient History - Infectious Disease Hx of Infectious Diseases: None - Tetanus Immunizations Tetanus Immunization: Allergy to Tetanus Vaccine - Past Medical History & Family History Past Medical History?: Yes - Past Social History Smoking Status: Never Smoked - CARDIAC Hx Cardiac Disorders: Yes Hx Heart Murmur: Yes - PULMONARY Hx Asthma: Yes - NEUROLOGICAL Hx Migraine: Yes - HEENT Hx HEENT Problems: No - RENAL Hx Chronic Kidney Disease: No - ENDOCRINE/METABOLIC Hx Endocrine Disorders: No - HEMATOLOGICAL/ONCOLOGICAL Hx Anemia: Yes - INTEGUMENTARY Hx Dermatological Problems: No - MUSCULOSKELETAL/RHEUMATOLOGICAL Hx Musculoskeletal Disorders: No Hx Falls: No - GASTROINTESTINAL Hx Crohn's Disease: Yes Hx Pancreatitis: Yes - GENITOURINARY/GYNECOLOGICAL Hx Genitourinary Disorders: No Hx Urinary Tract Infection: Yes - PSYCHIATRIC Hx Anxiety: Yes Hx Bipolar Disorder: Yes Hx Depression: Yes - SURGICAL HISTORY Other/Comment: LAPAROSCOPY DUE TO ABD ADHESIONS - ANESTHESIA Hx Anesthesia: Yes Hx Anesthesia Reactions: No Hx Malignant Hyperthermia: No Meds Allergies/Adverse Reactions: Allergies Allergy/AdvReac Type Severity Reaction Status Date / Time acetaminophen [From Percocet] Allergy SWELLING Verified 03/14/18 18:08 Gadolinium-Containing Allergy URTICARIA Verified 03/14/18 18:08 Contrast Medi Iodine and Iodide Containing Allergy RASH Verified 03/14/18 18:08 Produc ketorolac [From Toradol] Allergy URTICARIA Verified 03/14/18 18:08 Latex, Natural Rubber Allergy RASH Verified 03/14/18 18:08 morphine Allergy RASH Verified 03/14/18 18:08 oxycodone HCl [From Percocet] Allergy SWELLING Verified 03/14/18 18:08 shellfish derived Allergy RASH Verified 03/14/18 18:08 shrimp Allergy RASH Verified 03/14/18 18:08 doxycycline AdvReac extreme Verified 06/18/18 18:08 abdominal pain, cramps metronidazole [From Flagyl] AdvReac abdominal Verified 03/14/18 18:08 pain, cramps CONTRAST Allergy Severe URTICARIA Uncoded 03/14/18 18:08 SHRIMPS Allergy Severe RASH Uncoded 03/14/18 18:08 LATEX Allergy Intermediate RASH Uncoded 03/14/18 18:08 Physical Exam - Constitutional Appears: Non-toxic, No Acute Distress - Head Exam Head Exam: ATRAUMATIC, NORMAL INSPECTION, NORMOCEPHALIC - Eye Exam Eye Exam: Normal appearance - ENT Exam ENT Exam: Mucous Membranes Dry - Neck Exam Neck exam: Positive for: Full Rom. Negative for: Tenderness - Respiratory Exam Respiratory Exam: Clear to Auscultation Bilateral. absent: Accessory Muscle Use , Decreased Breath Sounds, Rales, Rhonchi, Wheezes, Respiratory Distress - Cardiovascular Exam Cardiovascular Exam: REGULAR RHYTHM. absent: Tachycardia - GI/Abdominal Exam GI & Abdominal Exam: Normal Bowel Sounds, Soft, Tenderness (RLQ, suprpubic, LLQ) . absent: Distended, Guarding, Rebound, Rigid - Extremities Exam Extremities exam: Positive for: normal inspection. Negative for: calf tenderness - Neurological Exam Neurological exam: Alert, Oriented x3 - Skin Skin Exam: Dry, Intact, Normal Color, Warm Results - Vital Signs Recent Vital Signs: Last Vital Signs Temp 98.9 F 03/14/18 18:08 Pulse 93 H 03/14/18 18:08 Resp 16 03/14/18 18:08 BP 121/82 03/14/18 18:08 Pulse Ox 100 03/15/18 02:32 - Labs Result Diagrams: 03/15/18 00:00 03/15/18 00:42 Labs: Laboratory Results - last 24 hr 03/14/18 03/15/18 03/15/18 23:07 00:00 00:42 WBC 11.9 H RBC 3.49 L Hgb 8.6 L D Hct 27.2 L MCV 77.8 L MCH 24.6 L MCHC 31.6 L RDW 16.6 H Plt Count 686 H D MPV 7.9 Neut % (Auto) 59.9 Lymph % (Auto) 30.8 [place] % (Auto) 6.9 Eos % (Auto) 2.0 Baso % (Auto) 0.4 Neut # (Auto) 7.1 H Lymph # (Auto) 3.7 [place] # (Auto) 0.8 Eos # (Auto) 0.2 Baso # (Auto) 0.1 Sodium 142 142 Potassium 4.5 3.5 L Chloride 105 104 Carbon Dioxide 21 L 25 Anion Gap 21 H 17 BUN 9 9 Creatinine 0.5 L 0.5 L Est GFR ( Amer) > 60 > 60 Est GFR (Non-Af Amer) > 60 > 60 Random Glucose 82 78 Calcium 9.5 9.3 Total Bilirubin 0.9 0.6 AST 40 H D 28 ALT 23 25 Alkaline Phosphatase 88 88 Total Protein 8.2 7.5 Albumin 4.5 4.3 Globulin 3.7 3.2 Albumin/Globulin Ratio 1.2 1.3 Lipase 125 Assessment & Plan - Assessment and Plan (Free Text) Assessment: 33 y/o woman w/ pmh of Crohn's disease, primary sclerosing cholangitis, iron deficiency anemia, bipolar disease, anxiety, GI ulcer, abdominal migraine presents to [facility] ED for abdominal pain. Plan: Abdominal pain, acute on chronic - likely 2/2 to abdominal migraine - 98.9 F, 93 beats/min, 121/82 mm Hg, resp 16, O2 100% room air - CBC: 11.9>8.6/27.2<686 - CMP: 142/3.5, 104/25, 9/0.5, glucose 78, AST 28, ALT 25, alk phos 88 - lipase: 125 - given Dilaudid 1mg for pain x2, zofran and IV fluids - IVF D5 NS KCl 20 meq @ 100 mL/hr - morphine 6 mg IV Q6h prn w/ benadryl 50 mg IV Q6h - zofran 4 mg IV Q6h prn - Protonix 40 mg IV daily - NPO except medications - admit to Med/Surg Anemia, chronic - secondary to iron deficiency Prophalactic measures - DVT lovenox 40 mg SC daily
[2018-03-15] MEDS ORDERED: DiphenhydrAMINE 50 mg/ml Inj IVP PRN (02:50)
[2018-03-15] MEDS: Potassium Chl 20 mEq in D5-NS 1,000 ML IV SCH ×2 (04:38→13:02)
[2018-03-15] MEDS ORDERED: Potassium Chloride 20 mEq ER Tab PO STA (06:53)
[2018-03-15] MEDS ORDERED: Pantoprazole 40 mg EC Tab PO SCH (09:00)
[2018-03-15] MEDS ORDERED: Enoxaparin 40 mg Syringe SC SCH (09:00)
[2018-03-15 09:01] VITALS: BP 128/79; PULSE 92; RESP 20; TEMP 97.8
[2018-03-15 11:39] LABS: SQUAMOUS EPITHIAL 1 /hpf (0-5); URINE BILIRUBIN NEGATIVE (NEGATIVE); URINE BLOOD SMALL (NEGATIVE); URINE CLARITY CLEAR (Clear); URINE COLOR YELLOW (YELLOW); URINE GLUCOSE (UA) NEG (Normal); URINE LEUKOCYTE ESTERASE NEG Leu/uL (Negative); URINE PROTEIN NEGATIVE (NEGATIVE); URINE UROBILINOGEN 0.2-1.0 mg/dL (0.2-1.0)
--- NOTE | 2018-03-15 14:54 | CP.PCM.DIS ---
Provider - Provider Date of Admission: 03/15/18 02:16 Attending physician: Mary Fung MD Primary care physician: Dr. Arshad Consults: None Time Spent in preparation of Discharge (in minutes): 40 Diagnosis - Discharge Diagnosis (1) Abdominal pain Status: Chronic (2) Nausea & vomiting Status: Acute Hospital Course - Lab Results Lab Results: Most Recent Lab Values WBC 11.9 K/uL (4.8-10.8) H 03/15/18 00:00 RBC 3.49 Mil/uL (3.80-5.20) L 03/15/18 00:00 Hgb 8.6 g/dL (12.0-16.0) L D 03/15/18 00:00 Hct 27.2 % (34.0-47.0) L 03/15/18 00:00 MCV 77.8 fl (81.0-99.0) L 03/15/18 00:00 MCH 24.6 pg (27.0-31.0) L 03/15/18 00:00 MCHC 31.6 g/dL (33.0-37.0) L 03/15/18 00:00 RDW 16.6 % (11.5-14.5) H 03/15/18 00:00 Plt Count 686 K/uL (130-400) H D 03/15/18 00:00 MPV 7.9 fl (7.2-11.7) 03/15/18 00:00 Neut % (Auto) 59.9 % (50.0-75.0) 03/15/18 00:00 Lymph % (Auto) 30.8 % (20.0-40.0) 03/15/18 00:00 [place] % (Auto) 6.9 % (0.0-10.0) 03/15/18 00:00 Eos % (Auto) 2.0 % (0.0-4.0) 03/15/18 00:00 Baso % (Auto) 0.4 % (0.0-2.0) 03/15/18 00:00 Neut # (Auto) 7.1 K/uL (1.8-7.0) H 03/15/18 00:00 Lymph # (Auto) 3.7 K/uL (1.0-4.3) 03/15/18 00:00 [place] # (Auto) 0.8 K/uL (0.0-0.8) 03/15/18 00:00 Eos # (Auto) 0.2 K/uL (0.0-0.7) 03/15/18 00:00 Baso # (Auto) 0.1 K/uL (0.0-0.2) 03/15/18 00:00 Sodium 142 mmol/l (132-148) 03/15/18 00:42 Potassium 3.5 MMOL/L (3.6-5.0) L 03/15/18 00:42 Chloride 104 mmol/L (98-107) 03/15/18 00:42 Carbon Dioxide 25 mmol/L (22-30) 03/15/18 00:42 Anion Gap 17 (10-20) 03/15/18 00:42 BUN 9 mg/dl (7-17) 03/15/18 00:42 Creatinine 0.5 mg/dl (0.7-1.2) L 03/15/18 00:42 Est GFR ( Amer) > 60 03/15/18 00:42 Est GFR (Non-Af Amer) > 60 03/15/18 00:42 Random Glucose 78 mg/dL (65-105) 03/15/18 00:42 Calcium 9.3 mg/dL (8.4-10.2) 03/15/18 00:42 Total Bilirubin 0.6 mg/dl (0.2-1.3) 03/15/18 00:42 AST 28 U/L (14-36) 03/15/18 00:42 ALT 25 U/L (9-52) 03/15/18 00:42 Alkaline Phosphatase 88 U/L (38-126) 03/15/18 00:42 Total Protein 7.5 G/DL (6.3-8.2) 03/15/18 00:42 Albumin 4.3 g/dL (3.5-5.0) 03/15/18 00:42 Globulin 3.2 gm/dL (2.2-3.9) 03/15/18 00:42 Albumin/Globulin Ratio 1.3 (1.0-2.1) 03/15/18 00:42 Lipase 125 U/L (23-300) 03/14/18 23:07 Urine Color Yellow (YELLOW) 03/15/18 11:29 Urine Clarity Clear (Clear) 03/15/18 11:29 Urine pH 6.0 (5.0-8.0) 03/15/18 11:29 Ur Specific [place] 1.009 (1.003-1.030) 03/15/18 11:29 Urine Protein Negative mg/dL (NEGATIVE) 03/15/18 11:29 Urine Glucose (UA) Neg mg/dL (Normal) 03/15/18 11:29 Urine Ketones Negative mg/dL (NEGATIVE) 03/15/18 11:29 Urine Blood Small (NEGATIVE) 03/15/18 11:29 Urine Nitrate Negative (NEGATIVE) 03/15/18 11:29 Urine Bilirubin Negative (NEGATIVE) 03/15/18 11:29 Urine Urobilinogen 0.2-1.0 mg/dL (0.2-1.0) 03/15/18 11:29 Ur Leukocyte Esterase Neg Amadeo/uL (Negative) 03/15/18 11:29 Urine RBC (Auto) 2 /hpf (0-3) 03/15/18 11:29 Urine Microscopic WBC 1 /hpf (0-5) 03/15/18 11:29 Ur Squamous Epith Cells 1 /hpf (0-5) 03/15/18 11:29 - Hospital Course Hospital Course: 33 y/o woman w/ pmh of Crohn's disease, primary sclerosing cholangitis, iron deficiency anemia, bipolar disease, anxiety, GI ulcer, abdominal migraine presents to [facility] ED today for abdominal pain, nausea and vomiting. S: Patient seen and examined this morning at bedside, NAD. Patient reports feeling well after pain meds and Zofran. Patient denies any nausea, vomiting, chest pain, dizziness, SOB, urinary symptoms of f/c/v/d/c. O: VS reviewed this morning, Tm 98, HR 89, BP 129/73, 100%RA PE: Normal BS, Non tender abdomen, cardio or neuro exam unremarkable A/P: 33 y/o woman w/ pmh of Crohn's disease, primary sclerosing cholangitis, iron deficiency anemia, bipolar disease, anxiety, GI ulcer, abdominal migraine presents to [facility] ED for abdominal pain, nausea and vomiting. - Patient is stable for the same day discharge - Denies nausea or vomiting, tolerating PO intake - Patient agrees with discharge plan, all the questions were answered - FOllow up with Dr. Arshad/PMD 03/22/18 Discharge Exam - Head Exam Head Exam: ATRAUMATIC, NORMAL INSPECTION, NORMOCEPHALIC Discharge Plan - Follow Up Plan Condition: FAIR Disposition: HOME/ ROUTINE Instructions: Acute Abdomen (Belly Pain), Adult (DC), Nausea and Vomiting, Adult (DC) Additional Instructions: follow up with Dr. Arshad, 03/22/18 at 9 am ER precautions discussed with patient Referrals: [facility] [Outside]
== END 2018-03-15 14:03 | disposition home or self-care (01) | DRG 387 ==
LOC: H.ER 17:38 → H.ERHOLD 03-15 02:16 → H.MEDSURG1 03-15 03:40
PROVIDERS: ADMIT Family Medicine Geriatric Medicine; ATTEND Family Medicine Geriatric Medicine
DX: K50.90 Crohn's disease, unspecified, without complications (principal); G43.D0 Abdominal migraine, not intractable; F31.9 Bipolar disorder, unspecified; D50.9 Iron deficiency anemia, unspecified; G89.29 Other chronic pain; J45.909 Unspecified asthma, uncomplicated; F41.9 Anxiety disorder, unspecified; Z88.6 Allergy status to analgesic agent; Z79.899 Other long term (current) drug therapy; Z87.440 Personal history of urinary (tract) infections; Z87.11 Personal history of peptic ulcer disease

== ENCOUNTER 2018-04-08 21:28 | Emergency (ER) | payer OTHER ==
[2018-04-08 21:28] VITALS: BMI 21.7
[2018-04-08 21:41] VITALS: BP 131/83; PULSE 112; RESP 20; TEMP 98.7; O2SAT 99
[2018-04-08] MEDS ORDERED: Sodium Chloride 0.9% 1,000 ML IV STA (23:10)
[2018-04-08] MEDS ORDERED: DiphenhydrAMINE 50 mg/ml Inj IVP STA (23:11)
[2018-04-08] MEDS ORDERED: methylPREDNISolone 125 MG in Sodium Chloride 0.9% 50 ML IVP STA (23:11)
[2018-04-08] MEDS ORDERED: Magnesium Sulfate 2 gm/50 ml 2 GM/50 ML BAG IVPB ONE (23:11)
[2018-04-08] MEDS ORDERED: DiphenhydrAMINE 50 mg/ml Inj ONE (23:47)
[2018-04-08] MEDS ORDERED: Magnesium Sulfate 2 gm/50 ml 2 GM/50 ML BAG ONE (23:48)
[2018-04-09 00:06] LABS: VENOUS BLOOD GAS BASE EXCESS -0.4 mmol/L (0.0-2.0); VENOUS BLOOD GAS PCO2 46 mmHg (40-60); VENOUS BLOOD GAS PO2 20 mm/Hg (30-55); VENOUS BLOOD PH 7.35 (7.32-7.43)
[2018-04-09 00:34] LABS: BASO # 0.2 K/uL (0.0-0.2); BASO % 1.6 % (0.0-2.0); EOS # 0.4 K/uL (0.0-0.7); EOS % 4.1 % (0.0-4.0); HEMOGLOBIN 10.2 g/dL (12.0-16.0); LYMPH # 1.8 K/uL (1.0-4.3); LYMPH % 18.3 % (20.0-40.0); MEAN CELL VOLUME 76.6 fl (81.0-99.0); MEAN CORPUSCULAR HEMOGLOBIN 24.3 pg (27.0-31.0); MEAN CORPUSCULAR HGB CONC 31.7 g/dL (33.0-37.0); MEAN PLATELET VOLUME 7.2 fl (7.2-11.7); MONO # 0.6 K/uL (0.0-0.8); MONO % 5.7 % (0.0-10.0); NEUT # 6.9 K/uL (1.8-7.0); NEUT % 70.3 % (50.0-75.0); RBC 4.19 Mil/uL (3.80-5.20); WHITE BLOOD COUNT 9.9 K/uL (4.8-10.8)
[2018-04-09 00:48] LABS: ALB/GLOB RATIO 1.2 (1.0-2.1); ALBUMIN 4.6 g/dL (3.5-5.0); ALT/SGPT 24 U/L (9-52); AST/SGOT 53 U/L (14-36); BLOOD UREA NITROGEN 7 mg/dl (7-17); CALCIUM 9.5 mg/dL (8.4-10.2); GFR AFRICAN-AMERICAN > 60; GFR NON-AFRICAN AMERICAN > 60
[2018-04-09 00:51] LABS: SQUAMOUS EPITHIAL 5 /hpf (0-5); URINE BACTERIA OCC (<OCC); URINE BILIRUBIN NEGATIVE (NEGATIVE); URINE BLOOD MODERATE (NEGATIVE); URINE CLARITY CLOUDY (Clear); URINE COLOR YELLOW (YELLOW); URINE GLUCOSE (UA) NEG (Normal); URINE HYALINE CAST 0-2 /hpf (0-2); URINE LEUKOCYTE ESTERASE LARGE Leu/uL (Negative); URINE PROTEIN NEGATIVE (NEGATIVE); URINE UROBILINOGEN 0.2-1.0 mg/dL (0.2-1.0)
--- NOTE | 2018-04-09 01:27 | ED PDOC ---
HPI: Abdomen Time Seen by Provider: 04/08/18 22:34 Chief Complaint (Nursing): Abdominal Pain History Per: Patient Additional Complaint(s): Pt. states since Wednesday she's had RLQ pain associated with multiple episodes of non-bloody, non-bilious vomiting. She's attempted to use Bentyl without any relief. Reports no alleviating or exacerbating factors. Denies diarrhea, fever, hematemesis, chest pain, melena, hematochezia, BRBPR. Against Medical Advice - AMA Patient Left Against Medical Advice: The patient declines admission to the hospital and wishes to leave the Emergency Department. This action is against my medical advice. This decision was made with informed refusal. The patient was told that admission to the hospital is necessary. Explanation of the reasons why were discussed. The risks of leaving were explained to the patient and include, but are not limited to, worsening of known or currently unknown conditions, permanent disability and from undiagnosed or untreated conditions. The patient has the capacity to make this informed decision and understands my explanation of the current medical problem and risks of leaving. The patient voluntarily accepts these risks and signed an AMA form documenting our conversation. The patient was given the opportunity to ask questions and reconsider. The patient was encouraged to return to the Emergency Department at any time for further care. Past Medical History Reviewed: Historical Data, Nursing Documentation, Vital Signs Vital Signs: Last Vital Signs Temp 98.7 F 04/08/18 21:38 Pulse 112 H 04/08/18 21:38 Resp 20 04/09/18 05:33 BP 131/83 04/09/18 05:33 Pulse Ox 99 04/09/18 05:33 - Medical History PMH: Anemia, Anxiety, Asthma, Bipolar Disorder, Crohn's Disease, Depression, Gastrointestinal Ulcer (peptic & gastric), Migraine, Pancreatitis, Chronic Pain (Abdominal) Denies: Chronic Kidney Disease - Surgical History Surgical History: Endoscopy - Family History Family History: States: Diabetes - Immunization History Hx Tetanus Toxoid Vaccination: No Hx Influenza Vaccination: Yes Hx Pneumococcal Vaccination: Yes - Home Medications Home Medications: Ambulatory Orders Medication Instructions Recorded Alprazolam [Xanax] 0.5 mg PO TID PRN #0 tablet 07/15/16 HYDROmorphone [Dilaudid] 2 mg PO Q6 PRN 07/20/17 Tramadol HCl [Tramadol HCl ER] 100 mg PO DAILY 12/28/17 Iron Fumarate/Vit C/Vit B12/FA 1 cap PO DAILY #30 capsule 12/30/17 [Hematogen Forte Softgel] OXcarbazepine [Trileptal] 900 mg PO HS #30 tab 12/30/17 Ondansetron [Zofran Tab] 4 mg PO Q6H PRN #15 tab 12/30/17 Ustekinumab [Stelara] 90 mg SC .[id number] #1 syringe 12/30/17 buPROPion XL [Wellbutrin XL] 300 mg PO DAILY #30 t24 12/30/17 Aripiprazole [Abilify] 15 mg PO HS 03/15/18 Topiramate [Topamax] 50 mg PO DAILY 03/15/18 Ciprofloxacin [Cipro] 500 mg PO BID #14 tab 04/09/18 Ondansetron ODT [Zofran ODT] 4 mg PO TID #20 odt 04/09/18 Metoclopramide [Reglan] 10 mg PO Q6 PRN #12 tab 04/10/18 - Allergies Allergies/Adverse Reactions: Allergies Allergy/AdvReac Type Severity Reaction Status Date / Time acetaminophen [From Percocet] Allergy SWELLING Verified 04/08/18 21:38 Gadolinium-Containing Allergy URTICARIA Verified 04/08/18 21:38 Contrast Medi Iodine and Iodide Containing Allergy RASH Verified 04/08/18 21:38 Produc ketorolac [From Toradol] Allergy URTICARIA Verified 04/08/18 21:38 Latex, Natural Rubber Allergy RASH Verified 04/08/18 21:38 morphine Allergy RASH Verified 04/08/18 21:38 oxycodone HCl [From Percocet] Allergy SWELLING Verified 04/08/18 21:38 shellfish derived Allergy RASH Verified 04/08/18 21:38 shrimp Allergy RASH Verified 04/08/18 21:38 doxycycline AdvReac extreme Verified 04/08/18 21:38 abdominal pain, cramps metronidazole [From Flagyl] AdvReac abdominal Verified 03/14/18 18:08 pain, cramps CONTRAST Allergy Severe URTICARIA Uncoded 03/14/18 18:08 SHRIMPS Allergy Severe RASH Uncoded 03/14/18 18:08 LATEX Allergy Intermediate RASH Uncoded 03/14/18 18:08 Review of Systems ROS Statement: Except As Marked, All Systems Reviewed And Found Negative Gastrointestinal: Positive for: Nausea, Vomiting, Abdominal Pain Physical Exam - Physical Exam Appears: Positive for: Well, Non-toxic, No Acute Distress Skin: Positive for: Normal Color, Warm. Negative for: Rash Eye Exam: Positive for: Normal appearance. Negative for: Scleral icterus Neck: Positive for: Normal, Painless ROM Cardiovascular/Chest: Positive for: Regular Rate, Rhythm. Negative for: Tachycardia Respiratory: Positive for: CNT, Normal Breath Sounds Gastrointestinal/Abdominal: Positive for: Normal Exam, Bowel Sounds, Soft. Negative for: Tenderness, Distended, Guarding, Rebound Back: Positive for: Normal Inspection. Negative for: L CVA Tenderness, R CVA Tenderness Neurologic/Psych: Positive for: Alert, Oriented. Negative for: Aphasia, Facial Droop - Laboratory Results Result Diagrams: 04/09/18 00:26 04/09/18 00:24 - ECG O2 Sat by Pulse Oximetry: 99 - Progress ED Course And Treament: Labs ordered. Pt. given her abdominal migraine cocktail. On re-evaluation, pt. reports no relief in pain. Pt informed that she will require CT abd/pelvis or admission but refused. States she will sign AMA. Also refused Rocephin IV. Disposition - Clinical Impression Clinical Impression: Abdominal pain, UTI (urinary tract infection) - Patient ED Disposition Is Patient to be Admitted: No - Disposition Referrals: Natali Arshad MD [Family Provider] - Disposition: Routine/Home Disposition Time: 01:25 Condition: FAIR Prescriptions: Ciprofloxacin [Cipro] 500 mg PO BID #14 tab Ondansetron ODT [Zofran ODT] 4 mg PO TID #20 odt Instructions: Urinary Tract Infections in Adults, Stomach Ache and Stomach Upset, Leaving Against Medical Advice Forms: [employer] (Slovak) Print Language: KOREAN
== END 2018-04-09 01:30 | disposition left against medical advice (07) ==
LOC: H.ER 21:28
DX: N39.0 Urinary tract infection, site not specified (principal); R10.9 Unspecified abdominal pain; K50.90 Crohn's disease, unspecified, without complications
CPT/HCPCS: 80053; 81003; 81025; 82803; 85025; 87086; 96374; 96375; 99283; J1200; J2405; J2930; J7030

== ENCOUNTER 2018-04-09 20:14 | Emergency (ER) | payer OTHER ==
[2018-04-09 20:14] VITALS: BMI 21.7
[2018-04-09 20:21] VITALS: O2SAT 100
[2018-04-09] MEDS ORDERED: Iohexol 240 (50 ml) PO ONE (21:14)
[2018-04-09] MEDS ORDERED: Sodium Chloride 0.9% 1,000 ML IV STA (21:14)
--- NOTE | 2018-04-09 22:06 | ED PDOC ---
HPI: Abdomen History Per: Patient History/Exam Limitations: no limitations Onset/Duration Of Symptoms: Days (6) Current Symptoms Are (Timing): Still Present Pain Scale Rating Of: 10 Location Of Pain/Discomfort: Other (right sided ) Quality Of Discomfort: Sharp, Cramping Associated Symptoms: Nausea, Vomiting, Back Pain. denies: Diarrhea, Loss Of Appetite, Constipation Exacerbating Factors: Food Alleviating Factors: None Last Bowel Movement: Today (soft formed stool, no changes.) Additional History Per: Patient <Chris Velazco - Last Filed: 04/10/18 04:41> <Pranav Belcher - Last Filed: 04/10/18 04:57> Time Seen by Provider: 04/09/18 20:31 Chief Complaint (Nursing): Abdominal Pain Additional Complaint(s): 33 year old female presented to ED for evaluation of abdominal pain. Seen in ED earlier today, signed out AMA refusing CT of Abdomen. She presents again do to persistent nausea, vomiting and abdominal pain despite bentyl and zofran she was taking at home. Her abdominal pain is right sided in upper and lower quadrants. Pain is 10/10 in severity and is sharp and crampy in nature. Vomiting x 4 today but has been ongoing since Wednesday. She has appetite but is afraid to eat. Feels like this is her Crohns flaring up possibly due to viral infection. She denies fevers, chills, sweats, diarrhea/constipation muscle aches. Pt recently saw her GI and had some stool tests done. She is on stellara and bentyl for her crohns. She is amenable to doing CT of abdomen with PO contrast only as she is allergic to IV contrast. Allergies reviewed. PMD: Dr. Arshad (Chris Velazco) Supervising Attending Note - Supervising Attending Note The Documented history was done by the: Physician Timber Feller The documented physical exam was done by the: Physician Timber Feller - Attestation: I have personally seen and examined this patient.: Yes I have fully participated in the care of the patient.: Yes I have reviewed all pertinent clinical information: Yes <Pranav Belcher - Last Filed: 04/10/18 04:57> Past Medical History - Medical History PMH: Anemia, Anxiety, Asthma, Bipolar Disorder, Crohn's Disease, Depression, Gastrointestinal Ulcer (peptic & gastric), Migraine, Pancreatitis, Chronic Pain (Abdominal) Denies: Chronic Kidney Disease - Surgical History Surgical History: Endoscopy - Family History Family History: States: Unknown Family Hx, Diabetes - Immunization History Hx Tetanus Toxoid Vaccination: No Hx Influenza Vaccination: Yes Hx Pneumococcal Vaccination: Yes <VelazcoChris - Last Filed: 04/10/18 04:41> <KeleleanorPranav Shine - Last Filed: 04/10/18 04:57> Vital Signs: Last Vital Signs Temp 98.5 F 04/10/18 04:32 Pulse 91 H 04/10/18 04:32 Resp 18 04/10/18 04:32 BP 116/70 04/10/18 04:32 Pulse Ox 100 04/10/18 04:45 - Home Medications Home Medications: Ambulatory Orders Medication Instructions Recorded Alprazolam [Xanax] 0.5 mg PO TID PRN #0 tablet 07/15/16 HYDROmorphone [Dilaudid] 2 mg PO Q6 PRN 07/20/17 Tramadol HCl [Tramadol HCl ER] 100 mg PO DAILY 12/28/17 Iron Fumarate/Vit C/Vit B12/FA 1 cap PO DAILY #30 capsule 12/30/17 [Hematogen Forte Softgel] OXcarbazepine [Trileptal] 900 mg PO HS #30 tab 12/30/17 Ondansetron [Zofran Tab] 4 mg PO Q6H PRN #15 tab 12/30/17 Ustekinumab [Stelara] 90 mg SC .[id number] #1 syringe 12/30/17 buPROPion XL [Wellbutrin XL] 300 mg PO DAILY #30 t24 12/30/17 Aripiprazole [Abilify] 15 mg PO HS 03/15/18 Topiramate [Topamax] 50 mg PO DAILY 03/15/18 Ciprofloxacin [Cipro] 500 mg PO BID #14 tab 04/09/18 Ondansetron ODT [Zofran ODT] 4 mg PO TID #20 odt 04/09/18 Metoclopramide [Reglan] 10 mg PO Q6 PRN #12 tab 04/10/18 - Allergies Allergies/Adverse Reactions: Allergies Allergy/AdvReac Type Severity Reaction Status Date / Time acetaminophen [From Percocet] Allergy SWELLING Verified 04/08/18 21:38 Gadolinium-Containing Allergy URTICARIA Verified 04/08/18 21:38 Contrast Medi Iodine and Iodide Containing Allergy RASH Verified 04/08/18 21:38 Produc ketorolac [From Toradol] Allergy URTICARIA Verified 04/08/18 21:38 Latex, Natural Rubber Allergy RASH Verified 04/08/18 21:38 morphine Allergy RASH Verified 04/08/18 21:38 oxycodone HCl [From Percocet] Allergy SWELLING Verified 04/08/18 21:38 shellfish derived Allergy RASH Verified 04/08/18 21:38 shrimp Allergy RASH Verified 04/08/18 21:38 doxycycline AdvReac extreme Verified 04/08/18 21:38 abdominal pain, cramps metronidazole [From Flagyl] AdvReac abdominal Verified 03/14/18 18:08 pain, cramps CONTRAST Allergy Severe URTICARIA Uncoded 03/14/18 18:08 SHRIMPS Allergy Severe RASH Uncoded 03/14/18 18:08 LATEX Allergy Intermediate RASH Uncoded 03/14/18 18:08 Review of Systems Constitutional: Negative for: Fever, Chills, Sweats Cardiovascular: Negative for: Chest Pain Respiratory: Negative for: Cough, Shortness of Breath Gastrointestinal: Positive for: Nausea, Vomiting, Abdominal Pain. Negative for : Diarrhea, Constipation Genitourinary Female: Negative for: Dysuria, Hematuria Musculoskeletal: Positive for: Back Pain Skin: Negative for: Rash Neurological: Negative for: Altered Mental Status <Chris Velazco - Last Filed: 04/10/18 04:41> Physical Exam - Physical Exam Appears: Positive for: Uncomfortable Head Exam: Positive for: ATRAUMATIC, NORMAL INSPECTION, NORMOCEPHALIC Skin: Positive for: Normal Color, Warm, DRY Eye Exam: Positive for: EOMI, Normal appearance, PERRL Cardiovascular/Chest: Positive for: Regular Rate, Rhythm, Tachycardia. Negative for: Murmur Respiratory: Positive for: Normal Breath Sounds. Negative for: Respiratory Distress Gastrointestinal/Abdominal: Positive for: Tenderness (diffusely, +psoas, neg rovsing). Negative for: Bowel Sounds, Distended Back: Positive for: Normal Inspection. 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 Tenderness of right abdomen, rule out appendicitis. --CBC --CMP --Lipase --CT ABD/PELVIS WITH PO CONTRAST ONLY (PT ALLERGIC TO IV CONTRAST) --REGLAN Case d/w Dr. Belcher. TIME 2300 :Reeval : Patient sleeping in bed. Labs: WBC 12.7, H.8 Plts: 946, K+: 3.5, Alk Phos: 135 CT ABD/PELVIS: FINDINGS: Lung bases: The visualized portions of the lung bases are normal. ABDOMEN: Liver: The liver is normal in appearance. Gallbladder and bile ducts: The gallbladder is normal. No calcified stones. No ductal dilation. Pancreas: The pancreas is normal. No ductal dilation. Spleen: The spleen is normal. Adrenals: The adrenal glands are normal. Kidneys and ureters: The kidneys are normal. The ureters are normal. No hydronephrosis. Stomach and bowel: Contrast is present within the stomach, distal small bowel, and proximal large bowel. Normal caliber small and large bowel. No evident stenosis or wall thickening. PELVIS: Appendix: A normal appendix is identified. Bladder: The bladder is normal. Reproductive: The uterus is normal. Normal appearance of the adnexa. ABDOMEN and PELVIS: Intraperitoneal space: Normal. No free air. No significant fluid collection. Bones/joints: Mild lumbar spondylosis at L4-5. No acute osseous abnormality. No dislocation. Soft tissues: Normal. Vasculature: Evaluation of the abdominal vasculature is limited by the lack of intravenous contrast. No abdominal aortic aneurysm. Lymph nodes: Normal. No enlarged lymph nodes. IMPRESSION: No acute abdominopelvic abnormality TIME: 4:15AM Assessment: Pt received solumedrol during visit yesterday and is likely cause of leukocytosis, however she does have UTI and this may be cause as well. Her anemia is chronic.Thrombocythemia is chronic, and at this time above her base line likely due to underlying UTI. Hypokalemia due to vomiting. Patients symptoms likely secondary to Crohns in the setting of UTI. It is possible that the UTI exacerbated her Cronh's disease. She was rx Cipro last ED visit which she can continue. Reeval: Patient no longer vomiting. Sleeping in bed. I have discussed the results of CT scan with the patient. Will give rx for Reglan, she can d/c Zofran. She is to follow up with her GI Wednesday. (Chris Velazco) Disposition - Disposition Disposition: Routine/Home Disposition Time: 04:45 <Chris Velazco - Last Filed: 04/10/18 04:41> <Pranav Belcher - Last Filed: 04/10/18 04:57> - Clinical Impression Clinical Impression: Abdominal pain - Disposition Condition: STABLE Prescriptions: Metoclopramide [Reglan] 10 mg PO Q6 PRN #12 tab PRN Reason: Nausea/Vomiting Instructions: Stomach Ache and Stomach Upset Forms: [employer] (Iraqi)
[2018-04-09 23:24] LABS: BASO # 0.2 K/uL (0.0-0.2); BASO % 1.2 % (0.0-2.0); HEMOGLOBIN 9.8 g/dL (12.0-16.0); LYMPH # 4.3 K/uL (1.0-4.3); LYMPH % 34.2 % (20.0-40.0); MEAN CELL VOLUME 76.8 fl (81.0-99.0); MEAN CORPUSCULAR HEMOGLOBIN 24.4 pg (27.0-31.0); MEAN CORPUSCULAR HGB CONC 31.8 g/dL (33.0-37.0); MEAN PLATELET VOLUME 7.4 fl (7.2-11.7); MONO # 1.2 K/uL (0.0-0.8); MONO % 9.9 % (0.0-10.0); NEUT # 6.9 K/uL (1.8-7.0); NEUT % 54.7 % (50.0-75.0); NRBC % 0.1 % (0.0-0.0); RBC 4.01 Mil/uL (3.80-5.20); RED CELL DISTRIBUTION WIDTH 17.5 % (11.5-14.5); WHITE BLOOD COUNT 12.7 K/uL (4.8-10.8)
[2018-04-09] MEDS ORDERED: Iohexol 240 (50 ml) ONE (23:39)
[2018-04-10 00:55] LABS: ALB/GLOB RATIO 1.2 (1.0-2.1); ALBUMIN 4.2 g/dL (3.5-5.0); ALT/SGPT 21 U/L (9-52); AST/SGOT 19 U/L (14-36); BLOOD UREA NITROGEN 9 mg/dl (7-17); CALCIUM 8.6 mg/dL (8.4-10.2); GFR AFRICAN-AMERICAN > 60; GFR NON-AFRICAN AMERICAN > 60; LIPASE 276 U/L (23-300)
[2018-04-10 04:10] VITALS: BP 116/70; PULSE 91; RESP 18; TEMP 98.5
--- NOTE | 2018-04-10 13:29 | CT ---
Date of service: 04/10/2018 PROCEDURE: CT Abdomen and Pelvis with Oral contrast. HISTORY: History of Crohn's disease, abdominal pain, nausea, vomiting COMPARISON: Comparison made with CT abdomen pelvis 07/08/2023 TECHNIQUE: Contiguous axial images of the abdomen and pelvis. Oral contrast was administered. No IV contrast given. Coronal and Sagittal reformats generated. Radiation dose: Total exam DLP = mGy-cm. This CT exam was performed using one or more of the following dose reduction techniques: Automated exposure control, adjustment of the mA and/or kV according to patient size, and/or use of iterative reconstruction technique. Radiation dose: Total exam DLP = 363.85 mGy-cm. FINDINGS: LOWER THORAX: Unremarkable. LIVER: Unremarkable. No gross lesion or ductal dilatation. GALLBLADDER AND BILE DUCTS: Unremarkable. PANCREAS: Unremarkable. No mass. No ductal dilatation. SPLEEN: Unremarkable. No splenomegaly. ADRENALS: Unremarkable. KIDNEYS AND URETERS: Unremarkable. No stone or hydronephrosis. BLADDER: Grossly unremarkable. REPRODUCTIVE: Unremarkable. APPENDIX: Unremarkable. BOWEL: Unremarkable. No obstruction. No gross mural thickening. PERITONEUM: Unremarkable. No fluid collection. No free air. LYMPH NODES: Unremarkable. No enlarged lymph nodes. VASCULATURE: Unremarkable. No aortic aneurysm. BONES: No fracture or destructive lesion. OTHER FINDINGS: None. IMPRESSION:
== END 2018-04-10 04:30 | disposition home or self-care (01) ==
LOC: H.ER 20:14
DX: R10.9 Unspecified abdominal pain (principal)
CPT/HCPCS: 74176; 80053; 81025; 83690; 85025; 85651; 96361; 96374; 99284; J2765; J7030

== ENCOUNTER 2018-04-21 20:04 | Emergency (ER) | payer OTHER ==
[2018-04-21 20:04] VITALS: BMI 21.7
[2018-04-21 20:12] VITALS: RESP 18; O2SAT 100
[2018-04-21] MEDS ORDERED: DiphenhydrAMINE 50 mg/ml Inj IVP STA (20:53)
[2018-04-21] MEDS ORDERED: Sodium Chloride 0.9% 1,000 ML IV STA (20:53)
[2018-04-21] MEDS ORDERED: methylPREDNISolone 125 MG in Sodium Chloride 0.9% 50 ML IV STA (20:54)
[2018-04-21] MEDS ORDERED: Magnesium Sulfate 1 GM in Dextrose 5% In Water 100 ML IVPB SCH (20:55)
[2018-04-21] MEDS: Magnesium Sulfate 1 GM in Dextrose 5% In Water 100 ML IVPB SCH ×2 (22:16→22:45)
--- NOTE | 2018-04-21 22:17 | ED PDOC ---
HPI: Abdomen Time Seen by Provider: 04/21/18 20:24 Chief Complaint (Nursing): Abdominal Pain Chief Complaint (Provider): Abdomnial Pain History Per: Patient History/Exam Limitations: no limitations Onset/Duration Of Symptoms: Days (x4) Current Symptoms Are (Timing): Still Present Additional Complaint(s): 33 y/o female well known to ER with a PMHx of Crohns disease and chronic intermittent nausea and abdominal pain presenting for evaluation of abdominal pain x4 days associated with nausea and vomiting. Patient states the nausea precipitated her other symptoms because she couldnt take her Dilaudid 2mg and Tramdol. States the pain and nausea continued because she couldnt tolerate PO. She denies any diarrhea. Patient reports 2 exploratory laparotomies due to adhesions in 2011 and 2012. Patient reports a follow up appointment with GI Dr. Louis on Wednesday and a scheduled pain management appointment tomorrow with Dr. Vázquez. Denies fever, chills, chest pain, SOB, back pain or urinary symptoms. Past Medical History Reviewed: Historical Data, Nursing Documentation, Vital Signs Vital Signs: Last Vital Signs Temp 98.8 F 04/21/18 20:09 Pulse 81 04/21/18 20:09 Resp 18 04/21/18 20:09 BP 124/83 04/21/18 20:09 Pulse Ox 100 04/21/18 23:35 - Medical History PMH: Anemia, Anxiety, Asthma, Bipolar Disorder, Crohn's Disease, Depression, Gastrointestinal Ulcer (peptic & gastric), Migraine, Pancreatitis, Chronic Pain (Abdominal) Denies: Chronic Kidney Disease - Surgical History Surgical History: Endoscopy - Family History Family History: States: Unknown Family Hx, Diabetes - Immunization History Hx Tetanus Toxoid Vaccination: No Hx Influenza Vaccination: Yes Hx Pneumococcal Vaccination: Yes - Home Medications Home Medications: Ambulatory Orders Medication Instructions Recorded Alprazolam [Xanax] 0.5 mg PO TID PRN #0 tablet 07/15/16 HYDROmorphone [Dilaudid] 2 mg PO Q6 PRN 07/20/17 Tramadol HCl [Tramadol HCl ER] 100 mg PO DAILY 12/28/17 Iron Fumarate/Vit C/Vit B12/FA 1 cap PO DAILY #30 capsule 12/30/17 [Hematogen Forte Softgel] OXcarbazepine [Trileptal] 900 mg PO HS #30 tab 12/30/17 Ondansetron [Zofran Tab] 4 mg PO Q6H PRN #15 tab 12/30/17 Ustekinumab [Stelara] 90 mg SC .[id number] #1 syringe 12/30/17 buPROPion XL [Wellbutrin XL] 300 mg PO DAILY #30 t24 12/30/17 Aripiprazole [Abilify] 15 mg PO HS 03/15/18 Topiramate [Topamax] 50 mg PO DAILY 03/15/18 Ciprofloxacin [Cipro] 500 mg PO BID #14 tab 04/09/18 Ondansetron ODT [Zofran ODT] 4 mg PO TID #20 odt 04/09/18 Metoclopramide [Reglan] 10 mg PO Q6 PRN #12 tab 04/10/18 - Allergies Allergies/Adverse Reactions: Allergies Allergy/AdvReac Type Severity Reaction Status Date / Time acetaminophen [From Percocet] Allergy SWELLING Verified 04/21/18 20:13 Gadolinium-Containing Allergy URTICARIA Verified 04/21/18 20:13 Contrast Medi Iodine and Iodide Containing Allergy RASH Verified 04/21/18 20:13 Produc ketorolac [From Toradol] Allergy URTICARIA Verified 04/21/18 20:13 Latex, Natural Rubber Allergy RASH Verified 04/21/18 20:13 morphine Allergy RASH Verified 04/21/18 20:13 oxycodone HCl [From Percocet] Allergy SWELLING Verified 04/21/18 20:13 shellfish derived Allergy RASH Verified 04/21/18 20:13 shrimp Allergy RASH Verified 04/21/18 20:13 doxycycline AdvReac extreme Verified 04/21/18 20:13 abdominal pain, cramps metronidazole [From Flagyl] AdvReac abdominal Verified 04/21/18 20:13 pain, cramps CONTRAST Allergy Severe URTICARIA Uncoded 04/21/18 20:13 SHRIMPS Allergy Severe RASH Uncoded 04/21/18 20:13 LATEX Allergy Intermediate RASH Uncoded 04/21/18 20:13 Review of Systems ROS Statement: Except As Marked, All Systems Reviewed And Found Negative Gastrointestinal: Positive for: Nausea, Vomiting, Abdominal Pain. Negative for : Diarrhea Physical Exam - Reviewed Nursing Documentation Reviewed: Yes Vital Signs Reviewed: Yes - Physical Exam Comments: GENERAL APPEARANCE: Patient is awake, alert, oriented x 3, in no painful distress. SKIN: Warm, dry; (-) cyanosis. EYES: (-) conjunctival pallor, (-) scleral icterus. ENMT: Mucous membranes dry. NECK: (-) tenderness, (-) stiffness, (-) lymphadenopathy. CHEST AND RESPIRATORY: (-) rales, (-) rhonchi, (-) wheezes; breath sounds equal bilaterally. HEART AND CARDIOVASCULAR: (-) irregularity; (-) murmur, (-) gallop. ABDOMEN AND GI: (-) distention. Bowel sounds active; (+) mild mid abdominal tenderness to deep palpation, (-) guarding, (-) rebound, (-) palpable masses, (- ) CVA tenderness. EXTREMITIES: (-) deformity, (-) edema, (+) distal pulses. NEURO AND PSYCH: Mental status as above; (-) focal findings. - Laboratory Results Result Diagrams: 04/21/18 22:18 04/21/18 22:18 - ECG O2 Sat by Pulse Oximetry: 100 (RA) Pulse Ox Interpretation: Normal Medical Decision Making Medical Decision Making: Previous medical records reviewed. Patient seen on 04/08 and 04/09 for abdominal pain and nausea. Patient signed out AMA on 04/08 and returned and had CT abd which was WNL on 04/09. Of note, during her visit on 04/09/18 her labs : hgb 9.8/ hct 30.8 plt 976, UA : +large leuks, +wbcs, urine cx showed no growth. 20:53 Plan: -CMP -Lipase -Urine dipstick -CBC w/ differential -Benadryl 50mg IVP -Magnesium Sulfate 1gm/100ml -1LNS -Solu-Medrol 125mg/50ml -Zofran 8 mg IV -IV insertion -Urine -Reevaluation Patient medicated with her abdominal pain migraine cocktail. [facility] [place] Udip : +large leuks, repeat urine culture ordered and sent Labs reviewed : wbc wnl, hgb 9.7/hct 31.3, plt 635, K 3.2. On re-evaluation, patient reports improvement of symptoms, denies any nausea. On exam, patient remains AAOx3, in no acute distress. Abdomen soft, non-tender. Patient able to tolerate po. Diagnostic results d/w the patient in great detail. Based on history, exam and diagnostic results, plan will be for outpatient follow up. Patient instructed to follow-up with her GI and pain management doctor in 1-2 days without fail. Return to the emergency room at any time for any new or worsening symptoms. Patient states she fully agrees with and understands discharge instructions. States that she agrees with the plan and disposition. Verbalized and repeated discharge instructions and plan. I have given the patient opportunity to ask any additional questions. Scribe Attestation: Documented by Romain Eddy, acting as a scribe for Precious Moreno PA-C. Provider Scribe Attestation: All medical record entries made by the Scribe were at my direction and personally dictated by me. I have reviewed the chart and agree that the record accurately reflects my personal performance of the history, physical exam, medical decision making, and the department course for this patient. I have also personally directed, reviewed, and agree with the discharge instructions and disposition. Disposition - Clinical Impression Clinical Impression: Abdominal pain, Vomiting - Patient ED Disposition Is Patient to be Admitted: No Counseled Patient/Family Regarding: Studies Performed, Diagnosis, Need For Followup - Disposition Disposition: Routine/Home Disposition Time: 23:30 Condition: STABLE Additional Instructions: Thank you for letting us take care of you today. You were treated for abdominal pain, vomiting. The emergency medical care you received today was directed towards the acute presenting symptoms. Return to the Emergency Department at any time if symptoms worsen, do not improve, or if any other problems arise. Please contact your doctor in 2 days for re-evaluation and follow up. Bring any paperwork you were given at discharge with you along with any medications to your follow up visit. Our treatment cannot replace ongoing medical care by a primary care provider (PCP) outside of the emergency department. Thank you for allowing the [facility] team to be part of your care today. Instructions: Acute Abdomen (Belly Pain), Adult (DC), Nausea and Vomiting, Adult (DC) Forms: [employer] (Canadian)
[2018-04-21 22:30] LABS: BASO % 0.3 % (0.0-2.0); EOS # 0.2 K/uL (0.0-0.7); EOS % 2.3 % (0.0-4.0); HEMOGLOBIN 9.7 g/dL (12.0-16.0); LYMPH # 2.7 K/uL (1.0-4.3); LYMPH % 26.3 % (20.0-40.0); MEAN CELL VOLUME 76.8 fl (81.0-99.0); MEAN CORPUSCULAR HEMOGLOBIN 23.8 pg (27.0-31.0); MEAN PLATELET VOLUME 7.5 fl (7.2-11.7); MONO # 0.9 K/uL (0.0-0.8); MONO % 9.1 % (0.0-10.0); NEUT # 6.3 K/uL (1.8-7.0); RBC 4.07 Mil/uL (3.80-5.20); RED CELL DISTRIBUTION WIDTH 18.1 % (11.5-14.5); WHITE BLOOD COUNT 10.2 K/uL (4.8-10.8)
[2018-04-21 22:40] LABS: ALB/GLOB RATIO 1.3 (1.0-2.1); ALT/SGPT 26 U/L (9-52); AST/SGOT 33 U/L (14-36); BLOOD UREA NITROGEN 6 mg/dl (7-17); CALCIUM 9.2 mg/dL (8.4-10.2); GFR NON-AFRICAN AMERICAN > 60; LIPASE 84 U/L (23-300)
[2018-04-21] MEDS ORDERED: Potassium Chloride 20 mEq ER Tab PO ONE ×2 (22:53→23:29)
[2018-04-22 06:10] VITALS: BP 124/84; PULSE 74; TEMP 98.7
== END 2018-04-21 23:55 | disposition home or self-care (01) ==
LOC: H.ER 20:04
DX: K50.90 Crohn's disease, unspecified, without complications (principal); K85.90 Acute pancreatitis without necrosis or infection, unspecified; F31.9 Bipolar disorder, unspecified; F41.9 Anxiety disorder, unspecified; G89.29 Other chronic pain; Z88.5 Allergy status to narcotic agent
CPT/HCPCS: 80053; 81025; 83690; 85025; 96374; 96375; 96376; 99283; J1200; J2405; J2930; J3475

== ENCOUNTER 2018-06-15 10:03 | Emergency (ER) | payer OTHER ==
[2018-06-15 10:12] VITALS: BMI 21.1
[2018-06-15] MEDS ORDERED: Sodium Chloride 0.9% 1,000 ML IV STA (10:45)
[2018-06-15] MEDS ORDERED: DiphenhydrAMINE 50 mg/ml Inj IVP STA (10:46)
--- NOTE | 2018-06-15 11:13 | ED PDOC ---
HPI: Abdomen Time Seen by Provider: 06/15/18 10:30 Chief Complaint (Nursing): Abdominal Pain History Per: Patient Additional Complaint(s): Pt. states for the past week she's had R sided abdominal pain associated with multiple episodes of non-bloody vomiting unrelieved with Zofran PO. Last BM was today and was normal and non-bloody. Denies fever, hematemesis, melena, hematochezia, BRBPR, post-prandial pain, headache, diarrhea, weakness. Past Medical History Reviewed: Historical Data, Nursing Documentation, Vital Signs Vital Signs: Last Vital Signs Temp 98.3 F 06/15/18 13:34 Pulse 89 06/15/18 13:34 Resp 22 06/15/18 13:34 BP 125/82 06/15/18 13:34 Pulse Ox 99 06/15/18 13:34 - Medical History PMH: Anemia, Anxiety, Asthma, Bipolar Disorder, Crohn's Disease, Depression, Gastrointestinal Ulcer (peptic & gastric), Migraine, Pancreatitis, Chronic Pain (Abdominal) Denies: Chronic Kidney Disease - Surgical History Surgical History: Endoscopy Denies: Appendectomy, Cholecystectomy - Family History Family History: States: Diabetes - Immunization History Hx Tetanus Toxoid Vaccination: No Hx Influenza Vaccination: Yes Hx Pneumococcal Vaccination: Yes - Home Medications Home Medications: Ambulatory Orders Medication Instructions Recorded Alprazolam [Xanax] 0.5 mg PO TID PRN #0 tablet 07/15/16 HYDROmorphone [Dilaudid] 2 mg PO Q6 PRN 07/20/17 Tramadol HCl [Tramadol HCl ER] 100 mg PO DAILY 12/28/17 Iron Fumarate/Vit C/Vit B12/FA 1 cap PO DAILY #30 capsule 12/30/17 [Hematogen Forte Softgel] OXcarbazepine [Trileptal] 900 mg PO HS #30 tab 12/30/17 Ondansetron [Zofran Tab] 4 mg PO Q6H PRN #15 tab 12/30/17 Ustekinumab [Stelara] 90 mg SC .[id number] #1 syringe 12/30/17 buPROPion XL [Wellbutrin XL] 300 mg PO DAILY #30 t24 12/30/17 Aripiprazole [Abilify] 15 mg PO HS 03/15/18 Topiramate [Topamax] 50 mg PO DAILY 03/15/18 Ciprofloxacin [Cipro] 500 mg PO BID #14 tab 04/09/18 Ondansetron ODT [Zofran ODT] 4 mg PO TID #20 odt 04/09/18 Metoclopramide [Reglan] 10 mg PO Q6 PRN #12 tab 04/10/18 Metoclopramide [Reglan] 10 mg PO TID PRN #15 tab 06/15/18 Nitrofurantoin Macrocrystals 100 mg PO BID #14 cap 06/15/18 [Macrobid] - Allergies Allergies/Adverse Reactions: Allergies Allergy/AdvReac Type Severity Reaction Status Date / Time acetaminophen [From Percocet] Allergy SWELLING Verified 06/15/18 10:29 Gadolinium-Containing Allergy URTICARIA Verified 06/15/18 10:29 Contrast Medi Iodine and Iodide Containing Allergy RASH Verified 06/15/18 10:29 Produc ketorolac [From Toradol] Allergy URTICARIA Verified 06/15/18 10:29 Latex, Natural Rubber Allergy RASH Verified 06/15/18 10:29 morphine Allergy RASH Verified 06/15/18 10:29 oxycodone HCl [From Percocet] Allergy SWELLING Verified 06/15/18 10:29 shellfish derived Allergy RASH Verified 06/15/18 10:29 shrimp Allergy RASH Verified 06/15/18 10:29 doxycycline AdvReac extreme Verified 06/15/18 10:29 abdominal pain, cramps metronidazole [From Flagyl] AdvReac abdominal Verified 06/15/18 10:29 pain, cramps CONTRAST Allergy Severe URTICARIA Uncoded 06/15/18 10:29 SHRIMPS Allergy Severe RASH Uncoded 06/15/18 10:29 LATEX Allergy Intermediate RASH Uncoded 06/15/18 10:29 Review of Systems ROS Statement: Except As Marked, All Systems Reviewed And Found Negative Cardiovascular: Negative for: Chest Pain, Palpitations Respiratory: Negative for: Shortness of Breath Gastrointestinal: Positive for: Nausea, Vomiting, Abdominal Pain Physical Exam - Physical Exam Appears: Positive for: Well, Non-toxic, No Acute Distress Skin: Positive for: Normal Color, Warm. Negative for: Rash Eye Exam: Positive for: Normal appearance, EOMI, PERRL. Negative for: Scleral icterus Cardiovascular/Chest: Negative for: Tachycardia Respiratory: Positive for: Normal Breath Sounds. Negative for: Respiratory Distress Gastrointestinal/Abdominal: Positive for: Normal Exam, Soft, Tenderness (mild R sided abdominal tenderness without guarding), Other (Negative Morris's, Negative Psoas sign). Negative for: Distended, Guarding Back: Positive for: Normal Inspection. Negative for: L CVA Tenderness, R CVA Tenderness Neurologic/Psych: Positive for: Alert, Oriented (x3) - Laboratory Results Result Diagrams: 06/15/18 11:05 06/15/18 11:05 - ECG ECG: Positive for: Interpreted By Me ECG Rhythm: Positive for: Sinus Tachycardia. Negative for: ST/T Changes Rate: 104 O2 Sat by Pulse Oximetry: 98 - Progress ED Course And Treament: Labs, EKG, Abd US, IV reglan 10mg, benadryl 50mg IV, IV NS bolus x 1 ordered. Abd US: No evidence of cholelithiasis or biliary dilatation. The appendix is not visualized. Please note nonvisualization of the appendix does not exclude acute appendicitis Pt. reports pain has improved but nausea is still present but states she has not had any vomiting. Tolerated PO in ED. Offered CT but pt. refused. Prefers to take oral antibiotics for UTI. Disposition - Clinical Impression Clinical Impression: UTI (urinary tract infection) - Patient ED Disposition Is Patient to be Admitted: No - Disposition Referrals: [facility] [Outside] [facility] [Outside] Disposition: Routine/Home Disposition Time: 13:23 Condition: STABLE Additional Instructions: ZAYRA CHRISTIANSON, thank you for letting us take care of you today. Your provider was Zak Cooper III, DO and you were treated for ABD PAIN,NAUSEA, VOMITING. The emergency medical care you received today was directed at your acute symptoms. If you were prescribed any medication, please fill it and take as directed. It may take several days for your symptoms to resolve. Return to the Emergency Department if your symptoms worsen, do not improve, or if you have any other problems. Please contact your doctor or call one of the physicians/clinics you have been referred to that are listed on the Patient Visit Information form that is included in your discharge packet. Bring any paperwork you were given at discharge with you along with any medications you are taking to your follow up visit. Our treatment cannot replace ongoing medical care by a primary care provider outside of the emergency department. Thank you for allowing the [facility] team to be part of your care today. If you had an X-Ray or CT scan: A Radiologist will review the ED reading if any change in treatment is needed we will contact you. If you had a blood, urine, or wound culture: It will take several days for the results, if any change in treatment is needed we will contact you. If you had an STI test: It will take 48 hours for the results. Please call after 1 week if you have not heard back. Prescriptions: Metoclopramide [Reglan] 10 mg PO TID PRN #15 tab PRN Reason: nausea and vomiting Nitrofurantoin Macrocrystals [Macrobid] 100 mg PO BID #14 cap Instructions: Urinary Tract Infection, Adult (DC), Nausea and Vomiting, Adult ( DC) Forms: [employer] (Hebrew) Print Language: LATVIAN
[2018-06-15 11:17] LABS: VENOUS BLOOD GAS BASE EXCESS 1.7 mmol/L (0.0-2.0); VENOUS BLOOD GAS PCO2 45 mmHg (40-60); VENOUS BLOOD GAS PO2 21 mm/Hg (30-55); VENOUS BLOOD PH 7.39 (7.32-7.43)
[2018-06-15 11:23] LABS: BASO # 0.1 K/uL (0.0-0.2); BASO % 1.1 % (0.0-2.0); EOS # 0.1 K/uL (0.0-0.7); EOS % 1.1 % (0.0-4.0); HEMOGLOBIN 11.3 g/dL (12.0-16.0); LYMPH # 1.6 K/uL (1.0-4.3); LYMPH % 16.5 % (20.0-40.0); MEAN CELL VOLUME 73.1 fl (81.0-99.0); MEAN CORPUSCULAR HGB CONC 32.9 g/dL (33.0-37.0); MEAN PLATELET VOLUME 7.8 fl (7.2-11.7); MONO # 0.5 K/uL (0.0-0.8); NEUT # 7.5 K/uL (1.8-7.0); NEUT % 76.3 % (50.0-75.0); RBC 4.71 Mil/uL (3.80-5.20); RED CELL DISTRIBUTION WIDTH 17.5 % (11.5-14.5); WHITE BLOOD COUNT 9.9 K/uL (4.8-10.8)
[2018-06-15 11:27] LABS: INR 1.2; PROTHROMBIN TIME 13.5 Seconds (9.8-13.1)
[2018-06-15 11:29] LABS: PARTIAL THROMBOPLASTIN TIME 29.2 Seconds (25.6-37.1)
[2018-06-15 11:30] LABS: ALB/GLOB RATIO 1.3 (1.0-2.1); ALBUMIN 4.5 g/dL (3.5-5.0); ALT/SGPT 30 U/L (9-52); AST/SGOT 43 U/L (14-36); BLOOD UREA NITROGEN 4 mg/dl (7-17); CALCIUM 9.6 mg/dL (8.4-10.2); GFR NON-AFRICAN AMERICAN > 60; LIPASE 80 U/L (23-300)
[2018-06-15] MEDS ORDERED: Potassium Chloride 20 mEq ER Tab PO STA (11:37)
[2018-06-15 11:40] LABS: SQUAMOUS EPITHIAL 29 /hpf (0-5); URINE BACTERIA OCC (<OCC); URINE BILIRUBIN NEGATIVE (NEGATIVE); URINE BLOOD MODERATE (NEGATIVE); URINE CLARITY TURBID (Clear); URINE COLOR YELLOW (YELLOW); URINE GLUCOSE (UA) NEG (Normal); URINE HYALINE CAST 0-2 /hpf (0-2); URINE LEUKOCYTE ESTERASE MOD Leu/uL (Negative); URINE PROTEIN 30 mg/dL (NEGATIVE); URINE UROBILINOGEN 0.2-1.0 mg/dL (0.2-1.0)
[2018-06-15] MEDS ORDERED: DiphenhydrAMINE 50 mg/ml Inj ONE (12:09)
[2018-06-15] MEDS ORDERED: Potassium Chloride 20 mEq ER Tab PO ONE (12:35)
--- NOTE | 2018-06-15 12:52 | US ---
Date of service: 06/15/2018 HISTORY: Please eval gallbladder and appendix COMPARISON: None. TECHNIQUE: Grayscale imaging was performed. FINDINGS: LIVER: Measures 13.5 cm in length. Normal echogenicity of the liver parenchyma. No mass. No intrahepatic bile duct dilatation. GALLBLADDER: There are no gallstones, wall thickening or pericholecystic fluid. The sonographic Morris's sign is negative. COMMON BILE DUCT: Measures 3.3 mm. No stones. No dilatation. PANCREAS: Unremarkable as visualized. No mass. No ductal dilatation. RIGHT KIDNEY: Measures 12.0 cm in length. Normal echogenicity. No calculus, mass, or hydronephrosis. AORTA: No aneurysmal dilatation. IVC: Unremarkable. OTHER FINDINGS: The appendix is not visualized. There is excessive bowel in the right lower quadrant. IMPRESSION: No evidence of cholelithiasis or biliary dilatation. The appendix is not visualized. Please note nonvisualization of the appendix does not exclude acute appendicitis. Clinical follow-up is advised.
[2018-06-15 14:05] VITALS: BP 125/82; RESP 22; TEMP 98.3
[2018-06-15 20:07] VITALS: PULSE 104; O2SAT 98
--- NOTE | 2018-06-15 22:50 | CARD ---
APPROVED REPORT Date of service: 06/15/2018 EKG Measurement Heart [id number] <Conclusion> Sinus tachycardia Otherwise normal ECG
== END 2018-06-15 13:34 | disposition home or self-care (01) ==
LOC: H.ER 10:03
DX: N39.0 Urinary tract infection, site not specified (principal); K50.90 Crohn's disease, unspecified, without complications; Z88.5 Allergy status to narcotic agent
CPT/HCPCS: 76705; 80053; 81003; 81025; 82803; 83690; 85025; 85610; 85730; 86850; 86900; 87040; 93005; 96361; 96374; 96375; 99284; J1200; J2765; J7030

== ENCOUNTER 2018-09-02 08:42 | Emergency (ER) | payer BC ==
[2018-09-02 09:07] VITALS: BMI 18.8
[2018-09-02 09:09] VITALS: RESP 18; O2SAT 99
--- NOTE | 2018-09-02 09:24 | ED PDOC ---
HPI: Abdomen Time Seen by Provider: 09/02/18 09:20 History Per: Patient Additional Complaint(s): 33 year old female presented to ED for evaluation of abdominal pain. Pt is taking 2 mg tab of Dilaudid PO at home and reports that i is not working for her pain at this time. Pt states her abdominal pain suprapubic, Pain is 10/10 in severity and is sharp and crampy in nature. She has appetite but is afraid to eat. She denies fevers, chills, sweats, diarrhea/constipation muscle aches. Pt recently saw her GI and had some stool tests done. She is on stellara and bentyl for her crohns. Pt declining any imaging at this time. Allergies reviewed. PMD: Dr. Arshad ([facility]) Past Medical History Reviewed: Historical Data, Nursing Documentation, Vital Signs Vital Signs: Last Vital Signs Temp 98.8 F 09/02/18 09:07 Pulse 112 H 09/02/18 09:07 Resp 18 09/02/18 09:07 BP 131/67 09/02/18 09:07 Pulse Ox 99 09/02/18 09:07 - Medical History PMH: Anemia, Anxiety, Asthma, Bipolar Disorder, Crohn's Disease, Depression, Gastrointestinal Ulcer (peptic & gastric), Migraine (ABDOMINAL MIGRAINE), Pancreatitis, Chronic Pain (Abdominal) Denies: Chronic Kidney Disease - Surgical History Surgical History: Endoscopy Denies: Appendectomy, Cholecystectomy - Family History Family History: States: Unknown Family Hx, Diabetes - Living Arrangements Living Arrangements: With Family - Social History Current smoker - smoking cessation education provided: No Alcohol: None Drugs: Denies - Immunization History Hx Tetanus Toxoid Vaccination: No Hx Influenza Vaccination: Yes Hx Pneumococcal Vaccination: Yes - Home Medications Home Medications: Ambulatory Orders Medication Instructions Recorded Alprazolam [Xanax] 0.5 mg PO TID PRN #0 tablet 07/15/16 HYDROmorphone [Dilaudid] 2 mg PO Q6 PRN 07/20/17 Tramadol HCl [Tramadol HCl ER] 100 mg PO DAILY 12/28/17 Iron Fumarate/Vit C/Vit B12/FA 1 cap PO DAILY #30 capsule 12/30/17 [Hematogen Forte Softgel] OXcarbazepine [Trileptal] 900 mg PO HS #30 tab 12/30/17 Ondansetron [Zofran Tab] 4 mg PO Q6H PRN #15 tab 12/30/17 Ustekinumab [Stelara] 90 mg SC .[id number] #1 syringe 12/30/17 buPROPion XL [Wellbutrin XL] 300 mg PO DAILY #30 t24 12/30/17 Aripiprazole [Abilify] 15 mg PO HS 03/15/18 Topiramate [Topamax] 50 mg PO DAILY 03/15/18 Ondansetron ODT [Zofran ODT] 4 mg PO TID #20 odt 04/09/18 Metoclopramide [Reglan] 10 mg PO TID PRN #15 tab 06/15/18 Cephalexin [cephalexin] 500 mg PO BID #14 cap 09/02/18 - Allergies Allergies/Adverse Reactions: Allergies Allergy/AdvReac Type Severity Reaction Status Date / Time acetaminophen [From Percocet] Allergy SWELLING Verified 09/02/18 09:30 Gadolinium-Containing Allergy URTICARIA Verified 09/02/18 09:30 Contrast Medi Iodine and Iodide Containing Allergy RASH Verified 09/02/18 09:30 Produc ketorolac [From Toradol] Allergy URTICARIA Verified 09/02/18 09:30 Latex, Natural Rubber Allergy RASH Verified 09/02/18 09:30 morphine Allergy RASH Verified 09/02/18 09:30 oxycodone HCl [From Percocet] Allergy SWELLING Verified 09/02/18 09:30 shellfish derived Allergy RASH Verified 09/02/18 09:30 shrimp Allergy RASH Verified 09/02/18 09:30 doxycycline AdvReac extreme Verified 09/02/18 09:30 abdominal pain, cramps metronidazole [From Flagyl] AdvReac abdominal Verified 06/15/18 10:29 pain, cramps CONTRAST Allergy Severe URTICARIA Uncoded 06/15/18 10:29 SHRIMPS Allergy Severe RASH Uncoded 06/15/18 10:29 LATEX Allergy Intermediate RASH Uncoded 06/15/18 10:29 Review of Systems ROS Statement: Except As Marked, All Systems Reviewed And Found Negative Gastrointestinal: Positive for: Abdominal Pain Physical Exam - Reviewed Nursing Documentation Reviewed: Yes Vital Signs Reviewed: Yes - Physical Exam Appears: Positive for: Well, Non-toxic, No Acute Distress Head Exam: Positive for: ATRAUMATIC, NORMAL INSPECTION, NORMOCEPHALIC Skin: Positive for: Normal Color, Warm, DRY Eye Exam: Positive for: EOMI, Normal appearance, PERRL ENT: Positive for: Normal ENT Inspection Neck: Positive for: Normal, Painless ROM Cardiovascular/Chest: Positive for: Regular Rate, Rhythm Respiratory: Positive for: CNT, Normal Breath Sounds Gastrointestinal/Abdominal: Positive for: Normal Exam, Soft Back: Positive for: Normal Inspection Extremity: Positive for: Normal ROM Neurologic/Psych: Positive for: Alert, Oriented - Laboratory Results Result Diagrams: 09/02/18 10:40 09/02/18 10:40 - ECG O2 Sat by Pulse Oximetry: 99 Medical Decision Making Medical Decision Making: Plan: -CMP -Lipase -Urine dipstick -CBC w/ differential -Benadryl 50mg IVP -Magnesium Sulfate 1gm/100ml -1LNS -Solu-Medrol 125mg/50ml -Zofran 8 mg IV -IV insertion -Urine -Reevaluation Patient medicated with her abdominal pain migraine cocktail. Uhcg (-) Udip : +large leuks, 56 WBC noted on Urinalysis. IV Rocpehin administered. Labs reviewed : wbc wnl, hgb 8.67/hct 2.4, Pt notes this is normal for her and she is being followed by Dr. Yang Carlos On re-evaluation, patient reports improvement of symptoms, denies any nausea. On exam, patient remains AAOx3, in no acute distress. Abdomen soft, non-tender. Patient able to tolerate po. Diagnostic results d/w the patient in great detail. Based on history, exam and diagnostic results, plan will be for outpatient follo w up. Patient instructed to follow-up with her GI, hemonc and pain management doctor in 1-2 days without fail. Return to the emergency room at any time for any new or worsening symptoms. Patient states she fully agrees with and understands discharge instructions. States that she agrees with the plan and disposition. Verbalized and repeated discharge instructions and plan. I have given the patient opportunity to ask any additional questions. repeat pulse on DC: 88 Disposition - Clinical Impression Clinical Impression: UTI (urinary tract infection), Acute headache, Abdominal pain - Patient ED Disposition Is Patient to be Admitted: No - Disposition Disposition: Routine/Home Disposition Time: 14:13 Condition: STABLE Prescriptions: Cephalexin [cephalexin] 500 mg PO BID #14 cap Instructions: Acute Headache (ED), Urinary Tract Infections in Adults Forms: [employer] (Armenian)
[2018-09-02] MEDS ORDERED: Sodium Chloride 0.9% 1,000 ML IV STA (09:54)
[2018-09-02] MEDS ORDERED: DiphenhydrAMINE 50 mg/ml Inj IVP STA (09:54)
[2018-09-02] MEDS ORDERED: Magnesium Sulfate 1 gm in D5W 1 GM/100 ML BAG IVPB ONE (09:54)
[2018-09-02 10:37] LABS: SQUAMOUS EPITHIAL 55 /hpf (0-5); URINE BACTERIA OCC (<OCC); URINE BILIRUBIN NEGATIVE (NEGATIVE); URINE BLOOD SMALL (NEGATIVE); URINE CLARITY CLOUDY (Clear); URINE COLOR YELLOW (YELLOW); URINE GLUCOSE (UA) NEG (NEGATIVE); URINE HYALINE CAST >20 /hpf (0-2); URINE LEUKOCYTE ESTERASE LARGE Leu/uL (Negative); URINE PROTEIN 30 mg/dL (NEGATIVE); URINE UROBILINOGEN 0.2-1.0 mg/dL (0.2-1.0)
[2018-09-02 10:52] LABS: BASO % 0.4 % (0.0-2.0); EOS # 0.7 K/uL (0.0-0.7); EOS % 6.7 % (0.0-4.0); HEMOGLOBIN 8.6 g/dL (12.0-16.0); LYMPH # 3.6 K/uL (1.0-4.3); LYMPH % 35.7 % (20.0-40.0); MEAN CELL VOLUME 73.7 fl (81.0-99.0); MEAN CORPUSCULAR HEMOGLOBIN 23.8 pg (27.0-31.0); MEAN CORPUSCULAR HGB CONC 32.4 g/dL (33.0-37.0); MEAN PLATELET VOLUME 7.1 fl (7.2-11.7); MONO # 0.8 K/uL (0.0-0.8); MONO % 7.8 % (0.0-10.0); NEUT % 49.4 % (50.0-75.0); NRBC % 0.1 % (0.0-0.0); RBC 3.59 Mil/uL (3.80-5.20); RED CELL DISTRIBUTION WIDTH 18.7 % (11.5-14.5)
[2018-09-02] MEDS ORDERED: DiphenhydrAMINE 50 mg/ml Inj ONE (11:00)
[2018-09-02 11:24] LABS: ALB/GLOB RATIO 1.1 (1.0-2.1); ALBUMIN 3.8 g/dL (3.5-5.0); ALT/SGPT 26 U/L (9-52); AMYLASE 54 U/L (30-110); AST/SGOT 41 U/L (14-36); BLOOD UREA NITROGEN 6 mg/dl (7-17); GFR NON-AFRICAN AMERICAN > 60; LIPASE 50 U/L (23-300)
[2018-09-02 11:49] LABS: FERRITIN 7.9 ng/Ml (6.24-137.0)
[2018-09-02] MEDS ORDERED: cefTRIAXone (Rocephin) 1 gm Inj ONE (12:53)
[2018-09-02 14:15] VITALS: BP 128/72; PULSE 100; TEMP 98.6
== END 2018-09-02 14:15 | disposition home or self-care (01) ==
LOC: H.ER 08:42
DX: N39.0 Urinary tract infection, site not specified (principal); R10.9 Unspecified abdominal pain; R51 Headache
CPT/HCPCS: 80053; 81003; 81025; 82150; 82607; 82728; 83690; 83735; 85025; 85044; 96365; 96375; 99284; J0696; J1200; J2060; J2405; J2930; J3475; J7030